=== PATIENT | female | born 1950 | race Caucasian/White ===

== ENCOUNTER → 2016-09-19 | Outpatient (CLI) | payer MEDICARE ==
--- NOTE | 2016-09-19 13:49 | BD ---
EXAMINATION TYPE: MG DEXA axial skeleton. DATE OF EXAM: 09/19/2016 COMPARISON: Previous study dated 07/21/2014. CLINICAL HISTORY: Postmenopausal female Height: 5 FT 1 IN Weight: 180 FRAX RISK QUESTIONS: Alcohol (3 or more units per day): NO Family History (Parent hip fracture): NO Glucocorticoids (More than 3mos): NO (Ex: prednisone, prednisolone, methylprednisolone, dexamethasone, and hydrocortisone). History of Fracture in Adulthood: YES Secondary Osteoporosis: 1. Type 1 Diabetes: NO 2. Hyperthyroidism: NO 3. Menopause before 45: NO 4. Malnutrition: NO 5. Chronic liver disease: NO Rheumatoid Arthritis: NO Current Tobacco Use: NO RISK FACTORS HISTORY OF: Family History of Osteoporosis: NO Active: YES Postmenopausal woman: AGE 48 MEDICATIONS: Prednisone or other steroids: How Long: Thyroid Medications: Which medication: How Long: Osteoporosis Medications: Which medication: How Long: Additional Medications: METROPROLOL, ISOSORB MONO, HYDTLAZINE, LASIX, ALDACTONE, SIMVASTATIN, OMEPRAZ OLE, GLUCOPHAGE, ASPIRIN, NEURONTIN,CALCIUM EXAM MEASUREMENTS: Bone mineral densitometry was performed using the Gaikai System. Bone mineral density as measured about the Lumbar spine is: ----- L1-L4(G/cm2): 1.156 T Score Values are as follows: ----- L2: -0.4 ----- L3: 0.5 ----- L4: -0.7 ----- L1-L4: -0.2 Bone mineral density has: Decreased -0.3% since study of: 2014 Bone mineral density about the R hip (g/cm2): 0.892 Bone mineral density about the L hip (g/cm2): 0.917 T Score values are as follows: -----R Neck: -1.1 -----L Neck: -0.9 -----R Total: 0.1 -----L Total: 0.2 Bone mineral density has: Decreased -0.8% since study of: 2014 IMPRESSION: OSTEOPENIA. NOTE: T-SCORE=SD OF THE YOUNG ADULT MEAN.
--- NOTE | 2016-09-20 14:08 | MM ---
Reason for exam: screening (asymptomatic). Last mammogram was performed 1 year ago. History: Patient is postmenopausal. Physical Findings: A clinical breast exam by your physician is recommended on an annual basis and results should be correlated with mammographic findings. MG 3D Screening Mammo W/Cad Bilateral CC and MLO view(s) were taken. Prior study comparison: September 19, 2015, bilateral MG 3d screening mammo w/cad. August 10, 2014, bilateral MG screening mammo w CAD. The breast tissue is almost entirely fat. There is chronic nodularity in the left breast. No significant changes when compared with prior studies. ASSESSMENT: Benign, BI-RAD 2 RECOMMENDATION: Routine screening mammogram of both breasts in 1 year.
== END | disposition home or self-care (01) ==
LOC: RADMAMWWP 08:51
PROVIDERS: ATTEND Internal Medicine Geriatric Medicine
DX: Z12.31 Encounter for screening mammogram for malignant neoplasm of breast (principal); M85.80 Other specified disorders of bone density and structure, unspecified site
CPT/HCPCS: 77080; 77063; G0202

== ENCOUNTER 2016-10-17 07:20 | Day surgery (SDC) | payer MEDICARE ==
[2016-10-12 10:21] VITALS: BMI 34.0
[~2016-10-17 07:20] MED LIST: LIDOCAINE 1% 20 ML VIAL (10MG/ML) FOR IV START INTRADERMA PRN
[2016-10-17 07:49] VITALS: RESP 18; TEMP 98.1
[2016-10-17] MEDS: LACTATED RINGERS 1,000 ML IV SCH ×2 (07:58→08:03)
[2016-10-17 08:00] LABS: Glucose,Whole Blood 149 mg/dL (75-99)
--- NOTE | 2016-10-17 08:24 | P.PCN ---
Date of Procedure: 10/17/16 Preoperative Diagnosis: Postoperative Diagnosis: Procedure(s) Performed: Brief history: Patient is a pleasant 66-year-old white female, scheduled for an elective upper endoscopy as well as colonoscopy as a part of evaluation of worsening history of gastroesophageal reflux symptoms and prior history of colon polyps. She is presently on omeprazole 20 mg daily and doing well. Procedure performed: Esophagogastroduodenoscopy with biopsy Colonoscopy with snare polypectomy Preoperative diagnosis: GERD History of colon polyps Anesthesia: MAC Procedure: After informed consent was obtained from the patient was brought into the endoscopy unit and IV sedation was administered by anesthesia under continuous monitoring. Initially upper endoscopy was done. The Olympus GF 160 video endoscope was inserted inserted into the mouth and esophagus intubated without any difficulty and was gradually advanced into the stomach and duodenum and carefully examined. The bulb and second part of the duodenum appeared normal. The scope was then withdrawn into the stomach adequately insufflated with air and upon careful examination the antrum and body, cardia and fundus appeared normal. The scope was then withdrawn into the esophagus. The GE junction was located at 40 cm to the incisors. Small hiatal hernia noted. It appeared regular with no erythema erosions or ulcerations. There was a 2 mm island of Campos's appearing mucosa just proximal to the GE junction and this was biopsied. Rest of the esophagus appeared normal. Patient tolerated the procedure well. At this time the patient continued to remain sedation. Initial digital rectal examination was normal. Olympus CF 160 video colonoscope was then inserted into the rectum and gradually advanced to the cecum without any difficulty. Careful examination was performed as the scope was gradually being withdrawn. The prep was excellent. In the base of the cecum there was a 1 m polyp that was removed by snare polypectomy. The cecum, ascending colon, transverse colon , descending colon, sigmoid colon and rectum appeared normal. Retroflexion was performed in the rectum and no lesions were noted. Patient tolerated the procedure well. Impression: 1. Upper endoscopy revealed small hiatal hernia and a short segment Campos's esophagus 2. Colonoscopy revealed 1 cm cecal polyp serous was snare polypectomy. Rest of the colon appeared normal. Recommendations: Findings of this examination were discussed with the patient as well as her family. She was advised to follow with the biopsy results. She will continue with Prilosec 20 mg daily and follow antireflux measures. If the biopsy of the colon polyp shows tubular adenoma, she can have a repeat colonoscopy in 5 years Implants: Indications for Procedure: Operative Findings: Description of Procedure:
[2016-10-17 09:00] VITALS: BP 108/55; PULSE 58
[2016-10-17] MEDS ORDERED: LIDOCAINE 1% INJ 10MG/ML (20 ML MDV) ONE (09:04)
[2016-10-17] MEDS ORDERED: PROPOFOL 10 MG/ML 20 ML VIAL IV ONE (09:04)
== END 2016-10-17 09:03 | disposition home or self-care (01) ==
LOC: ORWHC2ENDO 07:20
PROVIDERS: ATTEND Internal Medicine Gastroenterology
DX: Z12.11 Encounter for screening for malignant neoplasm of colon (principal); D12.0 Benign neoplasm of cecum; K21.0 Gastro-esophageal reflux disease with esophagitis; K22.70 Barrett's esophagus without dysplasia; K44.9 Diaphragmatic hernia without obstruction or gangrene; Z86.010 Personal history of colon polyps; I10 Essential (primary) hypertension; G47.33 Obstructive sleep apnea (adult) (pediatric); E11.9 Type 2 diabetes mellitus without complications; Z79.82 Long term (current) use of aspirin; Z79.84 Long term (current) use of oral hypoglycemic drugs; Z79.899 Other long term (current) drug therapy; Z88.1 Allergy status to other antibiotic agents; Z88.0 Allergy status to penicillin; Z88.2 Allergy status to sulfonamides
CPT/HCPCS: 88305; 45385; 43239; J2001; J2704

== ENCOUNTER → 2016-12-27 | Outpatient (CLI) | payer MEDICARE ==
--- NOTE | 2016-12-31 07:59 | USB ---
Reason for exam: clinical finding. History: Patient is postmenopausal. Indicated problem(s): pain in the left breast. Physical Findings: Nurse Summary: Patient complains of left breast pain x 3 months (nurse irena). US Breast LT Left breast ultrasound includes all four quadrants, the retroareolar region and axilla. Finding demonstrates a 0.2 x 0.2 x 0.2cm cystic lesion at 2 o'clock, stable from 12/18/10. No other solid or cystic lesions. These results were verbally communicated with the patient and result sheet given to the patient on 12/27/16. ASSESSMENT: Benign, BI-RAD 2 RECOMMENDATION: Return to routine screening mammogram schedule for both breasts. Back on schedule for August 2017. Manage on a clinical basis with regard to left breast pain.
== END | disposition home or self-care (01) ==
LOC: RADUSWWP 14:55
PROVIDERS: ATTEND Internal Medicine Geriatric Medicine
DX: N64.4 Mastodynia (principal)

== ENCOUNTER → 2018-01-03 | Outpatient (CLI) | payer MEDICARE ==
--- NOTE | 2018-01-07 09:43 | MM ---
Reason for exam: screening (asymptomatic). Last mammogram was performed 1 year and 3 months ago. History: Patient is postmenopausal. Physical Findings: A clinical breast exam by your physician is recommended on an annual basis and results should be correlated with mammographic findings. MG 3D Screening Mammo W/Cad Bilateral CC and MLO view(s) were taken. Prior study comparison: September 19, 2016, bilateral MG 3d screening mammo w/cad. September 19, 2015, bilateral MG 3d screening mammo w/cad. The breast tissue is almost entirely fat. No significant changes when compared with prior studies. ASSESSMENT: Negative, BI-RAD 1 RECOMMENDATION: Routine screening mammogram of both breasts in 1 year.
== END | disposition home or self-care (01) ==
LOC: RADMAMWWP 09:40
PROVIDERS: ATTEND Internal Medicine Geriatric Medicine
DX: Z12.31 Encounter for screening mammogram for malignant neoplasm of breast (principal)
CPT/HCPCS: 77063; 77067

== ENCOUNTER → 2018-05-27 | Outpatient (CLI) | payer MEDICARE ==
--- NOTE | 2018-05-27 12:09 | CT ---
EXAMINATION TYPE: CT brain wo con DATE OF EXAM: 05/27/2018 HISTORY: Fall in January 2018. Headache since CT DLP: 1125 mGycm. Automated Exposure Control for Dose Reduction was Utilized. TECHNIQUE: CT scan of the head is performed without contrast. COMPARISON: None. FINDINGS: There is no acute intracranial hemorrhage or midline shift identified. There is diffuse v entricular and sulcal prominence consistent with diffuse age-related cerebral atrophy. There is low- attenuation in the periventricular white matter consistent with chronic small vessel ischemic change. The globes are intact and the visualized sinuses are clear. Vascular calcification distal internal carotid arteries bilaterally is incidentally seen. The calvarium is intact. IMPRESSION: No acute intracranial hemorrhage or midline shift. There is mild diffuse age-related ce rebral atrophy and chronic small vessel ischemic change incidentally noted.
== END ==
LOC: RADCTMAIN 11:17
PROVIDERS: ATTEND Internal Medicine Geriatric Medicine
DX: R51 Headache (principal)
CPT/HCPCS: 70450

== ENCOUNTER → 2018-06-24 | Outpatient (CLI) | payer MEDICARE ==
[2018-06-24 16:24] LABS: Albumin 4.3 g/dL (3.80-4.90); Albumin/Globulin Ratio 2.15 (1.60-3.17); Anion Gap 10.7 mmol/L (4.00-12.00); Calcium 9.5 mg/dL (8.7-10.3); Carbon Dioxide 25.3 mmol/L (21.6-31.8); LDL Cholesterol,Calculated 61.6 mg/dL (0.0-131.0); Total Bilirubin 0.7 mg/dL (0.2-1.2); Total Protein 6.3 g/dL (6.2-8.2); VLDL Calculation 26.4 mg/dL (5.00-40.00)
== END | disposition home or self-care (01) ==
LOC: LABWHC1 08:23
PROVIDERS: ATTEND Internal Medicine Interventional Cardiology
DX: E78.2 Mixed hyperlipidemia (principal)
CPT/HCPCS: 36415; 80053; 80061

== ENCOUNTER 2018-07-02 06:10 | Inpatient (IN) | payer MEDICARE ==
[~2018-07-02 06:10] MED LIST changes: +ALPRAZolam 0.25 MG TAB PO PRN; +ALPRAZolam 0.5 MG TAB PO PRN; +ASPIRIN 325 MG TAB PO STA; +ATORVASTATIN 80 MG TAB PO STA; -LIDOCAINE 1% 20 ML VIAL (10MG/ML) FOR IV START INTRADERMA PRN; +NITROGLYCERIN SL TABS 0.4 MG TAB SUBLINGUAL PRN; +SODIUM CHLORIDE 0.9% 1,000 ML in EMPTY BAG 1 BAG IV ONE
[2018-07-02 07:14] LABS: Glucose,Whole Blood 173 mg/dL (75-99)
[2018-07-02] MEDS ORDERED: VERAPAMIL 2.5 MG/ML 2 ML AMP ONE (07:17)
[2018-07-02] MEDS ORDERED: LIDOCAINE 1% INJ 10MG/ML (20 ML MDV) ONE (07:17)
[2018-07-02] MEDS ORDERED: HEPARIN SODIUM 1,000 UN/ML (10ML VL) ONE (07:27)
[2018-07-02] MEDS ORDERED: fentaNYL (PF) 50 MCG/ML 2 ML AMP ONE (07:28)
[2018-07-02 07:29] LABS: Basophils # (A) 0.1 k/uL (0-0.2); Basophils % (A) 1 %; Eosinophils # (A) 0.3 k/uL (0-0.7); Eosinophils % (A) 4 %; HCT 38.7 % (34.0-46.0); HGB 13.6 gm/dL (11.4-16.0); Lymphocytes # (A) 1.3 k/uL (1.0-4.8); Lymphocytes % (A) 18 %; MCH 28.2 pg (25.0-35.0); MCHC 35.1 g/dL (31.0-37.0); MCV 80.3 fL (80.0-100.0); Mean Platelet Volume 7.5; Monocytes # (A) 0.5 k/uL (0-1.0); Monocytes % (A) 6 %; Neutrophils # (A) 4.8 k/uL (1.3-7.7); Neutrophils % (A) 69 %; Platelet Count 175 k/uL (150-450); RBC 4.81 m/uL (3.80-5.40); RDW 14.1 % (11.5-15.5)
[2018-07-02] MEDS ORDERED: fentaNYL (PF) 50 MCG/ML 2 ML AMP IVP ONE ×2 (08:00→19:26)
[2018-07-02] MEDS ORDERED: LIDOCAINE 1% INJ 10MG/ML (20 ML MDV) SQ ONE (08:01)
[2018-07-02] MEDS ORDERED: VERAPAMIL SYRINGE (5 MG/10 ML) INTRAARTER ONE (08:03)
[2018-07-02] MEDS ORDERED: IOPAMIDOL-370 50ML BTL INJ ONE (08:16)
[2018-07-02] MEDS ORDERED: RX INFO: IV CONTRAST WAS GIVEN 1 EACH MISC MISCELLANE PRN (08:34)
[2018-07-02] MEDS ORDERED: HEPARIN SODIUM,PORCINE 5,000 UNIT/ML 1 ML VIAL IV PRN (08:36)
[2018-07-02] MEDS ORDERED: SODIUM CHLORIDE 0.9% 1,000 ML IV SCH (08:45)
[2018-07-02] MEDS ORDERED: MD COMMUNICATION TO PHARMACY 1 EACH MISC PO ONE (09:29)
--- NOTE | 2018-07-02 10:03 | XR ---
EXAMINATION TYPE: XR chest 2V DATE OF EXAM: 07/02/2018 COMPARISON: Chest x-ray April 05, 2010. HISTORY: Pre open cardiac surgery. TECHNIQUE: Frontal and lateral views of the chest are obtained. FINDINGS: Overlying EKG leads are seen on current study. There is no focal air space opacity, pleura l effusion, or pneumothorax seen. The cardiac silhouette size remains upper limits of normal with at herosclerotic change in aortic knob. The osseous structures are intact. Cholecystectomy clips are r edemonstrated. IMPRESSION: No suspicious acute process. No significant change from prior.
--- NOTE | 2018-07-02 10:44 | P.GSCN ---
<Shirley Tracey - Last Filed: 07/02/18 15:54> History of Present Illness Consult date: 07/02/18 Reason for Consult: Coronary artery disease with left main disease, surgical recommendations Requesting physician: Melchor Love History of present illness: This is a 68-year-old female who follows on an outpatient basis with Dr. Baptiste. She has a previous medical history of coronary artery disease with heart catheterization in 2006 and no intervention, hypertension, hyperlipidemia, nwa-gjhzzwj-rjrnqevye diabetes mellitus, obstructive sleep apnea without consistent CPAP use, family history of premature coronary artery disease with father from myocardial infarction at 54 years old, never smoker, obesity, and questionable kidney disease. Apparently she has had progressive fatigue and chest discomfort with shortness of breath with physical activity over the previous 2 months. Her chest discomfort and shortness of breath are relieved with rest. She denies dizziness, orthopnea, paroxysmal nocturnal dyspnea, stroke like symptoms, or sick contacts. She does complain of occasional lower extremity edema as well as heart palpitations. She had a routine stress test scheduled which she gets every [address] Love's office which was completed on June 17 and which demonstrated reversible anterior apical wall defect. In addition she had a transthoracic echocardiogram on June 11 demonstrating normal systolic function with ejection fraction 55%, no regional wall motion abnormalities, moderate mitral valve regurgitation, and mild tricuspid regurgitation. Carotid Dopplers were completed in Dr. Love's office demonstrating bilateral 50-79% internal carotid artery stenosis. She was recommended to undergo heart catheterization which was completed today and which demonstrated 60% left main stenosis, mid LAD stenosis 40-50%, and RCA stenosis 40%. LV gram demonstrated EF 60% and normal wall motion. Due to her left main disease urgent consultation was placed for Dr. Garcia from cardiothoracic surgery. Review of Systems Review of systems was completed and was negative except as noted in the HPI Past Medical History Past Medical History: Coronary Artery Disease (CAD), Chest Pain / Angina, Diabetes Mellitus, GERD/Reflux, Hyperlipidemia, Hypertension, Osteoarthritis (OA), Sleep Apnea/CPAP/BIPAP Additional Past Medical History / Comment(s): heart murmer, palpitations, no cpap used, hiatal hernia, "low kidney function" History of Any Multi-Drug Resistant Organisms: None Reported Past Surgical History: Adenoidectomy, Appendectomy, Cholecystectomy, Heart Catheterization, Hysterectomy, Tonsillectomy Additional Past Surgical History / Comment(s): COLONOSCOPY, heart catheterization in 2006 without intervention Past Anesthesia/Blood Transfusion Reactions: Previous Problems w/ Anesthesia Additional Past Anesthesia/Blood Transfusion Reaction / Comm: SLOW TO WAKE UP Past Psychological History: No Psychological Hx Reported Smoking Status: Never smoker Past Alcohol Use History: None Reported Past Drug Use History: None Reported - Past Family History Sister(s) Family Medical History: Cancer Father Family Medical History: Coronary Artery Disease (CAD) Additional Family Medical History / Comment(s): Father of myocardial infarction at 54 years old Mother Family Medical History: Congestive Heart Failure (CHF) Medications and Allergies Home Medications Medication Instructions Recorded Confirmed Type Aspirin EC [Ecotrin Low Dose] 81 mg PO DAILY 10/12/16 07/02/18 History Furosemide [Lasix] 20 mg PO DAILY 10/12/16 07/02/18 History Gabapentin [Neurontin] 300 mg PO BID 10/12/16 07/02/18 History Isosorbide Mononitrate [Isosorbide 30 mg PO DAILY 10/12/16 07/02/18 History Mononitrate ER] Metoprolol Tartrate [Lopressor] 50 mg PO BID 10/12/16 07/02/18 History Multivitamins, Thera [Multivitamin 1 each PO DAILY 10/12/16 07/02/18 History (formulary)] Omeprazole 20 mg PO BID 10/12/16 07/02/18 History Spironolactone [Aldactone] 25 mg PO DAILY 10/12/16 07/02/18 History hydrALAZINE HCL [Hydralazine HCl] 50 mg PO BID 10/12/16 07/02/18 History metFORMIN HCL [Glucophage] 500 mg PO BID 10/12/16 07/02/18 History Cyanocobalamin [Vitamin B-12] 500 mcg PO DAILY 06/27/18 07/02/18 History Simvastatin [Zocor] 40 mg PO HS 06/27/18 07/02/18 History Allergies Allergy/AdvReac Type Severity Reaction Status Date / Time Penicillins Allergy Anaphylaxis Verified 07/02/18 06:53 sulfamethoxazole Allergy Nausea Verified 07/02/18 06:53 [From Bactrim] trimethoprim [From Bactrim] Allergy Nausea Verified 07/02/18 06:53 Surgical - Exam Vital Signs Temp Pulse Resp BP Pulse Ox 98 F 65 18 128/74 97 07/02/18 07:08 07/02/18 07:08 07/02/18 07:08 07/02/18 07:08 07/02/18 07:08 - General well developed, well nourished, no distress, no pain, obese - Eyes Right eye deviation PERRL - ENT no hearing loss - Neck no masses, no bruits, trachea midline - Respiratory Lungs sounds clear bilaterally. Respirations even, nonlabored. Currently on ro om air with oxygen saturation 94%. No chest wall deformities. - Cardiovascular S1, S2 present. Regular rate and rhythm, sinus rhythm with occasional PVCs on telemetry. Palpable peripheral pulses bilaterally. Bilateral lower extremity 1+ edema present. No calf pain or tenderness noted. No varicosities noted. Right radial heart catheterization site intact with T band in place. - Abdomen No organomegaly Abdomen: soft, non tender, bowel sounds - Genitourinary Deferred - Rectum Deferred - Integumentary no rash, no growths, no abnormal pigmentation - Neurologic normal coordination, normal sensation - Musculoskeletal normal posture - Psychiatric oriented to time, oriented to person, oriented to place, speech is normal, memory intact Results - Labs 07/02/18 07:00 Abnormal Lab Results - Last 24 Hours (Table) 07/02/18 Range/Units 07:05 POC Glucose (mg/dL) 173 H (75-99) mg/dL - Imaging Chest x-ray: report reviewed, image reviewed Additional studies: Heart catheterization films reviewed Assessment and Plan Assessment: 1. Coronary artery disease with left main disease 2. Moderate mitral regurgitation 3. Bilateral internal carotid artery stenosis 50-79% 4. History of CAD, heart catheterization in 2006 without intervention 5. Hypertension, treated 6. Hyperlipidemia, treated 7. Luy-kvnbwpk-yogugpicf diabetes mellitus 8. Obstructive sleep apnea without consistent CPAP use 9. Family history of premature coronary artery disease 10. Never smoker 11. Obesity 12. Questionable kidney disease per patient Plan: The patient was seen and examined in the extended stay unit. Chart/diagnostics were reviewed including heart catheterization films. Reports were obtained from [facility] for patient's transthoracic echocardiogram, stress test, and carotid duplex studies. Patient is in no acute distress, denies any chest pain or discomfort currently. The usual perioperative course was discussed in detail with the patient and her daughter, risks and benefits were discussed, all questions were answered to the best of my ability. Preoperative testing was initiated. We recommend continuing aspirin, statin, beta maria l therapy. We will calculate STS risk score and discuss with the patient. 5 m walk test will be completed. Case discussed with Drs. Garcia and Gregorio. She will be seen by a cardiothoracic surgeon today for further discussion regarding timing of surgery. Continue medical management per Dr. Love and Dr. Baptiste. More recommendations to follow. Thank you Dr. Love for this consult. We look forward to working with you in the care of your patient. Time with Patient: Greater than 30 <Hosea Garcia - Last Filed: 07/02/18 19:38> Surgical - Exam Vital Signs Temp Pulse Resp BP Pulse Ox 98 F 65 18 128/74 97 07/02/18 07:08 07/02/18 07:08 07/02/18 07:08 07/02/18 07:08 07/02/18 07:08 Results - Labs 07/02/18 10:17 07/02/18 10:17 Abnormal Lab Results - Last 24 Hours (Table) 07/02/18 07/02/18 07/02/18 Range/Units 07:05 10:17 10:17 Plt Count 149 L (150-450) k/uL APTT (22.0-30.0) sec Sodium (137-145) mmol/L Glucose (74-99) mg/dL POC Glucose (mg/dL) 173 H (75-99) mg/dL Hemoglobin A1c 6.2 H (4.0-6.0) % Crossmatch 07/02/18 07/02/18 07/02/18 Range/Units 10:17 10:17 10:17 Plt Count (150-450) k/uL APTT 58.6 H (22.0-30.0) sec Sodium 135 L (137-145) mmol/L Glucose 166 H (74-99) mg/dL POC Glucose (mg/dL) (75-99) mg/dL Hemoglobin A1c (4.0-6.0) % Crossmatch See Detail 07/02/18 07/02/18 07/02/18 Range/Units 10:59 18:33 18:51 Plt Count (150-450) k/uL APTT 50.1 H (22.0-30.0) sec Sodium (137-145) mmol/L Glucose (74-99) mg/dL POC Glucose (mg/dL) 172 H 203 H (75-99) mg/dL Hemoglobin A1c (4.0-6.0) % Crossmatch Diabetes panel 07/02/18 07/02/18 Range/Units 10:17 10:17 Sodium 135 L (137-145) mmol/L Potassium 4.0 (3.5-5.1) mmol/L Chloride 99 (98-107) mmol/L Carbon Dioxide 27 (22-30) mmol/L BUN 13 (7-17) mg/dL Creatinine 0.70 (0.52-1.04) mg/dL Glucose 166 H (74-99) mg/dL Hemoglobin A1c 6.2 H (4.0-6.0) % Calcium 9.8 (8.4-10.2) mg/dL AST 25 (14-36) U/L ALT 35 (9-52) U/L Alkaline Phosphatase 67 (38-126) U/L Total Protein 7.3 (6.3-8.2) g/dL Albumin 4.4 (3.5-5.0) g/dL Thyroid panel 07/02/18 Range/Units 10:17 TSH 1.800 (0.465-4.680) mIU/L Calcium panel 07/02/18 Range/Units 10:17 Calcium 9.8 (8.4-10.2) mg/dL Albumin 4.4 (3.5-5.0) g/dL Pituitary panel 07/02/18 Range/Units 10:17 Sodium 135 L (137-145) mmol/L Potassium 4.0 (3.5-5.1) mmol/L Chloride 99 (98-107) mmol/L Carbon Dioxide 27 (22-30) mmol/L BUN 13 (7-17) mg/dL Creatinine 0.70 (0.52-1.04) mg/dL Glucose 166 H (74-99) mg/dL Calcium 9.8 (8.4-10.2) mg/dL TSH 1.800 (0.465-4.680) mIU/L Adrenal panel 07/02/18 Range/Units 10:17 Sodium 135 L (137-145) mmol/L Potassium 4.0 (3.5-5.1) mmol/L Chloride 99 (98-107) mmol/L Carbon Dioxide 27 (22-30) mmol/L BUN 13 (7-17) mg/dL Creatinine 0.70 (0.52-1.04) mg/dL Glucose 166 H (74-99) mg/dL Calcium 9.8 (8.4-10.2) mg/dL Total Bilirubin 1.0 (0.2-1.3) mg/dL AST 25 (14-36) U/L ALT 35 (9-52) U/L Alkaline Phosphatase 67 (38-126) U/L Total Protein 7.3 (6.3-8.2) g/dL Albumin 4.4 (3.5-5.0) g/dL Assessment and Plan Plan: The patient was seen and examined. I agree with the above assessment and plan. The patient is a 68-year-old female with a history of diabetes mellitus, hypertension, and hypercholesterolemia, who reports chest discomfort for the past several months. Stress test was performed and found to be abnormal. Cardiac catheterization did reveal a left main coronary lesion is not amenable to PCI. A coronary artery bypass was recommended. The risks, benefits, and alternatives to this procedure including but not limited to the risk of stroke, myocardial infarction, infection, need for blood transfusion, hemodialysis, and were discussed with the patient and her daughter. All of their questions were answered. The patient's preoperative workup is now complete. She is cu rrently chest pain-free and hemodynamically stable. We will plan on performing her procedure first thing in the morning. I did speak with Dr. Love who is in agreement.
--- NOTE | 2018-07-02 10:48 | CC ---
CARDIAC CATHETERIZATION REPORT Mrs. Ochoa 68-year-old female with known history of hypertension, hyperlipidemia, diabetes mellitus, who presented with symptoms of exertional chest pain and abnormal myocardial perfusion imaging. In view of that, recommendation was made regarding cardiac catheterization. The procedure as well as the risks and complications were discussed with the patient who is in full understanding and agreement. PROCEDURE: Patient was brought to the lab instructor in a fasting semi-sedated state after receiving fentanyl and Benadryl and achieving moderate conscious sedated state. Using Xylocaine anesthesia in the Seldinger technique, a 6-St Lucian sheath was introduced in the right radial artery. Selective right and left coronary angiography was performed using 3.5 bend, 5-St Lucian right and left Tab catheter. Multiple views of the coronary artery including hemiaxial views were obtained. Following that a 5-St Lucian tight pigtail catheter was introduced in the left ventricle and a 30-degree WOMACK view of the left ventricle was obtained. Following that, catheter and sheath were removed. Hemostasis was obtained with deployment of a TR band. There was no immediate complication. Patient was returned to his room in stable condition. Of note, the patient received 4500 units of intravenous heparin as well as intra-arterial verapamil. FLUOROSCOPY: There was calcification involving the left anterior descending artery and the left main as well as the proximal right coronary artery. LEFT MAIN: This is a large-sized vessel bifurcating in left circumflex, left anterior descending artery. Left main coronary artery distally at the bifurcation has a 60% plaque involving the takeoff of the LAD. LEFT ANTERIOR DESCENDING ARTERY: This is a large-sized vessel reaching to the apex with a wraparound apex segment giving rise to a moderately sized diagonal branch. The LAD in the mid segment has a plaque of 40% to 50%. The rest of the vessel has no high- grade stenosis. LEFT CIRCUMFLEX: This is a nondominant large vessel giving rise to 3 obtuse marginal branches. The third one is the largest in caliber. The left circumflex has no evidence of high-grade stenosis. RIGHT CORONARY ARTERY: This is a large dominant vessel bifurcating distally to PDA and posterolateral segment and branches. Right coronary artery in the mid segment has 40% plaque. The rest of the vessel has no high-grade stenosis. LEFT VENTRICULOGRAM: Left ventriculogram is performed in 30-degree WOMACK view and revealed normal left ventricular size and systolic function. Ejection fraction 60%. There was no significant mitral regurgitation. HEMODYNAMICS: There was no gradient across the aortic valve. The left ventricular end- diastolic pressure was 12 to 16 mmHg. CONCLUSION: 1. Significant distal left main disease involving the ostium of the LAD. 2. Moderate disease in the mid LAD and right coronary artery. 3. Calcified coronary arteries. 4. Normal left ventricular size and systolic function. RECOMMENDATION: In view of finding anatomy, I recommend proceeding with evaluation for coronary bypass grafting. The rationale behind the recommendation as well as the findings were discussed with the patient and her family and they are in full understanding and agreement. Duration of procedure is 16 minutes. MMODL / IJN: [id number] /
--- NOTE | 2018-07-02 10:56 | LTR ---
July 02, 2018 Re: Susan Ochoa Dear Dr. Baptiste: I had the opportunity to performed cardiac catheterization on Mrs. Ochoa at [facility] on the 02 of July and a full copy of the procedure note will be forwarded to you. In brief, she was found to have significant distal left main disease involving the ostium of the LAD. In view of that, I have recommended to proceed with evaluation for coronary artery bypass grafting. I will keep you updated on her progress. Thank you again for allowing me the opportunity to participate in her care. Please feel free to call for any questions. Sincerely yours, MD ANITHA AndreaL / ANTONION: [id number] /
[2018-07-02 11:01] LABS: Glucose,Whole Blood 172 mg/dL (75-99)
[2018-07-02 11:34] LABS: Partial Thromboplastin Time 58.6 sec (22.0-30.0); Prothrombin Time 10.5 sec (9.0-12.0)
[2018-07-02 11:36] LABS: Basophils % (A) 0 %; Eosinophils # (A) 0.2 k/uL (0-0.7); Eosinophils % (A) 2 %; HGB 14.1 gm/dL (11.4-16.0); Lymphocytes # (A) 1.4 k/uL (1.0-4.8); Lymphocytes % (A) 19 %; MCH 28.2 pg (25.0-35.0); MCHC 34.5 g/dL (31.0-37.0); MCV 81.8 fL (80.0-100.0); Monocytes # (A) 0.3 k/uL (0-1.0); Monocytes % (A) 4 %; Neutrophils # (A) 5.1 k/uL (1.3-7.7); Neutrophils % (A) 72 %; Platelet Count 149 k/uL (150-450); RBC 5.01 m/uL (3.80-5.40); RDW 14.7 % (11.5-15.5); WBC 7.1 k/uL (3.8-10.6)
[2018-07-02 11:38] LABS: ALT 35 U/L (9-52); AST 25 U/L (14-36); Albumin 4.4 g/dL (3.5-5.0); Alkaline Phosphatase 67 U/L (38-126); Anion Gap 9 mmol/L; Blood Urea Nitrogen 13 mg/dL (7-17); Calcium 9.8 mg/dL (8.4-10.2); Carbon Dioxide 27 mmol/L (22-30); Chloride 99 mmol/L (98-107); Glucose 166 mg/dL (74-99); Magnesium 1.9 mg/dL (1.6-2.3); Sodium 135 mmol/L (137-145); Total Protein 7.3 g/dL (6.3-8.2)
[2018-07-02] MEDS: HEPARIN SOD,PORK IN 0.45% NACL 25,000 UNIT in 0.45% NACL 1 250ML.BAG IV SCH (12:01)
[2018-07-02 15:57] LABS: Appearance,Urine Clear (Clear); Bilirubin,Urine Negative (Negative); Blood,Urine Negative (Negative); Color,Urine Light Yellow; Glucose,Urine (UA) Negative (Negative); Ketones,Urine Negative (Negative); Leukocyte Esterase,Urine Negative (Negative); Nitrite,Urine Negative (Negative); Protein,Urine Negative (Negative); Specific Gravity,Urine 1.018 (1.001-1.035); Urobilinogen,Urine <2.0 mg/dL (<2.0)
[2018-07-02 18:45] LABS: Hemoglobin A1C 6.2 % (4.0-6.0)
[2018-07-02] MEDS: CYANOCOBALAMIN 500 MCG TAB PO SCH (18:49)
[2018-07-02] MEDS: ASPIRIN 81 MG PO SCH (18:49)
[2018-07-02] MEDS: GABAPENTIN 300 MG CAP PO SCH ×2 (18:50→20:34)
[2018-07-02] MEDS: hydrALAZINE HCL 50 MG TAB PO SCH ×2 (18:50→19:31)
[2018-07-02] MEDS: ISOSORBIDE MONONITRATE ER 30 MG TAB.ER.24H PO SCH (18:50)
[2018-07-02] MEDS: METOPROLOL TARTRATE 50 MG TAB PO SCH ×2 (18:50→19:31)
[2018-07-02] MEDS: FUROSEMIDE 20 MG TAB PO SCH (18:50)
[2018-07-02] MEDS: SPIRONOLACTONE 25 MG TAB PO SCH (18:51)
[2018-07-02] MEDS: PANTOPRAZOLE 40 MG TABLET PO SCH (18:51)
[2018-07-02 18:52] LABS: Glucose,Whole Blood 203 mg/dL (75-99)
[2018-07-02 20:12] LABS: Glucose,Whole Blood 188 mg/dL (75-99)
[2018-07-02] MEDS: MUPIROCIN 2% OINT 22 GM TUBE NASAL SCH (20:34)
[2018-07-02 20:55] LABS: Hepatitis A Antibody IgM Non-Reactive (Non-Reactive); Hepatitis B Core IgM Non-Reactive (Non-Reactive)
[2018-07-02] MEDS ORDERED: ATORVASTATIN 20 MG TAB PO SCH (21:00)
[2018-07-02 21:32] LABS: Glucose,Whole Blood 147 mg/dL (75-99)
[2018-07-02] MEDS: INSULIN ASPART (NovoLOG) 100 UNIT/ML VIAL SQ SCH (21:59)
[2018-07-02 22:28] LABS: HCT 39.6 % (34.0-46.0); HGB 12.9 gm/dL (11.4-16.0); MCH 27.6 pg (25.0-35.0); MCHC 32.5 g/dL (31.0-37.0); Mean Platelet Volume 7.5; Platelet Count 168 k/uL (150-450); RBC 4.66 m/uL (3.80-5.40); RDW 14.2 % (11.5-15.5); WBC 7.6 k/uL (3.8-10.6)
[2018-07-03] MEDS ORDERED: PAPAVERINE 360 MG in SODIUM CHLORIDE 0.9% 90 ML IV ONE (05:00)
[2018-07-03] MEDS ORDERED: MAGNESIUM SULFATE SYG 4.06 MEQ/ML SYRINGE IV ONE (05:00)
[2018-07-03] MEDS ORDERED: DEXTROSE 5% IN WATER 1,000 ML with POTASSIUM CHLORIDE 110 MEQ, MAGNESIUM SULFATE 16 MEQ... IV SCH ×5 (05:00)
[2018-07-03] MEDS ORDERED: METOPROLOL TARTRATE 12.5 MG TAB PO ONE (05:00)
[2018-07-03] MEDS ORDERED: PROPOFOL 1,000 MG in EMPTY BAG 1 BAG IV PRN (05:00)
[2018-07-03] MEDS ORDERED: PHENYLEPHRINE 10 MG/ML VIAL IV ONE (05:00)
[2018-07-03] MEDS ORDERED: VANCOMYCIN 1,000 MG in SODIUM CHLORIDE 0.9% IRRIGATIO 1,000 ML IRRIGATION ONE (05:00)
[2018-07-03] MEDS ORDERED: HEPARIN SODIUM,PORCINE 5,000 UNIT in SODIUM CHLORIDE 0.9% 500 ML 500 ML IV ONE (05:00)
[2018-07-03] MEDS ORDERED: VANCOMYCIN 1,250 MG in SODIUM CHLORIDE 0.9% 250 ML IVPB ONE (05:00)
[2018-07-03] MEDS ORDERED: INSULIN REGULAR 100 UNIT in SODIUM CHLORIDE 0.9% 100 ML IV SCH (05:00)
[2018-07-03] MEDS ORDERED: CALCIUM CHLORIDE 100 MG/ML 10 ML SYRINGE IVP ONE (05:00)
[2018-07-03] MEDS ORDERED: NITROGLYCERIN-D5W PMX 25 MG/250 ML BTL IV ONE (05:00)
[2018-07-03] MEDS ORDERED: PHENYLEPHRINE 40 MG in SODIUM CHLORIDE 0.9% 250 ML IV ONE (05:00)
[2018-07-03] MEDS ORDERED: ALBUMIN HUMAN 5% 500 ML in EMPTY BAG 1 BAG IVPB ONE ×6 (05:00)
[2018-07-03] MEDS ORDERED: NITROGLYCERIN-D5W PMX 50 MG in DEXTROSE/WATER 1 250ML.BAG IV SCH ×2 (05:00→15:15)
[2018-07-03] MEDS ORDERED: ALBUMIN HUMAN 25% 50 ML in EMPTY BAG 1 BAG IVPB ONE (05:00)
[2018-07-03] MEDS ORDERED: NOREPINEPHRINE 4 MG in SODIUM CHLORIDE 0.9% 250 ML IV SCH (05:00)
[2018-07-03] MEDS ORDERED: CHLORHEXIDINE GLUCONATE 15 ML CUP MUCOUS MEM ONE (05:00)
[2018-07-03] MEDS ORDERED: DEXTROSE 5% IN WATER 1,000 ML with POTASSIUM CHLORIDE 25 MEQ, SODIUM CHLORIDE 2.5MEQ/ML... IV SCH ×6 (05:00)
[2018-07-03] MEDS ORDERED: TRANEXAMIC ACID 2,000 MG in SODIUM CHLORIDE 0.9% 80 ML IV ONE (05:00)
[2018-07-03] MEDS ORDERED: LACTATED RINGERS 1,000 ML IV SCH ×2 (05:00→13:28)
[2018-07-03] MEDS ORDERED: CLEVIDIPINE BUTYRATE 25 MG in EMPTY BAG 1 BAG IV SCH (05:00)
[2018-07-03] MEDS ORDERED: MANNITOL 25% 12.5 GM/50 ML VIAL IV ONE ×2 (05:00)
[2018-07-03] MEDS ORDERED: PROTAMINE SULFATE 10 MG/ML 25 ML VIAL IV ONE ×2 (05:00→08:00)
[2018-07-03] MEDS ORDERED: HEPARIN SODIUM 1,000 UN/ML (10ML VL) IV ONE (05:00)
[2018-07-03] MEDS ORDERED: ASPIRIN 325 MG TAB PO ONE (05:00)
[2018-07-03] MEDS ORDERED: ATORVASTATIN 10 MG TAB PO ONE (05:00)
[2018-07-03] MEDS ORDERED: SODIUM BICARB 8.4% 50 ML SYR (1 MEQ/ML) IV ONE (05:00)
[2018-07-03] MEDS ORDERED: PROTAMINE SULFATE 250 MG in EMPTY BAG 1 BAG IV ONE (05:00)
[2018-07-03 06:12] LABS: Basophils % (A) 0 %; Eosinophils # (A) 0.3 k/uL (0-0.7); Eosinophils % (A) 4 %; HCT 38.6 % (34.0-46.0); HGB 12.7 gm/dL (11.4-16.0); Lymphocytes # (A) 1.7 k/uL (1.0-4.8); Lymphocytes % (A) 26 %; MCH 28.1 pg (25.0-35.0); MCHC 32.9 g/dL (31.0-37.0); MCV 85.4 fL (80.0-100.0); Mean Platelet Volume 7.1; Monocytes # (A) 0.3 k/uL (0-1.0); Monocytes % (A) 4 %; Neutrophils # (A) 4.1 k/uL (1.3-7.7); Neutrophils % (A) 63 %; Platelet Count 149 k/uL (150-450); RBC 4.53 m/uL (3.80-5.40); RDW 14.2 % (11.5-15.5); WBC 6.5 k/uL (3.8-10.6)
[2018-07-03 06:32] LABS: Anion Gap 9 mmol/L; Blood Urea Nitrogen 12 mg/dL (7-17); Calcium 9.3 mg/dL (8.4-10.2); Carbon Dioxide 24 mmol/L (22-30); Chloride 104 mmol/L (98-107); Glucose 146 mg/dL (74-99); Potassium 4.3 mmol/L (3.5-5.1); Sodium 137 mmol/L (137-145)
[2018-07-03] MEDS ORDERED: MAGNESIUM SULFATE 4 MEQ/ML 10ML VIAL ONE (08:00)
[2018-07-03] MEDS ORDERED: SUCCINYLCHOLINE CHLORIDE 100 MG/5 ML SYR IV ONE (08:00)
[2018-07-03] MEDS ORDERED: HEPARIN SODIUM,PORCINE 10,000 UNIT/ML 1 ML VIAL ONE (08:00)
[2018-07-03] MEDS ORDERED: fentaNYL (PF) 50 MCG/ML 2 ML AMP ONE (08:00)
[2018-07-03] MEDS ORDERED: PROPOFOL 10 MG/ML 20 ML VIAL IV ONE (08:00)
[2018-07-03] MEDS ORDERED: ePHEDrine SULFATE/0.9% NACL/PF 50 MG/5 ML SYRINGE IV ONE (08:00)
[2018-07-03] MEDS ORDERED: MIDAZOLAM 2 MG/2 ML VIAL ONE (08:00)
[2018-07-03] MEDS ORDERED: VECURONIUM 10 MG VIAL IV ONE (08:00)
[2018-07-03] MEDS ORDERED: LIDOCAINE 2% SYG (PF) 100 MG/5 ML ONE (08:00)
[2018-07-03] MEDS ORDERED: SODIUM CHLORIDE 0.9% 250 ML BAG ONE (08:00)
[2018-07-03] MEDS ORDERED: TRANEXAMIC ACID 1,000 MG/10 ML VIAL ONE (08:00)
[2018-07-03] MEDS ORDERED: fentaNYL (PF) 50 MCG/ML 50 ML VIAL ONE (08:00)
[2018-07-03] MEDS ORDERED: PHENYLEPHRINE-0.9% NACL SYG 1 MG/10 ML SYRINGE ONE (08:00)
[2018-07-03 08:44] LABS: ABG Base Excess 0.2 mmol/L; ABG HCO3 24 mmol/L (21-25); ABG Oxygen Saturation 99.9 % (94-97); ABG PCO2 33 mmHg (35-45); ABG PH 7.46 (7.35-7.45); ABG PO2 168 mmHg (83-108); ABG Potassium Whole Blood 4.2 mmol/L (3.4-4.5); ABG Sodium Whole Blood 135 mmol/L (135-146); ABG TCO2 25 mmol/L (19-24)
[2018-07-03 09:57] LABS: ABG Base Excess -1.8 mmol/L; ABG HCO3 24 mmol/L (21-25); ABG Oxygen Saturation 99.6 % (94-97); ABG PCO2 42 mmHg (35-45); ABG PH 7.36 (7.35-7.45); ABG PO2 154 mmHg (83-108); ABG Potassium Whole Blood 4.1 mmol/L (3.4-4.5); ABG Sodium Whole Blood 136 mmol/L (135-146); ABG TCO2 25 mmol/L (19-24)
[2018-07-03 10:42] LABS: ABG Base Excess -1.2 mmol/L; ABG HCO3 23 mmol/L (21-25); ABG PCO2 37 mmHg (35-45); ABG PH 7.41 (7.35-7.45); ABG Potassium Whole Blood 5.5 mmol/L (3.4-4.5); ABG Sodium Whole Blood 129 mmol/L (135-146); ABG TCO2 25 mmol/L (19-24)
[2018-07-03 11:11] LABS: ABG Base Excess -1.4 mmol/L; ABG HCO3 23 mmol/L (21-25); ABG PCO2 36 mmHg (35-45); ABG PH 7.41 (7.35-7.45); ABG PO2 333 mmHg (83-108); ABG Potassium Whole Blood 4.6 mmol/L (3.4-4.5); ABG Sodium Whole Blood 132 mmol/L (135-146); ABG TCO2 24 mmol/L (19-24)
[2018-07-03 12:35] LABS: ABG Base Excess -1.8 mmol/L; ABG HCO3 23 mmol/L (21-25); ABG PCO2 38 mmHg (35-45); ABG PH 7.39 (7.35-7.45); ABG PO2 394 mmHg (83-108); ABG Potassium Whole Blood 4.1 mmol/L (3.4-4.5); ABG Sodium Whole Blood 134 mmol/L (135-146); ABG TCO2 24 mmol/L (19-24)
[2018-07-03 13:10] LABS: ABG PO2 >420 mmHg (83-108)
[2018-07-03] MEDS ORDERED: Phosphorus Replacement Protoco 1 EACH MISC MISCELLANE PRN ×2 (13:28→20:36)
[2018-07-03] MEDS ORDERED: AMIODARONE 360 MG in DEXTROSE 5% IN WATER 200 ML IV PRN ×2 (13:28)
[2018-07-03] MEDS ORDERED: AMIODARONE 300 MG in DEXTROSE 5% IN WATER 250 ML IV PRN ×4 (13:28→20:36)
[2018-07-03] MEDS ORDERED: BENZOCAINE/MENTHOL LOZENG 1 EACH LOZENGE MUCOUS MEM PRN ×2 (13:28→20:36)
[2018-07-03] MEDS ORDERED: PROPOFOL 1,000 MG in EMPTY BAG 1 BAG IV SCH (13:28)
[2018-07-03] MEDS ORDERED: METOCLOPRAMIDE 5 MG/ML 2 ML VIAL IVP PRN ×2 (13:28→20:36)
[2018-07-03] MEDS ORDERED: VANCOMYCIN IV PER PHARMACY 1 EACH MISC MISCELLANE PRN (13:28)
[2018-07-03] MEDS ORDERED: Magnesium Replacement Protocol 1 EACH MISC MISCELLANE PRN ×2 (13:28→20:36)
[2018-07-03] MEDS ORDERED: CALCIUM CHLORIDE 1,000 MG in SODIUM CHLORIDE 0.9% 100 ML IV PRN ×2 (13:28→20:36)
[2018-07-03] MEDS ORDERED: IPRATROPIUM-ALBUTEROL 3 ML NEB INHALATION PRN ×2 (13:28→20:36)
[2018-07-03] MEDS ORDERED: DEXTROSE 5% IN WATER 100 ML with AMIODARONE 150 MG IV PRN (13:28)
[2018-07-03] MEDS ORDERED: ONDANSETRON 4 MG/2 ML VIAL IVP PRN ×2 (13:28→20:36)
[2018-07-03] MEDS ORDERED: Potassium Replacement Protocol 1 EACH MISC MISCELLANE PRN ×2 (13:28→20:36)
[2018-07-03 13:48] LABS: Glucose,Whole Blood 144 mg/dL (75-99)
--- NOTE | 2018-07-03 14:06 | XR ---
EXAMINATION TYPE: XR chest 1V portable DATE OF EXAM: 07/03/2018 COMPARISON: 07/02/2018 INDICATION: post cardiac surgery TECHNIQUE: Single frontal view of the chest is obtained. FINDINGS: The heart size is normal. The pulmonary vasculature is normal. There is streak opacities through the left lung. Left-sided chest tube is present. No pneumothorax is evident Endotracheal tube tip is above the brunilda. Nasogastric tube transverses the thorax with tip in left u pper quadrant of the abdomen. 2 mediastinal tubes are present. Hume-Lorrie catheter is present with the tip in the right main pulmonary artery. IMPRESSION: 1. Left lower lobe streak opacities likely atelectasis. 2. Multiple lines and catheters discussed above.
[2018-07-03 14:10] LABS: Basophils % (A) 0 %; Eosinophils # (A) 0.1 k/uL (0-0.7); Eosinophils % (A) 1 %; HCT 28.5 % (34.0-46.0); HGB 10.2 gm/dL (11.4-16.0); Lymphocytes % (A) 10 %; MCH 29.4 pg (25.0-35.0); MCHC 35.8 g/dL (31.0-37.0); MCV 81.9 fL (80.0-100.0); Mean Platelet Volume 8.5; Monocytes # (A) 0.4 k/uL (0-1.0); Monocytes % (A) 4 %; Neutrophils # (A) 8.1 k/uL (1.3-7.7); Neutrophils % (A) 84 %; Platelet Count 108 k/uL (150-450); RBC 3.48 m/uL (3.80-5.40); RDW 14.7 % (11.5-15.5); WBC 9.7 k/uL (3.8-10.6)
[2018-07-03 14:11] LABS: ABG HCO3 26 mmol/L (21-25); ABG PCO2 45 mmHg (35-45); ABG PH 7.37 (7.35-7.45); ABG PO2 265 mmHg (83-108); ABG TCO2 28 mmol/L (19-24)
[2018-07-03 14:12] LABS: INR 1.1 (<1.2); Partial Thromboplastin Time 28.3 sec (22.0-30.0); Prothrombin Time 11.6 sec (9.0-12.0)
[2018-07-03] MEDS: GABAPENTIN 300 MG CAP PO SCH ×2 (14:51→23:26)
[2018-07-03] MEDS: HEPARIN SOD,PORK IN 0.45% NACL 25,000 UNIT in 0.45% NACL 1 250ML.BAG IV SCH (14:51)
[2018-07-03] MEDS: MULTIVITAMINS, THERA 1 EACH TAB PO SCH (14:52)
--- NOTE | 2018-07-03 14:55 | P.CNPUL ---
History of Present Illness Consult date: 07/03/18 Chief complaint: Postoperative care, post thoracotomy, coronary artery bypass surgery History of present illness: 68-year-old female patient known history of coronary artery disease, hypertension, hyperlipidemia, [id number] diabetes mellitus, obstructive sleep apnea not utilizing any form of CPAP, presented to the hospital because of chest pain and shortness of breath. She underwent cardiac catheterization that showed 60% left main stenosis, 40-50% mid LAD stenosis, 40% RCA stenosis. LV angiogram showed an ejection fraction of 60% with normal wall motion. The patient had a carotid Doppler that showed 50-79% internal carotid artery stenosis. Based on that, the patient was taken to the operating room and the patient underwent four-vessel bypass surgery. I'm seeing her immediately postop. She is doing extremely well. She is still sedated for now and she is on no sedation and Diprivan was discontinued pH is on a mechanical ventilator on assist control mode at the rate of 12 with tidal volume of 400 and FiO2 of 100% and PEEP of 10. Her blood gas showed a pH of 7.37 with a pCO2 of 45 and pO2 of 265. FiO2 was dropped down to 60%. Chest x-ray shows left midlung atelectatic changes. ET tube is in good location. The patient's [place]-Lorrie catheter which is in a good location. The patient has left pleural and mediastinal chest tube. The patient has been weaned down to 60% FiO2. Meanwhile, hemodynamically alton ent is doing well. Cardiac output is at 4.4 with an index of 2.4. Pulmonary to pursue 36/20. She has developed adequate urine output. She is on low-dose atorvastatin drip at 5 g per minute for blood pressure control. Chest tubes are in place. No significant output from the chest tube. No other issues otherwise for now. Review of Systems ROS unobtainable: due to endotracheal tube Past Medical History Past Medical History: Coronary Artery Disease (CAD), Chest Pain / Angina, Diabetes Mellitus, GERD/Reflux, Hyperlipidemia, Hypertension, Osteoarthritis (OA), Sleep Apnea/CPAP/BIPAP Additional Past Medical History / Comment(s): Coronary artery disease, hypertension, hyperlipidemia, diabetes mellitus, obstructive sleep apnea using CPAP therapy, hiatal hernia, History of Any Multi-Drug Resistant Organisms: None Reported Past Surgical History: Adenoidectomy, Appendectomy, Cholecystectomy, Heart Catheterization, Hysterectomy, Tonsillectomy Additional Past Surgical History / Comment(s): COLONOSCOPY, heart cat heterization in 2006 without intervention Past Anesthesia/Blood Transfusion Reactions: Previous Problems w/ Anesthesia Additional Past Anesthesia/Blood Transfusion Reaction / Comment(s): SLOW TO WAKE UP Past Psychological History: No Psychological Hx Reported Smoking Status: Never smoker Past Alcohol Use History: None Reported Past Drug Use History: None Reported - Past Family History Sister(s) Family Medical History: Cancer Father Family Medical History: Coronary Artery Disease (CAD) Additional Family Medical History / Comment(s): Father of myocardial infarction at 54 years old Mother Family Medical History: Congestive Heart Failure (CHF) Medications and Allergies Home Medications Medication Instructions Recorded Confirmed Type Aspirin EC [Ecotrin Low Dose] 81 mg PO DAILY 10/12/16 07/03/18 History Furosemide [Lasix] 20 mg PO DAILY 10/12/16 07/03/18 History Gabapentin [Neurontin] 300 mg PO BID 10/12/16 07/03/18 History Isosorbide Mononitrate [Isosorbide 30 mg PO DAILY 10/12/16 07/03/18 History Mononitrate ER] Metoprolol Tartrate [Lopressor] 50 mg PO BID 10/12/16 07/03/18 History Multivitamins, Thera [Multivitamin 1 tab PO DAILY 10/12/16 07/03/18 History (formulary)] Omeprazole 20 mg PO BID 10/12/16 07/03/18 History Spironolactone [Aldactone] 25 mg PO DAILY 10/12/16 07/03/18 History hydrALAZINE HCL [Hydralazine HCl] 50 mg PO BID 10/12/16 07/03/18 History metFORMIN HCL [Glucophage] 500 mg PO BID 10/12/16 07/03/18 History Cyanocobalamin [Vitamin B-12] 500 mcg PO DAILY 06/27/18 07/03/18 History Simvastatin [Zocor] 40 mg PO HS 06/27/18 07/03/18 History Allergies Allergy/AdvReac Type Severity Reaction Status Date / Time Penicillins Allergy Anaphylaxis Verified 07/03/18 06:48 sulfamethoxazole Allergy Nausea Verified 07/03/18 06:48 [From Bactrim] trimethoprim [From Bactrim] Allergy Nausea Verified 07/03/18 06:48 Physical Exam Vitals: Vital Signs Temp Pulse Pulse Resp BP BP Pulse Ox 07/03/18 14:00 80 10 L 07/03/18 07:00 70 22 07/03/18 06:00 66 16 126/62 07/03/18 04:00 98.3 F 62 16 132/63 97 07/03/18 00:00 98.0 F 67 15 149/74 97 07/02/18 22:00 66 18 149/74 95 07/02/18 21:00 64 18 145/75 95 07/02/18 20:00 71 18 98 07/02/18 19:23 70 12 184/76 97 07/02/18 17:30 71 18 151/68 98 07/02/18 16:30 56 L 18 170/77 98 07/02/18 15:30 56 L 18 142/84 98 Intake and Output 07/02/18 07/03/18 07/03/18 22:59 06:59 14:59 Intake Total 200 400 3 Output Total 1350 Balance 200 400 -1347 Intake: IV 200 400 3 Sodium Chloride 0.9% 1, 200 400 000 ml @ 100 mls/hr IV . Q10H LALA Rx#:[id number] Output: Urine 550 Estimated Blood Loss 800 Other: # Voids 1 2 Weight 85.5 kg ABP, PAP, CO, CI - Last 8 Hours Arterial Blood Pressure 124/59 Pulmonary Artery Pressure 34/22 Cardiac Output 4.2 Cardiac Index 2.4 Appearance she is calm comfortable likely distress intubated on a mechanical ventilator. Head exam was generally normal. There was no scleral icterus or corneal arcus. Mucous membranes were moist. Neck was supple and without jugular venous distension, thyromegaly, or carotid bruits. Carotids were easily palpable bilaterally. There was no adenopathy. The patient is an orogastric and orotracheal tube are both in place and the patient has a right IJ [place]-Lorrie catheter with a Cordis. Lungs sounds are diminished bilaterally and lung bases. No wheezes. Rhonchi. The patient has a thoracotomy scar which is likely an intact. The patient also has chest tubes left pleural and mediastinal. Cardiac exam revealed the PMI to be normally situated and sized. The rhythm was regular and no extrasystoles were noted during several minutes of auscultation. The first and second heart sounds were normal and physiologic splitting of the second heart sound was noted. There were no murmurs, rubs, clicks, or gallops. Abdominal exam revealed normal bowel sounds. The abdomen was soft, non-tender, and without masses, organomegaly, or appreciable enlargement of the abdominal aorta. Examination of the extremities revealed easily palpable radial, femoral and pedal pulses. There was no cyanosis, clubbing or edema. Examination of the skin revealed no evidence of significant rashes, suspicious appearing nevi or other concerning lesions. Neurologic the patient is sedated, no cranial nerve deficits and the pupils are equal and symmetrical light. Results - Laboratory Findings CBC and BMP: 07/03/18 13:47 07/03/18 05:59 ABG ABG pH 7.37 (7.35-7.45) 07/03/18 14:09 ABG pCO2 45 mmHg (35-45) 07/03/18 14:09 ABG pO2 265 mmHg (83-108) H 07/03/18 14:09 ABG O2 Saturation 100.0 % (94-97) H 07/03/18 14:09 PT/INR, D-dimer PT 11.6 sec (9.0-12.0) 07/03/18 13:47 INR 1.1 (<1.2) 07/03/18 13:47 Abnormal lab findings: Abnormal Labs 07/02/18 07/02/18 07/02/18 07:05 10:17 10:17 RBC Hgb Hct Plt Count 149 L Neutrophils # APTT ABG pH ABG pCO2 ABG pO2 ABG HCO3 ABG Total CO2 ABG O2 Saturation ABG Hematocrit ABG Sodium ABG Potassium ABG Ionized Calcium ABG Glucose ABG Lactic Acid Hemoglobin Sodium Glucose POC Glucose (mg/dL) 173 H Hemoglobin A1c 6.2 H Arterial Blood Potassium Arterial Blood Glucose Crossmatch 07/02/18 07/02/18 07/02/18 10:17 10:17 10:17 RBC Hgb Hct Plt Count Neutrophils # APTT 58.6 H ABG pH ABG pCO2 ABG pO2 ABG HCO3 ABG Total CO2 ABG O2 Saturation ABG Hematocrit ABG Sodium ABG Potassium ABG Ionized Calcium ABG Glucose ABG Lactic Acid Hemoglobin Sodium 135 L Glucose 166 H POC Glucose (mg/dL) Hemoglobin A1c Arterial Blood Potassium Arterial Blood Glucose Crossmatch See Detail 07/02/18 07/02/18 07/02/18 10:59 18:33 18:51 RBC Hgb Hct Plt Count Neutrophils # APTT 50.1 H ABG pH ABG pCO2 ABG pO2 ABG HCO3 ABG Total CO2 ABG O2 Saturation ABG Hematocrit ABG Sodium ABG Potassium ABG Ionized Calcium ABG Glucose ABG Lactic Acid Hemoglobin Sodium Glucose POC Glucose (mg/dL) 172 H 203 H Hemoglobin A1c Arterial Blood Potassium Arterial Blood Glucose Crossmatch 07/02/18 07/02/18 07/02/18 20:10 21:30 22:05 RBC Hgb Hct Plt Count Neutrophils # APTT 53.8 H ABG pH ABG pCO2 ABG pO2 ABG HCO3 ABG Total CO2 ABG O2 Saturation ABG Hematocrit ABG Sodium ABG Potassium ABG Ionized Calcium ABG Glucose ABG Lactic Acid Hemoglobin Sodium Glucose POC Glucose (mg/dL) 188 H 147 H Hemoglobin A1c Arterial Blood Potassium Arterial Blood Glucose Crossmatch 07/03/18 07/03/18 07/03/18 05:59 05:59 05:59 RBC Hgb Hct Plt Count 149 L Neutrophils # APTT 47.2 H ABG pH ABG pCO2 ABG pO2 ABG HCO3 ABG Total CO2 ABG O2 Saturation ABG Hematocrit ABG Sodium ABG Potassium ABG Ionized Calcium ABG Glucose ABG Lactic Acid Hemoglobin Sodium Glucose 146 H POC Glucose (mg/dL) Hemoglobin A1c Arterial Blood Potassium Arterial Blood Glucose Crossmatch 07/03/18 07/03/18 07/03/18 08:44 09:57 10:41 RBC Hgb Hct Plt Count Neutrophils # APTT ABG pH 7.46 H ABG pCO2 33 L ABG pO2 168 H 154 H >420 H ABG HCO3 ABG Total CO2 25 H 25 H 25 H ABG O2 Saturation 99.9 H 99.6 H 100.0 H ABG Hematocrit 22 L ABG Sodium 129 L ABG Potassium 5.5 H ABG Ionized Calcium 4.1 L ABG Glucose 171 H 200 H 294 H ABG Lactic Acid Hemoglobin 11.1 L 7.1 L Sodium Glucose POC Glucose (mg/dL) Hemoglobin A1c Arterial Blood Potassium 5.5 H Arterial Blood Glucose 171 H 200 H 294 H Crossmatch 07/03/18 07/03/18 07/03/18 11:10 12:34 13:46 RBC Hgb Hct Plt Count Neutrophils # APTT ABG pH ABG pCO2 ABG pO2 333 H 394 H ABG HCO3 ABG Total CO2 ABG O2 Saturation 100.0 H 100.0 H ABG Hematocrit 23 L 26 L ABG Sodium 132 L 134 L ABG Potassium 4.6 H ABG Ionized Calcium 4.3 L ABG Glucose 260 H 213 H ABG Lactic Acid 2.9 H* Hemoglobin 7.6 L 8.6 L Sodium Glucose POC Glucose (mg/dL) 144 H Hemoglobin A1c Arterial Blood Potassium 4.6 H Arterial Blood Glucose 260 H 213 H Crossmatch 07/03/18 07/03/18 13:47 14:09 RBC 3.48 L Hgb 10.2 L Hct 28.5 L Plt Count 108 L Neutrophils # 8.1 H APTT ABG pH ABG pCO2 ABG pO2 265 H ABG HCO3 26 H ABG Total CO2 28 H ABG O2 Saturation 100.0 H ABG Hematocrit ABG Sodium ABG Potassium ABG Ionized Calcium ABG Glucose ABG Lactic Acid Hemoglobin Sodium Glucose POC Glucose (mg/dL) Hemoglobin A1c Arterial Blood Potassium Arterial Blood Glucose Crossmatch - Diagnostic Findings Chest x-ray: image reviewed Assessment and Plan Plan: 1 multivessel coronary artery disease, post coronary bypass surgery and the patient's postoperative day #0. 2 post thoracotomy, currently intubated on a mechanical ventilator with chest tubes in place. Hemodynamically stable 3 hypertension 4 hyperlipidemia 5 [id number] diabetes mellitus 6 obstructive sleep apnea. 7 obesity 8 preserved LV function based on the preoperative echocardiogram Plan Continue vent support. Drop the FiO2 down to 60% and molded down to maintain a saturation above 90%. Keep tidal volume of 400. Keep respiratory rate of 12. Chest x-ray was reviewed and showed some atelectatic changes and left lung. Monitor hemodynamics. Keep the patient off sedation. Check a set awaiting parameters once the patient is awake and proceed with spontaneous breathing trial. Meanwhile, the patient is hemodynamically stable. Adequate cardiac output and index. Adequate urine output. Monitor the blood work. We'll continue to follow. I would anticipate extubation within next few hours as the patient is doing very well for now.
[2018-07-03] MEDS: ALBUMIN HUMAN 5% 250 ML in EMPTY BAG 1 BAG IVPB PRN ×2 (14:56→15:01)
[2018-07-03 15:06] LABS: Glucose,Whole Blood 115 mg/dL (75-99)
[2018-07-03 15:06] LABS: ALT 29 U/L (9-52); AST 37 U/L (14-36); Albumin 2.3 g/dL (3.5-5.0); Alkaline Phosphatase 35 U/L (38-126); Anion Gap 4 mmol/L; Blood Urea Nitrogen 9 mg/dL (7-17); Calcium 8.7 mg/dL (8.4-10.2); Carbon Dioxide 24 mmol/L (22-30); Chloride 107 mmol/L (98-107); Glucose 135 mg/dL (74-99); Magnesium 2.6 mg/dL (1.6-2.3); Potassium 3.9 mmol/L (3.5-5.1); Sodium 135 mmol/L (137-145); Total Bilirubin 0.7 mg/dL (0.2-1.3); Total Protein 4.4 g/dL (6.3-8.2)
[2018-07-03] MEDS: CLEVIDIPINE BUTYRATE 25 MG in EMPTY BAG 1 BAG IV SCH ×4 (15:53→22:41)
[2018-07-03] MEDS ORDERED: IPRATROPIUM-ALBUTEROL 3 ML NEB INHALATION SCH ×2 (16:00→19:03)
[2018-07-03 16:11] LABS: Glucose,Whole Blood 142 mg/dL (75-99)
[2018-07-03] MEDS: POTASSIUM CHLORIDE 10 MEQ in WATER FOR INJECTION 1 100ML.BAG IVPB SCH ×2 (16:14→17:24)
[2018-07-03 16:20] LABS: Basophils % (A) 0 %; Eosinophils # (A) 0.1 k/uL (0-0.7); Eosinophils % (A) 1 %; HCT 32.5 % (34.0-46.0); HGB 10.8 gm/dL (11.4-16.0); Lymphocytes # (A) 1.4 k/uL (1.0-4.8); Lymphocytes % (A) 9 %; MCH 27.6 pg (25.0-35.0); MCHC 33.2 g/dL (31.0-37.0); MCV 83.2 fL (80.0-100.0); Monocytes # (A) 0.8 k/uL (0-1.0); Monocytes % (A) 5 %; Neutrophils # (A) 13.7 k/uL (1.3-7.7); Neutrophils % (A) 84 %; Platelet Count 156 k/uL (150-450); RBC 3.91 m/uL (3.80-5.40); RDW 14.4 % (11.5-15.5); WBC 16.3 k/uL (3.8-10.6)
[2018-07-03 17:16] LABS: Glucose,Whole Blood 161 mg/dL (75-99)
[2018-07-03] MEDS: INSULIN REGULAR 100 UNIT in SODIUM CHLORIDE 0.9% 100 ML IV SCH (17:17)
[2018-07-03] MEDS ORDERED: ACETAMINOPHEN IV (For NPO) 1,000 MG in EMPTY BAG 1 BAG IVPB SCH (18:00)
[2018-07-03 18:06] LABS: Glucose,Whole Blood 162 mg/dL (75-99)
[2018-07-03 18:25] LABS: ABG Base Excess -1.2 mmol/L; ABG HCO3 24 mmol/L (21-25); ABG Oxygen Saturation 97.1 % (94-97); ABG PCO2 42 mmHg (35-45); ABG PH 7.37 (7.35-7.45); ABG PO2 89 mmHg (83-108); ABG TCO2 25 mmol/L (19-24)
[2018-07-03] MEDS ORDERED: HYDROcodone/APAP 5-325MG 1 EACH TAB PO PRN ×3 (18:30→20:41)
[2018-07-03] MEDS: VANCOMYCIN 1,250 MG in SODIUM CHLORIDE 0.9% 250 ML IVPB SCH (18:40)
[2018-07-03 19:06] LABS: Glucose,Whole Blood 171 mg/dL (75-99)
[2018-07-03] MEDS: KETOROLAC 30 MG/ML 1 ML VIAL IVP SCH ×2 (19:10→23:27)
[2018-07-03 19:57] LABS: Glucose,Whole Blood 170 mg/dL (75-99)
[2018-07-03 21:00] LABS: Glucose,Whole Blood 167 mg/dL (75-99)
[2018-07-03] MEDS ORDERED: MUPIROCIN 2% OINT 22 GM TUBE NASAL SCH (21:00)
[2018-07-03] MEDS ORDERED: HEPARIN SODIUM,PORCINE 5,000 UNIT/ML 1 ML VIAL SQ SCH (21:02)
[2018-07-03 21:04] LABS: Basophils % (A) 0 %; Eosinophils # (A) 0.1 k/uL (0-0.7); Eosinophils % (A) 1 %; HCT 33.2 % (34.0-46.0); HGB 11.1 gm/dL (11.4-16.0); Lymphocytes # (A) 0.5 k/uL (1.0-4.8); Lymphocytes % (A) 4 %; MCH 27.9 pg (25.0-35.0); MCHC 33.4 g/dL (31.0-37.0); MCV 83.7 fL (80.0-100.0); Mean Platelet Volume 8.9; Monocytes # (A) 0.5 k/uL (0-1.0); Monocytes % (A) 4 %; Neutrophils % (A) 91 %; Platelet Count 129 k/uL (150-450); RBC 3.97 m/uL (3.80-5.40); RDW 14.3 % (11.5-15.5); WBC 12.1 k/uL (3.8-10.6)
[2018-07-03 21:07] LABS: Basophils % (A) 0 %; Eosinophils # (A) 0.1 k/uL (0-0.7); Eosinophils % (A) 0 %; HCT 32.2 % (34.0-46.0); HGB 10.8 gm/dL (11.4-16.0); Lymphocytes # (A) 0.5 k/uL (1.0-4.8); Lymphocytes % (A) 4 %; MCH 27.9 pg (25.0-35.0); MCHC 33.5 g/dL (31.0-37.0); MCV 83.1 fL (80.0-100.0); Mean Platelet Volume 9.4; Monocytes # (A) 0.5 k/uL (0-1.0); Monocytes % (A) 4 %; Neutrophils # (A) 10.5 k/uL (1.3-7.7); Neutrophils % (A) 91 %; Platelet Count 111 k/uL (150-450); RBC 3.88 m/uL (3.80-5.40); RDW 14.3 % (11.5-15.5); WBC 11.6 k/uL (3.8-10.6)
[2018-07-03] MEDS: LACTATED RINGERS 1,000 ML IV SCH (21:34)
[2018-07-03] MEDS: MUPIROCIN 2% OINT 22 GM TUBE NASAL SCH (21:35)
[2018-07-03 22:03] LABS: Glucose,Whole Blood 145 mg/dL (75-99)
--- NOTE | 2018-07-03 23:19 | OP ---
OPERATIVE REPORT DATE OF SURGERY: 07/03/2018. PREOPERATIVE DIAGNOSIS: Coronary artery disease. POSTOPERATIVE DIAGNOSIS: Coronary artery disease. PROCEDURE: 1. Coronary artery bypass grafting x2 vessels (left internal mammary artery to left anterior descending artery, saphenous vein graft to obtuse marginal artery). 2. Endoscopic vein harvest right greater saphenous vein. 3. Epiaortic ultrasound. 4. Transesophageal echocardiogram. SURGEON: Hosea Garcia MD. SUPERVISOR CALIBRATION: 1. SARA Acots[place]. 2. Rosendo Matos NP. ANESTHESIA: General. SPECIMEN: None. COMPLICATION: None. INDICATION: The patient is a 68-year-old female with a past medical history significant for diabetes mellitus, hyperlipidemia, hypertension, obstructive sleep apnea, and obesity who presented to her physician with fatigue, shortness of breath, and chest discomfort. A stress test was found to be abnormal. Cardiac catheterization revealed a left main coronary artery lesion. Coronary artery bypass was recommended. The risks, benefits, and alternatives to this procedure were discussed with the patient. All of her questions were answered. Consent was obtained. FINDINGS: The left anterior descending artery was a good conduit with brisk flow. The saphenous vein was a good conduit. The LAD measured 1.5 mm. The obtuse marginal artery measured 1.5 mm. PROCEDURE DETAIL: The patient was taken to the operating room and placed supine on the operating table. After the induction of general anesthesia, she was prepped and draped in the usual sterile fashion. Preoperative transesophageal echocardiogram revealed a preserved left ventricular ejection fraction with mild mitral regurgitation. A median sternotomy was performed. The left internal mammary artery was harvested in the standard fashion taking care to clip all branches. Intravenous heparin was administered. The vessel was transected distally revealing brisk flow. Simultaneously, greater saphenous vein was harvested from the right lower extremity using endoscopic technique. All branches were tied. Both the mammary artery and saphenous vein were good conduits. A pericardial cradle was created. The ascending aorta was palpated. There was no significant calcific plaque noted. Epiaortic ultrasound was then performed on the ascending aorta. Again no calcific plaque or atheromatous disease was identified. An arterial cannula was placed in the distal ascending aorta. A venous cannula was placed through the right atrial appendage and directed into the IVC. Both antegrade and retrograde catheters were placed as well. The patient was then placed on cardiopulmonary bypass with good decompression of the heart. The aortic cross-clamp was applied. Cardioplegia was then delivered in both antegrade and retrograde fashion to achieve arrest of the heart. Of note, cardioplegia was delivered every 15-20 minutes while the patient was under cross-clamp. We began by inspecting the lateral wall. There was a single branch corresponding to the obtuse marginal artery. A small arteriotomy was created. This vessel accepted a 1.5 mm probe. Using saphenous vein in a reverse fashion, an end-to-side anastomosis was created. This was performed using a running 7-0 Prolene suture. The graft was hemostatic and had great flow. Next, attention was turned to the anterior wall. There was a significant amount of fat on the anterior surface of the heart which made identification of the LAD somewhat difficult. Dissection was carried out through the fat until the left anterior descending artery was identified. A small arteriotomy was created. This vessel accepted a 1 mm probe. Using the left internal mammary artery, an end-to-side anastomosis was created. This was performed using a running 8-0 Prolene suture. The graft was hemostatic. The mammary pedicle was then tacked down to the anterior surface of the heart. Attention was then turned to the proximal anastomosis. This was performed in end-to- side fashion using a running 6-0 Prolene suture. One liter of warm blood was delivered in retrograde fashion. Both lidocaine and magnesium were administered as well. The cross- clamp was removed. The vein graft was de-aired in the standard fashion. Distal anastomoses were inspected and appeared to be hemostatic. Temporary atrial and ventricular pacing wires were placed and brought through the skin. The retrograde catheter was removed. The patient was then weaned off coronary bypass. He without difficulty. Followup transesophageal echocardiogram confirmed good left ventricular ejection fraction with unchanged mild mitral regurgitation. Protamine was administered. There were no adverse reactions. The remaining cannulas were then removed. The mediastinum was copiously irrigated with warm saline solution. All surgical sites were inspected and appeared to be hemostatic. Soft tissues were reapproximated over the ascending aorta as well as over the apex of the heart. Straight 32- Romanian chest tubes were placed and directed in both the left pleural space and mediastinum. These were all secured to the skin using sutures. Due to the patient's obesity, I elected to close the sternum using the Florence cable system. The cables were placed in a [id number] fashion. At the completion of the closure, the sternum was well aligned. The wound was then closed in multiple layers. Sterile dressing was applied. The patient appeared to tolerate the procedure well. There were no immediate complications. She returned to the ICU in critical but stable condition. LORI / IVONE: [id number] / MTDD
[2018-07-03 23:23] LABS: Glucose,Whole Blood 133 mg/dL (75-99)
[2018-07-03] MEDS: HEPARIN SODIUM,PORCINE 5,000 UNIT/ML 1 ML VIAL SQ SCH (23:26)
[2018-07-04] MEDS ORDERED: IPRATROPIUM-ALBUTEROL 3 ML NEB INHALATION SCH
[2018-07-04 00:06] LABS: Glucose,Whole Blood 132 mg/dL (75-99)
[2018-07-04] MEDS: INSULIN REGULAR 100 UNIT in SODIUM CHLORIDE 0.9% 100 ML IV SCH (01:03)
[2018-07-04 01:09] LABS: Glucose,Whole Blood 119 mg/dL (75-99)
[2018-07-04 01:55] LABS: Glucose,Whole Blood 117 mg/dL (75-99)
[2018-07-04 03:08] LABS: Glucose,Whole Blood 110 mg/dL (75-99)
[2018-07-04 04:05] LABS: Glucose,Whole Blood 115 mg/dL (75-99)
[2018-07-04 05:08] LABS: Glucose,Whole Blood 121 mg/dL (75-99)
[2018-07-04] MEDS: IPRATROPIUM-ALBUTEROL 3 ML NEB INHALATION SCH ×5 (05:21→20:10)
[2018-07-04] MEDS: KETOROLAC 30 MG/ML 1 ML VIAL IVP SCH ×4 (06:00→23:20)
[2018-07-04 06:02] LABS: Basophils % (A) 0 %; Eosinophils % (A) 1 %; HCT 30.6 % (34.0-46.0); HGB 10.3 gm/dL (11.4-16.0); Lymphocytes # (A) 0.8 k/uL (1.0-4.8); Lymphocytes % (A) 9 %; MCH 27.9 pg (25.0-35.0); MCHC 33.6 g/dL (31.0-37.0); MCV 83.1 fL (80.0-100.0); Monocytes # (A) 0.4 k/uL (0-1.0); Monocytes % (A) 4 %; Neutrophils # (A) 7.4 k/uL (1.3-7.7); Neutrophils % (A) 85 %; Platelet Count 127 k/uL (150-450); RBC 3.68 m/uL (3.80-5.40); RDW 14.3 % (11.5-15.5); WBC 8.7 k/uL (3.8-10.6)
[2018-07-04 06:09] LABS: ALT 33 U/L (9-52); AST 64 U/L (14-36); Alkaline Phosphatase 40 U/L (38-126); Anion Gap 6 mmol/L; Blood Urea Nitrogen 8 mg/dL (7-17); Calcium 8.6 mg/dL (8.4-10.2); Carbon Dioxide 24 mmol/L (22-30); Chloride 103 mmol/L (98-107); Glucose 108 mg/dL (74-99); Magnesium 1.9 mg/dL (1.6-2.3); Potassium 4.1 mmol/L (3.5-5.1); Sodium 133 mmol/L (137-145); Total Bilirubin 0.8 mg/dL (0.2-1.3); Total Protein 4.9 g/dL (6.3-8.2)
[2018-07-04] MEDS: VANCOMYCIN 1,250 MG in SODIUM CHLORIDE 0.9% 250 ML IVPB SCH ×2 (06:40→21:06)
[2018-07-04 06:55] LABS: Glucose,Whole Blood 101 mg/dL (75-99)
[2018-07-04 08:18] LABS: Glucose,Whole Blood 121 mg/dL (75-99)
--- NOTE | 2018-07-04 08:26 | XR ---
EXAMINATION TYPE: XR chest 1V portable DATE OF EXAM: 07/04/2018 COMPARISON: 07/03/2018 HISTORY: Left-sided chest tube placement. Follow-up exam. Status post cardiac surgery. TECHNIQUE: Single frontal view of the chest is obtained. FINDINGS: Right internal jugular approach [place]-Lorrie catheter remains in the pulmonary outflow tract. Mediastinal drains, post CABG changes of the chest, and left-sided thoracostomy tube are unchanged. Epicardial pacing leads are seen. Strand-like multifocal left-sided atelectasis and trace left pleura l effusion are noted. No new pulmonary vascular congestion or pneumothorax. Endotracheal tube and ent eve tube have been removed in the interim. IMPRESSION: Stable lines and tubes other than removal of the endotracheal and enteric tubes. Unchang ed trace left pleural effusion and multifocal left-sided atelectasis.
[2018-07-04] MEDS: CLOPIDOGREL 75 MG TAB PO SCH (08:33)
[2018-07-04] MEDS: ATORVASTATIN 40 MG TAB PO SCH ×3 (08:33→09:17)
[2018-07-04] MEDS: GABAPENTIN 300 MG CAP PO SCH ×2 (08:35→21:08)
[2018-07-04] MEDS: PANTOPRAZOLE 40 MG TABLET PO SCH (08:35)
[2018-07-04] MEDS: ASPIRIN 325 MG TAB PO SCH (08:36)
[2018-07-04] MEDS: HYDROcodone/APAP 5-325MG 1 EACH TAB PO PRN ×3 (08:36→23:19)
[2018-07-04] MEDS: HEPARIN SODIUM,PORCINE 5,000 UNIT/ML 1 ML VIAL SQ SCH ×3 (08:36→23:16)
[2018-07-04] MEDS: MAGNESIUM SULFATE-D5W PMX 1 GM in DEXTROSE/WATER 1 100ML.BAG IVPB SCH ×2 (08:43→10:11)
[2018-07-04] MEDS ORDERED: FUROSEMIDE 10 MG/ML 4 ML VIAL IV STA (08:54)
[2018-07-04] MEDS ORDERED: PANTOPRAZOLE 40 MG/10 ML VIAL IVP SCH ×2 (09:00)
[2018-07-04] MEDS ORDERED: ASPIRIN 325 MG TAB PO SCH (09:00)
[2018-07-04] MEDS ORDERED: CLOPIDOGREL 75 MG TAB PO SCH (09:00)
[2018-07-04] MEDS ORDERED: METOPROLOL TARTRATE 12.5 MG TAB PO SCH ×2 (09:00)
[2018-07-04] MEDS ORDERED: ATORVASTATIN 40 MG TAB PO SCH (09:00)
[2018-07-04] MEDS: MUPIROCIN 2% OINT 22 GM TUBE NASAL SCH ×2 (09:30→21:11)
[2018-07-04 10:02] LABS: Glucose,Whole Blood 181 mg/dL (75-99)
[2018-07-04] MEDS: METOPROLOL TARTRATE 25 MG TAB PO SCH ×2 (11:02→21:08)
[2018-07-04 11:05] LABS: Glucose,Whole Blood 186 mg/dL (75-99)
--- NOTE | 2018-07-04 11:12 | P.PN ---
Subjective Progress Note Date: 07/04/18 Principal diagnosis: Coronary artery disease with left main disease and preserved left ventricular function with an ejection fraction of 55%. History of hypertension, hyperlipidemia, [id number] diabetes mellitus, obstructive sleep apnea without consistent CPAP use, family history of premature coronary artery disease with her father passing away from myocardial infarction at age 54 and obesity. POD #1 coronary artery bypass grafting 2 vessels, left internal mammary artery to left anterior descending coronary artery, a reverse greater saphenous vein graft to the obtuse marginal coronary artery. Endoscopic vein harvest right greater saphenous vein, intraoperative epi-aortic ultrasound and transesophageal Echocardiogram. The patient is sitting up to the bedside chair in the intensive care unit. She is in no acute distress. She is complaining of pain 5 out of 10 on the pain scale to her chest tube insertion sites. Denies any complaints of shortness of breath this time. Oxygen saturations are 96% on 2 L nasal cannula, she is achieving 750 mL on her incentive spirometry. She remains hemodynamically stable and is currently on no inotropic or pressor support. She was successfully extubated at 1850 p.m. last night. She remains with a right IJ Cordis with [place] catheter in place, her current cardiac output is 5.2, cardiac index 2.8, PA pressures 29/6, CVP 3 mmHg. She is tolerating oral intake and denies any complaints of nausea. She remains afebrile. Objective - Vital Signs Vital signs: Vital Signs Temp 98.6 F 07/04/18 08:00 Pulse 87 07/04/18 10:00 Resp 18 07/04/18 10:00 BP 117/54 07/04/18 10:00 Pulse Ox 98 07/04/18 10:00 Intake & Output 07/03/18 07/04/18 07/04/18 18:59 06:59 18:59 Intake Total 949.380 969.371 248 Output Total 2190 1251 300 Balance -1240.620 -281.629 -52 Weight 87.2 kg Intake: IV 41 845.0 148 Lactated Ringers 1,000 ml 600 110 @ 50 mls/hr IV .Q20H [facility] Rx#:[id number] Nitroglycerin-D5w Pmx 50 18.0 mg In Dextrose/Water 1 250ml.bag @ 5 MCG/MIN 1.5 mls/hr IV .Q24H [facility] Rx#: [id number] cardiac output 20 110 20 pressure bag 18 117 18 Intake, IV Titration 908.380 124.371 100 Amount Albumin Human 5% 500 ml 500 In Empty Bag 1 bag @ 250 mls/hr IVPB ONCE ONE Rx#: [id number] Clevidipine Butyrate 25 5.334 4.000 mg In Empty Bag 1 bag @ 1 MG/HR 2 mls/hr IV .Q24H [facility] Rx#:[id number] Clevidipine Butyrate 25 65.534 mg In Empty Bag 1 bag @ 1 MG/HR 2 mls/hr IV .Q24H [facility] Rx#:[id number] Insulin Regular 100 unit 2.02 54.837 0 In Sodium Chloride 0.9% 100 ml @ Per Protocol IV .Q0M [facility] Rx#:[id number] Lactated Ringers 1,000 ml 200 @ 50 mls/hr IV .Q20H [facility] Rx#:[id number] Magnesium Sulfate-D5w Pmx 100 1 gm In Dextrose/Water 1 100ml.bag @ 100 mls/hr IVPB Q1H [facility] Rx#: [id number] Potassium Chloride 10 meq 200 In Water For Injection 1 100ml.bag @ 100 mls/hr IVPB Q1H [facility] Rx#: [id number] Propofol 1,000 mg In 1.026 Empty Bag 1 bag @ Titrate IV .Q0M [facility] Rx#: [id number] Output: Chest Tube Drainage 130 416 20 left pleural 55 209 0 mediastinal chest tube x2 75 207 20 Urine 1260 835 280 Estimated Blood Loss 800 Other: Voiding Method Indwelling Catheter Indwelling Catheter ABP, PAP, CO, CI - Last Documented Arterial Blood Pressure 118/46 Pulmonary Artery Pressure 31/10 Cardiac Output 4.5 Cardiac Index 2.4 - Constitutional General appearance: Present: cooperative, no acute distress, obese - Respiratory Details: Lung sounds are essentially clear to her bilateral upper lobes, diminished bilateral bases. Respirations are symmetrical and nonlabored. Oxygen saturation are 96% on 2 L nasal cannula. She is achieving 750 mL on her incentive spirometry. Left pleural and mediastinal chest tubes in place to low continuous wall suction -20 cm H2O. No air leak is present. Chest tubes are draining thin serosanguineous drainage. Left pleural chest tube drained 160 mL output in the last 8 hours, 260 mL output since surgery. Mediastinal chest tubes drained 150 mL output in the last 8 hours, 280 mL output since surgery. - Cardiovascular Details: Regular rhythm and rate. S1 and S2 present, negative for S3, gallop or murmur. Bedside telemetry showing normal sinus rhythm heart rate 83. Sternum is stable. Right IJ [place]orrie catheter in place and functioning, current cardiac output 5.2, cardiac index 2.8, PA pressures 29/6, CVP 3 mmHg. +1 generalized edema. Atrial and ventricular epicardial pacemaker wires are in place and connected to bedside backup pacemaker generator with a VVI 50. Knee-high KUNAL hose and sequential compression devices in place to her bilateral lower extremities. Heart hugger is in place and she is demonstrating appropriate use. - Gastrointestinal Gastrointestinal Comment(s): Abdomen soft, nontender and nondistended. Hypoactive bowel sounds present in all 4 abdominal quadrants. No guarding or rigidity. No organomegaly. Tolerating oral intake. - Genitourinary Genitourinary Comment(s): Clark catheter for accurate I&O. Draining clear lilliam urine. 550 mL output in the last 8 hours. - Integumentary Integumentary Comment(s): Skin is warm and dry. No clubbing or cyanosis is present. Midline sternal incision is clean, dry and approximated. No drainage or redness is present. Gauze dressing is clean, dry and intact. Right lower extremity EVH site is clean, dry and approximated. No drainage or redness is present. - Neurologic Neurologic: Present: CNII-XII intact - Musculoskeletal Musculoskeletal: Present: gait normal, generalized weakness, strength equal bilaterally - Psychiatric Psychiatric: Present: A&O x's 3, appropriate affect, intact judgment & insight - Allied health notes Allied health notes reviewed: nursing - Labs CBC & Chem 7: 07/04/18 05:00 07/04/18 05:00 Labs: Abnormal Lab Results - Last 24 Hours (Table) 07/02/18 07/03/18 07/03/18 Range/Units 10:17 08:44 09:57 WBC (3.8-10.6) k/uL RBC (3.80-5.40) m/uL Hgb (11.4-16.0) gm/dL Hct (34.0-46.0) % Plt Count (150-450) k/uL Neutrophils # (1.3-7.7) k/uL Lymphocytes # (1.0-4.8) k/uL ABG pH 7.46 H (7.35-7.45) ABG pCO2 33 L (35-45) mmHg ABG pO2 168 H 154 H (83-108) mmHg ABG HCO3 (21-25) mmol/L ABG Total CO2 25 H 25 H (19-24) mmol/L ABG O2 Saturation 99.9 H 99.6 H (94-97) % ABG Hematocrit (34.0-46.0) % ABG Sodium (135-146) mmol/L ABG Potassium (3.4-4.5) mmol/L ABG Ionized Calcium (4.5-5.3) mg/dL ABG Glucose 171 H 200 H (75-99) mg/dL ABG Lactic Acid (0.5-1.6) mmol/L Hemoglobin 11.1 L (11.4-16.0) gm/dL Sodium (137-145) mmol/L Creatinine (0.52-1.04) mg/dL Glucose (74-99) mg/dL POC Glucose (mg/dL) (75-99) mg/dL Magnesium (1.6-2.3) mg/dL AST (14-36) U/L Alkaline Phosphatase (38-126) U/L Total Protein (6.3-8.2) g/dL Albumin (3.5-5.0) g/dL Arterial Blood Potassium (3.4-4.5) mmol/L Arterial Blood Glucose 171 H 200 H (75-99) mg/dL Crossmatch See Detail 07/03/18 07/03/18 07/03/18 Range/Units 10:41 11:10 12:34 WBC (3.8-10.6) k/uL RBC (3.80-5.40) m/uL Hgb (11.4-16.0) gm/dL Hct (34.0-46.0) % Plt Count (150-450) k/uL Neutrophils # (1.3-7.7) k/uL Lymphocytes # (1.0-4.8) k/uL ABG pH (7.35-7.45) ABG pCO2 (35-45) mmHg ABG pO2 >420 H 333 H 394 H (83-108) mmHg ABG HCO3 (21-25) mmol/L ABG Total CO2 25 H (19-24) mmol/L ABG O2 Saturation 100.0 H 100.0 H 100.0 H (94-97) % ABG Hematocrit 22 L 23 L 26 L (34.0-46.0) % ABG Sodium 129 L 132 L 134 L (135-146) mmol/L ABG Potassium 5.5 H 4.6 H (3.4-4.5) mmol/L ABG Ionized Calcium 4.1 L 4.3 L (4.5-5.3) mg/dL ABG Glucose 294 H 260 H 213 H (75-99) mg/dL ABG Lactic Acid 2.9 H* (0.5-1.6) mmol/L Hemoglobin 7.1 L 7.6 L 8.6 L (11.4-16.0) gm/dL Sodium (137-145) mmol/L Creatinine (0.52-1.04) mg/dL Glucose (74-99) mg/dL POC Glucose (mg/dL) (75-99) mg/dL Magnesium (1.6-2.3) mg/dL AST (14-36) U/L Alkaline Phosphatase (38-126) U/L Total Protein (6.3-8.2) g/dL Albumin (3.5-5.0) g/dL Arterial Blood Potassium 5.5 H 4.6 H (3.4-4.5) mmol/L Arterial Blood Glucose 294 H 260 H 213 H (75-99) mg/dL Crossmatch 07/03/18 07/03/18 07/03/18 Range/Units 13:46 13:47 13:47 WBC (3.8-10.6) k/uL RBC 3.48 L (3.80-5.40) m/uL Hgb 10.2 L (11.4-16.0) gm/dL Hct 28.5 L (34.0-46.0) % Plt Count 108 L (150-450) k/uL Neutrophils # 8.1 H (1.3-7.7) k/uL Lymphocytes # (1.0-4.8) k/uL ABG pH (7.35-7.45) ABG pCO2 (35-45) mmHg ABG pO2 (83-108) mmHg ABG HCO3 (21-25) mmol/L ABG Total CO2 (19-24) mmol/L ABG O2 Saturation (94-97) % ABG Hematocrit (34.0-46.0) % ABG Sodium (135-146) mmol/L ABG Potassium (3.4-4.5) mmol/L ABG Ionized Calcium (4.5-5.3) mg/dL ABG Glucose (75-99) mg/dL ABG Lactic Acid (0.5-1.6) mmol/L Hemoglobin (11.4-16.0) gm/dL Sodium 135 L (137-145) mmol/L Creatinine 0.51 L (0.52-1.04) mg/dL Glucose 135 H (74-99) mg/dL POC Glucose (mg/dL) 144 H (75-99) mg/dL Magnesium 2.6 H (1.6-2.3) mg/dL AST 37 H (14-36) U/L Alkaline Phosphatase 35 L (38-126) U/L Total Protein 4.4 L (6.3-8.2) g/dL Albumin 2.3 L (3.5-5.0) g/dL Arterial Blood Potassium (3.4-4.5) mmol/L Arterial Blood Glucose (75-99) mg/dL Crossmatch 07/03/18 07/03/18 07/03/18 Range/Units 14:09 15:04 16:08 WBC (3.8-10.6) k/uL RBC (3.80-5.40) m/uL Hgb (11.4-16.0) gm/dL Hct (34.0-46.0) % Plt Count (150-450) k/uL Neutrophils # (1.3-7.7) k/uL Lymphocytes # (1.0-4.8) k/uL ABG pH (7.35-7.45) ABG pCO2 (35-45) mmHg ABG pO2 265 H (83-108) mmHg ABG HCO3 26 H (21-25) mmol/L ABG Total CO2 28 H (19-24) mmol/L ABG O2 Saturation 100.0 H (94-97) % ABG Hematocrit (34.0-46.0) % ABG Sodium (135-146) mmol/L ABG Potassium (3.4-4.5) mmol/L ABG Ionized Calcium (4.5-5.3) mg/dL ABG Glucose (75-99) mg/dL ABG Lactic Acid (0.5-1.6) mmol/L Hemoglobin (11.4-16.0) gm/dL Sodium (137-145) mmol/L Creatinine (0.52-1.04) mg/dL Glucose (74-99) mg/dL POC Glucose (mg/dL) 115 H 142 H (75-99) mg/dL Magnesium (1.6-2.3) mg/dL AST (14-36) U/L Alkaline Phosphatase (38-126) U/L Total Protein (6.3-8.2) g/dL Albumin (3.5-5.0) g/dL Arterial Blood Potassium (3.4-4.5) mmol/L Arterial Blood Glucose (75-99) mg/dL Crossmatch 07/03/18 07/03/18 07/03/18 Range/Units 16:10 17:15 18:04 WBC 16.3 H (3.8-10.6) k/uL RBC (3.80-5.40) m/uL Hgb 10.8 L (11.4-16.0) gm/dL Hct 32.5 L (34.0-46.0) % Plt Count (150-450) k/uL Neutrophils # 13.7 H (1.3-7.7) k/uL Lymphocytes # (1.0-4.8) k/uL ABG pH (7.35-7.45) ABG pCO2 (35-45) mmHg ABG pO2 (83-108) mmHg ABG HCO3 (21-25) mmol/L ABG Total CO2 (19-24) mmol/L ABG O2 Saturation (94-97) % ABG Hematocrit (34.0-46.0) % ABG Sodium (135-146) mmol/L ABG Potassium (3.4-4.5) mmol/L ABG Ionized Calcium (4.5-5.3) mg/dL ABG Glucose (75-99) mg/dL ABG Lactic Acid (0.5-1.6) mmol/L Hemoglobin (11.4-16.0) gm/dL Sodium (137-145) mmol/L Creatinine (0.52-1.04) mg/dL Glucose (74-99) mg/dL POC Glucose (mg/dL) 161 H 162 H (75-99) mg/dL Magnesium (1.6-2.3) mg/dL AST (14-36) U/L Alkaline Phosphatase (38-126) U/L Total Protein (6.3-8.2) g/dL Albumin (3.5-5.0) g/dL Arterial Blood Potassium (3.4-4.5) mmol/L Arterial Blood Glucose (75-99) mg/dL Crossmatch 07/03/18 07/03/18 07/03/18 Range/Units 18:25 19:00 19:05 WBC 12.1 H (3.8-10.6) k/uL RBC (3.80-5.40) m/uL Hgb 11.1 L (11.4-16.0) gm/dL Hct 33.2 L (34.0-46.0) % Plt Count 129 L (150-450) k/uL Neutrophils # 11.0 H (1.3-7.7) k/uL Lymphocytes # 0.5 L (1.0-4.8) k/uL ABG pH (7.35-7.45) ABG pCO2 (35-45) mmHg ABG pO2 (83-108) mmHg ABG HCO3 (21-25) mmol/L ABG Total CO2 25 H (19-24) mmol/L ABG O2 Saturation 97.1 H (94-97) % ABG Hematocrit (34.0-46.0) % ABG Sodium (135-146) mmol/L ABG Potassium (3.4-4.5) mmol/L ABG Ionized Calcium (4.5-5.3) mg/dL ABG Glucose (75-99) mg/dL ABG Lactic Acid (0.5-1.6) mmol/L Hemoglobin (11.4-16.0) gm/dL Sodium (137-145) mmol/L Creatinine (0.52-1.04) mg/dL Glucose (74-99) mg/dL POC Glucose (mg/dL) 171 H (75-99) mg/dL Magnesium (1.6-2.3) mg/dL AST (14-36) U/L Alkaline Phosphatase (38-126) U/L Total Protein (6.3-8.2) g/dL Albumin (3.5-5.0) g/dL Arterial Blood Potassium (3.4-4.5) mmol/L Arterial Blood Glucose (75-99) mg/dL Crossmatch 07/03/18 07/03/18 07/03/18 Range/Units 19:56 20:50 20:59 WBC 11.6 H (3.8-10.6) k/uL RBC (3.80-5.40) m/uL Hgb 10.8 L (11.4-16.0) gm/dL Hct 32.2 L (34.0-46.0) % Plt Count 111 L (150-450) k/uL Neutrophils # 10.5 H (1.3-7.7) k/uL Lymphocytes # 0.5 L (1.0-4.8) k/uL ABG pH (7.35-7.45) ABG pCO2 (35-45) mmHg ABG pO2 (83-108) mmHg ABG HCO3 (21-25) mmol/L ABG Total CO2 (19-24) mmol/L ABG O2 Saturation (94-97) % ABG Hematocrit (34.0-46.0) % ABG Sodium (135-146) mmol/L ABG Potassium (3.4-4.5) mmol/L ABG Ionized Calcium (4.5-5.3) mg/dL ABG Glucose (75-99) mg/dL ABG Lactic Acid (0.5-1.6) mmol/L Hemoglobin (11.4-16.0) gm/dL Sodium (137-145) mmol/L Creatinine (0.52-1.04) mg/dL Glucose (74-99) mg/dL POC Glucose (mg/dL) 170 H 167 H (75-99) mg/dL Magnesium (1.6-2.3) mg/dL AST (14-36) U/L Alkaline Phosphatase (38-126) U/L Total Protein (6.3-8.2) g/dL Albumin (3.5-5.0) g/dL Arterial Blood Potassium (3.4-4.5) mmol/L Arterial Blood Glucose (75-99) mg/dL Crossmatch 07/03/18 07/03/18 07/04/18 Range/Units 22:01 23:22 00:04 WBC (3.8-10.6) k/uL RBC (3.80-5.40) m/uL Hgb (11.4-16.0) gm/dL Hct (34.0-46.0) % Plt Count (150-450) k/uL Neutrophils # (1.3-7.7) k/uL Lymphocytes # (1.0-4.8) k/uL ABG pH (7.35-7.45) ABG pCO2 (35-45) mmHg ABG pO2 (83-108) mmHg ABG HCO3 (21-25) mmol/L ABG Total CO2 (19-24) mmol/L ABG O2 Saturation (94-97) % ABG Hematocrit (34.0-46.0) % ABG Sodium (135-146) mmol/L ABG Potassium (3.4-4.5) mmol/L ABG Ionized Calcium (4.5-5.3) mg/dL ABG Glucose (75-99) mg/dL ABG Lactic Acid (0.5-1.6) mmol/L Hemoglobin (11.4-16.0) gm/dL Sodium (137-145) mmol/L Creatinine (0.52-1.04) mg/dL Glucose (74-99) mg/dL POC Glucose (mg/dL) 145 H 133 H 132 H (75-99) mg/dL Magnesium (1.6-2.3) mg/dL AST (14-36) U/L Alkaline Phosphatase (38-126) U/L Total Protein (6.3-8.2) g/dL Albumin (3.5-5.0) g/dL Arterial Blood Potassium (3.4-4.5) mmol/L Arterial Blood Glucose (75-99) mg/dL Crossmatch 07/04/18 07/04/18 07/04/18 Range/Units 01:06 01:54 03:07 WBC (3.8-10.6) k/uL RBC (3.80-5.40) m/uL Hgb (11.4-16.0) gm/dL Hct (34.0-46.0) % Plt Count (150-450) k/uL Neutrophils # (1.3-7.7) k/uL Lymphocytes # (1.0-4.8) k/uL ABG pH (7.35-7.45) ABG pCO2 (35-45) mmHg ABG pO2 (83-108) mmHg ABG HCO3 (21-25) mmol/L ABG Total CO2 (19-24) mmol/L ABG O2 Saturation (94-97) % ABG Hematocrit (34.0-46.0) % ABG Sodium (135-146) mmol/L ABG Potassium (3.4-4.5) mmol/L ABG Ionized Calcium (4.5-5.3) mg/dL ABG Glucose (75-99) mg/dL ABG Lactic Acid (0.5-1.6) mmol/L Hemoglobin (11.4-16.0) gm/dL Sodium (137-145) mmol/L Creatinine (0.52-1.04) mg/dL Glucose (74-99) mg/dL POC Glucose (mg/dL) 119 H 117 H 110 H (75-99) mg/dL Magnesium (1.6-2.3) mg/dL AST (14-36) U/L Alkaline Phosphatase (38-126) U/L Total Protein (6.3-8.2) g/dL Albumin (3.5-5.0) g/dL Arterial Blood Potassium (3.4-4.5) mmol/L Arterial Blood Glucose (75-99) mg/dL Crossmatch 07/04/18 07/04/18 07/04/18 Range/Units 04:04 05:00 05:00 WBC (3.8-10.6) k/uL RBC 3.68 L (3.80-5.40) m/uL Hgb 10.3 L (11.4-16.0) gm/dL Hct 30.6 L (34.0-46.0) % Plt Count 127 L (150-450) k/uL Neutrophils # (1.3-7.7) k/uL Lymphocytes # 0.8 L (1.0-4.8) k/uL ABG pH (7.35-7.45) ABG pCO2 (35-45) mmHg ABG pO2 (83-108) mmHg ABG HCO3 (21-25) mmol/L ABG Total CO2 (19-24) mmol/L ABG O2 Saturation (94-97) % ABG Hematocrit (34.0-46.0) % ABG Sodium (135-146) mmol/L ABG Potassium (3.4-4.5) mmol/L ABG Ionized Calcium (4.5-5.3) mg/dL ABG Glucose (75-99) mg/dL ABG Lactic Acid (0.5-1.6) mmol/L Hemoglobin (11.4-16.0) gm/dL Sodium 133 L (137-145) mmol/L Creatinine 0.48 L (0.52-1.04) mg/dL Glucose 108 H (74-99) mg/dL POC Glucose (mg/dL) 115 H (75-99) mg/dL Magnesium (1.6-2.3) mg/dL AST 64 H (14-36) U/L Alkaline Phosphatase (38-126) U/L Total Protein 4.9 L (6.3-8.2) g/dL Albumin 3.0 L (3.5-5.0) g/dL Arterial Blood Potassium (3.4-4.5) mmol/L Arterial Blood Glucose (75-99) mg/dL Crossmatch 07/04/18 07/04/18 07/04/18 Range/Units 05:05 06:54 08:11 WBC (3.8-10.6) k/uL RBC (3.80-5.40) m/uL Hgb (11.4-16.0) gm/dL Hct (34.0-46.0) % Plt Count (150-450) k/uL Neutrophils # (1.3-7.7) k/uL Lymphocytes # (1.0-4.8) k/uL ABG pH (7.35-7.45) ABG pCO2 (35-45) mmHg ABG pO2 (83-108) mmHg ABG HCO3 (21-25) mmol/L ABG Total CO2 (19-24) mmol/L ABG O2 Saturation (94-97) % ABG Hematocrit (34.0-46.0) % ABG Sodium (135-146) mmol/L ABG Potassium (3.4-4.5) mmol/L ABG Ionized Calcium (4.5-5.3) mg/dL ABG Glucose (75-99) mg/dL ABG Lactic Acid (0.5-1.6) mmol/L Hemoglobin (11.4-16.0) gm/dL Sodium (137-145) mmol/L Creatinine (0.52-1.04) mg/dL Glucose (74-99) mg/dL POC Glucose (mg/dL) 121 H 101 H 121 H (75-99) mg/dL Magnesium (1.6-2.3) mg/dL AST (14-36) U/L Alkaline Phosphatase (38-126) U/L Total Protein (6.3-8.2) g/dL Albumin (3.5-5.0) g/dL Arterial Blood Potassium (3.4-4.5) mmol/L Arterial Blood Glucose (75-99) mg/dL Crossmatch 07/04/18 Range/Units 10:00 WBC (3.8-10.6) k/uL RBC (3.80-5.40) m/uL Hgb (11.4-16.0) gm/dL Hct (34.0-46.0) % Plt Count (150-450) k/uL Neutrophils # (1.3-7.7) k/uL Lymphocytes # (1.0-4.8) k/uL ABG pH (7.35-7.45) ABG pCO2 (35-45) mmHg ABG pO2 (83-108) mmHg ABG HCO3 (21-25) mmol/L ABG Total CO2 (19-24) mmol/L ABG O2 Saturation (94-97) % ABG Hematocrit (34.0-46.0) % ABG Sodium (135-146) mmol/L ABG Potassium (3.4-4.5) mmol/L ABG Ionized Calcium (4.5-5.3) mg/dL ABG Glucose (75-99) mg/dL ABG Lactic Acid (0.5-1.6) mmol/L Hemoglobin (11.4-16.0) gm/dL Sodium (137-145) mmol/L Creatinine (0.52-1.04) mg/dL Glucose (74-99) mg/dL POC Glucose (mg/dL) 181 H (75-99) mg/dL Magnesium (1.6-2.3) mg/dL AST (14-36) U/L Alkaline Phosphatase (38-126) U/L Total Protein (6.3-8.2) g/dL Albumin (3.5-5.0) g/dL Arterial Blood Potassium (3.4-4.5) mmol/L Arterial Blood Glucose (75-99) mg/dL Crossmatch Microbiology - Last 24 Hours (Table) 07/02/18 10:10 Nasal Screen MRSA/MSSA - Final Nasal Swab Staphylococcus aureus,Not MRSA 07/02/18 15:40 Urine Culture - Final Urine,Clean Catch - Imaging and Cardiology Chest x-ray: report reviewed, image reviewed Assessment and Plan Assessment: 1. Coronary artery disease with left main disease 2. Moderate mitral vavle regurgitation per preoperative 2-D echocardiogram 3. Bilateral internal carotid artery stenosis 50-79% 4. History of CAD, heart catheterization in 2006 without intervention 5. Hypertension 6. Hyperlipidemia 7. Uvg-ezssnoc-zkucgtlic diabetes mellitus 8. Obstructive sleep apnea without consistent CPAP use 9. Family history of premature coronary artery disease 10. Never smoker 11. Obesity Plan: 1. Continue aspirin, statin, Plavix and beta maria l. We will increase beta maria l as tolerated. 2. Discontinue IV nitroglycerin. 3. Bronchodilators per pulmonology management. 4. Wean oxygen as tolerated. 5. Encourage use of her incentive spirometry 10 times every hour while awake. 6. Increase activity as tolerated. PT/OT/cardiac rehab following. 7. Will monitor daily labs and chest x-rays. Electrolyte replacement per protocol. 8. Pain control with current medication regimen. Toradol has been added. 9. Insulin management per primary care service. 10. GI/DVT prophylaxis with Protonix and heparin, SCDs. 11. Lasix 40 mg IV 1 now. 12. Remove right IJ [place]-Lorrie catheter, keep right IJ Cordis in place to continue CVP monitoring. 13. Discontinue IV Protonix, start Protonix 40 mg by mouth before meals breakfast daily. 14. Home dose of Neurontin 300 mg by mouth twice a day restarted. 15. More recommendations to follow based on patient's clinical course. Time with Patient: Greater than 30
[2018-07-04 11:28] VITALS: BMI 36.3
[2018-07-04 12:39] LABS: Glucose,Whole Blood 146 mg/dL (75-99)
[2018-07-04] MEDS: MULTIVITAMINS, THERA 1 EACH TAB PO SCH (12:43)
[2018-07-04] MEDS ORDERED: BISACODYL 10 MG SUPP RECTAL PRN ×2 (13:02→20:42)
[2018-07-04] MEDS ORDERED: MAGNESIUM HYDROXIDE 2,400 MG/10 ML CUP PO PRN ×2 (13:02→20:42)
[2018-07-04 14:00] LABS: Glucose,Whole Blood 179 mg/dL (75-99)
--- NOTE | 2018-07-04 14:18 | P.PN ---
Subjective Patient was extubated. She is doing well. Alert and oriented minimal chest discomfort no shortness of breath looks very comfortable On examination blood pressure 105/57 mmHg normal respirations pulse rate in the 70s to 80s afebrile Sounds are reduced bilaterally with some crackles at the bases heart sounds are distant no obvious murmurs Abdomen is soft Extremities warm Impression CAD with left main disease Hypertension Diabetes type 2 Observe sleep apnea Status post coronary artery bypass grafting Suggest Continue post CT surgery and ICU care Aspirin 325 mg by mouth daily Atorvastatin 40 mg daily Pavex 75 mg by mouth daily Metoprolol 25 mg twice daily Will continue to follow Objective - Vital Signs Vital signs: Vital Signs Temp 98.3 F 07/04/18 12:00 Pulse 68 07/04/18 13:00 Resp 15 07/04/18 13:00 BP 105/57 07/04/18 13:00 Pulse Ox 99 07/04/18 13:00 Intake & Output 07/03/18 07/04/18 07/04/18 18:59 06:59 18:59 Intake Total 949.380 969.371 368.920 Output Total 2190 1251 935 Balance -1240.620 -281.629 -566.080 Weight 87.2 kg 87.2 kg Intake: IV 41 845.0 256 Lactated Ringers 1,000 ml 600 200 @ 50 mls/hr IV .Q20H [facility] Rx#:[id number] Nitroglycerin-D5w Pmx 50 18.0 mg In Dextrose/Water 1 250ml.bag @ 5 MCG/MIN 1.5 mls/hr IV .Q24H [facility] Rx#: [id number] cardiac output 20 110 20 pressure bag 18 117 36 Intake, IV Titration 908.380 124.371 112.920 Amount Albumin Human 5% 500 ml 500 In Empty Bag 1 bag @ 250 mls/hr IVPB ONCE ONE Rx#: [id number] Clevidipine Butyrate 25 5.334 4.000 mg In Empty Bag 1 bag @ 1 MG/HR 2 mls/hr IV .Q24H [facility] Rx#:[id number] Clevidipine Butyrate 25 65.534 mg In Empty Bag 1 bag @ 1 MG/HR 2 mls/hr IV .Q24H [facility] Rx#:[id number] Insulin Regular 100 unit 2.02 54.837 12.920 In Sodium Chloride 0.9% 100 ml @ Per Protocol IV .Q0M [facility] Rx#:[id number] Lactated Ringers 1,000 ml 200 @ 50 mls/hr IV .Q20H [facility] Rx#:[id number] Magnesium Sulfate-D5w Pmx 100 1 gm In Dextrose/Water 1 100ml.bag @ 100 mls/hr IVPB Q1H [facility] Rx#: [id number] Potassium Chloride 10 meq 200 In Water For Injection 1 100ml.bag @ 100 mls/hr IVPB Q1H [facility] Rx#: [id number] Propofol 1,000 mg In 1.026 Empty Bag 1 bag @ Titrate IV .Q0M [facility] Rx#: [id number] Output: Chest Tube Drainage 130 416 80 left pleural 55 209 10 mediastinal chest tube x2 75 207 70 Urine 1260 835 855 Estimated Blood Loss 800 Other: Voiding Method Indwelling Catheter Indwelling Catheter Indwelling Catheter ABP, PAP, CO, CI - Last Documented Arterial Blood Pressure 115/96 Pulmonary Artery Pressure 31/10 Cardiac Output 4.5 Cardiac Index 2.4 - Labs CBC & Chem 7: 07/04/18 05:00 07/04/18 05:00 Labs: Abnormal Lab Results - Last 24 Hours (Table) 07/02/18 07/03/18 07/03/18 Range/Units 10:17 13:47 15:04 WBC (3.8-10.6) k/uL RBC (3.80-5.40) m/uL Hgb (11.4-16.0) gm/dL Hct (34.0-46.0) % Plt Count (150-450) k/uL Neutrophils # (1.3-7.7) k/uL Lymphocytes # (1.0-4.8) k/uL ABG Total CO2 (19-24) mmol/L ABG O2 Saturation (94-97) % Sodium 135 L (137-145) mmol/L Creatinine 0.51 L (0.52-1.04) mg/dL Glucose 135 H (74-99) mg/dL POC Glucose (mg/dL) 115 H (75-99) mg/dL Magnesium 2.6 H (1.6-2.3) mg/dL AST 37 H (14-36) U/L Alkaline Phosphatase 35 L (38-126) U/L Total Protein 4.4 L (6.3-8.2) g/dL Albumin 2.3 L (3.5-5.0) g/dL Crossmatch See Detail 07/03/18 07/03/18 07/03/18 Range/Units 16:08 16:10 17:15 WBC 16.3 H (3.8-10.6) k/uL RBC (3.80-5.40) m/uL Hgb 10.8 L (11.4-16.0) gm/dL Hct 32.5 L (34.0-46.0) % Plt Count (150-450) k/uL Neutrophils # 13.7 H (1.3-7.7) k/uL Lymphocytes # (1.0-4.8) k/uL ABG Total CO2 (19-24) mmol/L ABG O2 Saturation (94-97) % Sodium (137-145) mmol/L Creatinine (0.52-1.04) mg/dL Glucose (74-99) mg/dL POC Glucose (mg/dL) 142 H 161 H (75-99) mg/dL Magnesium (1.6-2.3) mg/dL AST (14-36) U/L Alkaline Phosphatase (38-126) U/L Total Protein (6.3-8.2) g/dL Albumin (3.5-5.0) g/dL Crossmatch 07/03/18 07/03/18 07/03/18 Range/Units 18:04 18:25 19:00 WBC 12.1 H (3.8-10.6) k/uL RBC (3.80-5.40) m/uL Hgb 11.1 L (11.4-16.0) gm/dL Hct 33.2 L (34.0-46.0) % Plt Count 129 L (150-450) k/uL Neutrophils # 11.0 H (1.3-7.7) k/uL Lymphocytes # 0.5 L (1.0-4.8) k/uL ABG Total CO2 25 H (19-24) mmol/L ABG O2 Saturation 97.1 H (94-97) % Sodium (137-145) mmol/L Creatinine (0.52-1.04) mg/dL Glucose (74-99) mg/dL POC Glucose (mg/dL) 162 H (75-99) mg/dL Magnesium (1.6-2.3) mg/dL AST (14-36) U/L Alkaline Phosphatase (38-126) U/L Total Protein (6.3-8.2) g/dL Albumin (3.5-5.0) g/dL Crossmatch 07/03/18 07/03/18 07/03/18 Range/Units 19:05 19:56 20:50 WBC 11.6 H (3.8-10.6) k/uL RBC (3.80-5.40) m/uL Hgb 10.8 L (11.4-16.0) gm/dL Hct 32.2 L (34.0-46.0) % Plt Count 111 L (150-450) k/uL Neutrophils # 10.5 H (1.3-7.7) k/uL Lymphocytes # 0.5 L (1.0-4.8) k/uL ABG Total CO2 (19-24) mmol/L ABG O2 Saturation (94-97) % Sodium (137-145) mmol/L Creatinine (0.52-1.04) mg/dL Glucose (74-99) mg/dL POC Glucose (mg/dL) 171 H 170 H (75-99) mg/dL Magnesium (1.6-2.3) mg/dL AST (14-36) U/L Alkaline Phosphatase (38-126) U/L Total Protein (6.3-8.2) g/dL Albumin (3.5-5.0) g/dL Crossmatch 07/03/18 07/03/18 07/03/18 Range/Units 20:59 22:01 23:22 WBC (3.8-10.6) k/uL RBC (3.80-5.40) m/uL Hgb (11.4-16.0) gm/dL Hct (34.0-46.0) % Plt Count (150-450) k/uL Neutrophils # (1.3-7.7) k/uL Lymphocytes # (1.0-4.8) k/uL ABG Total CO2 (19-24) mmol/L ABG O2 Saturation (94-97) % Sodium (137-145) mmol/L Creatinine (0.52-1.04) mg/dL Glucose (74-99) mg/dL POC Glucose (mg/dL) 167 H 145 H 133 H (75-99) mg/dL Magnesium (1.6-2.3) mg/dL AST (14-36) U/L Alkaline Phosphatase (38-126) U/L Total Protein (6.3-8.2) g/dL Albumin (3.5-5.0) g/dL Crossmatch 07/04/18 07/04/18 07/04/18 Range/Units 00:04 01:06 01:54 WBC (3.8-10.6) k/uL RBC (3.80-5.40) m/uL Hgb (11.4-16.0) gm/dL Hct (34.0-46.0) % Plt Count (150-450) k/uL Neutrophils # (1.3-7.7) k/uL Lymphocytes # (1.0-4.8) k/uL ABG Total CO2 (19-24) mmol/L ABG O2 Saturation (94-97) % Sodium (137-145) mmol/L Creatinine (0.52-1.04) mg/dL Glucose (74-99) mg/dL POC Glucose (mg/dL) 132 H 119 H 117 H (75-99) mg/dL Magnesium (1.6-2.3) mg/dL AST (14-36) U/L Alkaline Phosphatase (38-126) U/L Total Protein (6.3-8.2) g/dL Albumin (3.5-5.0) g/dL Crossmatch 07/04/18 07/04/18 07/04/18 Range/Units 03:07 04:04 05:00 WBC (3.8-10.6) k/uL RBC 3.68 L (3.80-5.40) m/uL Hgb 10.3 L (11.4-16.0) gm/dL Hct 30.6 L (34.0-46.0) % Plt Count 127 L (150-450) k/uL Neutrophils # (1.3-7.7) k/uL Lymphocytes # 0.8 L (1.0-4.8) k/uL ABG Total CO2 (19-24) mmol/L ABG O2 Saturation (94-97) % Sodium (137-145) mmol/L Creatinine (0.52-1.04) mg/dL Glucose (74-99) mg/dL POC Glucose (mg/dL) 110 H 115 H (75-99) mg/dL Magnesium (1.6-2.3) mg/dL AST (14-36) U/L Alkaline Phosphatase (38-126) U/L Total Protein (6.3-8.2) g/dL Albumin (3.5-5.0) g/dL Crossmatch 07/04/18 07/04/18 07/04/18 Range/Units 05:00 05:05 06:54 WBC (3.8-10.6) k/uL RBC (3.80-5.40) m/uL Hgb (11.4-16.0) gm/dL Hct (34.0-46.0) % Plt Count (150-450) k/uL Neutrophils # (1.3-7.7) k/uL Lymphocytes # (1.0-4.8) k/uL ABG Total CO2 (19-24) mmol/L ABG O2 Saturation (94-97) % Sodium 133 L (137-145) mmol/L Creatinine 0.48 L (0.52-1.04) mg/dL Glucose 108 H (74-99) mg/dL POC Glucose (mg/dL) 121 H 101 H (75-99) mg/dL Magnesium (1.6-2.3) mg/dL AST 64 H (14-36) U/L Alkaline Phosphatase (38-126) U/L Total Protein 4.9 L (6.3-8.2) g/dL Albumin 3.0 L (3.5-5.0) g/dL Crossmatch 07/04/18 07/04/18 07/04/18 Range/Units 08:11 10:00 11:03 WBC (3.8-10.6) k/uL RBC (3.80-5.40) m/uL Hgb (11.4-16.0) gm/dL Hct (34.0-46.0) % Plt Count (150-450) k/uL Neutrophils # (1.3-7.7) k/uL Lymphocytes # (1.0-4.8) k/uL ABG Total CO2 (19-24) mmol/L ABG O2 Saturation (94-97) % Sodium (137-145) mmol/L Creatinine (0.52-1.04) mg/dL Glucose (74-99) mg/dL POC Glucose (mg/dL) 121 H 181 H 186 H (75-99) mg/dL Magnesium (1.6-2.3) mg/dL AST (14-36) U/L Alkaline Phosphatase (38-126) U/L Total Protein (6.3-8.2) g/dL Albumin (3.5-5.0) g/dL Crossmatch 07/04/18 07/04/18 Range/Units 12:38 13:58 WBC (3.8-10.6) k/uL RBC (3.80-5.40) m/uL Hgb (11.4-16.0) gm/dL Hct (34.0-46.0) % Plt Count (150-450) k/uL Neutrophils # (1.3-7.7) k/uL Lymphocytes # (1.0-4.8) k/uL ABG Total CO2 (19-24) mmol/L ABG O2 Saturation (94-97) % Sodium (137-145) mmol/L Creatinine (0.52-1.04) mg/dL Glucose (74-99) mg/dL POC Glucose (mg/dL) 146 H 179 H (75-99) mg/dL Magnesium (1.6-2.3) mg/dL AST (14-36) U/L Alkaline Phosphatase (38-126) U/L Total Protein (6.3-8.2) g/dL Albumin (3.5-5.0) g/dL Crossmatch Microbiology - Last 24 Hours (Table) 07/02/18 10:10 Nasal Screen MRSA/MSSA - Final Nasal Swab Staphylococcus aureus,Not MRSA 07/02/18 15:40 Urine Culture - Final Urine,Clean Catch
--- NOTE | 2018-07-04 14:39 | P.PN ---
Subjective Progress Note Date: 07/04/18 68-year-old female patient known history of coronary artery disease, hypertension, hyperlipidemia, [id number] diabetes mellitus, obstructive sleep apnea not utilizing any form of CPAP, presented to the hospital because of chest pain and shortness of breath. She underwent cardiac catheterization that showed 60% left main stenosis, 40-50% mid LAD stenosis, 40% RCA stenosis. LV angiogram showed an ejection fraction of 60% with normal wall motion. The patient had a carotid Doppler that showed 50-79% internal carotid artery stenosis. Based on that, the patient was taken to the operating room and the patient underwent four-vessel bypass surgery. I'm seeing her immediately postop. She is doing extremely well. She is still sedated for now and she is on no sedation and Diprivan was discontinued pH is on a mechanical ventilator on assist control mode at the rate of 12 with tidal volume of 400 and FiO2 of 100% and PEEP of 10. Her blood gas showed a pH of 7.37 with a pCO2 of 45 and pO2 of 265. FiO2 was dropped down to 60%. Chest x-ray shows left midlung atelectatic changes. ET tube is in good location. The patient's Jackson-Lorrie catheter which is in a good location. The patient has left pleural and mediastinal chest tube. The patient has been weaned down to 60% FiO2. Meanwhile, hemodynamically patient is doing well. Cardiac output is at 4.4 with an index of 2.4. Pulmona ry to pursue 36/20. She has developed adequate urine output. She is on low- dose atorvastatin drip at 5 g per minute for blood pressure control. Chest tubes are in place. No significant output from the chest tube. No other issues otherwise for now. On 07/04/2018 I'm seeing this patient for a follow-up, the patient is being seen for a follow-up. The patient was weaned off the mechanical ventilator and extubated immediately within 6 hours of arriving to the intensive care unit. The patient did extremely well. This morning she is awake and alert and she is sitting up on a chair. No fever. No chills. She has adequate urine output. No nausea. No vomiting. No abdominal pain. Sternum stable clean and intact. Chest tubes are in place. Jackson-Lorrie catheter is in place. Adequate cardiac output and index. Asked x-ray shows no evidence of any pneumothorax. The patient has some increased swelling in the upper and lower extremities and the patient will be given a dose of IV Lasix. The patient is pulling approximately 750 mL on the incentive spirometer. The patient has a cardiac index of 2.9. Pulmonary artery pressures 29/10. CVP is at 3. The patient a day #1. Objective - Vital Signs Vital signs: Vital Signs Temp 98.3 F 07/04/18 12:00 Pulse 72 07/04/18 14:00 Resp 15 07/04/18 14:00 BP 89/54 07/04/18 14:00 Pulse Ox 98 07/04/18 14:00 Intake & Output 07/03/18 07/04/18 07/04/18 18:59 06:59 18:59 Intake Total 949.380 969.371 412.798 Output Total 2190 1251 975 Balance -1240.620 -281.629 -562.202 Weight 87.2 kg 87.2 kg Intake: IV 41 845.0 292 Lactated Ringers 1,000 ml 600 230 @ 50 mls/hr IV .Q20H [facility] Rx#:[id number] Nitroglycerin-D5w Pmx 50 18.0 mg In Dextrose/Water 1 250ml.bag @ 5 MCG/MIN 1.5 mls/hr IV .Q24H [facility] Rx#: [id number] cardiac output 20 110 20 pressure bag 18 117 42 Intake, IV Titration 908.380 124.371 120.798 Amount Albumin Human 5% 500 ml 500 In Empty Bag 1 bag @ 250 mls/hr IVPB ONCE ONE Rx#: [id number] Clevidipine Butyrate 25 5.334 4.000 mg In Empty Bag 1 bag @ 1 MG/HR 2 mls/hr IV .Q24H [facility] Rx#:[id number] Clevidipine Butyrate 25 65.534 mg In Empty Bag 1 bag @ 1 MG/HR 2 mls/hr IV .Q24H [facility] Rx#:[id number] Insulin Regular 100 unit 2.02 54.837 20.798 In Sodium Chloride 0.9% 100 ml @ Per Protocol IV .Q0M [facility] Rx#:[id number] Lactated Ringers 1,000 ml 200 @ 50 mls/hr IV .Q20H [facility] Rx#:[id number] Magnesium Sulfate-D5w Pmx 100 1 gm In Dextrose/Water 1 100ml.bag @ 100 mls/hr IVPB Q1H [facility] Rx#: [id number] Potassium Chloride 10 meq 200 In Water For Injection 1 100ml.bag @ 100 mls/hr IVPB Q1H [facility] Rx#: [id number] Propofol 1,000 mg In 1.026 Empty Bag 1 bag @ Titrate IV .Q0M [facility] Rx#: [id number] Output: Chest Tube Drainage 130 416 80 left pleural 55 209 10 mediastinal chest tube x2 75 207 70 Urine 1260 835 895 Estimated Blood Loss 800 Other: Voiding Method Indwelling Catheter Indwelling Catheter Indwelling Catheter ABP, PAP, CO, CI - Last Documented Arterial Blood Pressure 115/96 Pulmonary Artery Pressure 31/10 Cardiac Output 4.5 Cardiac Index 2.4 - Exam - Constitutional General appearance: Present: cooperative, no acute distress, obese - Respiratory Details: Lung sounds are essentially clear to her bilateral upper lobes, diminished bilateral bases. Respirations are symmetrical and nonlabored. Oxygen saturation are 96% on 2 L nasal cannula. She is achieving 750 mL on her incentive spirometry. Left pleural and mediastinal chest tubes in place to low continuous wall suction -20 cm H2O. No air leak is present. Chest tubes are draining thin serosanguineous drainage. Left pleural chest tube drained 160 mL output in the last 8 hours, 260 mL output since surgery. Mediastinal chest tubes drained 150 mL output in the last 8 hours, 280 mL output since surgery. - Cardiovascular Details: Regular rhythm and rate. S1 and S2 present, negative for S3, gallop or murmur. Bedside telemetry showing normal sinus rhythm heart rate 83. Sternum is stable. Right IJ Jackson-Lorrie catheter in place and functioning, current cardiac output 5.2, cardiac index 2.8, PA pressures 29/6, CVP 3 mmHg. +1 generalized edema. Atrial and ventricular epicardial pacemaker wires are in place and connected to bedside backup pacemaker generator with a VVI 50. Knee-high KUNAL hose and sequen tial compression devices in place to her bilateral lower extremities. Heart hugger is in place and she is demonstrating appropriate use. - Gastrointestinal Gastrointestinal Comment(s): Abdomen soft, nontender and nondistended. Hypoactive bowel sounds present in all 4 abdominal quadrants. No guarding or rigidity. No organomegaly. Tolerating oral intake. - Genitourinary Genitourinary Comment(s): Clark catheter for accurate I&O. Draining clear lilliam urine. 550 mL output in the last 8 hours. - Integumentary Integumentary Comment(s): Skin is warm and dry. No clubbing or cyanosis is present. Midline sternal incision is clean, dry and approximated. No drainage or redness is present. Gauze dressing is clean, dry and intact. Right lower extremity EVH site is clean, dry and approximated. No drainage or redness is present. - Neurologic Neurologic: Present: CNII-XII intact - Musculoskeletal Musculoskeletal: Present: gait normal, generalized weakness, strength equal bilaterally - Psychiatric Psychiatric: Present: A&O x's 3, appropriate affect, intact judgment & insight - Labs CBC & Chem 7: 07/04/18 05:00 07/04/18 05:00 Labs: Abnormal Lab Results - Last 24 Hours (Table) 07/02/18 07/03/18 07/03/18 Range/Units 10:17 13:47 15:04 WBC (3.8-10.6) k/uL RBC (3.80-5.40) m/uL Hgb (11.4-16.0) gm/dL Hct (34.0-46.0) % Plt Count (150-450) k/uL Neutrophils # (1.3-7.7) k/uL Lymphocytes # (1.0-4.8) k/uL ABG Total CO2 (19-24) mmol/L ABG O2 Saturation (94-97) % Sodium 135 L (137-145) mmol/L Creatinine 0.51 L (0.52-1.04) mg/dL Glucose 135 H (74-99) mg/dL POC Glucose (mg/dL) 115 H (75-99) mg/dL Magnesium 2.6 H (1.6-2.3) mg/dL AST 37 H (14-36) U/L Alkaline Phosphatase 35 L (38-126) U/L Total Protein 4.4 L (6.3-8.2) g/dL Albumin 2.3 L (3.5-5.0) g/dL Crossmatch See Detail 07/03/18 07/03/18 07/03/18 Range/Units 16:08 16:10 17:15 WBC 16.3 H (3.8-10.6) k/uL RBC (3.80-5.40) m/uL Hgb 10.8 L (11.4-16.0) gm/dL Hct 32.5 L (34.0-46.0) % Plt Count (150-450) k/uL Neutrophils # 13.7 H (1.3-7.7) k/uL Lymphocytes # (1.0-4.8) k/uL ABG Total CO2 (19-24) mmol/L ABG O2 Saturation (94-97) % Sodium (137-145) mmol/L Creatinine (0.52-1.04) mg/dL Glucose (74-99) mg/dL POC Glucose (mg/dL) 142 H 161 H (75-99) mg/dL Magnesium (1.6-2.3) mg/dL AST (14-36) U/L Alkaline Phosphatase (38-126) U/L Total Protein (6.3-8.2) g/dL Albumin (3.5-5.0) g/dL Crossmatch 07/03/18 07/03/18 07/03/18 Range/Units 18:04 18:25 19:00 WBC 12.1 H (3.8-10.6) k/uL RBC (3.80-5.40) m/uL Hgb 11.1 L (11.4-16.0) gm/dL Hct 33.2 L (34.0-46.0) % Plt Count 129 L (150-450) k/uL Neutrophils # 11.0 H (1.3-7.7) k/uL Lymphocytes # 0.5 L (1.0-4.8) k/uL ABG Total CO2 25 H (19-24) mmol/L ABG O2 Saturation 97.1 H (94-97) % Sodium (137-145) mmol/L Creatinine (0.52-1.04) mg/dL Glucose (74-99) mg/dL POC Glucose (mg/dL) 162 H (75-99) mg/dL Magnesium (1.6-2.3) mg/dL AST (14-36) U/L Alkaline Phosphatase (38-126) U/L Total Protein (6.3-8.2) g/dL Albumin (3.5-5.0) g/dL Crossmatch 07/03/18 07/03/18 07/03/18 Range/Units 19:05 19:56 20:50 WBC 11.6 H (3.8-10.6) k/uL RBC (3.80-5.40) m/uL Hgb 10.8 L (11.4-16.0) gm/dL Hct 32.2 L (34.0-46.0) % Plt Count 111 L (150-450) k/uL Neutrophils # 10.5 H (1.3-7.7) k/uL Lymphocytes # 0.5 L (1.0-4.8) k/uL ABG Total CO2 (19-24) mmol/L ABG O2 Saturation (94-97) % Sodium (137-145) mmol/L Creatinine (0.52-1.04) mg/dL Glucose (74-99) mg/dL POC Glucose (mg/dL) 171 H 170 H (75-99) mg/dL Magnesium (1.6-2.3) mg/dL AST (14-36) U/L Alkaline Phosphatase (38-126) U/L Total Protein (6.3-8.2) g/dL Albumin (3.5-5.0) g/dL Crossmatch 07/03/18 07/03/18 07/03/18 Range/Units 20:59 22:01 23:22 WBC (3.8-10.6) k/uL RBC (3.80-5.40) m/uL Hgb (11.4-16.0) gm/dL Hct (34.0-46.0) % Plt Count (150-450) k/uL Neutrophils # (1.3-7.7) k/uL Lymphocytes # (1.0-4.8) k/uL ABG Total CO2 (19-24) mmol/L ABG O2 Saturation (94-97) % Sodium (137-145) mmol/L Creatinine (0.52-1.04) mg/dL Glucose (74-99) mg/dL POC Glucose (mg/dL) 167 H 145 H 133 H (75-99) mg/dL Magnesium (1.6-2.3) mg/dL AST (14-36) U/L Alkaline Phosphatase (38-126) U/L Total Protein (6.3-8.2) g/dL Albumin (3.5-5.0) g/dL Crossmatch 07/04/18 07/04/18 07/04/18 Range/Units 00:04 01:06 01:54 WBC (3.8-10.6) k/uL RBC (3.80-5.40) m/uL Hgb (11.4-16.0) gm/dL Hct (34.0-46.0) % Plt Count (150-450) k/uL Neutrophils # (1.3-7.7) k/uL Lymphocytes # (1.0-4.8) k/uL ABG Total CO2 (19-24) mmol/L ABG O2 Saturation (94-97) % Sodium (137-145) mmol/L Creatinine (0.52-1.04) mg/dL Glucose (74-99) mg/dL POC Glucose (mg/dL) 132 H 119 H 117 H (75-99) mg/dL Magnesium (1.6-2.3) mg/dL AST (14-36) U/L Alkaline Phosphatase (38-126) U/L Total Protein (6.3-8.2) g/dL Albumin (3.5-5.0) g/dL Crossmatch 07/04/18 07/04/18 07/04/18 Range/Units 03:07 04:04 05:00 WBC (3.8-10.6) k/uL RBC 3.68 L (3.80-5.40) m/uL Hgb 10.3 L (11.4-16.0) gm/dL Hct 30.6 L (34.0-46.0) % Plt Count 127 L (150-450) k/uL Neutrophils # (1.3-7.7) k/uL Lymphocytes # 0.8 L (1.0-4.8) k/uL ABG Total CO2 (19-24) mmol/L ABG O2 Saturation (94-97) % Sodium (137-145) mmol/L Creatinine (0.52-1.04) mg/dL Glucose (74-99) mg/dL POC Glucose (mg/dL) 110 H 115 H (75-99) mg/dL Magnesium (1.6-2.3) mg/dL AST (14-36) U/L Alkaline Phosphatase (38-126) U/L Total Protein (6.3-8.2) g/dL Albumin (3.5-5.0) g/dL Crossmatch 07/04/18 07/04/18 07/04/18 Range/Units 05:00 05:05 06:54 WBC (3.8-10.6) k/uL RBC (3.80-5.40) m/uL Hgb (11.4-16.0) gm/dL Hct (34.0-46.0) % Plt Count (150-450) k/uL Neutrophils # (1.3-7.7) k/uL Lymphocytes # (1.0-4.8) k/uL ABG Total CO2 (19-24) mmol/L ABG O2 Saturation (94-97) % Sodium 133 L (137-145) mmol/L Creatinine 0.48 L (0.52-1.04) mg/dL Glucose 108 H (74-99) mg/dL POC Glucose (mg/dL) 121 H 101 H (75-99) mg/dL Magnesium (1.6-2.3) mg/dL AST 64 H (14-36) U/L Alkaline Phosphatase (38-126) U/L Total Protein 4.9 L (6.3-8.2) g/dL Albumin 3.0 L (3.5-5.0) g/dL Crossmatch 07/04/18 07/04/18 07/04/18 Range/Units 08:11 10:00 11:03 WBC (3.8-10.6) k/uL RBC (3.80-5.40) m/uL Hgb (11.4-16.0) gm/dL Hct (34.0-46.0) % Plt Count (150-450) k/uL Neutrophils # (1.3-7.7) k/uL Lymphocytes # (1.0-4.8) k/uL ABG Total CO2 (19-24) mmol/L ABG O2 Saturation (94-97) % Sodium (137-145) mmol/L Creatinine (0.52-1.04) mg/dL Glucose (74-99) mg/dL POC Glucose (mg/dL) 121 H 181 H 186 H (75-99) mg/dL Magnesium (1.6-2.3) mg/dL AST (14-36) U/L Alkaline Phosphatase (38-126) U/L Total Protein (6.3-8.2) g/dL Albumin (3.5-5.0) g/dL Crossmatch 07/04/18 07/04/18 Range/Units 12:38 13:58 WBC (3.8-10.6) k/uL RBC (3.80-5.40) m/uL Hgb (11.4-16.0) gm/dL Hct (34.0-46.0) % Plt Count (150-450) k/uL Neutrophils # (1.3-7.7) k/uL Lymphocytes # (1.0-4.8) k/uL ABG Total CO2 (19-24) mmol/L ABG O2 Saturation (94-97) % Sodium (137-145) mmol/L Creatinine (0.52-1.04) mg/dL Glucose (74-99) mg/dL POC Glucose (mg/dL) 146 H 179 H (75-99) mg/dL Magnesium (1.6-2.3) mg/dL AST (14-36) U/L Alkaline Phosphatase (38-126) U/L Total Protein (6.3-8.2) g/dL Albumin (3.5-5.0) g/dL Crossmatch Microbiology - Last 24 Hours (Table) 07/02/18 10:10 Nasal Screen MRSA/MSSA - Final Nasal Swab Staphylococcus aureus,Not MRSA 07/02/18 15:40 Urine Culture - Final Urine,Clean Catch Assessment and Plan Plan: 1 multivessel coronary artery disease, post coronary bypass surgery and the patient's postoperative day #1 2 post thoracotomy, patient was extubated without any major difficulties. Chest tubes are in place. Hemodynamically stable. Adequate cardiac index. Jackson-Lorrie catheter will be taken out today. Chest x-ray shows no evidence of any pneumothorax. Output from the chest tube is being monitored very closely. 3 hypertension 4 hyperlipidemia 5 [id number] diabetes mellitus 6 obstructive sleep apnea. 7 obesity 8 preserved LV function based on the preoperative echocardiogram 9 50-80% occlusion and bilateral internal carotid arteries Plan Continue aspirin and beta blockers in the form of metoprolol and Plavix. The patient is also on Lipitor. Discontinue nitroglycerin drip. Wean down the FiO2 as tolerated to maintain a saturation above 90%. Encourage use of incentive spirometer. Remove the Jackson-Lorrie catheter. Give a dose of Lasix 40 mg IV push. Adequate pain control for now. Insulin management per primary care team. We'll continue to follow make further recommendations based on her progress. Chest x-ray was reviewed. Hemodynamic is stable. Adequate recovery post right past surgery.
[2018-07-04 15:24] LABS: Glucose,Whole Blood 193 mg/dL (75-99)
[2018-07-04 16:30] LABS: Glucose,Whole Blood 129 mg/dL (75-99)
--- NOTE | 2018-07-04 16:35 | P.HPIM ---
History of Present Illness H&P Date: 07/04/18 Chief Complaint: Cardiac Bypass surgery This is a 68-year-old female patient of Dr. Baptiste and Dr. Love, known history of diabetes mellitus type 2 on oral agents, hypertension, obstructive sleep apnea who currently has no CPAP device at home secondary to noncompliance,, hyp erlipidemia, CK D stage III, also with bilateral internal carotid artery stenosis 50-79%, admitted to ICU after coronary bypass surgery, workup 06/17/2018 showed reversible anterior apical wall defect, echocardiogram shows EF 55%, no wall motion abnormality at the time, moderate MR, mild TR, there was 66% left main stenosis, mid LAD stenosis 40-50%, and RCA stenosis 40%, Dr. Garcia performed CABG grafting 2 vessels CHIRINOS to the LAD, saphenous vein to the obtuse marginal artery and endoscopic vein harvest right greater saphenous vein on July 03 2018. Consult were made from our service for medical management for which I have attempted to see the patient on July 03 however patient is still in the operating room at that time., also consults were made to Dr. Holm critical care medicine. Patient is seen post op day #1, in the ICU, was extubated successfully overnight, and he is doing well, they have ambulated the patient in the hallway, without any lightheadedness no chest pain. She does have 2 chest tubes,, x-rays shows evidence of pneumothorax, there is extremity swelling in the hands and fingers, as well as the legs, Lasix IV was given 1 dose, patient is performing incentive spirometry around 750 mL, patient is without any chest pain no lightheadedness no dizziness no nausea no vomiting, no melena. Patient has adequate urine output, sternotomy incision is clean and intact Review of Systems Constitutional: Reports as per HPI, Denies anorexia, Denies chills, Denies chronic headaches, Denies chronic pain, Denies daytime sleepiness, Denies fatigue, Denies fever, Denies lethargy, Denies malaise, Denies night sweats, Denies poor appetite, Denies sweats, Denies weakness, Denies weight gain, Denies weight loss Ears, nose, mouth and throat: Reports as per HPI, Denies ant. neck pain, Denies bleeding gums, Denies dental pain, Denies dysphagia, Denies epistaxis, Denies headache, Denies hoarseness, Denies mouth pain, Denies nasal congestion, Denies nasal discharge, Denies neck fullness/pressure, Denies neck lump, Denies nose pain, Denies odynophagia, Denies post-nasal drip, Denies sinus pain, Denies sinu s pressure, Denies swelling in mouth, Denies swelling in throat, Denies sore throat, Denies vertigo, Denies voice changes Cardiovascular: Reports as per HPI, Denies chest pain, Denies claudication, Denies decreased exercise tolerance, Denies dyspnea on exertion, Denies edema, Denies high blood pressure, Denies irregular heart beat, Denies leg edema, Denies lightheadedness, Denies orthopnea, Denies palpitations, Denies paroxysmal nocturnal dyspnea, Denies phlebitis, Denies rapid heart beat, Denies shortness of breath, Denies syncope Respiratory: Reports as per HPI, Denies congestion, Denies cough, Denies cough with sputum, Denies dyspnea, Denies excessive sputum, Denies hemoptysis, Denies home oxygen, Denies pain, Denies pain on inspiration, Denies pleurisy, Denies respiratory infections, Denies sleep apnea, Denies snoring, Denies wheezing Gastrointestinal: Reports as per HPI, Denies abdominal pain, Denies belching, Denies bloating, Denies BRBPR, Denies change in bowel habits, Denies coffee ground emesis, Denies constipation, Denies diarrhea, Denies dyspepsia, Denies early satiety, Denies excessive gas, Denies heartburn, Denies hematemesis, Denies hematochezia, Denies indigestion, Denies jaundice, Denies lactose intolerance, Denies loss of appetite, Denies melena, Denies nausea, Denies vomiting Genitourinary: Reports as per HPI, Denies abnormal vaginal bleeding, Denies decreased libido, Denies difficulty conceiving, Denies difficulty voiding, Denies dysmenorrhea, Denies dyspareunia, Denies dysuria, Denies flank pain, Denies genital sores, Denies hematuria, Denies hot flashes, Denies incomplete emptying, Denies kidney stones, Denies menorrhagia, Denies mixed incontinence, D enies nocturia, Denies pelvic pain, Denies post void dribbling, Denies , Denies prolapse symptoms, Denies stress incontinence, Denies urge incontinence, Denies urgency, Denies urinary frequency, Denies vaginal discharge, Denies vaginal dryness, Denies vaginal itching, Denies vaginal odor Menstruation: Reports as per HPI, Reports postmenopausal, Denies amenorrhea, D enies amenorrhea on BC, Denies currently menstrual, Denies cycle < 21 days, Denies cycle > 35 days, Denies cycle variable, Denies menses 1-7 days, Denies menses 8 or > days, Denies menses variable, Denies period heavy, Denies period light, Denies period normal, Denies period spotting, Denies post hysterectomy, Denies premenarcheal Musculoskeletal: Reports as per HPI, Reports limitation of motion, Denies arm numbness/tingling, Denies atrophy, Denies fractures, Denies frequent falls, Denies gait dysfunction, Denies hot joints, Denies leg numbness/tingling, Denies loss of height, Denies low back pain, Denies morning stiffness, Denies muscle cramps, Denies muscle weakness, Denies myalgias, Denies neck pain, Denies neck stiffness, Denies prior amputations, Denies redness of joints, Denies shooting arm pain, Denies shooting leg pain Integumentary: Reports as per HPI Neurological: Reports as per HPI, Denies aphasia, Denies ataxia, Denies balance difficulties, Denies burning pain, Denies change in mentation, Denies change in smell/taste, Denies change in speech, Denies confusion, Denies convulsions, Denies double vision, Denies gait dysfunction, Denies head injury, Denies headaches, Denies hearing difficulties, Denies lack of coordination, Denies loss of vision, Denies memory loss, Denies migraines, Denies motor disturbance, Denies numbness, Denies paralysis, Denies paresthesias, Denies seizures, Denies sensory deficit, Denies spasticity, Denies syncope, Denies tic, Denies tingling, Denies transient paralysis, Denies tremors, Denies vertigo, Denies weakness, Denies visual changes Psychiatric: Reports as per HPI, Denies anhedonia, Denies anxiety, Denies anxiety attacks, Denies change in appetite, Denies change in libido, Denies change in sleep habits, Denies confusion, Denies depression, Denies difficulty concentrating, Denies disorientation, Denies hallucinations, Denies hope lessness, Denies hypersomnia, Denies insomnia, Denies irritability, Denies memory loss, Denies mood swings, Denies paranoia, Denies sadness/tearfulness, Denies sleep disturbances, Denies suicidal ideation Endocrine: Reports as per HPI, Denies cold intolerance, Denies deepening of the voice, Denies excessive sweating, Denies excessive thirst, Denies fatigue, Denies flushing, Denies heat intolerance, Denies high blood sugars, Denies increase in ring/shoe/hat size, Denies low blood sugars, Denies nocturia, Denies palpitations, Denies polydipsia, Denies polyphagia, Denies polyuria, Denies proptosis, Denies recent glucocorticoid use, Denies thyroid mass, Denies weight change Hematologic/Lymphatic: Reports as per HPI Allergic/Immunologic: Reports as per HPI, Denies allergic rhinitis, Denies anaphylaxis, Denies angioedema, Denies gluten intolerance, Denies persistent infections, Denies seasonal allergies, Denies urticaria, Denies wheezing Past Medical History Past Medical History: Coronary Artery Disease (CAD), Chest Pain / Angina, Diabetes Mellitus, GERD/Reflux, Hyperlipidemia, Hypertension, Osteoarthritis (OA), Sleep Apnea/CPAP/BIPAP Additional Past Medical History / Comment(s): Coronary artery disease, hypertension, hyperlipidemia, diabetes mellitus, obstructive sleep apnea using CPAP therapy, hiatal hernia, History of Any Multi-Drug Resistant Organisms: None Reported Past Surgical History: Adenoidectomy, Appendectomy, Cholecystectomy, Heart Catheterization, Hysterectomy, Tonsillectomy Additional Past Surgical History / Comment(s): COLONOSCOPY, heart catheterizat ion in 2006 without intervention Past Anesthesia/Blood Transfusion Reactions: Previous Problems w/ Anesthesia Additional Past Anesthesia/Blood Transfusion Reaction / Comment(s): SLOW TO WAKE UP Past Psychological History: No Psychological Hx Reported Smoking Status: Never smoker Past Alcohol Use History: None Reported Past Drug Use History: None Reported - Past Family History Sister(s) Family Medical History: Cancer Father Family Medical History: Coronary Artery Disease (CAD) Additional Family Medical History / Comment(s): Father of myocardial infarction at 54 years old Mother Family Medical History: Congestive Heart Failure (CHF) Medications and Allergies Home Medications Medication Instructions Recorded Confirmed Type Aspirin EC [Ecotrin Low Dose] 81 mg PO DAILY 10/12/16 07/03/18 History Furosemide [Lasix] 20 mg PO DAILY 10/12/16 07/03/18 History Gabapentin [Neurontin] 300 mg PO BID 10/12/16 07/03/18 History Isosorbide Mononitrate [Isosorbide 30 mg PO DAILY 10/12/16 07/03/18 History Mononitrate ER] Metoprolol Tartrate [Lopressor] 50 mg PO BID 10/12/16 07/03/18 History Multivitamins, Thera [Multivitamin 1 tab PO DAILY 10/12/16 07/03/18 History (formulary)] Omeprazole 20 mg PO BID 10/12/16 07/03/18 History Spironolactone [Aldactone] 25 mg PO DAILY 10/12/16 07/03/18 History hydrALAZINE HCL [Hydralazine HCl] 50 mg PO BID 10/12/16 07/03/18 History metFORMIN HCL [Glucophage] 500 mg PO BID 10/12/16 07/03/18 History Cyanocobalamin [Vitamin B-12] 500 mcg PO DAILY 06/27/18 07/03/18 History Simvastatin [Zocor] 40 mg PO HS 06/27/18 07/03/18 History Allergies Allergy/AdvReac Type Severity Reaction Status Date / Time Penicillins Allergy Anaphylaxis Verified 07/03/18 06:48 sulfamethoxazole Allergy Nausea Verified 07/03/18 06:48 [From Bactrim] trimethoprim [From Bactrim] Allergy Nausea Verified 07/03/18 06:48 Physical Exam Vitals: Vital Signs Temp Pulse Resp BP Pulse Ox 07/04/18 13:00 68 15 105/57 99 07/04/18 12:00 98.3 F 80 15 118/58 98 07/04/18 11:55 85 07/04/18 11:42 82 07/04/18 11:00 86 20 116/55 98 07/04/18 10:00 87 18 117/54 98 07/04/18 09:00 84 18 99 07/04/18 08:20 85 07/04/18 08:06 84 99 07/04/18 08:00 98.6 F 85 15 100 07/04/18 07:00 80 17 105/54 98 07/04/18 06:00 94 12 123/55 96 07/04/18 05:00 83 14 121/59 100 07/04/18 04:00 88 15 105/46 98 07/04/18 03:18 13 07/04/18 03:00 81 13 105/55 98 07/04/18 02:00 79 13 106/51 96 07/04/18 01:00 81 14 95 07/04/18 00:07 81 13 96 07/04/18 00:00 81 13 96 07/03/18 23:47 11 L 07/03/18 23:00 84 14 97 07/03/18 22:00 83 11 L 97 07/03/18 21:00 86 13 97 07/03/18 20:00 81 13 106/51 98 07/03/18 19:56 86 14 07/03/18 19:00 87 14 100 07/03/18 18:00 82 14 100 07/03/18 17:00 81 16 85/46 100 07/03/18 16:15 90 07/03/18 16:09 93 20 07/03/18 16:00 93 32 H 100 07/03/18 15:00 80 12 98 Intake and Output 07/03/18 07/04/18 07/04/18 22:59 06:59 14:59 Intake Total 1190.555 675.196 368.920 Output Total 1209 827 935 Balance -18.445 -151.804 -566.080 Intake: IV 278.5 604.5 256 Lactated Ringers 1,000 ml 150 450 200 @ 50 mls/hr IV .Q20H [facility] Rx#:[id number] Nitroglycerin-D5w Pmx 50 4.5 13.5 mg In Dextrose/Water 1 250ml.bag @ 5 MCG/MIN 1.5 mls/hr IV .Q24H [facility] Rx#: [id number] cardiac output 70 60 20 pressure bag 54 81 36 Intake, IV Titration 912.055 70.696 112.920 Amount Albumin Human 5% 500 ml 500 In Empty Bag 1 bag @ 250 mls/hr IVPB ONCE ONE Rx#: [id number] Clevidipine Butyrate 25 9.334 mg In Empty Bag 1 bag @ 1 MG/HR 2 mls/hr IV .Q24H [facility] Rx#:[id number] Clevidipine Butyrate 25 28.767 36.767 mg In Empty Bag 1 bag @ 1 MG/HR 2 mls/hr IV .Q24H [facility] Rx#:[id number] Insulin Regular 100 unit 22.928 33.929 12.920 In Sodium Chloride 0.9% 100 ml @ Per Protocol IV .Q0M [facility] Rx#:[id number] Lactated Ringers 1,000 ml 150 @ 50 mls/hr IV .Q20H [facility] Rx#:[id number] Magnesium Sulfate-D5w Pmx 100 1 gm In Dextrose/Water 1 100ml.bag @ 100 mls/hr IVPB Q1H [facility] Rx#: [id number] Potassium Chloride 10 meq 200 In Water For Injection 1 100ml.bag @ 100 mls/hr IVPB Q1H [facility] Rx#: [id number] Propofol 1,000 mg In 1.026 Empty Bag 1 bag @ Titrate IV .Q0M [facility] Rx#: [id number] Output: Chest Tube Drainage 209 312 80 left pleural 87 162 10 mediastinal chest tube x2 122 150 70 Urine 1000 515 855 Other: Voiding Method Indwelling Catheter Indwelling Catheter Indwelling Catheter Weight 87.2 kg 87.2 kg ABP, PAP, CO, CI - Last 8 Hours Arterial Blood Pressure 115/96 Arterial Blood Pressure 118/46 Arterial Blood Pressure 101/40 Arterial Blood Pressure 101/49 Pulmonary Artery Pressure 31/10 Pulmonary Artery Pressure 35/10 Pulmonary Artery Pressure 34/9 Pulmonary Artery Pressure 29/9 Cardiac Output 4.5 Cardiac Output 4.5 Cardiac Output 4.5 Cardiac Output 4.5 Cardiac Index 2.4 - Constitutional General appearance: cooperative, no acute distress - EENT Eyes: anicteric sclerae, EOMI, PERRLA, dentition normal, normal appearance ENT: NA/AT, normal oropharynx - Neck Neck: normal ROM - Respiratory Respiratory: bilateral: CTA, negative: diminished, dullness, prolonged expiration, prolonged inspiration - Cardiovascular Rhythm: regular Heart sounds: normal: S1, S2 Abnormal Heart Sounds: no systolic murmur, no diastolic murmur, no rub, no S3 Gallop, no S4 Gallop, no click, no other - Gastrointestinal General gastrointestinal: normal bowel sounds, soft - Integumentary Integumentary: normal - Neurologic 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 since Neurologic: CNII-XII intact - Musculoskeletal Musculoskeletal: gait normal, strength equal bilaterally - Psychiatric Psychiatric: A&O x's 3, appropriate affect, intact judgment & insight Results CBC & Chem 7: 07/04/18 05:00 07/04/18 05:00 Labs: Abnormal Lab Results - Last 24 Hours (Table) 07/02/18 07/03/18 07/03/18 Range/Units 10:17 13:47 13:47 WBC (3.8-10.6) k/uL RBC 3.48 L (3.80-5.40) m/uL Hgb 10.2 L (11.4-16.0) gm/dL Hct 28.5 L (34.0-46.0) % Plt Count 108 L (150-450) k/uL Neutrophils # 8.1 H (1.3-7.7) k/uL Lymphocytes # (1.0-4.8) k/uL ABG pO2 (83-108) mmHg ABG HCO3 (21-25) mmol/L ABG Total CO2 (19-24) mmol/L ABG O2 Saturation (94-97) % Sodium 135 L (137-145) mmol/L Creatinine 0.51 L (0.52-1.04) mg/dL Glucose 135 H (74-99) mg/dL POC Glucose (mg/dL) (75-99) mg/dL Magnesium 2.6 H (1.6-2.3) mg/dL AST 37 H (14-36) U/L Alkaline Phosphatase 35 L (38-126) U/L Total Protein 4.4 L (6.3-8.2) g/dL Albumin 2.3 L (3.5-5.0) g/dL Crossmatch See Detail 07/03/18 07/03/18 07/03/18 Range/Units 14:09 15:04 16:08 WBC (3.8-10.6) k/uL RBC (3.80-5.40) m/uL Hgb (11.4-16.0) gm/dL Hct (34.0-46.0) % Plt Count (150-450) k/uL Neutrophils # (1.3-7.7) k/uL Lymphocytes # (1.0-4.8) k/uL ABG pO2 265 H (83-108) mmHg ABG HCO3 26 H (21-25) mmol/L ABG Total CO2 28 H (19-24) mmol/L ABG O2 Saturation 100.0 H (94-97) % Sodium (137-145) mmol/L Creatinine (0.52-1.04) mg/dL Glucose (74-99) mg/dL POC Glucose (mg/dL) 115 H 142 H (75-99) mg/dL Magnesium (1.6-2.3) mg/dL AST (14-36) U/L Alkaline Phosphatase (38-126) U/L Total Protein (6.3-8.2) g/dL Albumin (3.5-5.0) g/dL Crossmatch 07/03/18 07/03/18 07/03/18 Range/Units 16:10 17:15 18:04 WBC 16.3 H (3.8-10.6) k/uL RBC (3.80-5.40) m/uL Hgb 10.8 L (11.4-16.0) gm/dL Hct 32.5 L (34.0-46.0) % Plt Count (150-450) k/uL Neutrophils # 13.7 H (1.3-7.7) k/uL Lymphocytes # (1.0-4.8) k/uL ABG pO2 (83-108) mmHg ABG HCO3 (21-25) mmol/L ABG Total CO2 (19-24) mmol/L ABG O2 Saturation (94-97) % Sodium (137-145) mmol/L Creatinine (0.52-1.04) mg/dL Glucose (74-99) mg/dL POC Glucose (mg/dL) 161 H 162 H (75-99) mg/dL Magnesium (1.6-2.3) mg/dL AST (14-36) U/L Alkaline Phosphatase (38-126) U/L Total Protein (6.3-8.2) g/dL Albumin (3.5-5.0) g/dL Crossmatch 07/03/18 07/03/18 07/03/18 Range/Units 18:25 19:00 19:05 WBC 12.1 H (3.8-10.6) k/uL RBC (3.80-5.40) m/uL Hgb 11.1 L (11.4-16.0) gm/dL Hct 33.2 L (34.0-46.0) % Plt Count 129 L (150-450) k/uL Neutrophils # 11.0 H (1.3-7.7) k/uL Lymphocytes # 0.5 L (1.0-4.8) k/uL ABG pO2 (83-108) mmHg ABG HCO3 (21-25) mmol/L ABG Total CO2 25 H (19-24) mmol/L ABG O2 Saturation 97.1 H (94-97) % Sodium (137-145) mmol/L Creatinine (0.52-1.04) mg/dL Glucose (74-99) mg/dL POC Glucose (mg/dL) 171 H (75-99) mg/dL Magnesium (1.6-2.3) mg/dL AST (14-36) U/L Alkaline Phosphatase (38-126) U/L Total Protein (6.3-8.2) g/dL Albumin (3.5-5.0) g/dL Crossmatch 07/03/18 07/03/18 07/03/18 Range/Units 19:56 20:50 20:59 WBC 11.6 H (3.8-10.6) k/uL RBC (3.80-5.40) m/uL Hgb 10.8 L (11.4-16.0) gm/dL Hct 32.2 L (34.0-46.0) % Plt Count 111 L (150-450) k/uL Neutrophils # 10.5 H (1.3-7.7) k/uL Lymphocytes # 0.5 L (1.0-4.8) k/uL ABG pO2 (83-108) mmHg ABG HCO3 (21-25) mmol/L ABG Total CO2 (19-24) mmol/L ABG O2 Saturation (94-97) % Sodium (137-145) mmol/L Creatinine (0.52-1.04) mg/dL Glucose (74-99) mg/dL POC Glucose (mg/dL) 170 H 167 H (75-99) mg/dL Magnesium (1.6-2.3) mg/dL AST (14-36) U/L Alkaline Phosphatase (38-126) U/L Total Protein (6.3-8.2) g/dL Albumin (3.5-5.0) g/dL Crossmatch 07/03/18 07/03/18 07/04/18 Range/Units 22:01 23:22 00:04 WBC (3.8-10.6) k/uL RBC (3.80-5.40) m/uL Hgb (11.4-16.0) gm/dL Hct (34.0-46.0) % Plt Count (150-450) k/uL Neutrophils # (1.3-7.7) k/uL Lymphocytes # (1.0-4.8) k/uL ABG pO2 (83-108) mmHg ABG HCO3 (21-25) mmol/L ABG Total CO2 (19-24) mmol/L ABG O2 Saturation (94-97) % Sodium (137-145) mmol/L Creatinine (0.52-1.04) mg/dL Glucose (74-99) mg/dL POC Glucose (mg/dL) 145 H 133 H 132 H (75-99) mg/dL Magnesium (1.6-2.3) mg/dL AST (14-36) U/L Alkaline Phosphatase (38-126) U/L Total Protein (6.3-8.2) g/dL Albumin (3.5-5.0) g/dL Crossmatch 07/04/18 07/04/18 07/04/18 Range/Units 01:06 01:54 03:07 WBC (3.8-10.6) k/uL RBC (3.80-5.40) m/uL Hgb (11.4-16.0) gm/dL Hct (34.0-46.0) % Plt Count (150-450) k/uL Neutrophils # (1.3-7.7) k/uL Lymphocytes # (1.0-4.8) k/uL ABG pO2 (83-108) mmHg ABG HCO3 (21-25) mmol/L ABG Total CO2 (19-24) mmol/L ABG O2 Saturation (94-97) % Sodium (137-145) mmol/L Creatinine (0.52-1.04) mg/dL Glucose (74-99) mg/dL POC Glucose (mg/dL) 119 H 117 H 110 H (75-99) mg/dL Magnesium (1.6-2.3) mg/dL AST (14-36) U/L Alkaline Phosphatase (38-126) U/L Total Protein (6.3-8.2) g/dL Albumin (3.5-5.0) g/dL Crossmatch 07/04/18 07/04/18 07/04/18 Range/Units 04:04 05:00 05:00 WBC (3.8-10.6) k/uL RBC 3.68 L (3.80-5.40) m/uL Hgb 10.3 L (11.4-16.0) gm/dL Hct 30.6 L (34.0-46.0) % Plt Count 127 L (150-450) k/uL Neutrophils # (1.3-7.7) k/uL Lymphocytes # 0.8 L (1.0-4.8) k/uL ABG pO2 (83-108) mmHg ABG HCO3 (21-25) mmol/L ABG Total CO2 (19-24) mmol/L ABG O2 Saturation (94-97) % Sodium 133 L (137-145) mmol/L Creatinine 0.48 L (0.52-1.04) mg/dL Glucose 108 H (74-99) mg/dL POC Glucose (mg/dL) 115 H (75-99) mg/dL Magnesium (1.6-2.3) mg/dL AST 64 H (14-36) U/L Alkaline Phosphatase (38-126) U/L Total Protein 4.9 L (6.3-8.2) g/dL Albumin 3.0 L (3.5-5.0) g/dL Crossmatch 07/04/18 07/04/18 07/04/18 Range/Units 05:05 06:54 08:11 WBC (3.8-10.6) k/uL RBC (3.80-5.40) m/uL Hgb (11.4-16.0) gm/dL Hct (34.0-46.0) % Plt Count (150-450) k/uL Neutrophils # (1.3-7.7) k/uL Lymphocytes # (1.0-4.8) k/uL ABG pO2 (83-108) mmHg ABG HCO3 (21-25) mmol/L ABG Total CO2 (19-24) mmol/L ABG O2 Saturation (94-97) % Sodium (137-145) mmol/L Creatinine (0.52-1.04) mg/dL Glucose (74-99) mg/dL POC Glucose (mg/dL) 121 H 101 H 121 H (75-99) mg/dL Magnesium (1.6-2.3) mg/dL AST (14-36) U/L Alkaline Phosphatase (38-126) U/L Total Protein (6.3-8.2) g/dL Albumin (3.5-5.0) g/dL Crossmatch 07/04/18 07/04/18 07/04/18 Range/Units 10:00 11:03 12:38 WBC (3.8-10.6) k/uL RBC (3.80-5.40) m/uL Hgb (11.4-16.0) gm/dL Hct (34.0-46.0) % Plt Count (150-450) k/uL Neutrophils # (1.3-7.7) k/uL Lymphocytes # (1.0-4.8) k/uL ABG pO2 (83-108) mmHg ABG HCO3 (21-25) mmol/L ABG Total CO2 (19-24) mmol/L ABG O2 Saturation (94-97) % Sodium (137-145) mmol/L Creatinine (0.52-1.04) mg/dL Glucose (74-99) mg/dL POC Glucose (mg/dL) 181 H 186 H 146 H (75-99) mg/dL Magnesium (1.6-2.3) mg/dL AST (14-36) U/L Alkaline Phosphatase (38-126) U/L Total Protein (6.3-8.2) g/dL Albumin (3.5-5.0) g/dL Crossmatch 07/04/18 Range/Units 13:58 WBC (3.8-10.6) k/uL RBC (3.80-5.40) m/uL Hgb (11.4-16.0) gm/dL Hct (34.0-46.0) % Plt Count (150-450) k/uL Neutrophils # (1.3-7.7) k/uL Lymphocytes # (1.0-4.8) k/uL ABG pO2 (83-108) mmHg ABG HCO3 (21-25) mmol/L ABG Total CO2 (19-24) mmol/L ABG O2 Saturation (94-97) % Sodium (137-145) mmol/L Creatinine (0.52-1.04) mg/dL Glucose (74-99) mg/dL POC Glucose (mg/dL) 179 H (75-99) mg/dL Magnesium (1.6-2.3) mg/dL AST (14-36) U/L Alkaline Phosphatase (38-126) U/L Total Protein (6.3-8.2) g/dL Albumin (3.5-5.0) g/dL Crossmatch Microbiology - Last 24 Hours (Table) 07/02/18 10:10 Nasal Screen MRSA/MSSA - Final Nasal Swab Staphylococcus aureus,Not MRSA 07/02/18 15:40 Urine Culture - Final Urine,Clean Catch Laboratory Results WBC 8.7 k/uL (3.8-10.6) 07/04/18 05:00 RBC 3.68 m/uL (3.80-5.40) L 07/04/18 05:00 Hgb 10.3 gm/dL (11.4-16.0) L 07/04/18 05:00 Hct 30.6 % (34.0-46.0) L 07/04/18 05:00 MCV 83.1 fL (80.0-100.0) 07/04/18 05:00 MCH 27.9 pg (25.0-35.0) 07/04/18 05:00 MCHC 33.6 g/dL (31.0-37.0) 07/04/18 05:00 RDW 14.3 % (11.5-15.5) 07/04/18 05:00 Plt Count 127 k/uL (150-450) L 07/04/18 05:00 Neutrophils % 85 % 07/04/18 05:00 Lymphocytes % 9 % 07/04/18 05:00 Monocytes % 4 % 07/04/18 05:00 Eosinophils % 1 % 07/04/18 05:00 Basophils % 0 % 07/04/18 05:00 Neutrophils # 7.4 k/uL (1.3-7.7) 07/04/18 05:00 Lymphocytes # 0.8 k/uL (1.0-4.8) L 07/04/18 05:00 Monocytes # 0.4 k/uL (0-1.0) 07/04/18 05:00 Eosinophils # 0.0 k/uL (0-0.7) 07/04/18 05:00 Basophils # 0.0 k/uL (0-0.2) 07/04/18 05:00 PT 11.6 sec (9.0-12.0) 07/03/18 13:47 INR 1.1 (<1.2) 07/03/18 13:47 APTT 28.3 sec (22.0-30.0) 07/03/18 13:47 Sample Site a line 07/03/18 18:25 ABG pH 7.37 (7.35-7.45) 07/03/18 18:25 ABG pCO2 42 mmHg (35-45) 07/03/18 18:25 ABG pO2 89 mmHg (83-108) 07/03/18 18:25 ABG HCO3 24 mmol/L (21-25) 07/03/18 18:25 ABG Total CO2 25 mmol/L (19-24) H 07/03/18 18:25 ABG O2 Saturation 97.1 % (94-97) H 07/03/18 18:25 ABG Base Excess -1.2 mmol/L 07/03/18 18:25 ABG Hematocrit 26 % (34.0-46.0) L 07/03/18 12:34 [place] Test Yes 07/03/18 18:25 ABG Sodium 134 mmol/L (135-146) L 07/03/18 12:34 ABG Potassium 4.1 mmol/L (3.4-4.5) 07/03/18 12:34 ABG Ionized Calcium 4.6 mg/dL (4.5-5.3) 07/03/18 12:34 ABG Glucose 213 mg/dL (75-99) H 07/03/18 12:34 ABG Lactic Acid 2.9 mmol/L (0.5-1.6) H* 07/03/18 12:34 Hemoglobin 8.6 gm/dL (11.4-16.0) L 07/03/18 12:34 FiO2 40 % 07/03/18 18:25 Sodium 133 mmol/L (137-145) L 07/04/18 05:00 Potassium 4.1 mmol/L (3.5-5.1) 07/04/18 05:00 Chloride 103 mmol/L (98-107) 07/04/18 05:00 Carbon Dioxide 24 mmol/L (22-30) 07/04/18 05:00 Anion Gap 6 mmol/L 07/04/18 05:00 BUN 8 mg/dL (7-17) 07/04/18 05:00 Creatinine 0.48 mg/dL (0.52-1.04) L 07/04/18 05:00 Est GFR (CKD-EPI)AfAm >90 (>60 ml/min/1.73 sqM) 07/04/18 05:00 Est GFR (CKD-EPI)NonAf >90 (>60 ml/min/1.73 sqM) 07/04/18 05:00 Glucose 108 mg/dL (74-99) H 07/04/18 05:00 POC Glucose (mg/dL) 193 mg/dL (75-99) H 07/04/18 15:22 POC Glu Project Mgr ID Natalia Johnson 07/04/18 15:[address] Glu mg/dL 131 07/02/18 10:17 Hemoglobin A1c 6.2 % (4.0-6.0) H 07/02/18 10:17 Calcium 8.6 mg/dL (8.4-10.2) 07/04/18 05:00 Ionized Calcium [place] 5.0 mg/dL (4.5-5.3) 07/04/18 05:00 Magnesium 1.9 mg/dL (1.6-2.3) 07/04/18 05:00 Total Bilirubin 0.8 mg/dL (0.2-1.3) 07/04/18 05:00 AST 64 U/L (14-36) H 07/04/18 05:00 ALT 33 U/L (9-52) 07/04/18 05:00 Alkaline Phosphatase 40 U/L (38-126) 07/04/18 05:00 Total Protein 4.9 g/dL (6.3-8.2) L 07/04/18 05:00 Albumin 3.0 g/dL (3.5-5.0) L 07/04/18 05:00 TSH 1.800 mIU/L (0.465-4.680) 07/02/18 10:17 Arterial Blood Potassium 4.1 mmol/L (3.4-4.5) 07/03/18 12:34 Arterial Blood Glucose 213 mg/dL (75-99) H 07/03/18 12:34 Urine Color Light Yellow 07/02/18 15:40 Urine Appearance Clear (Clear) 07/02/18 15:40 Urine pH 7.0 (5.0-8.0) 07/02/18 15:40 Ur Specific [place] 1.018 (1.001-1.035) 07/02/18 15:40 Urine Protein Negative (Negative) 07/02/18 15:40 Urine Glucose (UA) Negative (Negative) 07/02/18 15:40 Urine Ketones Negative (Negative) 07/02/18 15:40 Urine Blood Negative (Negative) 07/02/18 15:40 Urine Nitrite Negative (Negative) 07/02/18 15:40 Urine Bilirubin Negative (Negative) 07/02/18 15:40 Urine Urobilinogen <2.0 mg/dL (<2.0) 07/02/18 15:40 Ur Leukocyte Esterase Negative (Negative) 07/02/18 15:40 Hepatitis A IgM Ab Non-Reactive (Non-Reactive) 07/02/18 10:17 Hep Bs Antigen Non-Reactive (Non-Reactive) 07/02/18 10:17 Hep B Core IgM Ab Non-Reactive (Non-Reactive) 07/02/18 10:17 Hep C IgG Ab Non-Reactive (Non-Reactive) 07/02/18 10:17 Blood Type A Negative 07/02/18 10:17 Blood Type Confirm A Negative 07/02/18 07:00 Blood Type Recheck CABO Indicated 07/02/18 10:17 Antibody Screen NEGATIVE 07/02/18 10:17 Crossmatch See Detail 07/02/18 10:17 Transfuse Platelets 07/03/18 07/02/18 10:45 Spec Expiration Date 07/05/2018 - 231607/02/18 10:17 Thrombosis Risk Factor Assmnt - Choose All That Apply Any of the Below Risk Factors Present?: Yes Each Factor Represents 1 point: Obesity (BMI >25) Other Risk Factors: Yes Each Risk Factor Represents 2 Points: Age 61-74 years, Central venous access, Major surgery Other congenital or acquired thrombophilia - If yes, enter type in comment: Yes Each Risk Factor Represents 5 Points: Major surgery lasting over 3 hours Thrombosis Risk Factor Assessment Total Risk Factor Score: 12 Thrombosis Risk Factor Assessment Level: High Risk Assessment and Plan Plan: 1. CAD, 2 vessel disease involving left main requiring CABG, CHIRINOS to the anterior LAD, saphenous graft to obtuse marginal artery performed 07/03/2018, patient is in ICU, without any pressor support, with successful extubation 07/03/2018, has generalized edema, IV Lasix to be given, along with when necess raffy dosing, incentive spirometry, patient currently is on Lipitor 40 mg daily, clevidipine , Plavix, aspirin, Lopressor, patient is not yet on YOSHI inhibitor this during this visit., Incentive spirometry, O2 supplementation, chest tube management with a postop protocol 2. Diabetes mellitus type 2, A1c 6.2, metformin will be restarted at 500 mg twice a day, along with NovoLog scale 3. GERD on maintenance omeprazole at home 4. Hyperlipidemia on Lipitor 40 mg daily 5. Mild intermittent asthma without any maintenance medication, has when necessary albuterol along with scheduled 4 times a day 6. CK D stage I, current creatinine of 0.48, patient has been followed with microalbuminuria evaluation the office. 7. Obstructive sleep apnea, patient is not on any CPAP device from home 8. Blood loss anemia, current hemoglobin of 10, oral supplementation can be started in the morning if hemoglobin is under 10, transfuse for hemoglobin under 8 8. GI prophylaxis maintenance omeprazole 9. DVT prophylaxis
[2018-07-04 17:14] LABS: Glucose,Whole Blood 128 mg/dL (75-99)
[2018-07-04 18:11] LABS: Glucose,Whole Blood 97 mg/dL (75-99)
[2018-07-04] MEDS: LACTATED RINGERS 1,000 ML IV SCH ×2 (18:29→21:09)
[2018-07-04 19:23] LABS: Glucose,Whole Blood 280 mg/dL (75-99)
[2018-07-04 19:24] LABS: Glucose,Whole Blood 183 mg/dL (75-99)
[2018-07-04] MEDS ORDERED: ALBUMIN HUMAN 5% 250 ML in EMPTY BAG 1 BAG IVPB ONE (19:27)
[2018-07-04 19:52] LABS: Glucose,Whole Blood 184 mg/dL (75-99)
[2018-07-04] MEDS ORDERED: FUROSEMIDE 10 MG/ML 4 ML VIAL IV ONE (20:30)
[2018-07-04] MEDS ORDERED: SENNOSIDES-DOCUSATE SODIUM 1 EACH TAB PO SCH (21:00)
[2018-07-04] MEDS: SENNOSIDES-DOCUSATE SODIUM 1 EACH TAB PO SCH (21:09)
[2018-07-04 21:46] LABS: Glucose,Whole Blood 135 mg/dL (75-99)
[2018-07-04 22:27] LABS: Glucose,Whole Blood 120 mg/dL (75-99)
[2018-07-04 23:27] LABS: Glucose,Whole Blood 97 mg/dL (75-99)
[2018-07-05 00:20] LABS: Glucose,Whole Blood 111 mg/dL (75-99)
[2018-07-05] MEDS: ALBUMIN HUMAN 5% 250 ML in EMPTY BAG 1 BAG IVPB PRN ×2 (00:39→04:28)
[2018-07-05 01:33] LABS: Glucose,Whole Blood 120 mg/dL (75-99)
[2018-07-05 02:14] LABS: Glucose,Whole Blood 122 mg/dL (75-99)
[2018-07-05 03:44] LABS: Glucose,Whole Blood 108 mg/dL (75-99)
[2018-07-05 04:23] LABS: Glucose,Whole Blood 103 mg/dL (75-99)
[2018-07-05 04:35] LABS: Basophils % (A) 0 %; Eosinophils # (A) 0.2 k/uL (0-0.7); Eosinophils % (A) 3 %; HCT 25.2 % (34.0-46.0); Lymphocytes # (A) 1.1 k/uL (1.0-4.8); Lymphocytes % (A) 17 %; MCH 27.8 pg (25.0-35.0); MCHC 32.8 g/dL (31.0-37.0); MCV 84.8 fL (80.0-100.0); Mean Platelet Volume 9.4; Monocytes # (A) 0.3 k/uL (0-1.0); Monocytes % (A) 5 %; Neutrophils # (A) 4.9 k/uL (1.3-7.7); Neutrophils % (A) 74 %; Platelet Count 88 k/uL (150-450); RBC 2.97 m/uL (3.80-5.40); RDW 14.6 % (11.5-15.5); WBC 6.7 k/uL (3.8-10.6)
[2018-07-05 04:45] LABS: Ionized Calcium 4.9 mg/dL (4.5-5.3)
[2018-07-05 04:51] LABS: HGB 8.3 gm/dL (11.4-16.0)
[2018-07-05 04:55] LABS: ALT 28 U/L (9-52); AST 33 U/L (14-36); Albumin 3.1 g/dL (3.5-5.0); Alkaline Phosphatase 38 U/L (38-126); Anion Gap 6 mmol/L; Blood Urea Nitrogen 10 mg/dL (7-17); Calcium 8.6 mg/dL (8.4-10.2); Carbon Dioxide 27 mmol/L (22-30); Chloride 101 mmol/L (98-107); Glucose 94 mg/dL (74-99); Magnesium 2.1 mg/dL (1.6-2.3); Potassium 4.1 mmol/L (3.5-5.1); Sodium 134 mmol/L (137-145)
[2018-07-05 05:37] LABS: Glucose,Whole Blood 126 mg/dL (75-99)
[2018-07-05] MEDS: INSULIN REGULAR 100 UNIT in SODIUM CHLORIDE 0.9% 100 ML IV SCH (05:39)
[2018-07-05] MEDS: KETOROLAC 30 MG/ML 1 ML VIAL IVP SCH ×5 (05:40→23:13)
[2018-07-05] MEDS: VANCOMYCIN 1,250 MG in SODIUM CHLORIDE 0.9% 250 ML IVPB SCH (06:26)
[2018-07-05 06:37] LABS: Glucose,Whole Blood 134 mg/dL (75-99)
--- NOTE | 2018-07-05 06:42 | XR ---
EXAMINATION TYPE: XR chest 1V portable DATE OF EXAM: 07/05/2018 HISTORY: Post Operative Cardiac Surgery. REFERENCE: Previous study dated 07/04/2018. FINDINGS: There has been a midline sternotomy. A left pleural drain remains in place. The patient's r ight internal jugular catheter is been removed. No definite pneumothorax is seen. The heart is enlarg ed. There is some left basilar atelectasis. I suspect a small left effusion. IMPRESSION: CONTINUING POSTOPERATIVE CHANGE.
[2018-07-05] MEDS: PANTOPRAZOLE 40 MG TABLET PO SCH (07:11)
[2018-07-05] MEDS: HYDROcodone/APAP 5-325MG 1 EACH TAB PO PRN (07:11)
[2018-07-05] MEDS: metFORMIN 500 MG TAB PO SCH ×2 (07:12→18:09)
[2018-07-05] MEDS: IPRATROPIUM-ALBUTEROL 3 ML NEB INHALATION SCH ×4 (07:16→19:33)
[2018-07-05 07:35] LABS: Glucose,Whole Blood 137 mg/dL (75-99)
[2018-07-05] MEDS: ASPIRIN 325 MG TAB PO SCH (08:20)
[2018-07-05] MEDS: HEPARIN SODIUM,PORCINE 5,000 UNIT/ML 1 ML VIAL SQ SCH (08:20)
[2018-07-05] MEDS: CLOPIDOGREL 75 MG TAB PO SCH (08:20)
[2018-07-05] MEDS: GABAPENTIN 300 MG CAP PO SCH ×2 (08:21→20:33)
[2018-07-05] MEDS ORDERED: METOPROLOL TARTRATE 12.5 MG TAB PO SCH (09:00)
[2018-07-05 09:06] LABS: Glucose,Whole Blood 175 mg/dL (75-99)
[2018-07-05] MEDS: MUPIROCIN 2% OINT 22 GM TUBE NASAL SCH ×2 (09:06→20:33)
--- NOTE | 2018-07-05 09:51 | PN ---
PROGRESS NOTE FOLLOW-UP NOTE: This is a 68-year-old lady with coronary artery disease, status post CABG, postoperative day number 3. This morning patient is doing well. Chest tubes have been removed. Patient is on aspirin, Lipitor, Plavix and Lopressor. On exam, comfortable at rest. Vital signs are stable. Chest exam reveals diminished air entry at the bases. Heart exam reveals first and second heart sounds. No gallop. No murmur. No rub. Abdomen is soft. Examination of extremities did not reveal any edema. Peripheral pulses are felt. Labs show a hemoglobin of 8.3. Platelet count is 88. Potassium is 0.7. I do not have any EKGs from the last day or two. ASSESSMENT: Coronary artery disease, status post coronary artery bypass grafting. PLAN: Patient is doing well. She will continue with her current medications as blood pressure tolerates. We will introduce an YOSHI inhibitor. MMODL / IJN: [id number] /
[2018-07-05 10:11] LABS: Glucose,Whole Blood 172 mg/dL (75-99)
[2018-07-05 11:02] LABS: Glucose,Whole Blood 153 mg/dL (75-99)
[2018-07-05] MEDS ORDERED: DEXTROSE/WATER 1 250ML.BAG with DOPamine DRIP 800 MG IV SCH (11:30)
[2018-07-05] MEDS: MULTIVITAMINS, THERA 1 EACH TAB PO SCH (11:54)
[2018-07-05 12:10] LABS: Glucose,Whole Blood 117 mg/dL (75-99)
[2018-07-05 13:04] LABS: Glucose,Whole Blood 137 mg/dL (75-99)
--- NOTE | 2018-07-05 13:07 | P.PN ---
Subjective Progress Note Date: 07/05/18 This is a 68-year-old female patient of Dr. Baptiste and Dr. Love, known history of diabetes mellitus type 2 on oral agents, hypertension, obstructive sleep apnea who currently has no CPAP device at home secondary to noncompliance,, hyperlipidemia, CK D stage III, also with bilateral internal carotid artery stenosis 50-79%, admitted to ICU after coronary bypass surgery, workup 06/17/2018 showed reversible anterior apical wall defect, echocardiogram shows EF 55%, no wall motion abnormality at the time, moderate MR, mild TR, there was 66% left main stenosis, mid LAD stenosis 40-50%, and RCA stenosis 40%, Dr. Garcia performed CABG grafting 2 vessels CHIRINOS to the LAD, saphenous vein to the obtuse marginal artery and endoscopic vein harvest right greater saphenous vein on July 03 2018. Consult were made from our service for medical management for which I have attempted to see the patient on July 03 however patient is still in the operating room at that time., also consults were made to Dr. Holm critical care medicine. Patient is seen post op day #1, in the ICU, was extubated successfully overnight, and he is doing well, they have ambulated the patient in the hallway, without any lightheadedness no chest pain. She does have 2 chest tubes,, x-rays shows evidence of pneumothorax, there is extremity swelling in the hands and fingers, as well as the legs, Lasix IV was given 1 dose, patient is performing incentive spirometry around 750 mL, patient is without any chest pain no lightheadedness no dizziness no nausea no vomiting, no melena. Patient has adequate urine output, sternotomy incision is clean and intact 07/05: Patient remains in intensive care unit. She has been progressing well with plans removed chest tubes and probably transfer out of intensive care unit later today. Urine output has been marginal and dopamine started. Creatinine is 0.77. Blood sugars been running between 117 and 175. Patient was started back on metformin this morning. Review Of Systems: Constitutional: No fever, no chills, no night sweats. No weight change. No weakness, fatigue or lethargy. No daytime sleepiness. EENT: No headache. No blurred vision or double vision, no loss of vision. No loss of Hearing, no ringing in the ears, no dizziness. No nasal drainage or congestion. No epistaxis. No sore throat. Lungs: No shortness of breath, cough, no sputum production. No wheezing. Cardiovascular: Reports chest wall discomfort, no lower extremity edema. No palpitations. No paroxysmal nocturnal dyspnea. No orthopnea. No lightheadedness or dizziness. No syncopal episodes. Abdominal: No abdominal pain. No nausea, vomiting. No diarrhea. No constipation. No bloody or tarry stools. Genitourinary: No dysuria, increased frequency, urgency. No urinary retention. Musculoskeletal: No myalgias. No muscle weakness, no gait dysfunction, no frequent falls. No back pain. No neck pain. Integumentary: No wounds, no lesions. No rash or pruritus. No unusual bruising. No change in hair or nails. Neurologic: No aphasia. No facial droop. No change in mentation. No head injury. No headache. No paralysis. No paresthesia. Psychiatric: No depression. No anxiety. No mood swings. Endocrine: No abnormal blood sugars. No weight change. No excessive sweating or thirst. No cold intolerance. Objective - Vital Signs Vital signs: Vital Signs Temp 98.6 F 07/05/18 12:00 Pulse 71 07/05/18 12:00 Resp 17 07/05/18 12:00 BP 118/61 07/05/18 12:00 Pulse Ox 93 L 07/05/18 12:00 Intake & Output 07/04/18 07/05/18 07/05/18 18:59 06:59 18:59 Intake Total 177.184 4628.240 336.086 Output Total 1150 971 223 Balance -577.319 317.240 113.086 Weight 87.2 kg 94.3 kg Intake: IV 430 1253 188 Albumin Human 5% 250 ml 1000 In Empty Bag 1 bag @ 250 mls/hr IVPB ONCE ONE Rx#: [id number] Lactated Ringers 1,000 ml 220 170 @ 20 mls/hr IV .Q24H [facility] Rx#:[id number] Lactated Ringers 1,000 ml 350 @ 50 mls/hr IV .Q20H [facility] Rx#:[id number] cardiac output 20 pressure bag 60 33 18 Intake, IV Titration 142.681 35.240 28.086 Amount Insulin Regular 100 unit 42.681 35.240 28.086 In Sodium Chloride 0.9% 100 ml @ Per Protocol IV .Q0M [facility] Rx#:[id number] Magnesium Sulfate-D5w Pmx 100 1 gm In Dextrose/Water 1 100ml.bag @ 100 mls/hr IVPB Q1H [facility] Rx#: [id number] Oral 120 Output: Chest Tube Drainage 150 160 120 left pleural 30 90 80 mediastinal chest tube x2 120 70 40 Urine 1000 811 103 Other: Voiding Method Indwelling Catheter Indwelling Catheter Indwelling Catheter ABP, PAP, CO, CI - Last Documented Arterial Blood Pressure 115/96 Pulmonary Artery Pressure 31/10 Cardiac Output 4.5 Cardiac Index 2.4 - Exam General appearance: cooperative, no acute distress, appears comfortable - EENT Eyes: anicteric sclerae, EOMI, PERRLA, dentition normal, normal appearance ENT: NA/AT, normal oropharynx - Neck Neck: normal ROM - Respiratory Respiratory: bilateral: CTA, negative: diminished, dullness, prolonged expiration, prolonged inspiration - Cardiovascular Rhythm: regular Heart sounds: normal: S1, S2 Abnormal Heart Sounds: no systolic murmur, no diastolic murmur, no rub, no S3 Gallop, no S4 Gallop, no click, no other - Gastrointestinal General gastrointestinal: normal bowel sounds, soft - Integumentary Integumentary: normal - Neurologic 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 since Neurologic: CNII-XII intact - Musculoskeletal Musculoskeletal: gait normal, strength equal bilaterally - Psychiatric Psychiatric: A&O x's 3, appropriate affect, intact judgment & insight - Labs CBC & Chem 7: 07/05/18 04:22 07/05/18 04:22 Labs: Abnormal Lab Results - Last 24 Hours (Table) 07/04/18 07/04/18 07/04/18 Range/Units 13:58 15:22 16:28 RBC (3.80-5.40) m/uL Hgb (11.4-16.0) gm/dL Hct (34.0-46.0) % Plt Count (150-450) k/uL Sodium (137-145) mmol/L POC Glucose (mg/dL) 179 H 193 H 129 H (75-99) mg/dL Total Protein (6.3-8.2) g/dL Albumin (3.5-5.0) g/dL 07/04/18 07/04/18 07/04/18 Range/Units 17:13 19:21 19:23 RBC (3.80-5.40) m/uL Hgb (11.4-16.0) gm/dL Hct (34.0-46.0) % Plt Count (150-450) k/uL Sodium (137-145) mmol/L POC Glucose (mg/dL) 128 H 280 H 183 H (75-99) mg/dL Total Protein (6.3-8.2) g/dL Albumin (3.5-5.0) g/dL 07/04/18 07/04/18 07/04/18 Range/Units 19:51 21:44 22:26 RBC (3.80-5.40) m/uL Hgb (11.4-16.0) gm/dL Hct (34.0-46.0) % Plt Count (150-450) k/uL Sodium (137-145) mmol/L POC Glucose (mg/dL) 184 H 135 H 120 H (75-99) mg/dL Total Protein (6.3-8.2) g/dL Albumin (3.5-5.0) g/dL 07/05/18 07/05/18 07/05/18 Range/Units 00:17 01:32 02:12 RBC (3.80-5.40) m/uL Hgb (11.4-16.0) gm/dL Hct (34.0-46.0) % Plt Count (150-450) k/uL Sodium (137-145) mmol/L POC Glucose (mg/dL) 111 H 120 H 122 H (75-99) mg/dL Total Protein (6.3-8.2) g/dL Albumin (3.5-5.0) g/dL 07/05/18 07/05/18 07/05/18 Range/Units 03:43 04:22 04:22 RBC 2.97 L (3.80-5.40) m/uL Hgb 8.3 L D (11.4-16.0) gm/dL Hct 25.2 L (34.0-46.0) % Plt Count 88 L (150-450) k/uL Sodium 134 L (137-145) mmol/L POC Glucose (mg/dL) 108 H (75-99) mg/dL Total Protein 5.0 L (6.3-8.2) g/dL Albumin 3.1 L (3.5-5.0) g/dL 07/05/18 07/05/18 07/05/18 Range/Units 04:22 05:36 06:35 RBC (3.80-5.40) m/uL Hgb (11.4-16.0) gm/dL Hct (34.0-46.0) % Plt Count (150-450) k/uL Sodium (137-145) mmol/L POC Glucose (mg/dL) 103 H 126 H 134 H (75-99) mg/dL Total Protein (6.3-8.2) g/dL Albumin (3.5-5.0) g/dL 07/05/18 07/05/18 07/05/18 Range/Units 07:33 09:04 10:11 RBC (3.80-5.40) m/uL Hgb (11.4-16.0) gm/dL Hct (34.0-46.0) % Plt Count (150-450) k/uL Sodium (137-145) mmol/L POC Glucose (mg/dL) 137 H 175 H 172 H (75-99) mg/dL Total Protein (6.3-8.2) g/dL Albumin (3.5-5.0) g/dL 07/05/18 07/05/18 Range/Units 11:00 12:08 RBC (3.80-5.40) m/uL Hgb (11.4-16.0) gm/dL Hct (34.0-46.0) % Plt Count (150-450) k/uL Sodium (137-145) mmol/L POC Glucose (mg/dL) 153 H 117 H (75-99) mg/dL Total Protein (6.3-8.2) g/dL Albumin (3.5-5.0) g/dL Assessment and Plan Plan: 1. CAD, 2 vessel disease involving left main requiring CABG, CHIRINOS to the anterior LAD, saphenous graft to obtuse marginal artery performed 07/03/2018, patient is in ICU and progressing well. Chest tube to be out today. Patient was likely will be transferred out of the intensive care unit today. Continue Lipitor 40 mg daily, Plavix, aspirin, Lopressor. Continue Incentive spirometry, O2 supplementation patient on dopamine for urine output. 2. Diabetes mellitus type 2, A1c 6.2, currently on insulin drip, metformin 500 mg twice daily 3. GERD on maintenance omeprazole at home 4. Hyperlipidemia on Lipitor 40 mg daily 5. Mild intermittent asthma without any maintenance medication, has when necessary albuterol along with scheduled 4 times a day 6. CK D stage I, current creatinine of 0.48, patient has been followed with microalbuminuria evaluation the office. 7. Obstructive sleep apnea, patient is not on any CPAP device from home 8. Blood loss anemia, current hemoglobin of 10, oral supplementation can be started in the morning if hemoglobin is under 10, transfuse for hemoglobin under 8 8. GI prophylaxis maintenance omeprazole 9. DVT prophylaxis Discharge plan: To be determined Impression and plan of care have been directed as dictated by the signing physician. Soco Maciel nurse practitioner acting as scribe for signing physician.
--- NOTE | 2018-07-05 14:34 | P.PN ---
Subjective Progress Note Date: 07/05/18 Principal diagnosis: Coronary artery disease with left main disease and preserved left ventricular function with an ejection fraction of 55%. History of hypertension, hyperlipidemia, lrx-gyawiui-hbnpauzyh diabetes mellitus, obstructive sleep apnea without consistent CPAP use, family history of premature coronary artery disease with her father passing away from myocardial infarction at age 54 and obesity. POD #2 coronary artery bypass grafting 2 vessels, left internal mammary artery to left anterior descending coronary artery, a reverse greater saphenous vein graft to the obtuse marginal coronary artery. Endoscopic vein harvest right greater saphenous vein, intraoperative epi-aortic ultrasound and transesophageal Echocardiogram. Postoperative acute blood loss anemia, an expected outcome of surgery given cardiopulmonary bypass and hemodilution. The patient is sitting up to the bedside chair in the intensive care unit. She is in no acute distress. She denies any complaints of pain or shortness of breath this time. Oxygen saturations are 94% on room air. She is achieving 500 mL on her incentive spirometry with much encouragement. She remains hemodynamically stable and is on no inotropic or pressure support. The night nurse and reports that the patient did have some episodes of low urine output which was treated with albumin 5% IV piggyback. She is tolerating oral intake, and is complaining of a sore throat. Objective - Vital Signs Vital signs: Vital Signs Temp 98.6 F 07/05/18 12:00 Pulse 74 07/05/18 13:00 Resp 16 07/05/18 13:00 BP 113/49 07/05/18 13:00 Pulse Ox 94 L 07/05/18 13:00 Intake & Output 07/04/18 07/05/18 07/05/18 18:59 06:59 18:59 Intake Total 731.870 9274.240 375.373 Output Total 1150 971 253 Balance -577.319 317.240 122.373 Weight 87.2 kg 94.3 kg Intake: IV 430 1253 221 Albumin Human 5% 250 ml 1000 In Empty Bag 1 bag @ 250 mls/hr IVPB ONCE ONE Rx#: [id number] Lactated Ringers 1,000 ml 220 200 @ 20 mls/hr IV .Q24H [facility] Rx#:[id number] Lactated Ringers 1,000 ml 350 @ 50 mls/hr IV .Q20H [facility] Rx#:[id number] cardiac output 20 pressure bag 60 33 21 Intake, IV Titration 142.681 35.240 34.373 Amount Insulin Regular 100 unit 42.681 35.240 34.373 In Sodium Chloride 0.9% 100 ml @ Per Protocol IV .Q0M [facility] Rx#:[id number] Magnesium Sulfate-D5w Pmx 100 1 gm In Dextrose/Water 1 100ml.bag @ 100 mls/hr IVPB Q1H [facility] Rx#: [id number] Oral 120 Output: Chest Tube Drainage 150 160 120 left pleural 30 90 80 mediastinal chest tube x2 120 70 40 Urine 1000 811 133 Other: Voiding Method Indwelling Catheter Indwelling Catheter Indwelling Catheter ABP, PAP, CO, CI - Last Documented Arterial Blood Pressure 115/96 Pulmonary Artery Pressure 31/10 Cardiac Output 4.5 Cardiac Index 2.4 - Constitutional General appearance: Present: cooperative, no acute distress, obese - Respiratory Details: Lungs sounds are essentially clear throughout, front desk attendant bilateral bases. Respirations are symmetrical and nonlabored. Oxygen saturation are 94% on room air. She is achieving 500 mL on her incentive spirometry. Mediastinal and left pleural chest tube to remain in place to low continuous wall suction -20 cm H2O. No air leak is present. Draining thin serosanguineous drainage. Mediastinal chest tubes drained 70 mL output in the last 8 hours, 170 mL output in the last 24 hours. Left pleural chest tube drain 90 mL output in the last 8 hours, 120 mL output in the last 24 hours. - Cardiovascular Details: Regular rhythm and rate. S1 and S2 present, negative for S3, gallop or murmur. Sternum is stable. Bedside telemetry showing normal sinus rhythm heart rate 67. Atrial and ventricular epicardial pacemaker wires in place and grounded. Heart hugger is in place and she is demonstrating appropriate use. Knee-high KUNAL hose and sequential compression devices in place to her bilateral lower extremities. Right IJ Cordis in place connected to continuous CVP monitoring. Current CVP pressure 9 mmHg. - Gastrointestinal Gastrointestinal Comment(s): Abdomen is soft, nontender and nondistended. Active bowel sounds all 4 abdomi nal quadrants. No guarding or rigidity. No organomegaly. Tolerating oral intake. Passing flatus. - Genitourinary Genitourinary Comment(s): Clark catheter for accurate I&O. 730 mL output in the last 8 hours. - Integumentary Integumentary Comment(s): Skin is warm and dry. No clubbing or cyanosis is present. Midline sternal incision is clean, dry and approximated. No drainage or redness is present. Gauze dressing is clean, dry and intact. Right lower extremity EVH site is clean, dry and approximated. No drainage or redness present. - Neurologic Neurologic: Present: CNII-XII intact - Musculoskeletal Musculoskeletal: Present: gait normal, generalized weakness, strength equal bilaterally - Psychiatric Psychiatric: Present: A&O x's 3, appropriate affect, intact judgment & insight - Allied health notes Allied health notes reviewed: nursing - Labs CBC & Chem 7: 07/05/18 04:22 07/05/18 04:22 Labs: Abnormal Lab Results - Last 24 Hours (Table) 07/04/18 07/04/18 07/04/18 Range/Units 15:22 16:28 17:13 RBC (3.80-5.40) m/uL Hgb (11.4-16.0) gm/dL Hct (34.0-46.0) % Plt Count (150-450) k/uL Sodium (137-145) mmol/L POC Glucose (mg/dL) 193 H 129 H 128 H (75-99) mg/dL Total Protein (6.3-8.2) g/dL Albumin (3.5-5.0) g/dL 07/04/18 07/04/18 07/04/18 Range/Units 19:21 19:23 19:51 RBC (3.80-5.40) m/uL Hgb (11.4-16.0) gm/dL Hct (34.0-46.0) % Plt Count (150-450) k/uL Sodium (137-145) mmol/L POC Glucose (mg/dL) 280 H 183 H 184 H (75-99) mg/dL Total Protein (6.3-8.2) g/dL Albumin (3.5-5.0) g/dL 07/04/18 07/04/18 07/05/18 Range/Units 21:44 22:26 00:17 RBC (3.80-5.40) m/uL Hgb (11.4-16.0) gm/dL Hct (34.0-46.0) % Plt Count (150-450) k/uL Sodium (137-145) mmol/L POC Glucose (mg/dL) 135 H 120 H 111 H (75-99) mg/dL Total Protein (6.3-8.2) g/dL Albumin (3.5-5.0) g/dL 07/05/18 07/05/18 07/05/18 Range/Units 01:32 02:12 03:43 RBC (3.80-5.40) m/uL Hgb (11.4-16.0) gm/dL Hct (34.0-46.0) % Plt Count (150-450) k/uL Sodium (137-145) mmol/L POC Glucose (mg/dL) 120 H 122 H 108 H (75-99) mg/dL Total Protein (6.3-8.2) g/dL Albumin (3.5-5.0) g/dL 07/05/18 07/05/18 07/05/18 Range/Units 04:22 04:22 04:22 RBC 2.97 L (3.80-5.40) m/uL Hgb 8.3 L D (11.4-16.0) gm/dL Hct 25.2 L (34.0-46.0) % Plt Count 88 L (150-450) k/uL Sodium 134 L (137-145) mmol/L POC Glucose (mg/dL) 103 H (75-99) mg/dL Total Protein 5.0 L (6.3-8.2) g/dL Albumin 3.1 L (3.5-5.0) g/dL 07/05/18 07/05/18 07/05/18 Range/Units 05:36 06:35 07:33 RBC (3.80-5.40) m/uL Hgb (11.4-16.0) gm/dL Hct (34.0-46.0) % Plt Count (150-450) k/uL Sodium (137-145) mmol/L POC Glucose (mg/dL) 126 H 134 H 137 H (75-99) mg/dL Total Protein (6.3-8.2) g/dL Albumin (3.5-5.0) g/dL 07/05/18 07/05/18 07/05/18 Range/Units 09:04 10:11 11:00 RBC (3.80-5.40) m/uL Hgb (11.4-16.0) gm/dL Hct (34.0-46.0) % Plt Count (150-450) k/uL Sodium (137-145) mmol/L POC Glucose (mg/dL) 175 H 172 H 153 H (75-99) mg/dL Total Protein (6.3-8.2) g/dL Albumin (3.5-5.0) g/dL 07/05/18 07/05/18 Range/Units 12:08 13:02 RBC (3.80-5.40) m/uL Hgb (11.4-16.0) gm/dL Hct (34.0-46.0) % Plt Count (150-450) k/uL Sodium (137-145) mmol/L POC Glucose (mg/dL) 117 H 137 H (75-99) mg/dL Total Protein (6.3-8.2) g/dL Albumin (3.5-5.0) g/dL - Imaging and Cardiology Chest x-ray: report reviewed, image reviewed Assessment and Plan Assessment: 1. Status post coronary artery bypass grafting surgery 2 vessels. 2. Coronary artery disease with left main disease 3. Moderate mitral vavle regurgitation per preoperative 2-D echocardiogram 4. Bilateral internal carotid artery stenosis 50-79% 5. History of CAD, heart catheterization in 2006 without intervention 6. Hypertension 7. Hyperlipidemia 8. Cdd-suoyxna-kmzjqxpbz diabetes mellitus 9. Obstructive sleep apnea without consistent CPAP use 10. Family history of premature coronary artery disease 11. Never smoker 12. Obesity 13. Postoperative acute blood loss anemia, an expected outcome of surgery due to cardiopulmonary bypass and hemodilution. Plan: 1. Continue aspirin, statin, Plavix and beta maria l. We will increase beta maria l as tolerated. 2. Discontinue mediastinal and left pleural chest tubes. Discontinue right IJ cordis once midline catheter has been placed.. 3. Bronchodilators per pulmonology management. 4. Wean oxygen as tolerated. 5. Encourage use of her incentive spirometry 10 times every hour while awake. 6. Increase activity as tolerated. PT/OT/cardiac rehab following. 7. Will monitor daily labs and chest x-rays. Electrolyte replacement per protocol. 8. Pain control with current medication regimen. 9. Insulin management per primary care service. 10. GI/DVT prophylaxis with Protonix and heparin, SCDs. 11. Lasix 40 mg IV 1 today at 1600 p.m. 12. Start dopamine drip at 2 mcg/kg/m for renal perfusion. 13. Transfer to 3 S. cardiac stepdown unit when bed available. Discharge planning in place. 14. Placed midline catheter. 15. More recommendations to follow based on patient's clinical course. Time with Patient: Greater than 30
[2018-07-05] MEDS ORDERED: METOPROLOL TARTRATE 12.5 MG TAB PO STA (15:07)
--- NOTE | 2018-07-05 15:10 | P.PN ---
Subjective Progress Note Date: 07/05/18 68-year-old female patient known history of coronary artery disease, hypertension, hyperlipidemia, box-jdyofbd-[id number] diabetes mellitus, obstructive sleep apnea not utilizing any form of CPAP, presented to the hospital because of chest pain and shortness of breath. She underwent cardiac catheterization that showed 60% left main stenosis, 40-50% mid LAD stenosis, 40% RCA stenosis. LV angiogram showed an ejection fraction of 60% with normal wall motion. The patient had a carotid Doppler that showed 50-79% internal carotid artery stenosis. Based on that, the patient was taken to the operating room and the patient underwent four-vessel bypass surgery. I'm seeing her immediately postop. She is doing extremely well. She is still sedated for now and she is on no sedation and Diprivan was discontinued pH is on a mechanical ventilator on assist control mode at the rate of 12 with tidal volume of 400 and FiO2 of 100% and PEEP of 10. Her blood gas showed a pH of 7.37 with a pCO2 of 45 and pO2 of 265. FiO2 was dropped down to 60%. Chest x-ray shows left midlung atelectatic changes. ET tube is in good location. The patient's [place] catheter which is in a good location. The patient has left pleural and mediastinal chest tube. The patient has been weaned down to 60% FiO2. Meanwhile, hemodynamically patient is doing well. Cardiac output is at 4.4 with an index of 2.4. Pulmona ry to pursue 36/20. She has developed adequate urine output. She is on low- dose atorvastatin drip at 5 g per minute for blood pressure control. Chest tubes are in place. No significant output from the chest tube. No other issues otherwise for now. On 07/04/2018 I'm seeing this patient for a follow-up, the patient is being seen for a follow-up. The patient was weaned off the mechanical ventilator and extubated immediately within 6 hours of arriving to the intensive care unit. The patient did extremely well. This morning she is awake and alert and she is sitting up on a chair. No fever. No chills. She has adequate urine output. No nausea. No vomiting. No abdominal pain. Sternum stable clean and intact. Chest tubes are in place. [place] catheter is in place. Adequate cardiac output and index. Asked x-ray shows no evidence of any pneumothorax. The patient has some increased swelling in the upper and lower extremities and the patient will be given a dose of IV Lasix. The patient is pulling approximately 750 mL on the incentive spirometer. The patient has a cardiac index of 2.9. Pulmonary artery pressures 29/10. CVP is at 3. The patient a day #1. On 07/05/2018 I'm seeing this patient for a follow-up. The patient is awake and alert. The chest tubes will be removed today. The patient's chest x-ray shows limited atelectatic changes in lung bases more so on the left. The [place] catheter to be removed. The patient received a total of 2 doses of Lasix yesterday with excellent urine output. Subsequently she became briefly hypotensive and she picked up. Currently her urine output is on the patient will be started on dopamine for renal perfusion per cardiothoracic surgery's recommendation. Patient's hemoglobin has dropped down to 8.3. No signs of any external bleeding. No cardiac arrhythmias. No other electrodes abnormalities. Renal function stable with a creatinine of 0.7. Patient is postop day #2 post coronary artery bypass surgery. Objective - Vital Signs Vital signs: Vital Signs Temp 98.6 F 07/05/18 12:00 Pulse 76 07/05/18 14:00 Resp 20 07/05/18 14:00 BP 123/51 07/05/18 14:00 Pulse Ox 93 L 07/05/18 14:00 Intake & Output 07/04/18 07/05/18 07/05/18 18:59 06:59 18:59 Intake Total 005.012 1288.240 408.373 Output Total 1150 971 353 Balance -577.319 317.240 55.373 Weight 87.2 kg 94.3 kg Intake: IV 430 1253 254 Albumin Human 5% 250 ml 1000 In Empty Bag 1 bag @ 250 mls/hr IVPB ONCE ONE Rx#: [id number] Lactated Ringers 1,000 ml 220 230 @ 20 mls/hr IV .Q24H [facility] Rx#:[id number] Lactated Ringers 1,000 ml 350 @ 50 mls/hr IV .Q20H [facility] Rx#:[id number] cardiac output 20 pressure bag 60 33 24 Intake, IV Titration 142.681 35.240 34.373 Amount Insulin Regular 100 unit 42.681 35.240 34.373 In Sodium Chloride 0.9% 100 ml @ Per Protocol IV .Q0M [facility] Rx#:[id number] Magnesium Sulfate-D5w Pmx 100 1 gm In Dextrose/Water 1 100ml.bag @ 100 mls/hr IVPB Q1H [facility] Rx#: [id number] Oral 120 Output: Chest Tube Drainage 150 160 120 left pleural 30 90 80 mediastinal chest tube x2 120 70 40 Urine 1000 811 233 Other: Voiding Method Indwelling Catheter Indwelling Catheter Indwelling Catheter ABP, PAP, CO, CI - Last Documented Arterial Blood Pressure 115/96 Pulmonary Artery Pressure 31/10 Cardiac Output 4.5 Cardiac Index 2.4 - Exam - Constitutional General appearance: Present: cooperative, no acute distress, obese - Respiratory Details: Lungs sounds are essentially clear throughout, 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 Respirations are symmetrical and nonlabored. Oxygen saturation are 94% on room air. She is achieving 500 mL on her incentive spirometry. Mediastinal and left pleural chest tube to remain in place to low continuous wall suction -20 cm H2O. No air leak is present. Draining thin serosanguineous drainage. Mediastinal chest tubes drained 70 mL output in the last 8 hours, 170 mL output in the last 24 hours. Left pleural chest tube drain 90 mL output in the last 8 hours, 120 mL output in the last 24 hours. - Cardiovascular Details: Regular rhythm and rate. S1 and S2 present, negative for S3, gallop or murmur. Sternum is stable. Bedside telemetry showing normal sinus rhythm heart rate 67. Atrial and ventricular epicardial pacemaker wires in place and grounded. Heart hugger is in place and she is demonstrating appropriate use. Knee-high KUNAL hose and sequential compression devices in place to her bilateral lower extremities. Right IJ Cordis in place connected to continuous CVP monitoring. Current CVP pressure 9 mmHg. - Gastrointestinal Gastrointestinal Comment(s): Abdomen is soft, nontender and nondistended. Active bowel sounds all 4 abdominal quadrants. No guarding or rigidity. No organomegaly. Tolerating oral intake. Passing flatus. - Genitourinary Genitourinary Comment(s): [place] catheter for accurate I&O. 730 mL output in the last 8 hours. - Integumentary Integumentary Comment(s): Skin is warm and dry. No clubbing or cyanosis is present. Midline sternal incision is clean, dry and approximated. No drainage or redness is present. Gauze dressing is clean, dry and intact. Right lower extremity EVH site is clean, dry and approximated. No drainage or redness present. - Neurologic Neurologic: Present: CNII-XII intact - Musculoskeletal Musculoskeletal: Present: gait normal, generalized weakness, strength equal bilaterally - Psychiatric Psychiatric: Present: A&O x's 3, appropriate affect, intact judgment & insight - Labs CBC & Chem 7: 07/05/18 04:22 07/05/18 04:22 Labs: Abnormal Lab Results - Last 24 Hours (Table) 07/04/18 07/04/18 07/04/18 Range/Units 15:22 16:28 17:13 RBC (3.80-5.40) m/uL Hgb (11.4-16.0) gm/dL Hct (34.0-46.0) % Plt Count (150-450) k/uL Sodium (137-145) mmol/L POC Glucose (mg/dL) 193 H 129 H 128 H (75-99) mg/dL Total Protein (6.3-8.2) g/dL Albumin (3.5-5.0) g/dL 07/04/18 07/04/18 07/04/18 Range/Units 19:21 19:23 19:51 RBC (3.80-5.40) m/uL Hgb (11.4-16.0) gm/dL Hct (34.0-46.0) % Plt Count (150-450) k/uL Sodium (137-145) mmol/L POC Glucose (mg/dL) 280 H 183 H 184 H (75-99) mg/dL Total Protein (6.3-8.2) g/dL Albumin (3.5-5.0) g/dL 07/04/18 07/04/18 07/05/18 Range/Units 21:44 22:26 00:17 RBC (3.80-5.40) m/uL Hgb (11.4-16.0) gm/dL Hct (34.0-46.0) % Plt Count (150-450) k/uL Sodium (137-145) mmol/L POC Glucose (mg/dL) 135 H 120 H 111 H (75-99) mg/dL Total Protein (6.3-8.2) g/dL Albumin (3.5-5.0) g/dL 07/05/18 07/05/18 07/05/18 Range/Units 01:32 02:12 03:43 RBC (3.80-5.40) m/uL Hgb (11.4-16.0) gm/dL Hct (34.0-46.0) % Plt Count (150-450) k/uL Sodium (137-145) mmol/L POC Glucose (mg/dL) 120 H 122 H 108 H (75-99) mg/dL Total Protein (6.3-8.2) g/dL Albumin (3.5-5.0) g/dL 07/05/18 07/05/18 07/05/18 Range/Units 04:22 04:22 04:22 RBC 2.97 L (3.80-5.40) m/uL Hgb 8.3 L D (11.4-16.0) gm/dL Hct 25.2 L (34.0-46.0) % Plt Count 88 L (150-450) k/uL Sodium 134 L (137-145) mmol/L POC Glucose (mg/dL) 103 H (75-99) mg/dL Total Protein 5.0 L (6.3-8.2) g/dL Albumin 3.1 L (3.5-5.0) g/dL 07/05/18 07/05/18 07/05/18 Range/Units 05:36 06:35 07:33 RBC (3.80-5.40) m/uL Hgb (11.4-16.0) gm/dL Hct (34.0-46.0) % Plt Count (150-450) k/uL Sodium (137-145) mmol/L POC Glucose (mg/dL) 126 H 134 H 137 H (75-99) mg/dL Total Protein (6.3-8.2) g/dL Albumin (3.5-5.0) g/dL 07/05/18 07/05/18 07/05/18 Range/Units 09:04 10:11 11:00 RBC (3.80-5.40) m/uL Hgb (11.4-16.0) gm/dL Hct (34.0-46.0) % Plt Count (150-450) k/uL Sodium (137-145) mmol/L POC Glucose (mg/dL) 175 H 172 H 153 H (75-99) mg/dL Total Protein (6.3-8.2) g/dL Albumin (3.5-5.0) g/dL 07/05/18 07/05/18 Range/Units 12:08 13:02 RBC (3.80-5.40) m/uL Hgb (11.4-16.0) gm/dL Hct (34.0-46.0) % Plt Count (150-450) k/uL Sodium (137-145) mmol/L POC Glucose (mg/dL) 117 H 137 H (75-99) mg/dL Total Protein (6.3-8.2) g/dL Albumin (3.5-5.0) g/dL Assessment and Plan Plan: 1 multivessel coronary artery disease, post coronary bypass surgery and the patient's postoperative day #2 2 post thoracotomy, patient was extubated without any major difficulties. Chest tubes are in place. Hemodynamically stable. Adequate cardiac index. [place] catheter will be taken out today. Chest x-ray shows no evidence of any pneumothorax. Output from the chest tube is being monitored very closely. Troponins were minimally the chest tubes have been removed earlier this morning. 3 hypertension 4 hyperlipidemia 5 sbw-egrndan-[id number] diabetes mellitus 6 obstructive sleep apnea. 7 obesity 8 preserved LV function based on the preoperative echocardiogram 9 50-80% occlusion and bilateral internal carotid arteries Plan The patient is on a combination of aspirin, metoprolol, Plavix and statin. We'll keep the Cordis in place and the patient wasn't able to get a peripheral IV line. Chest is an removed. Continue using incentive spirometer. We'll continue to follow.
[2018-07-05 15:34] LABS: Glucose,Whole Blood 103 mg/dL (75-99)
[2018-07-05] MEDS ORDERED: FUROSEMIDE 10 MG/ML 4 ML VIAL IV ONE (16:00)
[2018-07-05 16:23] LABS: Glucose,Whole Blood 125 mg/dL (75-99)
[2018-07-05 18:01] LABS: Glucose,Whole Blood 148 mg/dL (75-99)
[2018-07-05 19:22] LABS: Glucose,Whole Blood 178 mg/dL (75-99)
[2018-07-05] MEDS: SENNOSIDES-DOCUSATE SODIUM 1 EACH TAB PO SCH (20:32)
[2018-07-05] MEDS: METOPROLOL TARTRATE 25 MG TAB PO SCH (20:32)
[2018-07-05 20:37] LABS: Glucose,Whole Blood 161 mg/dL (75-99)
[2018-07-05 22:08] LABS: Glucose,Whole Blood 115 mg/dL (75-99)
[2018-07-05 23:02] LABS: Glucose,Whole Blood 113 mg/dL (75-99)
[2018-07-05 23:56] LABS: Glucose,Whole Blood 131 mg/dL (75-99)
[2018-07-06] MEDS: INSULIN REGULAR 100 UNIT in SODIUM CHLORIDE 0.9% 100 ML IV SCH (00:11)
[2018-07-06 02:11] LABS: Glucose,Whole Blood 135 mg/dL (75-99)
[2018-07-06 04:10] LABS: Glucose,Whole Blood 134 mg/dL (75-99)
[2018-07-06 06:20] LABS: Glucose,Whole Blood 150 mg/dL (75-99)
[2018-07-06] MEDS: DEXTROSE 5% IN WATER 100 ML with AMIODARONE 150 MG IV PRN ×2 (06:54→08:27)
[2018-07-06] MEDS: AMIODARONE 360 MG in DEXTROSE 5% IN WATER 200 ML IV PRN ×2 (07:00)
--- NOTE | 2018-07-06 07:31 | XR ---
EXAMINATION TYPE: XR chest 1V DATE OF EXAM: 07/06/2018 HISTORY: Postoperative CABG.. REFERENCE: Previous study dated 07/05/2018. FINDINGS: There has been a midline sternotomy. The patient's left pleural drain has been removed. There is worsening bibasilar airspace disease. There are small, bilateral effusions. The heart is mil dly enlarged. IMPRESSION: WORSENING BIBASILAR AIRSPACE DISEASE.
[2018-07-06] MEDS: KETOROLAC 30 MG/ML 1 ML VIAL IVP SCH ×4 (07:32→23:35)
[2018-07-06] MEDS: METOPROLOL TARTRATE 25 MG TAB PO SCH ×2 (07:38→22:11)
[2018-07-06] MEDS: GABAPENTIN 300 MG CAP PO SCH ×2 (07:39→22:10)
[2018-07-06] MEDS: metFORMIN 500 MG TAB PO SCH ×2 (07:39→22:11)
[2018-07-06] MEDS: ASPIRIN 325 MG TAB PO SCH (07:39)
[2018-07-06] MEDS: PANTOPRAZOLE 40 MG TABLET PO SCH (07:39)
[2018-07-06] MEDS: CLOPIDOGREL 75 MG TAB PO SCH (07:39)
[2018-07-06] MEDS: ATORVASTATIN 40 MG TAB PO SCH (07:39)
[2018-07-06] MEDS: MULTIVITAMINS, THERA 1 EACH TAB PO SCH (07:39)
[2018-07-06] MEDS: IPRATROPIUM-ALBUTEROL 3 ML NEB INHALATION SCH ×4 (07:53→19:06)
[2018-07-06 07:59] LABS: HCT 27.3 % (34.0-46.0); HGB 9.2 gm/dL (11.4-16.0); MCH 28.7 pg (25.0-35.0); MCHC 33.9 g/dL (31.0-37.0); MCV 84.8 fL (80.0-100.0); Mean Platelet Volume 7.5; Platelet Count 128 k/uL (150-450); RBC 3.22 m/uL (3.80-5.40); RDW 14.7 % (11.5-15.5); WBC 7.4 k/uL (3.8-10.6)
[2018-07-06 08:11] LABS: Anion Gap 8 mmol/L; Blood Urea Nitrogen 13 mg/dL (7-17); Calcium 8.9 mg/dL (8.4-10.2); Carbon Dioxide 23 mmol/L (22-30); Chloride 103 mmol/L (98-107); Glucose 158 mg/dL (74-99); Potassium 4.3 mmol/L (3.5-5.1); Sodium 134 mmol/L (137-145)
[2018-07-06] MEDS ORDERED: DEXTROSE 5% IN WATER 100 ML with AMIODARONE 150 MG IV ONE ×2 (08:25→11:00)
[2018-07-06 08:31] LABS: Glucose,Whole Blood 194 mg/dL (75-99)
[2018-07-06] MEDS: MUPIROCIN 2% OINT 22 GM TUBE NASAL SCH ×2 (09:41→22:12)
[2018-07-06] MEDS ORDERED: FUROSEMIDE 10 MG/ML 4 ML VIAL IV STA (09:42)
--- NOTE | 2018-07-06 10:19 | P.PN ---
Subjective This is a pleasant 68-year-old female we are following s/p bypass grafting. She has seen and examined sitting up in bed. She is complaining of palpitations and mild shortness of breath associated with it. She was found to be in atrial fibrillation and has been started on an amiodarone infusion per CT surgery. Blood pressure 105/59 heart rate in the 160's. Laboratory data reviewed, WBC 7.4, hemoglobin 9.2, platelets 128, sodium 134, potassium 4.3, creatinine 0.66. Currently maintained on aspirin 325 mg daily, atorvastatin 40 mg daily, Plavix 75 mg daily and metoprolol 25 mg twice a day. GENERAL: Well-appearing, well-nourished and in no acute distress. NECK: Supple without JVD or thyromegaly. LUNGS: Breath sounds clear to auscultation bilaterally. Respiration equal and unlabored. No wheezes, rales or rhonchi. HEART: Irregular and rapid rate and rhythm without murmurs, rubs or gallops. S1 and S2 heard. Heart hugger in place EXTREMITIES: Normal range of motion, no edema. No clubbing or cyanosis. Peripheral pulses intact. ASSESSMENT Coronary artery disease status post bypass grafting Paroxysmal atrial fibrillation with rapid ventricular response Hypertension Dyslipidemia Diabetes mellitus PLAN Continue with amiodarone infusion. I discussed with Rosendo Matos, CT surgery and PE, regarding initiation of anticoagulation. At this time she still has pacemaker wires in place and they recommended holding off on anticoagulation at this time. We will continue to follow and make recommendations accordingly. Nurse Practitioner note has been reviewed, I agree with a documented findings and plan of care. Patient was seen and examined. Objective - Vital Signs Vital signs: Vital Signs Temp 98.8 F 07/06/18 07:43 Pulse 80 07/06/18 08:07 Resp 18 07/06/18 08:00 BP 105/59 07/06/18 07:43 Pulse Ox 97 07/06/18 07:43 Intake & Output 07/05/18 07/06/18 07/06/18 18:59 06:59 18:59 Intake Total 558.410 352.452 Output Total 1143 625 Balance -584.590 -272.548 Weight 88 kg Intake: IV 386 102 Lactated Ringers 1,000 ml 350 90 @ 20 mls/hr IV .Q24H [facility] Rx#:[id number] pressure bag 36 12 Intake, IV Titration 52.410 30.452 Amount Insulin Regular 100 unit 52.410 30.452 In Sodium Chloride 0.9% 100 ml @ Per Protocol IV .Q0M [facility] Rx#:[id number] Oral 120 Lipid 220 Lactated Ringers 1,000 ml 220 @ 20 mls/hr IV .Q24H [facility] Rx#:[id number] Output: Chest Tube Drainage 120 left pleural 80 mediastinal chest tube x2 40 Urine 1023 625 Other: Voiding Method Indwelling Catheter Indwelling Catheter Indwelling Catheter # Voids 3 ABP, PAP, CO, CI - Last Documented Arterial Blood Pressure 115/96 Pulmonary Artery Pressure 31/10 Cardiac Output 4.5 Cardiac Index 2.4 - Labs CBC & Chem 7: 07/06/18 07:39 07/06/18 07:39 Labs: Abnormal Lab Results - Last 24 Hours (Table) 07/05/18 07/05/18 07/05/18 Range/Units 11:00 12:08 13:02 RBC (3.80-5.40) m/uL Hgb (11.4-16.0) gm/dL Hct (34.0-46.0) % Plt Count (150-450) k/uL Sodium (137-145) mmol/L Glucose (74-99) mg/dL POC Glucose (mg/dL) 153 H 117 H 137 H (75-99) mg/dL 07/05/18 07/05/18 07/05/18 Range/Units 15:33 16:21 18:00 RBC (3.80-5.40) m/uL Hgb (11.4-16.0) gm/dL Hct (34.0-46.0) % Plt Count (150-450) k/uL Sodium (137-145) mmol/L Glucose (74-99) mg/dL POC Glucose (mg/dL) 103 H 125 H 148 H (75-99) mg/dL 07/05/18 07/05/18 07/05/18 Range/Units 19:11 20:36 22:05 RBC (3.80-5.40) m/uL Hgb (11.4-16.0) gm/dL Hct (34.0-46.0) % Plt Count (150-450) k/uL Sodium (137-145) mmol/L Glucose (74-99) mg/dL POC Glucose (mg/dL) 178 H 161 H 115 H (75-99) mg/dL 07/05/18 07/05/18 07/06/18 Range/Units 22:59 23:55 02:10 RBC (3.80-5.40) m/uL Hgb (11.4-16.0) gm/dL Hct (34.0-46.0) % Plt Count (150-450) k/uL Sodium (137-145) mmol/L Glucose (74-99) mg/dL POC Glucose (mg/dL) 113 H 131 H 135 H (75-99) mg/dL 07/06/18 07/06/18 07/06/18 Range/Units 04:08 06:16 07:39 RBC 3.22 L (3.80-5.40) m/uL Hgb 9.2 L (11.4-16.0) gm/dL Hct 27.3 L (34.0-46.0) % Plt Count 128 L (150-450) k/uL Sodium (137-145) mmol/L Glucose (74-99) mg/dL POC Glucose (mg/dL) 134 H 150 H (75-99) mg/dL 07/06/18 07/06/18 Range/Units 07:39 08:29 RBC (3.80-5.40) m/uL Hgb (11.4-16.0) gm/dL Hct (34.0-46.0) % Plt Count (150-450) k/uL Sodium 134 L (137-145) mmol/L Glucose 158 H (74-99) mg/dL POC Glucose (mg/dL) 194 H (75-99) mg/dL
[2018-07-06] MEDS: MAGNESIUM SULFATE-D5W PMX 1 GM in DEXTROSE/WATER 1 100ML.BAG IVPB SCH ×2 (10:40→12:34)
--- NOTE | 2018-07-06 10:55 | P.PN ---
Subjective Progress Note Date: 07/06/18 This is a 68-year-old female patient of Dr. Baptiste and Dr. Love, known history of diabetes mellitus type 2 on oral agents, hypertension, obstructive sleep apnea who currently has no CPAP device at home secondary to noncompliance,, hyperlipidemia, CK D stage III, also with bilateral internal carotid artery stenosis 50-79%, admitted to ICU after coronary bypass surgery, workup 06/17/2018 showed reversible anterior apical wall defect, echocardiogram shows EF 55%, no wall motion abnormality at the time, moderate MR, mild TR, there was 66% left main stenosis, mid LAD stenosis 40-50%, and RCA stenosis 40%, Dr. Garcia performed CABG grafting 2 vessels CHIRINOS to the LAD, saphenous vein to the obtuse marginal artery and endoscopic vein harvest right greater saphenous vein on July 03 2018. Consult were made from our service for medical management for which I have attempted to see the patient on July 03 however patient is still in the operating room at that time., also consults were made to Dr. Holm critical care medicine. Patient is seen post op day #1, in the ICU, was extubated successfully overnight, and he is doing well, they have ambulated the patient in the hallway, without any lightheadedness no chest pain. She does have 2 chest tubes,, x-rays shows evidence of pneumothorax, there is extremity swelling in the hands and fingers, as well as the legs, Lasix IV was given 1 dose, patient is performing incentive spirometry around 750 mL, patient is without any chest pain no lightheadedness no dizziness no nausea no vomiting, no melena. Patient has adequate urine output, sternotomy incision is clean and intact 07/05: Patient remains in intensive care unit. She has been progressing well with plans removed chest tubes and probably transfer out of intensive care unit later today. Urine output has been marginal and dopamine started. Creatinine is 0.77. Blood sugars been running between 117 and 175. Patient was started back on metformin this morning. She has been afebrile, heart rate in the 70s and 80s, blood pressure 105/59, pulse ox 97% on 2 L nasal cannula. Repeat lab work reveals white count 7.4, hemoglobin 9.2, platelet count 128. Sodium is 134, potassium 4.3, creatinine 0.66. Blood sugars are running between 1:30 06/23/199307/06: Patient is seen today on the selective care unit. Repeat chest x-ray showing worsening bibasilar airspace disease. Repeat lab work shows a white count of 7.4, hemoglobin 9.2, platelet count 128. Sodium 134, creatinine 0.66. Blood sugars are running between 134 and 194. She has been evaluated by physical therapy with recommendations for home with homecare or subacute rehab. Patient asking about inpatient rehab and we will add in a consult with Dr. Ziegler. Patient went into A. fib with RVR during the night up to 190s currently running in the low 100s. She is on amiodarone drip. Lasix 40 mg IV this morning and magnesium replacement. Patient states she is passing gas and she is getting up to the bathroom and urinating without difficulty. Regarding blood sugars, patient will be transitioned over to a NovoLog scale, insulin drip discontinued, continue oral metformin. Review Of Systems: Constitutional: No fever, no chills, no night sweats. No weight change. No weakness, fatigue or lethargy. No daytime sleepiness. EENT: No headache. No blurred vision or double vision, no loss of vision. No loss of Hearing, no ringing in the ears, no dizziness. No nasal drainage or congestion. No epistaxis. No sore throat. Lungs: No shortness of breath, cough, no sputum production. No wheezing. Cardiovascular: Reports chest wall discomfort, no lower extremity edema. No palpitations. No paroxysmal nocturnal dyspnea. No orthopnea. No lightheadedness or dizziness. No syncopal episodes. Abdominal: No abdominal pain. No nausea, vomiting. No diarrhea. No constipation. No bloody or tarry stools. Genitourinary: No dysuria, increased frequency, urgency. No urinary retention. Musculoskeletal: No myalgias. No muscle weakness, no gait dysfunction, no frequent falls. No back pain. No neck pain. Integumentary: No wounds, no lesions. No rash or pruritus. No unusual bruising. No change in hair or nails. Neurologic: No aphasia. No facial droop. No change in mentation. No head injury. No headache. No paralysis. No paresthesia. Psychiatric: No depression. No anxiety. No mood swings. Endocrine: Reports abnormal blood sugars. Objective - Vital Signs Vital signs: Vital Signs Temp 98.8 F 07/06/18 07:43 Pulse 80 07/06/18 08:07 Resp 18 07/06/18 07:43 BP 105/59 07/06/18 07:43 Pulse Ox 97 07/06/18 07:43 Intake & Output 07/05/18 07/06/18 07/06/18 18:59 06:59 18:59 Intake Total 558.410 352.452 Output Total 1143 625 Balance -584.590 -272.548 Weight 88 kg Intake: IV 386 102 Lactated Ringers 1,000 ml 350 90 @ 20 mls/hr IV .Q24H [facility] Rx#:[id number] pressure bag 36 12 Intake, IV Titration 52.410 30.452 Amount Insulin Regular 100 unit 52.410 30.452 In Sodium Chloride 0.9% 100 ml @ Per Protocol IV .Q0M [facility] Rx#:[id number] Oral 120 Lipid 220 Lactated Ringers 1,000 ml 220 @ 20 mls/hr IV .Q24H [facility] Rx#:[id number] Output: Chest Tube Drainage 120 left pleural 80 mediastinal chest tube x2 40 Urine 1023 625 Other: Voiding Method Indwelling Catheter Indwelling Catheter # Voids 3 ABP, PAP, CO, CI - Last Documented Arterial Blood Pressure 115/96 Pulmonary Artery Pressure 31/10 Cardiac Output 4.5 Cardiac Index 2.4 - Exam General appearance: cooperative, no acute distress, appears comfortable while resting in recliner - EENT Eyes: anicteric sclerae, EOMI, PERRLA, dentition normal, normal appearance ENT: NA/AT, normal oropharynx - Neck Neck: normal ROM - Respiratory Respiratory: bilateral: CTA, negative: diminished, dullness, prolonged expiration, prolonged inspiration - Cardiovascular Rhythm: regular Heart sounds: normal: S1, S2 Abnormal Heart Sounds: no systolic murmur, no diastolic murmur, no rub, no S3 Gallop, no S4 Gallop, no click, no other - Gastrointestinal General gastrointestinal: normal bowel sounds, soft - Integumentary Integumentary: normal - Neurologic 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 since Neurologic: CNII-XII intact - Musculoskeletal Musculoskeletal: gait normal, strength equal bilaterally - Psychiatric Psychiatric: A&O x's 3, appropriate affect, intact judgment & insight - Labs CBC & Chem 7: 07/06/18 07:39 07/06/18 07:39 Labs: Abnormal Lab Results - Last 24 Hours (Table) 07/05/18 07/05/18 07/05/18 Range/Units 10:11 11:00 12:08 RBC (3.80-5.40) m/uL Hgb (11.4-16.0) gm/dL Hct (34.0-46.0) % Plt Count (150-450) k/uL Sodium (137-145) mmol/L Glucose (74-99) mg/dL POC Glucose (mg/dL) 172 H 153 H 117 H (75-99) mg/dL 07/05/18 07/05/18 07/05/18 Range/Units 13:02 15:33 16:21 RBC (3.80-5.40) m/uL Hgb (11.4-16.0) gm/dL Hct (34.0-46.0) % Plt Count (150-450) k/uL Sodium (137-145) mmol/L Glucose (74-99) mg/dL POC Glucose (mg/dL) 137 H 103 H 125 H (75-99) mg/dL 07/05/18 07/05/18 07/05/18 Range/Units 18:00 19:11 20:36 RBC (3.80-5.40) m/uL Hgb (11.4-16.0) gm/dL Hct (34.0-46.0) % Plt Count (150-450) k/uL Sodium (137-145) mmol/L Glucose (74-99) mg/dL POC Glucose (mg/dL) 148 H 178 H 161 H (75-99) mg/dL 07/05/18 07/05/18 07/05/18 Range/Units 22:05 22:59 23:55 RBC (3.80-5.40) m/uL Hgb (11.4-16.0) gm/dL Hct (34.0-46.0) % Plt Count (150-450) k/uL Sodium (137-145) mmol/L Glucose (74-99) mg/dL POC Glucose (mg/dL) 115 H 113 H 131 H (75-99) mg/dL 07/06/18 07/06/18 07/06/18 Range/Units 02:10 04:08 06:16 RBC (3.80-5.40) m/uL Hgb (11.4-16.0) gm/dL Hct (34.0-46.0) % Plt Count (150-450) k/uL Sodium (137-145) mmol/L Glucose (74-99) mg/dL POC Glucose (mg/dL) 135 H 134 H 150 H (75-99) mg/dL 07/06/18 07/06/18 07/06/18 Range/Units 07:39 07:39 08:29 RBC 3.22 L (3.80-5.40) m/uL Hgb 9.2 L (11.4-16.0) gm/dL Hct 27.3 L (34.0-46.0) % Plt Count 128 L (150-450) k/uL Sodium 134 L (137-145) mmol/L Glucose 158 H (74-99) mg/dL POC Glucose (mg/dL) 194 H (75-99) mg/dL Assessment and Plan Plan: 1. CAD, 2 vessel disease involving left main requiring CABG, CHIRINOS to the ant erior LAD, saphenous graft to obtuse marginal artery performed 07/03/2018, patient is in ICU and progressing well. Chest tube to be out today. Patient was likely will be transferred out of the intensive care unit today. Continue Lipitor 40 mg daily, Plavix, aspirin, Lopressor. Continue Incentive spirometry, O2 supplementation, Lasix, magnesium replacement 2. Diabetes mellitus type 2, A1c 6.2, currently on insulin drip, metformin 500 mg twice daily 3. GERD on maintenance omeprazole at home 4. Hyperlipidemia on Lipitor 40 mg daily 5. Mild intermittent asthma without any maintenance medication, has when necessary albuterol along with scheduled 4 times a day 6. CKD stage I, current creatinine of 0.48, patient has been followed with microalbuminuria evaluation the office. 7. Obstructive sleep apnea, patient is not on any CPAP device from home 8. Blood loss anemia, expected with surgery 8. A. fib with RVR, paroxysmal atrial fibrillation. Patient is on amiodarone drip. Patient may require anticoagulation. 9. GI prophylaxis maintenance omeprazole 10. DVT prophylaxis Discharge plan: To be determined. Consult with Dr. Ziegler added. Impression and plan of care have been directed as dictated by the signing physician. Soco Maciel nurse practitioner acting as scribe for signing physician.
[2018-07-06 11:34] LABS: Glucose,Whole Blood 227 mg/dL (75-99)
--- NOTE | 2018-07-06 12:08 | P.PN ---
Subjective Progress Note Date: 07/06/18 Principal diagnosis: Coronary artery disease with left main disease and preserved left ventricular function with an ejection fraction of 55%. History of hypertension, hyperlipidemia, biq-ihqlatr-[id number] diabetes mellitus, obstructive sleep apnea without consistent CPAP use, family history of premature coronary artery disease with her father passing away from myocardial infarction at age 54 and obesity. POD #3 coronary artery bypass grafting 2 vessels, left internal mammary artery to left anterior descending coronary artery, a reverse greater saphenous vein graft to the obtuse marginal coronary artery. Endoscopic vein harvest right greater saphenous vein, intraoperative epi-aortic ultrasound and transesophageal Echocardiogram. Preoperative nasal screening positive for Staphylococcus aureus, not MRSA. Postoperative acute blood loss anemia, an expected outcome of surgery given cardiopulmonary bypass and hemodilution. Postoperative paroxysmal atrial fibrillation, an unexpected the potential outcome of surgery. The patient is sitting up to the bedside chair on the 3 S. cardiac stepdown unit. She is in no acute distress. She denies any complaints of pain or shortness of breath this time. The patient went into atrial fibrillation with RVR this morning with her remote telemetry currently showing atrial fibrillation with a heart rate in the 120s. Amiodarone drip per protocol was initiated and currently is infusing at 1 mg/m. She remains hemodynamically stable and is currently on no inotropic or pressor support. Her dopamine drip for renal perfusion has been discontinued due to the atrial fibrillation. She reports she ambulated in the intensive care unit already 3 with minimal assistance chest today. Her oxygen saturations are 94% on 2 L nasal cannula. She is achieving 500 mL on her incentive spirometry currently. Objective - Vital Signs Vital signs: Vital Signs Temp 98.5 F 07/06/18 10:55 Pulse 120 H 07/06/18 10:55 Resp 18 07/06/18 10:55 BP 106/70 07/06/18 10:55 Pulse Ox 100 07/06/18 10:55 Intake & Output 07/05/18 07/06/18 07/06/18 18:59 06:59 18:59 Intake Total 558.410 352.452 Output Total 1143 625 Balance -584.590 -272.548 Weight 88 kg Intake: IV 386 102 Lactated Ringers 1,000 ml 350 90 @ 20 mls/hr IV .Q24H [facility] Rx#:[id number] pressure bag 36 12 Intake, IV Titration 52.410 30.452 Amount Insulin Regular 100 unit 52.410 30.452 In Sodium Chloride 0.9% 100 ml @ Per Protocol IV .Q0M [facility] Rx#:[id number] Oral 120 Lipid 220 Lactated Ringers 1,000 ml 220 @ 20 mls/hr IV .Q24H [facility] Rx#:[id number] Output: Chest Tube Drainage 120 left pleural 80 mediastinal chest tube x2 40 Urine 1023 625 Other: Voiding Method Indwelling Catheter Indwelling Catheter Indwelling Catheter # Voids 3 ABP, PAP, CO, CI - Last Documented Arterial Blood Pressure 115/96 Pulmonary Artery Pressure 31/10 Cardiac Output 4.5 Cardiac Index 2.4 - Constitutional General appearance: Present: cooperative, no acute distress, obese - Respiratory Details: Lung sounds are essentially clear throughout, diminished bilateral bases. Respirations are symmetrical and nonlabored. Oxygen saturation are 94% on 2 L nasal cannula. She is achieving 500 mL on her incentive spirometry. - Cardiovascular Details: Irregular rhythm consistent with atrial fibrillation. S1 and S2 present, negative for S3, gallop or murmur. Sternum is stable. Remote telemetry showing atrial fibrillation with RVR heart rate 123. +1 and generalized edema. Heart hugger is in place and she is demonstrating appropriate use. Surgical support bra in place. Knee-high KUNAL hose and sequential compression devices in place to bilateral lower extremities. Atrial and ventricular epicardial pacemaker wires are intact and grounded. - Gastrointestinal Gastrointestinal Comment(s): Abdomen is soft, nontender and nondistended. Active bowel sounds all 4 abdominal quadrants. Passing flatus. Tolerating oral intake. No guarding or rigidity. - Genitourinary Genitourinary Comment(s): Voiding clear yellow urine. Her Clark catheter has been discontinued. - Integumentary Integumentary Comment(s): Skin is warm and dry. No clubbing or cyanosis is present. Midline sternal incision is clean, dry and approximated. Gauze dressing is clean, dry and intact. Right lower extremity EVH site is clean, dry and approximated. No drainage or redness is present. - Neurologic Neurologic: Present: CNII-XII intact - Musculoskeletal Musculoskeletal: Present: gait normal, generalized weakness, strength equal bilaterally - Psychiatric Psychiatric: Present: A&O x's 3, appropriate affect, intact judgment & insight - Allied health notes Allied health notes reviewed: nursing - Labs CBC & Chem 7: 07/06/18 07:39 07/06/18 07:39 Labs: Abnormal Lab Results - Last 24 Hours (Table) 07/05/18 07/05/18 07/05/18 Range/Units 12:08 13:02 15:33 RBC (3.80-5.40) m/uL Hgb (11.4-16.0) gm/dL Hct (34.0-46.0) % Plt Count (150-450) k/uL Sodium (137-145) mmol/L Glucose (74-99) mg/dL POC Glucose (mg/dL) 117 H 137 H 103 H (75-99) mg/dL 07/05/18 07/05/18 07/05/18 Range/Units 16:21 18:00 19:11 RBC (3.80-5.40) m/uL Hgb (11.4-16.0) gm/dL Hct (34.0-46.0) % Plt Count (150-450) k/uL Sodium (137-145) mmol/L Glucose (74-99) mg/dL POC Glucose (mg/dL) 125 H 148 H 178 H (75-99) mg/dL 07/05/18 07/05/18 07/05/18 Range/Units 20:36 22:05 22:59 RBC (3.80-5.40) m/uL Hgb (11.4-16.0) gm/dL Hct (34.0-46.0) % Plt Count (150-450) k/uL Sodium (137-145) mmol/L Glucose (74-99) mg/dL POC Glucose (mg/dL) 161 H 115 H 113 H (75-99) mg/dL 07/05/18 07/06/18 07/06/18 Range/Units 23:55 02:10 04:08 RBC (3.80-5.40) m/uL Hgb (11.4-16.0) gm/dL Hct (34.0-46.0) % Plt Count (150-450) k/uL Sodium (137-145) mmol/L Glucose (74-99) mg/dL POC Glucose (mg/dL) 131 H 135 H 134 H (75-99) mg/dL 07/06/18 07/06/1819 Range/Units 06:16 07:39 07:39 RBC 3.22 L (3.80-5.40) m/uL Hgb 9.2 L (11.4-16.0) gm/dL Hct 27.3 L (34.0-46.0) % Plt Count 128 L (150-450) k/uL Sodium 134 L (137-145) mmol/L Glucose 158 H (74-99) mg/dL POC Glucose (mg/dL) 150 H (75-99) mg/dL 07/06/18 07/06/18 Range/Units 08:29 11:31 RBC (3.80-5.40) m/uL Hgb (11.4-16.0) gm/dL Hct (34.0-46.0) % Plt Count (150-450) k/uL Sodium (137-145) mmol/L Glucose (74-99) mg/dL POC Glucose (mg/dL) 194 H 227 H (75-99) mg/dL - Imaging and Cardiology Chest x-ray: report reviewed, image reviewed Assessment and Plan Assessment: 1. Status post coronary artery bypass grafting surgery 2 vessels. 2. Coronary artery disease with left main disease 3. Moderate mitral vavle regurgitation per preoperative 2-D echocardiogram 4. Bilateral internal carotid artery stenosis 50-79% 5. History of CAD, heart catheterization in 2006 without intervention 6. Hypertension 7. Hyperlipidemia 8. Ddd-kajvuya-kitqmtqng diabetes mellitus 9. Obstructive sleep apnea without consistent CPAP use 10. Family history of premature coronary artery disease 11. Never smoker 12. Obesity 13. Postoperative acute blood loss anemia, an expected outcome of surgery due to cardiopulmonary bypass and hemodilution. 14. Preoperative nasal swab positive for Staphylococcus aureus, not MRSA. 15. Postoperative paroxysmal atrial fibrillation, an unexpected but potential outcome of surgery. Plan: 1. Continue aspirin, statin, Plavix and beta maria l. We will increase beta maria l as tolerated. 2. Continue amiodarone drip per protocol for atrial fibrillation prophylaxis. 3. Bronchodilators per pulmonology management. 4. Wean oxygen as tolerated. 5. Encourage use of her incentive spirometry 10 times every hour while awake. 6. Increase activity as tolerated. PT/OT/cardiac rehab following. 7. Will monitor daily labs and chest x-rays. Electrolyte replacement per protocol. 8. Pain control with current medication regimen. 9. Insulin management per primary care service. 10. GI/DVT prophylaxis with Protonix and SCDs. 11. Lasix 40 mg IV 1 now. 12. Discontinue dopamine drip due to the atrial fibrillation. 13. No anticoagulation at this time as the patient still has her epicardial pacemaker wires in place. 14. Discharge planning is in place. 15. More recommendations to follow based on patient's clinical course. Time with Patient: Greater than 30
[2018-07-06] MEDS: INSULIN ASPART (NovoLOG) 100 UNIT/ML VIAL SQ SCH ×3 (12:36→22:10)
--- NOTE | 2018-07-06 13:33 | P.PN ---
Subjective Progress Note Date: 07/06/18 68-year-old female patient known history of coronary artery disease, hypertension, hyperlipidemia, [id number] diabetes mellitus, obstructive sleep apnea not utilizing any form of CPAP, presented to the hospital because of chest pain and shortness of breath. She underwent cardiac catheterization that showed 60% left main stenosis, 40-50% mid LAD stenosis, 40% RCA stenosis. LV angiogram showed an ejection fraction of 60% with normal wall motion. The patient had a carotid Doppler that showed 50-79% internal carotid artery stenosis. Based on that, the patient was taken to the operating room and the patient underwent four-vessel bypass surgery. I'm seeing her immediately postop. She is doing extremely well. She is still sedated for now and she is on no sedation and Diprivan was discontinued pH is on a mechanical ventilator on assist control mode at the rate of 12 with tidal volume of 400 and FiO2 of 100% and PEEP of 10. Her blood gas showed a pH of 7.37 with a pCO2 of 45 and pO2 of 265. FiO2 was dropped down to 60%. Chest x-ray shows left midlung atelectatic changes. ET tube is in good location. The patient's [place] catheter which is in a good location. The patient has left pleural and mediastinal chest tube. The patient has been weaned down to 60% FiO2. Meanwhile, hemodynamically patient is doing well. Cardiac output is at 4.4 with an index of 2.4. Pulmona ry to pursue 36/20. She has developed adequate urine output. She is on low- dose atorvastatin drip at 5 g per minute for blood pressure control. Chest tubes are in place. No significant output from the chest tube. No other issues otherwise for now. On 07/04/2018 I'm seeing this patient for a follow-up, the patient is being seen for a follow-up. The patient was weaned off the mechanical ventilator and extubated immediately within 6 hours of arriving to the intensive care unit. The patient did extremely well. This morning she is awake and alert and she is sitting up on a chair. No fever. No chills. She has adequate urine output. No nausea. No vomiting. No abdominal pain. Sternum stable clean and intact. Chest tubes are in place. [place] catheter is in place. Adequate cardiac output and index. Asked x-ray shows no evidence of any pneumothorax. The patient has some increased swelling in the upper and lower extremities and the patient will be given a dose of IV Lasix. The patient is pulling approximately 750 mL on the incentive spirometer. The patient has a cardiac index of 2.9. Pulmonary artery pressures 29/10. CVP is at 3. The patient a day #1. On 07/05/2018 I'm seeing this patient for a follow-up. The patient is awake and alert. The chest tubes will be removed today. The patient's chest x-ray shows limited atelectatic changes in lung bases more so on the left. The [place] catheter to be removed. The patient received a total of 2 doses of Lasix yesterday with excellent urine output. Subsequently she became briefly hypotensive and she picked up. Currently her urine output is on the patient will be started on dopamine for renal perfusion per cardiothoracic surgery's recommendation. Patient's hemoglobin has dropped down to 8.3. No signs of any external bleeding. No cardiac arrhythmias. No other electrodes abnormalities. Renal function stable with a creatinine of 0.7. Patient is postop day #2 post coronary artery bypass surgery. On 07/06/2018 the patient is being seen in follow-up on medical surgical floor. She is doing well. All of the chest is a been removed. She did go into atrial fibrillation. Her rate is controlled for now. Her renal function is normal and her rest of the blood work and electrodes are all within normal limits. The magnesium level is at 1.8 with a potassium level of 4.3. Patient was started on amiodarone which is currently running at 0.5 mg per minute. There is essentially for rate control and her rate is under better control for now. She is using incentive spirometer and she is pulling approximately 750 on the diuretics. Her surgical wound is dry clean and intact. She is on 2 L of oxygen nasal cannula and his saturations are 94%. She is producing adequate amount of urine output. No signs of any respiratory distress. No altered mentation. No other complaints otherwise for now. She is postop day #3. Objective - Vital Signs Vital signs: Vital Signs Temp 98.5 F 07/06/18 10:55 Pulse 76 07/06/18 13:08 Resp 18 07/06/18 12:00 BP 106/70 07/06/18 10:55 Pulse Ox 100 07/06/18 10:55 Intake & Output 07/05/18 07/06/18 07/06/18 18:59 06:59 18:59 Intake Total 558.410 352.452 Output Total 1143 625 200 Balance -584.590 -272.548 -200 Weight 88 kg Intake: IV 386 102 Lactated Ringers 1,000 ml 350 90 @ 20 mls/hr IV .Q24H [facility] Rx#:[id number] pressure bag 36 12 Intake, IV Titration 52.410 30.452 Amount Insulin Regular 100 unit 52.410 30.452 In Sodium Chloride 0.9% 100 ml @ Per Protocol IV .Q0M [facility] Rx#:[id number] Oral 120 Lipid 220 Lactated Ringers 1,000 ml 220 @ 20 mls/hr IV .Q24H [facility] Rx#:[id number] Output: Chest Tube Drainage 120 left pleural 80 mediastinal chest tube x2 40 Urine 1023 625 200 Other: Voiding Method Indwelling Catheter Indwelling Catheter Indwelling Catheter # Voids 3 1 ABP, PAP, CO, CI - Last Documented Arterial Blood Pressure 115/96 Pulmonary Artery Pressure 31/10 Cardiac Output 4.5 Cardiac Index 2.4 - Exam - Constitutional General appearance: Present: cooperative, no acute distress, obese - Respiratory Details: Lung sounds are essentially clear throughout, diminished bilateral bases. Respirations are symmetrical and nonlabored. Oxygen saturation are 94% on 2 L nasal cannula. She is achieving 500 mL on her incentive spirometry. - Cardiovascular Details: Irregular rhythm consistent with atrial fibrillation. Irregular S1 and S2 present, negative for S3, gallop or murmur. Sternum is stable. Remote telemetry showing atrial fibrillation with RVR heart rate 123. +1 and generalized edema. Heart hugger is in place and she is demonstrating appropriate use. Surgical support bra in place. Knee-high KUNAL hose and sequential compression devices in place to bilateral lower extremities. Atrial and ventricular epicardial pacemaker wires are intact and grounded. - Gastrointestinal Gastrointestinal Comment(s): Abdomen is soft, nontender and nondistended. Active bowel sounds all 4 abdominal quadrants. Passing flatus. Tolerating oral intake. No guarding or rigidity. - Genitourinary Genitourinary Comment(s): Voiding clear yellow urine. Her Clark catheter has been discontinued. - Integumentary Integumentary Comment(s): Skin is warm and dry. No clubbing or cyanosis is present. Midline sternal incision is clean, dry and approximated. Gauze dressing is clean, dry and intact. Right lower extremity EVH site is clean, dry and approximated. No drainage or redness is present. - Neurologic Neurologic: Present: CNII-XII intact - Musculoskeletal Musculoskeletal: Present: gait normal, generalized weakness, strength equal bilaterally - Psychiatric Psychiatric: Present: A&O x's 3, appropriate affect, intact judgment & insight - Labs CBC & Chem 7: 07/06/18 07:39 07/06/18 07:39 Labs: Abnormal Lab Results - Last 24 Hours (Table) 07/05/18 07/05/18 07/05/18 Range/Units 15:33 16:21 18:00 RBC (3.80-5.40) m/uL Hgb (11.4-16.0) gm/dL Hct (34.0-46.0) % Plt Count (150-450) k/uL Sodium (137-145) mmol/L Glucose (74-99) mg/dL POC Glucose (mg/dL) 103 H 125 H 148 H (75-99) mg/dL 07/05/18 07/05/18 07/05/18 Range/Units 19:11 20:36 22:05 RBC (3.80-5.40) m/uL Hgb (11.4-16.0) gm/dL Hct (34.0-46.0) % Plt Count (150-450) k/uL Sodium (137-145) mmol/L Glucose (74-99) mg/dL POC Glucose (mg/dL) 178 H 161 H 115 H (75-99) mg/dL 07/05/18 07/05/18 07/06/18 Range/Units 22:59 23:55 02:10 RBC (3.80-5.40) m/uL Hgb (11.4-16.0) gm/dL Hct (34.0-46.0) % Plt Count (150-450) k/uL Sodium (137-145) mmol/L Glucose (74-99) mg/dL POC Glucose (mg/dL) 113 H 131 H 135 H (75-99) mg/dL 07/06/18 07/06/18 07/06/18 Range/Units 04:08 06:16 07:39 RBC 3.22 L (3.80-5.40) m/uL Hgb 9.2 L (11.4-16.0) gm/dL Hct 27.3 L (34.0-46.0) % Plt Count 128 L (150-450) k/uL Sodium (137-145) mmol/L Glucose (74-99) mg/dL POC Glucose (mg/dL) 134 H 150 H (75-99) mg/dL 07/06/18 07/06/18 07/06/18 Range/Units 07:39 08:29 11:31 RBC (3.80-5.40) m/uL Hgb (11.4-16.0) gm/dL Hct (34.0-46.0) % Plt Count (150-450) k/uL Sodium 134 L (137-145) mmol/L Glucose 158 H (74-99) mg/dL POC Glucose (mg/dL) 194 H 227 H (75-99) mg/dL Assessment and Plan Plan: 1 multivessel coronary artery disease, post coronary bypass surgery and the patient's postoperative day #3 2 post thoracotomy, patient was extubated without any major difficulties. Chest tubes removed 3 new onset atrial fibrillation with rapid but scattered response currently on amiodarone maintenance at 0.5 mg per minute. 4 hyperlipidemia 5 [id number] diabetes mellitus 6 obstructive sleep apnea. 7 obesity 8 preserved LV function based on the preoperative echocardiogram 9 50-80% occlusion and bilateral internal carotid arteries 10 hypertension Plan The patient is on a combination of aspirin, metoprolol, Plavix and statin. Continue amiodarone loading and subsequently maintenance. Consider anticoagulation. Continue using incentive spirometer. She is on 2 L of oxygen nasal cannula. Rest of the cardiac medications are all appropriate. We'll continue to follow.
[2018-07-06] MEDS: LISINOPRIL 2.5 MG TAB PO SCH (14:10)
[2018-07-06 16:40] LABS: Glucose,Whole Blood 150 mg/dL (75-99)
[2018-07-06 21:02] LABS: Glucose,Whole Blood 189 mg/dL (75-99)
[2018-07-06] MEDS: HEPARIN SODIUM,PORCINE 5,000 UNIT/ML 1 ML VIAL SQ SCH ×2 (21:57→23:35)
[2018-07-06] MEDS: SENNOSIDES-DOCUSATE SODIUM 1 EACH TAB PO SCH (22:10)
[2018-07-07] MEDS: AMIODARONE 360 MG in DEXTROSE 5% IN WATER 200 ML IV PRN ×2 (04:33)
[2018-07-07 05:51] LABS: Glucose,Whole Blood 149 mg/dL (75-99)
--- NOTE | 2018-07-07 06:07 | P.CONS ---
History of Present Illness - Chief Complaint Cardiac debility - History of Present Illness I had the opportunity to see patient for inpatient rehab consultation with regard to cardiac debility. She was admitted to [facility] July 03 with known cardiac disease and underwent CABG, Dr. Garcia. Seen in consultation by Drs. Belle and Mihai. Chest x-rays followed for bibasilar airspace disease. PT reports moderate assistance for bed mobility and sitting. Supervision for gait 15 feet, hand-held. OT prescribed. Previous functional history as elicited from patient: 68-year-old right-handed white female who is lives in one floor home alone. Retired. Describes independent with own cooking, laundry, driving, standing shower and gait without device. Denies tobacco or alcohol. Dr. Baptiste is regular doctor. Family history of VT in father and mother with cardiac disease. Review of Systems Review of systems: ENT: Denies sneezes or discharge. Eyes: Denies discharge or photophobia. Cardiac: Sternal discomfort. Pulmonary: Mild shortness of breath. Breast: Denies discharge or lumps. Gastrointestinal: Denies nausea, emesis, constipation, diarrhea. Genitourinary: Denies discharge or frequency. Musculoskeletal: Denies muscle or bone aches. Neurologic: Mild generalized weakness. Endocrine: Denies shakes or sweats. Oncology: Denies cancers. Dermatologic: Denies rash, itching, pruritus. ALLERGY/immunology: Denies sneezes, rashes. Past Medical History Past Medical History: Coronary Artery Disease (CAD), Chest Pain / Angina, Diabetes Mellitus, GERD/Reflux, Hyperlipidemia, Hypertension, Osteoarthritis (OA), Sleep Apnea/CPAP/BIPAP Additional Past Medical History / Comment(s): Coronary artery disease, hypertension, hyperlipidemia, diabetes mellitus, obstructive sleep apnea using CPAP therapy, hiatal hernia, History of Any Multi-Drug Resistant Organisms: None Reported Past Surgical History: Adenoidectomy, Appendectomy, Cholecystectomy, Heart Catheterization, Hysterectomy, Tonsillectomy Additional Past Surgical History / Comment(s): COLONOSCOPY, heart catheterization in 2006 without intervention Past Anesthesia/Blood Transfusion Reactions: Previous Problems w/ Anesthesia Additional Past Anesthesia/Blood Transfusion Reaction / Comm: SLOW TO WAKE UP Past Psychological History: No Psychological Hx Reported Smoking Status: Never smoker Past Alcohol Use History: None Reported Past Drug Use History: None Reported - Past Family History Sister(s) Family Medical History: Cancer Father Family Medical History: Coronary Artery Disease (CAD) Additional Family Medical History / Comment(s): Father of myocardial infarction at 54 years old Mother Family Medical History: Congestive Heart Failure (CHF) Medications and Allergies Home Medications Medication Instructions Recorded Confirmed Type Aspirin EC [Ecotrin Low Dose] 81 mg PO DAILY 10/12/16 07/03/18 History Furosemide [Lasix] 20 mg PO DAILY 10/12/16 07/03/18 History Gabapentin [Neurontin] 300 mg PO BID 10/12/16 07/03/18 History Isosorbide Mononitrate [Isosorbide 30 mg PO DAILY 10/12/16 07/03/18 History Mononitrate ER] Metoprolol Tartrate [Lopressor] 50 mg PO BID 10/12/16 07/03/18 History Multivitamins, Thera [Multivitamin 1 tab PO DAILY 10/12/16 07/03/18 History (formulary)] Omeprazole 20 mg PO BID 10/12/16 07/03/18 History Spironolactone [Aldactone] 25 mg PO DAILY 10/12/16 07/03/18 History hydrALAZINE HCL [Hydralazine HCl] 50 mg PO BID 10/12/16 07/03/18 History metFORMIN HCL [Glucophage] 500 mg PO BID 10/12/16 07/03/18 History Cyanocobalamin [Vitamin B-12] 500 mcg PO DAILY 06/27/18 07/03/18 History Simvastatin [Zocor] 40 mg PO HS 06/27/18 07/03/18 History Allergies Allergy/AdvReac Type Severity Reaction Status Date / Time Penicillins Allergy Anaphylaxis Verified 07/03/18 06:48 sulfamethoxazole Allergy Nausea Verified 07/03/18 06:48 [From Bactrim] trimethoprim [From Bactrim] Allergy Nausea Verified 07/03/18 06:48 Physical Exam Vitals: Vital Signs Temp Pulse Pulse Pulse Pulse Resp BP 07/07/18 04:00 97.8 F 64 16 118/58 07/06/18 23:30 98.1 F 68 20 115/56 07/06/18 20:00 98.3 F 72 18 134/63 07/06/18 19:17 76 16 07/06/18 19:07 76 16 07/06/18 16:00 120 H 87 161 H 16 07/06/18 15:35 76 16 07/06/18 15:23 76 16 07/06/18 13:08 76 07/06/18 12:57 76 07/06/18 12:00 120 H 87 161 H 18 07/06/18 10:55 98.5 F 120 H 18 106/70 07/06/18 08:07 80 07/06/18 08:00 87 161 H 18 07/06/18 07:53 76 07/06/18 07:43 98.8 F 161 H 18 105/59 Pulse Ox 07/07/18 04:00 97 07/06/18 23:30 96 07/06/18 20:00 97 07/06/18 19:17 07/06/18 19:07 07/06/18 16:00 07/06/18 15:35 07/06/18 15:23 93 L 07/06/18 13:08 07/06/18 12:57 07/06/18 12:00 07/06/18 10:55 100 07/06/18 08:07 07/06/18 08:00 07/06/18 07:53 07/06/18 07:43 97 Intake and Output 07/06/18 07/06/18 07/07/18 14:59 22:59 06:59 Intake Total 200 Output Total 200 Balance 0 Intake: Intake, IV Titration 200 Amount Amiodarone 360 mg In 200 Dextrose 5% in Water 200 ml @ 1 MG/MIN 33.333 mls/ hr IV .Q6H PRN Rx#: [id number] Oral 0 Output: Urine 200 Other: Voiding Method Indwelling Catheter Indwelling Catheter # Voids 1 1 # Bowel Movements 1 Skin: Good color, texture, turgor. General: Overweight and comfortable appearance. Head: Normocephalic, atraumatic. Eyes: Symmetric. Pupils equal round. Ears: Symmetric. Hearing within normal limits. Mouth: Clear. Neck: Supple. Carotid without bruit. Cardiac: Regular rate and rhythm. Lungs: Clear anteriorly and posteriorly. Abdomen: Soft active nontender. Extremities: Normal tone. overweight. Neurological: Mental status: Alert, cooperative, pleasant. Cranial nerves: Symmetric facial tone and trapezius. Motor: Normal strength and isolation all 4 limbs. Sensation: Intact throughout. DTRs: Symmetric and equal throughout. Mobility: Sits and stands without assistance or verbal cueing or loss of balance. Results CBC & Chem 7: 07/06/18 07:39 07/06/18 07:39 Labs: Abnormal Lab Results - Last 24 Hours (Table) 07/06/18 07/06/18 07/06/18 Range/Units 06:16 07:39 07:39 RBC 3.22 L (3.80-5.40) m/uL Hgb 9.2 L (11.4-16.0) gm/dL Hct 27.3 L (34.0-46.0) % Plt Count 128 L (150-450) k/uL Sodium 134 L (137-145) mmol/L Glucose 158 H (74-99) mg/dL POC Glucose (mg/dL) 150 H (75-99) mg/dL 07/06/18 07/06/18 07/06/18 Range/Units 08:29 11:31 16:38 RBC (3.80-5.40) m/uL Hgb (11.4-16.0) gm/dL Hct (34.0-46.0) % Plt Count (150-450) k/uL Sodium (137-145) mmol/L Glucose (74-99) mg/dL POC Glucose (mg/dL) 194 H 227 H 150 H (75-99) mg/dL 07/06/18 07/07/18 Range/Units 20:59 05:50 RBC (3.80-5.40) m/uL Hgb (11.4-16.0) gm/dL Hct (34.0-46.0) % Plt Count (150-450) k/uL Sodium (137-145) mmol/L Glucose (74-99) mg/dL POC Glucose (mg/dL) 189 H 149 H (75-99) mg/dL Assessment and Plan (1) CAD (coronary artery disease) Current Visit: Yes Status: Acute Code(s): I25.10 - ATHSCL HEART DISEASE OF [place] CORONARY ARTERY W/O ANG PCTRS SNOMED Code(s): 73145747 Plan: Impression: 1. Cardiac debility. 2. Cardiac disease with history of angina recent CABG. 3. Obese. 4. Obstructive sleep apnea with CPAP and BiPAP. 5. hypertension. 6. Dyslipidemia. 7. Osteoarthritis. 8. GERD. 9. Diabetes. Comments and plan: At this time PT ongoing and OT prescribed. Follow therapies with yourself. I discussed possible inpatient rehab with patient. Note unit full today but discharge is planned throughout week.
[2018-07-07 06:49] LABS: HCT 27.8 % (34.0-46.0); HGB 9.1 gm/dL (11.4-16.0); MCH 27.7 pg (25.0-35.0); MCHC 32.7 g/dL (31.0-37.0); MCV 84.6 fL (80.0-100.0); Mean Platelet Volume 7.5; Platelet Count 173 k/uL (150-450); RBC 3.29 m/uL (3.80-5.40); RDW 14.7 % (11.5-15.5); WBC 7.5 k/uL (3.8-10.6)
[2018-07-07] MEDS: KETOROLAC 30 MG/ML 1 ML VIAL IVP SCH ×4 (07:00→23:34)
[2018-07-07] MEDS: metFORMIN 500 MG TAB PO SCH ×2 (07:01→18:32)
[2018-07-07] MEDS: INSULIN ASPART (NovoLOG) 100 UNIT/ML VIAL SQ SCH ×5 (07:02→21:21)
[2018-07-07] MEDS: PANTOPRAZOLE 40 MG TABLET PO SCH ×2 (07:02→21:09)
[2018-07-07 07:03] LABS: Anion Gap 7 mmol/L; Blood Urea Nitrogen 18 mg/dL (7-17); Calcium 8.7 mg/dL (8.4-10.2); Carbon Dioxide 25 mmol/L (22-30); Chloride 100 mmol/L (98-107); Glucose 133 mg/dL (74-99); Magnesium 2.1 mg/dL (1.6-2.3); Sodium 132 mmol/L (137-145)
[2018-07-07] MEDS: IPRATROPIUM-ALBUTEROL 3 ML NEB INHALATION SCH ×4 (07:41→19:32)
--- NOTE | 2018-07-07 08:12 | XR ---
EXAMINATION TYPE: XR chest 1V portable DATE OF EXAM: 07/07/2018 CLINICAL HISTORY: Difficulty breathing progress study. TECHNIQUE: Single AP portable upright view of the chest is obtained. COMPARISON: Chest x-ray from one day earlier and older studies. FINDINGS: Post CABG changes with mediastinal clips and sternal wires is redemonstrated. There is per sistent mild cardiomegaly with mild to moderate central vascular congestion and small left greater th an right pleural effusions with associated left basilar atelectasis and/or infiltrate. Overlying EKG leads are redemonstrated. Surgical clips epigastric region are again seen. Osseous structures are int act. IMPRESSION: Overall stable findings, mild cardiomegaly with mild to moderate central vascular conge stion and small left greater than right pleural effusions with associated left basilar atelectasis an d/or infiltrate all redemonstrated.
[2018-07-07] MEDS ORDERED: FUROSEMIDE 10 MG/ML 4 ML VIAL IV STA (08:43)
[2018-07-07] MEDS ORDERED: ACETAMINOPHEN TAB 500 MG TAB PO PRN ×2 (09:22)
--- NOTE | 2018-07-07 09:35 | P.PN ---
Subjective Progress Note Date: 07/07/18 Principal diagnosis: Coronary artery disease with left main disease and preserved left ventricular function with an ejection fraction of 55%. History of hypertension, hyperlipidemia, cxj-haixwwd-aiwqouyad diabetes mellitus, obstructive sleep apnea without consistent CPAP use, family history of premature coronary artery disease with her father passing away from myocardial infarction at age 54 and obesity. POD #4 coronary artery bypass grafting 2 vessels, left internal mammary artery to left anterior descending coronary artery, a reverse greater saphenous vein graft to the obtuse marginal coronary artery. Endoscopic vein harvest right greater saphenous vein, intraoperative epi-aortic ultrasound and transesophageal Echocardiogram. Preoperative nasal screening positive for Staphylococcus aureus, not MRSA. Postoperative acute blood loss anemia, an expected outcome of surgery given cardiopulmonary bypass and hemodilution. Postoperative paroxysmal atrial fibrillation, an unexpected the potential outcome of surgery. The patient is sitting up to the bedside chair on the 3 S. cardiac stepdown unit. She is in no acute distress. She denies any complaints of pain or shortness of breath this time. The patient had some paroxysmal atrial fibrillation yesterday and is currently in normal sinus rhythm per her remote telemetry with a heart rate 64 BPM. She remained hemodynamically stable, amiodarone drip has been discontinued and she has been started on amiodarone 400 mg by mouth twice a day. Oxygen saturations are 97% on room air. She is achieving 500 mL on her incentive spirometry. She reports that she has been ambulating in the 3 S. cardiac stepdown unit hallway with minimal assistance. Objective - Vital Signs Vital signs: Vital Signs Temp 97.8 F 07/07/18 04:00 Pulse 72 07/07/18 07:52 Resp 16 07/07/18 04:00 BP 118/58 07/07/18 04:00 Pulse Ox 99 07/07/18 07:41 Intake & Output 07/06/18 07/07/18 07/07/18 18:59 06:59 18:59 Intake Total 200 120 Output Total 200 Balance 0 120 Weight 87.9 kg Intake: Intake, IV Titration 200 Amount Amiodarone 360 mg In 200 Dextrose 5% in Water 200 ml @ 1 MG/MIN 33.333 mls/ hr IV .Q6H PRN Rx#: [id number] Oral 0 120 Output: Urine 200 Other: Voiding Method Indwelling Catheter # Voids 1 1 # Bowel Movements 1 ABP, PAP, CO, CI - Last Documented Arterial Blood Pressure 115/96 Pulmonary Artery Pressure 31/10 Cardiac Output 4.5 Cardiac Index 2.4 - Constitutional General appearance: Present: cooperative, no acute distress, obese - Respiratory Details: Lungs sounds essentially clear to her bilateral upper lobes, diminished bilateral bases. Respirations are symmetrical and nonlabored. Oxygen satura tion are 97% on room air. She is achieving 500 mL on her incentive spirometry. - Cardiovascular Details: Regular rhythm and rate. S1 and S2 present, negative for S3, gallop or murmur. Sternum is stable. Remote telemetry showing normal sinus rhythm heart rate 64. Atrial and ventricular epicardial pacemaker wires in place and connected to bedside pacemaker generator with a VVI backup of 50. Heart hugger is in place and she is demonstrating appropriate use, surgical support bra in place. Knee- high KUNAL hose and sequential compression devices in place to her bilateral lower extremities. +1 generalized edema. - Gastrointestinal Gastrointestinal Comment(s): Abdomen is soft, nontender and nondistended. Active bowel sounds all 4 abdominal quadrants. No guarding or rigidity. Tolerating oral intake. Bowel movement this morning 07/07/2018. - Genitourinary Genitourinary Comment(s): Voiding clear yellow urine. - Integumentary Integumentary Comment(s): Skin is warm and dry. No clubbing or cyanosis is present. Midline sternal incision is clean, dry and approximated. No redness or drainage is present. Exofin dressing is clean, dry and intact. Right lower extremity EVH site is clean, dry and approximated. No drainage or redness is present. - Neurologic Neurologic: Present: CNII-XII intact - Musculoskeletal Musculoskeletal: Present: gait normal, generalized weakness, strength equal bilaterally - Psychiatric Psychiatric: Present: A&O x's 3, appropriate affect, intact judgment & insight - Allied health notes Allied health notes reviewed: nursing - Labs CBC & Chem 7: 07/07/18 05:44 07/07/18 05:44 Labs: Abnormal Lab Results - Last 24 Hours (Table) 07/06/18 07/06/18 07/06/18 Range/Units 11:31 16:38 20:59 RBC (3.80-5.40) m/uL Hgb (11.4-16.0) gm/dL Hct (34.0-46.0) % Sodium (137-145) mmol/L BUN (7-17) mg/dL Glucose (74-99) mg/dL POC Glucose (mg/dL) 227 H 150 H 189 H (75-99) mg/dL 07/07/18 07/07/18 07/07/18 Range/Units 05:44 05:44 05:50 RBC 3.29 L (3.80-5.40) m/uL Hgb 9.1 L (11.4-16.0) gm/dL Hct 27.8 L (34.0-46.0) % Sodium 132 L (137-145) mmol/L BUN 18 H (7-17) mg/dL Glucose 133 H (74-99) mg/dL POC Glucose (mg/dL) 149 H (75-99) mg/dL - Imaging and Cardiology Chest x-ray: report reviewed, image reviewed Assessment and Plan Assessment: 1. Status post coronary artery bypass grafting surgery 2 vessels. 2. Coronary artery disease with left main disease 3. Moderate mitral vavle regurgitation per preoperative 2-D echocardiogram 4. Bilateral internal carotid artery stenosis 50-79% 5. History of CAD, heart catheterization in 2006 without intervention 6. Hypertension 7. Hyperlipidemia 8. Whm-nhzezsd-qpmajauty diabetes mellitus 9. Obstructive sleep apnea without consistent CPAP use 10. Family history of premature coronary artery disease 11. Never smoker 12. Obesity 13. Postoperative acute blood loss anemia, an expected outcome of surgery due to cardiopulmonary bypass and hemodilution. 14. Preoperative nasal swab positive for Staphylococcus aureus, not MRSA. 15. Postoperative paroxysmal atrial fibrillation, an unexpected but potential outcome of surgery. Plan: 1. Continue aspirin, statin, Plavix and beta maria l. We will decrease her Toprol tartrate 12.5 mg by mouth twice a day 2. Discontinue amiodarone drip per, we will start the patient on amiodarone 400 mg by mouth twice a day for atrial fibrillation prophylaxis. 3. Bronchodilators per pulmonology management. 4. Lasix 40 mg IV 1 now. 5. Encourage use of her incentive spirometry 10 times every hour while awake. 6. Increase activity as tolerated. PT/OT/cardiac rehab following. 7. Will monitor daily labs and chest x-rays. Electrolyte replacement per protocol. 8. Pain control with current medication regimen. Discontinue Perry. 9. Insulin management per primary care service. 10. GI/DVT prophylaxis with Protonix and SCDs. 11. Dr. Harvey's consult noted and appreciated. 12. Discharge planning is in place. Anticipate discharge home within the next 24 hours. 13. More recommendations to follow based on patient's clinical course. Time with Patient: Greater than 30
[2018-07-07] MEDS: METOPROLOL TARTRATE 12.5 MG TAB PO SCH ×2 (09:51→21:21)
[2018-07-07] MEDS: GABAPENTIN 300 MG CAP PO SCH ×2 (09:51→21:21)
[2018-07-07] MEDS: CLOPIDOGREL 75 MG TAB PO SCH (09:51)
[2018-07-07] MEDS: ATORVASTATIN 40 MG TAB PO SCH (09:51)
[2018-07-07] MEDS: AMIODARONE 200 MG TAB PO SCH ×2 (09:51→21:20)
[2018-07-07] MEDS: ASPIRIN 325 MG TAB PO SCH (09:51)
[2018-07-07] MEDS: HEPARIN SODIUM,PORCINE 5,000 UNIT/ML 1 ML VIAL SQ SCH ×3 (09:52→23:34)
--- NOTE | 2018-07-07 10:19 | P.PN ---
Subjective Progress Note Date: 07/07/18 This is a pleasant 68-year-old female we are following s/p bypass grafting. Patient is sitting up in her chair at the time of my examination this morning, she had a shower this morning and ambulated in the hallway without any difficulty. Overall her breathing is stable. This morning she is in a normal sinus rhythm, currently on oral amiodarone. No anticoagulation as per cardiothoracic surgery. Blood pressure 118/50 with a heart rate in the 60s, temperature 97.8. 97% on room air. Objective - Vital Signs Vital signs: Vital Signs Temp 97.8 F 07/07/18 04:00 Pulse 72 07/07/18 07:52 Resp 16 07/07/18 04:00 BP 118/58 07/07/18 04:00 Pulse Ox 99 07/07/18 07:41 Intake & Output 07/06/18 07/07/18 07/07/18 18:59 06:59 18:59 Intake Total 200 120 Output Total 200 Balance 0 120 Weight 87.9 kg Intake: Intake, IV Titration 200 Amount Amiodarone 360 mg In 200 Dextrose 5% in Water 200 ml @ 1 MG/MIN 33.333 mls/ hr IV .Q6H PRN Rx#: [id number] Oral 0 120 Output: Urine 200 Other: Voiding Method Indwelling Catheter # Voids 1 1 # Bowel Movements 1 ABP, PAP, CO, CI - Last Documented Arterial Blood Pressure 115/96 Pulmonary Artery Pressure 31/10 Cardiac Output 4.5 Cardiac Index 2.4 - Exam PHYSICAL EXAMINATION: GENERAL: 68-year-old female in no acute distress at the time of my examination HEENT: Head is atraumatic, normocephalic. Pupils equal, round. Sclera anicteric. Conjunctiva are clear. Mucous membranes of the mouth are moist. Neck is supple. There is no elevated jugular venous pressure. No carotid bruit is heard. HEART EXAMINATION: Heart S1, S2 normal. No murmur or gallop heard. Atrial and ventricular epicardial pacemaker wires are intact and grounded CHEST EXAMINATION: Lungs reveal diminished air entry to bilateral bases. Heart hugger is in place. Patient reaching approximately 500 on her incentive spirometer. ABDOMEN: Soft, nontender. Bowel sounds are heard. No organomegaly noted. EXTREMITIES: 2+ peripheral pulses with 1+ evidence of peripheral edema and no calf tenderness noted. Knee high KUNAL hose and sequential compression device in place to bilateral lower extremities. NEUROLOGIC patient is awake, alert and oriented 3 . . - Labs CBC & Chem 7: 07/07/18 05:44 07/07/18 05:44 Labs: Abnormal Lab Results - Last 24 Hours (Table) 07/06/18 07/06/18 07/06/18 Range/Units 11:31 16:38 20:59 RBC (3.80-5.40) m/uL Hgb (11.4-16.0) gm/dL Hct (34.0-46.0) % Sodium (137-145) mmol/L BUN (7-17) mg/dL Glucose (74-99) mg/dL POC Glucose (mg/dL) 227 H 150 H 189 H (75-99) mg/dL 07/07/18 07/07/18 07/07/18 Range/Units 05:44 05:44 05:50 RBC 3.29 L (3.80-5.40) m/uL Hgb 9.1 L (11.4-16.0) gm/dL Hct 27.8 L (34.0-46.0) % Sodium 132 L (137-145) mmol/L BUN 18 H (7-17) mg/dL Glucose 133 H (74-99) mg/dL POC Glucose (mg/dL) 149 H (75-99) mg/dL Assessment and Plan Plan: Assessment and plan #1 multivessel coronary artery disease, post coronary bypass surgery and the patient's postoperative day #4 #2 post thoracotomy, patient was extubated without any major difficulties. Chest tubes removed #3 episode of atrial fibrillation, patient remains in a normal sinus rhythm this morning, on oral amiodarone #4 hyperlipidemia #5 [id number]-isxypfgzx diabetes mellitus #6 obstructive sleep apnea. #7 obesity #8 preserved LV function based on the preoperative echocardiogram #9 50-80% occlusion and bilateral internal carotid arteries #10 hypertension Plan From cardiology's perspective, we'll recommend to continue the patient on her current medications including the oral amiodarone which we will taper down ultimately. No anticoagulation at this time per cardiothoracic surgery, patient continues to have epicardial pacemaker wires in place. DNP note has been reviewed, I agree with a documented findings and plan of care. Patient was seen and examined.
--- NOTE | 2018-07-07 11:32 | CDI ---
Documentation Clarification Form Date: 07/07/2018 11:07:10 AM From: Beth Calderon RN, CCDS Admit Date: 07/03/2018 1:03:00 AM Patient Name: Susan Ochoa Visit Number: [id number] Discharge Date: ATTENTION: The Clinical Documentation Specialists (CDI) and [facility] Coding Staff appreciate your assistance in clarifying documentation. Please respond to the clarification below the line at the bottom and electronically sign. The CDI & [facility] Coding staff will review the response and follow-up if needed. Please note: Queries are made part of the Legal Health Record. If you have any questions, please contact the author of this message via ITS. Dr. Leelee Belle Pneumothorax is documented in the H/P and ongoing progress notes starting on 07/04/18 and further clarification is needed. History/risk factors: Coronary Artery Disease, CKD III, hypertension, Diabetes Mellitus, Clinical Indicators: 68-year-old female admitted to ICU after CABG x2 vessels, workup on showed reversible anterior apical wall defect, echogardiogram shows EF 55 %. CXR: 07/03/18 there is streak opacities through the left lung. Left-side chest tube is present. No pneumothorax is evident. CXR 07/04/18 No new pulmonary vascular congestion or pneumothorax. Endotracheal tube and enteric tubes have been removed in the interim. CXR 07/07/18 Overall stable findings, mild cardiomegaly with mild to moderate central vascular congestion and small left greater than right pleural effusions with associated left basilar atelectasis and/or infiltrate all remonstrated. Vital Signs: 138/71 66 14 95 % Room Air Other Clinical Indicators: 07/05/18 CVT (Rosendo Matos NP) progress notes: Mediastinal and left pleural chest tube to remain in place to low continuous was suction. No air leak present. Treatment: DC left pleural chest tubes. Bronchodilators per pulmonology, Wean O2 as tolerated Encourage use of incentive spirometry Monitor daily labs and chest x-rays. In your professional opinion, can the type of pneumothorax be further specified as one of the following? Acute pneumothorax ruled in Acute pneumothorax ruled out Other, please specify Unable to determine (Last Revision: December 2016) Yoshi should have documented no pneumothorax and H&P MTDD
[2018-07-07 11:34] LABS: Glucose,Whole Blood 152 mg/dL (75-99)
--- NOTE | 2018-07-07 11:59 | P.PN ---
Subjective Progress Note Date: 07/07/18 This is a 68-year-old female patient of Dr. Baptiste and Dr. Love, known history of diabetes mellitus type 2 on oral agents, hypertension, obstructive sleep apnea who currently has no CPAP device at home secondary to noncompliance,, hyperlipidemia, CK D stage III, also with bilateral internal carotid artery stenosis 50-79%, admitted to ICU after coronary bypass surgery, workup 06/17/2018 showed reversible anterior apical wall defect, echocardiogram shows EF 55%, no wall motion abnormality at the time, moderate MR, mild TR, there was 66% left main stenosis, mid LAD stenosis 40-50%, and RCA stenosis 40%, Dr. Garcia performed CABG grafting 2 vessels CHIRINOS to the LAD, saphenous vein to the obtuse marginal artery and endoscopic vein harvest right greater saphenous vein on July 03 2018. Consult were made from our service for medical management for which I have attempted to see the patient on July 03 however patient is still in the operating room at that time., also consults were made to Dr. Holm critical care medicine. Patient is seen post op day #1, in the ICU, was extubated successfully overnight, and he is doing well, they have ambulated the patient in the hallway, without any lightheadedness no chest pain. She does have 2 chest tubes,, x-rays shows evidence of pneumothorax, there is extremity swelling in the hands and fingers, as well as the legs, Lasix IV was given 1 dose, patient is performing incentive spirometry around 750 mL, patient is without any chest pain no lightheadedness no dizziness no nausea no vomiting, no melena. Patient has adequate urine output, sternotomy incision is clean and intact 07/05: Patient remains in intensive care unit. She has been progressing well with plans removed chest tubes and probably transfer out of intensive care unit later today. Urine output has been marginal and dopamine started. Creatinine is 0.77. Blood sugars been running between 117 and 175. Patient was started back on metformin this morning. She has been afebrile, heart rate in the 70s and 80s, blood pressure 105/59, pulse ox 97% on 2 L nasal cannula. Repeat lab work reveals white count 7.4, hemoglobin 9.2, platelet count 128. Sodium is 134, potassium 4.3, creatinine 0.66. Blood sugars are running between 1:30 06/23/199307/06: Patient is seen today on the selective care unit. Repeat chest x-ray showing worsening bibasilar airspace disease. Repeat lab work shows a white count of 7.4, hemoglobin 9.2, platelet count 128. Sodium 134, creatinine 0.66. Blood sugars are running between 134 and 194. She has been evaluated by physical therapy with recommendations for home with homecare or subacute rehab. Patient asking about inpatient rehab and we will add in a consult with Dr. Ziegler. Patient went into A. fib with RVR during the night up to 190s currently running in the low 100s. She is on amiodarone drip. Lasix 40 mg IV this morning and magnesium replacement. Patient states she is passing gas and she is getting up to the bathroom and urinating without difficulty. Regarding blood sugars, patient will be transitioned over to a NovoLog scale, insulin drip discontinued, continue oral metformin. 07/07: Patient is seen again on the selective care unit. Patient states she walked in the hallway and is feeling tired now and is a little bit of chest pain at the surgical site. Patient converted into a sinus rhythm last evening and is off amiodarone drip. She states she is only eating 50% or less of her food. Patient is encouraged to increase her fluid intake and also increase incentive spirometry use. She has been seen by Dr. Ziegler and he may be able to take her to inpatient rehab by tomorrow. Blood sugars are stable with one reading at 189. Patient will continue on metformin and NovoLog scale. Review Of Systems: Constitutional: No fever, no chills, no night sweats. No weight change. No weakness, reports fatigue. No daytime sleepiness. EENT: No headache. No blurred vision or double vision, no loss of vision. No loss of Hearing, no ringing in the ears, no dizziness. No nasal drainage or congestion. No epistaxis. No sore throat. Lungs: No shortness of breath, cough, no sputum production. No wheezing. Cardiovascular: Reports chest wall discomfort, no lower extremity edema. No palpitations. No paroxysmal nocturnal dyspnea. No orthopnea. No lightheadedness or dizziness. No syncopal episodes. Abdominal: No abdominal pain. No nausea, vomiting. No diarrhea. No constipation. No bloody or tarry stools. Genitourinary: No dysuria, increased frequency, urgency. No urinary retention. Musculoskeletal: No myalgias. No muscle weakness, no gait dysfunction, no frequent falls. No back pain. No neck pain. Integumentary: No wounds, no lesions. No rash or pruritus. No unusual bruising. No change in hair or nails. Neurologic: No aphasia. No facial droop. No change in mentation. No head injury. No headache. No paralysis. No paresthesia. Psychiatric: No depression. No anxiety. No mood swings. Endocrine: Reports abnormal blood sugars. Objective - Vital Signs Vital signs: Vital Signs Temp 97.8 F 07/07/18 04:00 Pulse 72 07/07/18 07:52 Resp 16 07/07/18 04:00 BP 118/58 07/07/18 04:00 Pulse Ox 99 07/07/18 07:41 Intake & Output 07/06/18 07/07/18 07/07/18 18:59 06:59 18:59 Intake Total 200 120 Output Total 200 Balance 0 120 Weight 87.9 kg Intake: Intake, IV Titration 200 Amount Amiodarone 360 mg In 200 Dextrose 5% in Water 200 ml @ 1 MG/MIN 33.333 mls/ hr IV .Q6H PRN Rx#: [id number] Oral 0 120 Output: Urine 200 Other: Voiding Method Indwelling Catheter # Voids 1 1 # Bowel Movements 1 ABP, PAP, CO, CI - Last Documented Arterial Blood Pressure 115/96 Pulmonary Artery Pressure 31/10 Cardiac Output 4.5 Cardiac Index 2.4 - Exam General appearance: cooperative, no acute distress noted, appears comfortable while resting in recliner - EENT Eyes: anicteric sclerae, EOMI, PERRLA, dentition normal, normal appearance ENT: NA/AT, normal oropharynx - Neck Neck: normal ROM - Respiratory Respiratory: bilateral: CTA, negative: diminished, dullness, prolonged expiration, prolonged inspiration - Cardiovascular Rhythm: regular Heart sounds: normal: S1, S2 Abnormal Heart Sounds: no systolic murmur, no diastolic murmur, no rub, no S3 Gallop, no S4 Gallop, no click, no other - Gastrointestinal General gastrointestinal: normal bowel sounds, soft - Integumentary Integumentary: normal - Neurologic 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80-5.40) m/uL Hgb 9.1 L (11.4-16.0) gm/dL Hct 27.8 L (34.0-46.0) % Sodium 132 L (137-145) mmol/L BUN 18 H (7-17) mg/dL Glucose 133 H (74-99) mg/dL POC Glucose (mg/dL) 149 H (75-99) mg/dL Assessment and Plan Plan: 1. CAD, 2 vessel disease involving left main requiring CABG, CHIRINOS to the anterior LAD, saphenous graft to obtuse marginal artery performed 07/03/2018, patient is in ICU and progressing well. Chest tube to be out today. Patient was likely will be transferred out of the intensive care unit today. Continue Lipitor 40 mg daily, Plavix, aspirin, Lopressor. Continue Incentive spirometry, O2 supplementation, Lasix, magnesium replacement 2. Diabetes mellitus type 2, A1c 6.2, currently on metformin 500 mg twice daily and NovoLog scale 3. GERD on maintenance omeprazole at home 4. Hyperlipidemia on Lipitor 40 mg daily 5. Mild intermittent asthma without any maintenance medication, has when necessary albuterol along with scheduled 4 times a day 6. CKD stage I, current creatinine of 0.48, patient has been followed with microalbuminuria evaluation the office. 7. Obstructive sleep apnea, patient is not on any CPAP device from home 8. Blood loss anemia, expected with surgery 8. A. fib with RVR, paroxysmal atrial fibrillation, currently in sinus rhythm. Patient transitioned to oral amiodarone and metoprolol decreased to 12.5 mg twice daily. 9. GI prophylaxis maintenance omeprazole 10. DVT prophylaxis Discharge plan: Consult with Dr. Harvey added. Possible discharge to [facility] tomorrow Impression and plan of care have been directed as dictated by the signing physician. Soco Maciel nurse practitioner acting as scribe for signing physician.
[2018-07-07] MEDS: LISINOPRIL 2.5 MG TAB PO SCH (12:33)
[2018-07-07] MEDS: MULTIVITAMINS, THERA 1 EACH TAB PO SCH (12:34)
--- NOTE | 2018-07-07 15:26 | P.PN ---
Subjective Progress Note Date: 07/07/18 Principal diagnosis: Multivessel coronary artery disease status post coronary artery bypass grafting 68-year-old female patient known history of coronary artery disease, hypertensi on, hyperlipidemia, hkv-cvybgyh-lgjhelmmo diabetes mellitus, obstructive sleep apnea not utilizing any form of CPAP, presented to the hospital because of chest pain and shortness of breath. She underwent cardiac catheterization that showed 60% left main stenosis, 40-50% mid LAD stenosis, 40% RCA stenosis. LV angiogram showed an ejection fraction of 60% with normal wall motion. The patient had a carotid Doppler that showed 50-79% internal carotid artery stenosis. Based on that, the patient was taken to the operating room and the patient underwent four-vessel bypass surgery. I'm seeing her immediately postop. She is doing extremely well. She is still sedated for now and she is on no sedation and Diprivan was discontinued pH is on a mechanical ventilator on assist control mode at the rate of 12 with tidal volume of 400 and FiO2 of 100% and PEEP of 10. Her blood gas showed a pH of 7.37 with a pCO2 of 45 and pO2 of 265. FiO2 was dropped down to 60%. Chest x-ray shows left midlung atelectatic changes. ET tube is in good location. The patient's [place]-Lorrie catheter which is in a good location. The patient has left pleural and mediastinal chest tube. The patient has been weaned down to 60% FiO2. Meanwhile, hemodynamically patient is doing well. Cardiac output is at 4.4 with an index of 2.4. Pulmonary to pursue 36/20. She has developed adequate urine output. She is on low-dose atorvastatin drip at 5 g per minute for blood pressure control. Chest tubes are in place. No significant output from the chest tube. No other issues otherwise for now. On 07/04/2018 I'm seeing this patient for a follow-up, the patient is being seen for a follow-up. The patient was weaned off the mechanical ventilator and extubated immediately within 6 hours of arriving to the intensive care unit. The patient did extremely well. This morning she is awake and alert and she is sitting up on a chair. No fever. No chills. She has adequate urine output. No nausea. No vomiting. No abdominal pain. Sternum stable clean and intact. Chest tubes are in place. Ad[place]-Lorrie catheter is in place. Adequate cardiac output and index. Asked x-ray shows no evidence of any pneumothorax. The patient has some increased swelling in the upper and lower extremities and the patient will be given a dose of IV Lasix. The patient is pulling approximately 750 mL on the incentive spirometer. The patient has a cardiac index of 2.9. Pulmonary artery pressures 29/10. CVP is at 3. The patient a day #1. On 07/05/2018 I'm seeing this patient for a follow-up. The patient is awake and alert. The chest tubes will be removed today. The patient's chest x-ray shows limited atelectatic changes in lung bases more so on the left. The Adak-Lorrie catheter to be removed. The patient received a total of 2 doses of Lasix yesterday with excellent urine output. Subsequently she became briefly hypotensive and she picked up. Currently her urine output is on the patient will be started on dopamine for renal perfusion per cardiothoracic surgery's recommendation. Patient's hemoglobin has dropped down to 8.3. No signs of any external bleeding. No cardiac arrhythmias. No other electrodes abnormalities. Renal function stable with a creatinine of 0.7. Patient is postop day #2 post coronary artery bypass surgery. On 07/06/2018 the patient is being seen in follow-up on medical surgical floor. She is doing well. All of the chest is a been removed. She did go into atrial fibrillation. Her rate is controlled for now. Her renal function is normal and her rest of the blood work and electrodes are all within normal limits. The magnesium level is at 1.8 with a potassium level of 4.3. Patient was started on amiodarone which is currently running at 0.5 mg per minute. There is ess entially for rate control and her rate is under better control for now. She is using incentive spirometer and she is pulling approximately 750 on the diuretics. Her surgical wound is dry clean and intact. She is on 2 L of oxygen nasal cannula and his saturations are 94%. She is producing adequate amount of urine output. No signs of any respiratory distress. No altered mentation. No other complaints otherwise for now. She is postop day #3. On 07/07/2018 patient seen in follow-up selective care unit, she is awake and alert, she is back in sinus rhythm today, he was loaded with IV amiodarone, she had switched to oral amiodarone today. Pulmonary perspective patient remains stable, and she denies any dyspnea, denies any chest pain. Her IS effort still remains poor, is only 500-750. Room air pulse ox is 94%. She has been up ambulating, tolerating activity well. Today's labs have been reviewed, white blood cell count is 7.5, hemoglobin is 9.1, sodium is 132, the rest of the elec trolytes and renal profile were unremarkable. chest x-ray showed a stable findings, mild cardiomegaly, mild to moderate central vascular congestion and small left greater than right pleural effusions. Patient did receive 40 mg of IV Lasix per CT surgery today. Objective - Vital Signs Vital signs: Vital Signs Temp 96.8 F L 07/07/18 12:00 Pulse 69 07/07/18 13:20 Resp 16 07/07/18 12:00 BP 126/76 07/07/18 12:00 Pulse Ox 94 L 07/07/18 12:00 Intake & Output 07/06/18 07/07/18 07/07/18 18:59 06:59 18:59 Intake Total 200 360 Output Total 200 Balance 0 360 Weight 87.9 kg Intake: Intake, IV Titration 200 Amount Amiodarone 360 mg In 200 Dextrose 5% in Water 200 ml @ 1 MG/MIN 33.333 mls/ hr IV .Q6H PRN Rx#: [id number] Oral 0 360 Output: Urine 200 Other: Voiding Method Indwelling Catheter # Voids 1 1 # Bowel Movements 1 ABP, PAP, CO, CI - Last Documented Arterial Blood Pressure 115/96 Pulmonary Artery Pressure 31/10 Cardiac Output 4.5 Cardiac Index 2.4 - Exam GENERAL EXAM: Alert, pleasant, 68-year-old white female comfortable in no apparent distress. HEAD: Normocephalic/atraumatic. EYES: Normal reaction of pupils, equal size. Conjunctiva pink, sclera white. NOSE: Clear with pink turbinates. THROAT: No erythema or exudates. NECK: No masses, no JVD, no thyroid enlargement, no adenopathy. CHEST: No chest wall deformity. Symmetrical expansion. Still incisions clean dry and intact, well approximated, sternum is stable covered with a surgical dressing LUNGS: Equal air entry with a few bibasilar crackles, diminished breath sounds at the bases CVS: Regular rate and rhythm, normal S1 and S2, no gallops, no murmurs, no rubs ABDOMEN: Soft, nontender. No hepatosplenomegaly, normal bowel sounds, no guarding or rigidity. EXTREMITIES: No clubbing, no edema, no cyanosis, 2+ pulses and upper and lower extremities. MUSCULOSKELETAL: Muscle strength and tone normal. SPINE: No scoliosis or deformity SKIN: No rashes CENTRAL NERVOUS SYSTEM: Alert and oriented -3. No focal deficits, tone is normal in all 4 extremities. PSYCHIATRIC: Alert and oriented -3. Appropriate affect. Intact judgment and insight. - Labs CBC & Chem 7: 07/07/18 05:44 07/07/18 05:44 Labs: Abnormal Lab Results - Last 24 Hours (Table) 07/06/18 07/06/18 07/07/18 Range/Units 16:38 20:59 05:44 RBC 3.29 L (3.80-5.40) m/uL Hgb 9.1 L (11.4-16.0) gm/dL Hct 27.8 L (34.0-46.0) % Sodium (137-145) mmol/L BUN (7-17) mg/dL Glucose (74-99) mg/dL POC Glucose (mg/dL) 150 H 189 H (75-99) mg/dL 07/07/18 07/07/18 07/07/18 Range/Units 05:44 05:50 11:31 RBC (3.80-5.40) m/uL Hgb (11.4-16.0) gm/dL Hct (34.0-46.0) % Sodium 132 L (137-145) mmol/L BUN 18 H (7-17) mg/dL Glucose 133 H (74-99) mg/dL POC Glucose (mg/dL) 149 H 152 H (75-99) mg/dL Assessment and Plan Plan: Assessment: 1 multivessel coronary artery disease, post coronary bypass surgery and the patient's postoperative day #4 2 post thoracotomy, patient was extubated without any major difficulties. Chest tubes removed 3 new onset atrial fibrillation with rapid but scattered response currently on amiodarone maintenance at 0.5 mg per minute. 4 hyperlipidemia 5 iba-tjotbcc-qmwrridwy diabetes mellitus 6 obstructive sleep apnea. 7 obesity 8 preserved LV function based on the preoperative echocardiogram 9 50-80% occlusion and bilateral internal carotid arteries 10 hypertension Plan: Continue encouraging deep breathing and coughing, it is chest x-ray has been reviewed, and is consistent with fluid overload, congestive heart failure changes, patient received a dose of IV Lasix per CT surgery, GERD ambulation, she is back in sinus rhythm. No acute events overnight, possible discharged to rehab in the next 24 hours. I performed a history & physical examination of the patient and discussed their management with my nurse practitioner, Melania Stinson. I reviewed the nurse practitioner's note and agree with the documented findings and plan of care. Emerita ng sounds are bibasilar crackles. The findings and the impression was discussed with the patient. I attest to the documentation by the nurse practitioner. Time with Patient: Less than 30
[2018-07-07 16:36] LABS: Glucose,Whole Blood 133 mg/dL (75-99)
[2018-07-07 20:56] LABS: Glucose,Whole Blood 166 mg/dL (75-99)
[2018-07-07] MEDS: CYANOCOBALAMIN 500 MCG TAB PO SCH (21:10)
[2018-07-07] MEDS: METOPROLOL TARTRATE 50 MG TAB PO SCH (21:10)
[2018-07-07] MEDS: hydrALAZINE HCL 50 MG TAB PO SCH (21:10)
[2018-07-07] MEDS: FUROSEMIDE 20 MG TAB PO SCH (21:10)
[2018-07-07] MEDS: ASPIRIN 81 MG PO SCH (21:10)
[2018-07-07] MEDS: ISOSORBIDE MONONITRATE ER 30 MG TAB.ER.24H PO SCH (21:10)
[2018-07-07] MEDS: SPIRONOLACTONE 25 MG TAB PO SCH (21:10)
[2018-07-07] MEDS: MUPIROCIN 2% OINT 22 GM TUBE NASAL SCH (21:10)
[2018-07-07] MEDS: SENNOSIDES-DOCUSATE SODIUM 1 EACH TAB PO SCH (21:21)
[2018-07-08 05:15] LABS: Glucose,Whole Blood 133 mg/dL (75-99)
[2018-07-08] MEDS: PANTOPRAZOLE 40 MG TABLET PO SCH (06:47)
[2018-07-08] MEDS: KETOROLAC 30 MG/ML 1 ML VIAL IVP SCH (06:47)
[2018-07-08] MEDS: INSULIN ASPART (NovoLOG) 100 UNIT/ML VIAL SQ SCH ×4 (06:47→21:05)
[2018-07-08] MEDS: metFORMIN 500 MG TAB PO SCH ×2 (06:47→17:46)
[2018-07-08 07:14] LABS: HCT 27.6 % (34.0-46.0); HGB 9.9 gm/dL (11.4-16.0); MCH 29.9 pg (25.0-35.0); MCHC 35.7 g/dL (31.0-37.0); MCV 83.7 fL (80.0-100.0); Mean Platelet Volume 8.4; Platelet Count 205 k/uL (150-450); RDW 14.6 % (11.5-15.5); WBC 7.6 k/uL (3.8-10.6)
[2018-07-08 07:35] LABS: Calcium 8.8 mg/dL (8.4-10.2)
[2018-07-08] MEDS: HEPARIN SODIUM,PORCINE 5,000 UNIT/ML 1 ML VIAL SQ SCH ×3 (07:58→23:37)
[2018-07-08] MEDS: ASPIRIN 325 MG TAB PO SCH (07:59)
[2018-07-08] MEDS: ATORVASTATIN 40 MG TAB PO SCH (07:59)
[2018-07-08] MEDS: GABAPENTIN 300 MG CAP PO SCH ×2 (07:59→21:04)
[2018-07-08] MEDS: METOPROLOL TARTRATE 25 MG TAB PO SCH ×2 (07:59→21:05)
[2018-07-08] MEDS: CLOPIDOGREL 75 MG TAB PO SCH (07:59)
[2018-07-08] MEDS: AMIODARONE 200 MG TAB PO SCH ×2 (07:59→21:04)
--- NOTE | 2018-07-08 08:39 | XR ---
EXAMINATION TYPE: XR chest 2V DATE OF EXAM: 07/08/2018 COMPARISON: 07/07/2018 HISTORY: Status post cardiac surgery TECHNIQUE: Frontal and lateral views of the chest are obtained. FINDINGS: Post CABG changes are seen of the chest. Multifocal linear probable atelectasis radiates f rom the bilateral cezar. Cardiomediastinal silhouette is mildly enlarged. Osseous structures are gross ly unremarkable. Trace left pleural effusion remains. IMPRESSION: Trace left pleural effusion and bilateral probable subsegmental atelectasis. Overall sta ble exam.
[2018-07-08] MEDS ORDERED: FUROSEMIDE 10 MG/ML 4 ML VIAL IV STA (08:46)
[2018-07-08] MEDS: IPRATROPIUM-ALBUTEROL 3 ML NEB INHALATION SCH ×4 (08:49→19:43)
--- NOTE | 2018-07-08 09:01 | P.PN ---
Subjective Progress Note Date: 07/08/18 Principal diagnosis: Coronary artery disease with left main disease and preserved left ventricular function with an ejection fraction of 55%. History of hypertension, hyperlipidemia, ran-rbunkxy-mfrkvjajt diabetes mellitus, obstructive sleep apnea without consistent CPAP use, family history of premature coronary artery disease with her father passing away from myocardial infarction at age 54 and obesity. POD #5 coronary artery bypass grafting 2 vessels, left internal mammary artery to left anterior descending coronary artery, a reverse greater saphenous vein graft to the obtuse marginal coronary artery. Endoscopic vein harvest right greater saphenous vein, intraoperative epi-aortic ultrasound and transesophageal Echocardiogram. Preoperative nasal screening positive for Staphylococcus aureus, not MRSA. Postoperative acute blood loss anemia, an expected outcome of surgery given cardiopulmonary bypass and hemodilution. Postoperative paroxysmal atrial fibrillation, an unexpected the potential outcome of surgery. The patient is sitting up to the bedside chair on the 3 S. cardiac stepdown unit. She is in no acute distress. She denies any complaints of pain or shortness of breath this time. She remains afebrile and hemodynamically stable. She reports she ambulated in the 3 S. cardiac stepdown unit 1 yesterday. Oxygen saturation are 95% on room air and she continues to have a poor effort on her incentive spirometry only achieving 500 mL. Continues on oral amiodarone 400 mg by mouth twice a day for atrial fibrillation prophylaxis. Objective - Vital Signs Vital signs: Vital Signs Temp 98.1 F 07/07/18 20:00 Pulse 67 07/08/18 04:00 Resp 16 07/08/18 04:00 BP 132/63 07/08/18 04:00 Pulse Ox 95 07/08/18 04:00 Intake & Output 07/07/18 07/08/18 07/08/18 18:59 06:59 18:59 Intake Total 600 Balance 600 Weight 87.7 kg Intake: Oral 600 Other: Voiding Method Toilet # Voids 2 # Bowel Movements 1 ABP, PAP, CO, CI - Last Documented Arterial Blood Pressure 115/96 Pulmonary Artery Pressure 31/10 Cardiac Output 4.5 Cardiac Index 2.4 - Constitutional General appearance: Present: cooperative, no acute distress, obese - Respiratory Details: Lung sounds essentially clear throughout, diminished bilateral bases. Respirations are symmetrical and nonlabored. Oxygen saturation are 95% on room air. Achieving 500 mL on her incentive spirometry. - Cardiovascular Details: Regular rhythm and rate. S1 and S2 present, negative for S3, gallop or murmur. Sternum is stable. Remote telemetry showing normal sinus rhythm heart rate 76 with occasional PACs. Heart hugger is in place and she is demonstrating appropriate use. Surgical support bra in place. Knee-high KUNAL hose and sequential compression devices in place to her bilateral lower extremities. +1 generalized edema. - Gastrointestinal Gastrointestinal Comment(s): Abdomen is soft, nontender and nondistended. Active bowel sounds all 4 abdominal quadrants. No guarding or rigidity. No organomegaly. Tolerating oral intake. Bowel movement this morning 07/08/2018. - Genitourinary Genitourinary Comment(s): Voiding clear yellow urine. - Integumentary Integumentary Comment(s): Skin is warm and dry. No clubbing or cyanosis is present. Midline sternal incision is clean, dry and approximated. No redness or drainage is present. Exofin dressing is clean, dry and intact. Right lower extremity EVH site is clean, dry and approximated. No drainage or redness is present. - Neurologic Neurologic: Present: CNII-XII intact - Musculoskeletal Musculoskeletal: Present: gait normal, generalized weakness, strength equal bilaterally - Psychiatric Psychiatric: Present: A&O x's 3, appropriate affect, intact judgment & insight - Allied health notes Allied health notes reviewed: nursing - Labs CBC & Chem 7: 07/08/18 06:10 07/08/18 06:10 Labs: Abnormal Lab Results - Last 24 Hours (Table) 07/07/18 07/07/18 07/07/18 Range/Units 11:31 16:28 20:55 RBC (3.80-5.40) m/uL Hgb (11.4-16.0) gm/dL Hct (34.0-46.0) % Sodium (137-145) mmol/L BUN (7-17) mg/dL Glucose (74-99) mg/dL POC Glucose (mg/dL) 152 H 133 H 166 H (75-99) mg/dL 07/08/18 07/08/18 07/08/18 Range/Units 05:13 06:10 06:10 RBC 3.30 L (3.80-5.40) m/uL Hgb 9.9 L (11.4-16.0) gm/dL Hct 27.6 L (34.0-46.0) % Sodium 133 L (137-145) mmol/L BUN 22 H (7-17) mg/dL Glucose 124 H (74-99) mg/dL POC Glucose (mg/dL) 133 H (75-99) mg/dL - Imaging and Cardiology Chest x-ray: report reviewed, image reviewed Assessment and Plan Assessment: 1. Status post coronary artery bypass grafting surgery 2 vessels. 2. Coronary artery disease with left main disease 3. Moderate mitral vavle regurgitation per preoperative 2-D echocardiogram 4. Bilateral internal carotid artery stenosis 50-79% 5. History of CAD, heart catheterization in 2006 without intervention 6. Hypertension 7. Hyperlipidemia 8. Trm-nttblgl-oiukrnaqy diabetes mellitus 9. Obstructive sleep apnea without consistent CPAP use 10. Family history of premature coronary artery disease 11. Never smoker 12. Obesity 13. Postoperative acute blood loss anemia, an expected outcome of surgery due to cardiopulmonary bypass and hemodilution. 14. Preoperative nasal swab positive for Staphylococcus aureus, not MRSA. 15. Postoperative paroxysmal atrial fibrillation, an unexpected but potential outcome of surgery. Plan: 1. Continue aspirin, statin, Plavix and beta maria l. We will increase her metoprolol tartrate 25 mg by mouth twice a day. 2. Continue amiodarone 400 mg by mouth twice a day for atrial fibrillation prophylaxis. 3. Bronchodilators per pulmonology management. 4. Lasix 40 mg IV 1 now. Start Lasix 20 mg by mouth daily 1 week starting tomorrow 07/09/2018. 5. Encourage use of her incentive spirometry 10 times every hour while awake. 6. Increase activity as tolerated. PT/OT/cardiac rehab following. 7. Will monitor daily labs and chest x-rays. Electrolyte replacement per protocol. 8. Pain control with current medication regimen. Discontinue Toradol. 9. Insulin management per primary care service. 10. GI/DVT prophylaxis with Protonix and SCDs. 11. Discharge planning is in place. Anticipate discharge to inpatient rehab today. 12. More recommendations to follow based on patient's clinical course. Time with Patient: Greater than 30
--- NOTE | 2018-07-08 11:12 | P.DS ---
Providers Date of admission: 07/03/18 01:03 Expected date of discharge: 07/10/18 Attending physician: Hosea Garcia Consults: 07/02/18 08:35 Consult Physician Routine Consulting Provider: Hosea Garcia Consult Reason/Comments: cabg Do you want consulting provider notified?: Already Contacted 07/02/18 09:30 Consult Physician Routine Consulting Provider: Annabelle Holm Consult Reason/Comments: preop cabg Do you want consulting provider notified?: Yes Consult to Anesthesia Routine Consulting Provider: Anesthesia,Services Consult Reason/Comments: Cardiac Surgery Pre-Op 07/02/18 19:44 Consult Physician Routine Consulting Provider: Arcadio Baptiste Consult Reason/Comments: medical management Do you want consulting provider notified?: Yes, Notify in am 07/06/18 10:43 Consult Physician Routine Consulting Provider: Tam Harvey Consult Reason/Comments: IP rehab eval Do you want consulting provider notified?: Yes Primary care physician: Arcadio Baptiste [facility] Course: FINAL DIAGNOSIS: 1. Coronary artery disease with left main disease 2. Preserved left ventricular function with EF 55% 3. Bilateral internal carotid artery stenosis 50-79% 4. History of coronary artery disease, history of heart catheterization in 2006 without intervention 5. Hypertension 6. Hyperlipidemia 7. Jgx-jevidxj-kgnuwzylg diabetes mellitus 8. Obstructive sleep apnea without consistent CPAP use 9. Mild COPD with preoperative FEV1 71% of predicted 10. Family history of premature coronary artery disease 11. Never smoker 12. Obesity 13. Preoperative nasal swab positive for Staphylococcus aureus, not MRSA. 14. Postoperative acute blood loss anemia, an expected outcome of surgery due to cardiopulmonary bypass and hemodilution. 15. Postoperative paroxysmal atrial fibrillation, an unexpected but potential outcome of surgery. PRINCIPAL PROCEDURE: 1. Selective right and left coronary angiographic performed by Dr. Love. 2. Coronary artery bypass grafting 2 vessels, left internal mammary artery to left anterior setting coronary artery, reverse greater saphenous vein graft to the obtuse marginal coronary artery. 3. Endoscopic vein harvest right greater saphenous vein. 4. Intraoperative epi-aortic ultrasound and transesophageal echocardiogram. HISTORY OF PRESENT ILLNESS: This is a 68-year-old female patient who follows with Dr. Arcadio Baptiste on an outpatient basis. She has a past medical history significant for coronary artery disease with history of heart catheterization in 2006 and no intervention at that time, history of hypertension, hyperlipidemia, idy-pmedowd-kbryfjrsw diabetes mellitus, obstructive sleep apnea without consistent CPAP use, family history of premature coronary artery disease with her father passing away at age 54 from a myocardial infarction, obesity, bilateral internal carotid artery stenosis 50-79% and questionable kidney disease. Recently, the patient has had complaints of progressive generalized weakness, fatigue, chest pain and shortness of breath with physical activity. These symptoms have been progressing over a two-month period. Subsequently she was evaluated by Dr. Love from [facility] and a routine stress test was completed which demonstrated a reversible anterior apical wall defect. A 2- D echocardiogram was also completed which demonstrated a normal left ventricular systolic function with an ejection fraction of 55%, no regional wall motion abnormalities, moderate mitral valve regurgitation and mild tricuspid valve regurgitation. Carotid Doppler studies were also completed demonstrating bilateral internal carotid artery stenosis of 50-79%. Due to her symptoms, stress test and 2-D echocardiogram results an elective cardiac catheterization was recommended. A cardiac catheterization was completed and demonstrated a 60% stenosis to her left main coronary artery, a 40-50% stenosis to her mid left anterior descending coronary artery and a 40% stenosis to her right coronary. Also during heart catheterization a left ventriculogram was completed which demonstrated an ejection fraction of 60% with normal wall motion. Subsequently, due to the patient's symptoms and cardiac catheterization results a consult was placed to Dr. Hosea Garcia from cardiothoracic surgery for further evaluation and recommendations on myocardial revascularization. The heart catheterization results were reviewed with the patient and her family members present at her bedside, risks and benefits along with the STS risk score were discussed with the patient regarding myocardial revascularization surgery and the patient requested to proceed with an urgent myocardial revascularization surgery. HOSPITAL COURSE:The patient was admitted to the hospital and after obtaining consent was taken to the operating room where Dr. Hosea Garcia performed an urgent coronary artery bypass grafting surgery 2 vessels, left internal mammary artery to left anterior descending coronary artery, a reverse greater saphenous vein graft to the obtuse marginal coronary artery, endoscopic vein harvesting right greater saphenous vein, intraoperative transesophageal cardiogram and epi-aortic ultrasound. Upon completion of the surgery the patient was transferred to the cardiovascular intensive care unit where she was recovered, monitored hemodynamically and where she progressed to cardiac rehabilitation phase 1. She was extubated within 6 hours after surgery, all lines, tubes and supportive drips were discontinued when appropriate and she was transferred to [facility] stepdown unit for further monitoring and rehabilitation. Her oxygen was titrated down, she continued to work with physical, occupational therapy and cardiac rehab, she was tolerating an oral diet, her pain was well controlled and she was ready to be discharged to [facility] for subacute rehab on postop day #7. She has received written and verbal instructions regarding her medications, activity restrictions, signs and symptoms requiring physician notification and her follow-up appointments. COMPLICATIONS: Postoperative recovery was complicated by some paroxysmal atrial fibrillation which was treated accordingly. Medications: Please take medications as prescribed. Amiodarone 400 mg by mouth twice a day 1 week, then decrease to amiodarone 200 mg by mouth twice a day 1 week, then decrease to amiodarone 200 mg by mouth daily 1 week then discontinue. Plan - Discharge Summary Discharge Rx Participant: Yes New Discharge Prescriptions: New Acetaminophen Tab [Tylenol] 500 mg PO Q6HR PRN tab PRN Reason: Pain Scale 1 To 5 Acetaminophen Tab [Tylenol] 1,000 mg PO Q6HR PRN tab PRN Reason: Pain Scale 6 To 10 Aspirin 81 mg PO DAILY chew Ipratropium-Albuterol Nebulize [Duoneb 0.5 mg-3 mg/3 ml Soln] 3 ml INHALATION RT-QID ampul.neb Ipratropium-Albuterol Nebulize [Duoneb 0.5 mg-3 mg/3 ml Soln] 3 ml INHALATION RT-Q2H PRN ampul.neb PRN Reason: Shortness Of Breath Or Wheezing Apixaban [Eliquis] 5 mg PO BID tab Potassium Chloride ER [K-Dur 20] 20 meq PO DAILY 7 Days tab.er.prt Furosemide [Lasix] 40 mg PO DAILY 7 Days tab Lisinopril [Zestril] 5 mg PO DAILY tab Amiodarone [Cordarone] 400 mg PO BID 30 Days tab traZODone HCL [Desyrel] 50 mg PO HS PRN tab PRN Reason: Insomnia metFORMIN HCL [Glucophage] 500 mg PO Q12H tab Metoprolol Tartrate [Lopressor] 25 mg PO BID tab Multivitamins, Thera [Multivitamin (formulary)] 1 each PO DAILY@1200 tab Gabapentin [Neurontin] 300 mg PO BID cap INSULIN ASPART (NovoLOG) [NovoLOG (formulary)] 0 unit SQ ACHS vial Sennosides-Docusate Sodium [Senokot-S] 2 each PO HS PRN tab PRN Reason: Constipation Atorvastatin [Lipitor] 40 mg PO DAILY #30 tablet Continue Omeprazole 20 mg PO BID Cyanocobalamin [Vitamin B-12] 500 mcg PO DAILY Discontinued Aspirin EC [Ecotrin Low Dose] 81 mg PO DAILY Isosorbide Mononitrate [Isosorbide Mononitrate ER] 30 mg PO DAILY Furosemide [Lasix] 20 mg PO DAILY metFORMIN HCL [Glucophage] 500 mg PO BID hydrALAZINE HCL [Hydralazine HCl] 50 mg PO BID Spironolactone [Aldactone] 25 mg PO DAILY Multivitamins, Thera [Multivitamin (formulary)] 1 tab PO DAILY Metoprolol Tartrate [Lopressor] 50 mg PO BID Gabapentin [Neurontin] 300 mg PO BID Simvastatin [Zocor] 40 mg PO HS Discharge Medication List Omeprazole 20 mg PO BID 10/12/16 [History] Cyanocobalamin [Vitamin B-12] 500 mcg PO DAILY 06/27/18 [History] Acetaminophen Tab [Tylenol] 1,000 mg PO Q6HR PRN tab 07/08/18 [Rx] Acetaminophen Tab [Tylenol] 500 mg PO Q6HR PRN tab 07/08/18 [Rx] Amiodarone [Cordarone] 400 mg PO BID 30 Days tab 07/10/18 [Rx] Apixaban [Eliquis] 5 mg PO BID tab 07/10/18 [Rx] Aspirin 81 mg PO DAILY chew 07/10/18 [Rx] Atorvastatin [Lipitor] 40 mg PO DAILY #30 tablet 07/10/18 [Rx] Furosemide [Lasix] 40 mg PO DAILY 7 Days tab 07/10/18 [Rx] Gabapentin [Neurontin] 300 mg PO BID cap 07/10/18 [Rx] INSULIN ASPART (NovoLOG) [NovoLOG (formulary)] 0 unit SQ ACHS vial 07/10/18 [Rx] Ipratropium-Albuterol Nebulize [Duoneb 0.5 mg-3 mg/3 ml Soln] 3 ml INHALATION RT-Q2H PRN ampul.neb 07/10/18 [Rx] Ipratropium-Albuterol Nebulize [Duoneb 0.5 mg-3 mg/3 ml Soln] 3 ml INHALATION RT-QID ampul.neb 07/10/18 [Rx] Lisinopril [Zestril] 5 mg PO DAILY tab 07/10/18 [Rx] Metoprolol Tartrate [Lopressor] 25 mg PO BID tab 07/10/18 [Rx] Multivitamins, Thera [Multivitamin (formulary)] 1 each PO DAILY@1200 tab 07/10/18 [Rx] Potassium Chloride ER [K-Dur 20] 20 meq PO DAILY 7 Days tab.er.prt 07/10/18 [Rx] Sennosides-Docusate Sodium [Senokot-S] 2 each PO HS PRN tab 07/10/18 [Rx] metFORMIN HCL [Glucophage] 500 mg PO Q12H tab 07/10/18 [Rx] traZODone HCL [Desyrel] 50 mg PO HS PRN tab 07/10/18 [Rx] Follow up Appointment(s)/Referral(s): Hosea Garcia MD [STAFF PHYSICIAN] - 08/08/18 10:30 am Melchor Love MD [STAFF PHYSICIAN] - 2 Weeks (Please call and make an appointment with Dr. Love after discharge from subacute rehab.) Arcadio Baptiste MD [Primary Care Provider] - 2 Weeks (Dr. Baptiste to follow patient over at subacute rehab.) Annabelle Holm MD [STAFF PHYSICIAN] - 2 Weeks (Please call and make an appointment with Dr. Holm after discharge from subacute rehab) Ambulatory/Diagnostic Orders: Complete Blood Count w/diff [LAB.AMB] Time Frame: 07/11/18, Facility: [facility], Location: [facility] Comprehensive Metabolic Panel [LAB.AMB] Time Frame: 07/11/18, Facility: [facility], Location: [facility] Patient Instructions/Handouts: A-fib (Atrial Fibrillation) (DC), Sternal Precautions (GEN), Coronary Artery Bypass Graft (DC) Activity/Diet/Wound Care/Special Instructions: DISCHARGE INSTRUCTIONS: 1. No driving for 4 weeks, or until physician gives their ok. 2. The patient should sleep in their own bed, no medical bed needed. 3. Stairs are not an issue. If the bedroom is upstairs, it is advised that the patient go up at night and down in the morning for the first week. Go slowly, using handrail and take 1 step at a time. 4. KUNAL hose are to be worn for 30 days or until physician discontinues. 5. Heart hugger is to be worn 100% of the time until physician discontinues.(except when showering) 6. No lifting, pushing, or pulling more than 10 pounds for 12 weeks. The physician will advise of any restriction changes. 7. The patient is expected to continue the prescribed walking program. 8. Continue pain control per as needed orders. 9. Continue with incentive spirometry and splinting/heart hugger until otherwise directed by the physician. 10. Must shower daily using liquid antibacterial soap and a separate white washcloth for each individual incision. 11. Routine sternal incision care, no ointments, lotions or powders on the incisions. 12. Please notify surgeon/nurse practitioner for temperature greater than 101F or purulent drainage from incisions 13. Prescriptions for first 30 days given per cardiac surgery service. After 30 days, all prescription refills obtained through cardiology/primary care physician. REHAB/ NURSING SERVICES TO PROVIDE: RN SKILLED HOME CARE SERVICES FOR POST-OP SURGICAL PATIENTS WITH THE FOLLOWING: Coronary Artery Bypass Surgery (CABG), Mitral Valve Replacement/Repair ( MVR), Aortic Valve Replacement/Repair (AVR) RN TO CONTINUE EDUCATION FROM ``ROAD TO A HEALTH HEART PATIENT EDUCATION MANUAL" (GIVEN TO PATIENT IN THE HOSPITAL) MEDICATION RECONCILIATION WITH EDUCATION NEEDED ON FIRST HOME VISIT EMPHASIZE IMPORTANCE OF WEARING BREAST SUPPORT/HEART HUGGER ENCOURAGE USE OF INCENTIVE SPIROMETER 10 X EVERY HOUR WHILE AWAKE ENCOURAGE UTILIZATION OF LOWER EXTREMITY COMPRESSION STOCKINGS/KUNAL HOSE and ELEVATE LEGS ABOVE LEVEL OF HEART WHILE AT REST. ENCOURAGE AMBULATION 3-5x/day INCREASING TOLERATES, WHILE AVOID EXTREMES IN TEMPERATURE FREQUENCY: RN TO OPEN THE PATIENT WITHIN 24 HOURS OF DISCHARGE FROM REHAB WITH TELEHEALTH INSTALLED AT [facility] [place], RN TO VISIT 2-3 X A WEEK FOR 4 WEEKS ESTABLISHED BY PATIENT NEEDS. REMOVAL OF SUTURES: NURSING SERVICES TO REMOVE SUTURES TWO WEEKS POST SURGICAL DATE 07/17/2018 . If any questions regarding suture removal please call the office at [phone]. LABORATORY: CBC, CMP TO BE DRAWN ON THE THIRD DAY POST DISCHARGE, 07/14/2018 (RAN STAT) FAX RESULTS TO [phone]. Once discharged home care to provide TELEHEALTH PARAMETERS: WEIGHT: NOTIFY MD OF WEIGHT GAIN OF 2 LBS IN 24 HOURS OR 5 LBS IN ONE WEEK HR: NOTIFY MD OF HR <55 BPM OR HR>100 BPM BP: NOTIFY MD IF BP <90/55 OR BP>140/100 O2 SAT: NOTIFY MD IF PO2<93% ON ROOM AIR SEND TELEHEALTH REPORT TO PAINTER ORDNANCE AND CARDIOVASCULAR SURGEON THE FIRST WEEK OF CARE AND THEN BI-WEEKLY. PLEASE ADDITIONALLY COMMUNICATE ANY ABNORMALS AND NEW FINDINGS TO THE SURGEONS OFFICE. Discharge Disposition: TRANSFER TO SNF/ECF
[2018-07-08] MEDS: MULTIVITAMINS, THERA 1 EACH TAB PO SCH (11:45)
[2018-07-08] MEDS: LISINOPRIL 2.5 MG TAB PO SCH (11:45)
[2018-07-08 11:49] LABS: Glucose,Whole Blood 145 mg/dL (75-99)
--- NOTE | 2018-07-08 13:03 | P.PN ---
Subjective Progress Note Date: 07/08/18 This is a 68-year-old female patient of Dr. Baptiste and Dr. Love, known history of diabetes mellitus type 2 on oral agents, hypertension, obstructive sleep apnea who currently has no CPAP device at home secondary to noncompliance,, hyperlipidemia, CK D stage III, also with bilateral internal carotid artery stenosis 50-79%, admitted to ICU after coronary bypass surgery, workup 06/17/2018 showed reversible anterior apical wall defect, echocardiogram shows EF 55%, no wall motion abnormality at the time, moderate MR, mild TR, there was 66% left main stenosis, mid LAD stenosis 40-50%, and RCA stenosis 40%, Dr. Garcia performed CABG grafting 2 vessels CHIRINOS to the LAD, saphenous vein to the obtuse marginal artery and endoscopic vein harvest right greater saphenous vein on July 03 2018. Consult were made from our service for medical management for which I have attempted to see the patient on July 03 however patient is still in the operating room at that time., also consults were made to Dr. Holm critical care medicine. Patient is seen post op day #1, in the ICU, was extubated successfully overnight, and he is doing well, they have ambulated the patient in the hallway, without any lightheadedness no chest pain. She does have 2 chest tubes,, x-rays shows evidence of pneumothorax, there is extremity swelling in the hands and fingers, as well as the legs, Lasix IV was given 1 dose, patient is performing incentive spirometry around 750 mL, patient is without any chest pain no lightheadedness no dizziness no nausea no vomiting, no melena. Patient has adequate urine output, sternotomy incision is clean and intact 07/05: Patient remains in intensive care unit. She has been progressing well with plans removed chest tubes and probably transfer out of intensive care unit later today. Urine output has been marginal and dopamine started. Creatinine is 0.77. Blood sugars been running between 117 and 175. Patient was started back on metformin this morning. She has been afebrile, heart rate in the 70s and 80s, blood pressure 105/59, pulse ox 97% on 2 L nasal cannula. Repeat lab work reveals white count 7.4, hemoglobin 9.2, platelet count 128. Sodium is 134, potassium 4.3, creatinine 0.66. Blood sugars are running between 1:30 06/23/199307/06: Patient is seen today on the selective care unit. Repeat chest x-ray showing worsening bibasilar airspace disease. Repeat lab work shows a white count of 7.4, hemoglobin 9.2, platelet count 128. Sodium 134, creatinine 0.66. Blood sugars are running between 134 and 194. She has been evaluated by physical therapy with recommendations for home with homecare or subacute rehab. Patient asking about inpatient rehab and we will add in a consult with Dr. Ziegler. Patient went into A. fib with RVR during the night up to 190s currently running in the low 100s. She is on amiodarone drip. Lasix 40 mg IV this morning and magnesium replacement. Patient states she is passing gas and she is getting up to the bathroom and urinating without difficulty. Regarding blood sugars, patient will be transitioned over to a NovoLog scale, insulin drip discontinued, continue oral metformin. 07/07: Patient is seen again on the selective care unit. Patient states she walked in the hallway and is feeling tired now and is a little bit of chest pain at the surgical site. Patient converted into a sinus rhythm last evening and is off amiodarone drip. She states she is only eating 50% or less of her food. Patient is encouraged to increase her fluid intake and also increase incentive spirometry use. She has been seen by Dr. Ziegler and he may be able to take her to inpatient rehab by tomorrow. Blood sugars are stable with one reading at 189. Patient will continue on metformin and NovoLog scale. 07/08: Patient is complaining of significant difficulty with sleeping. We will add in trazodone 50 mg at bedtime if needed. Patient is anticipating discharge to inpatient rehab today but authorization is pending. She has been afebrile, heart rate 68, blood pressure 132/63, pulse ox 95% on room air. The VDC 7.6, hemoglobin 9.9, platelet count 205. Electrolytes stable, creatinine 0.84. Blood sugars are running between 124 and 166. Patient will be continued on the same diabetic medications at leak urine. Patient has been encouraged to increase her food intake and also increased activity. She states she did walk down in the [place] with physical therapy and sat on the bench and then return to her room. Review Of Systems: Constitutional: No fever, no chills, no night sweats. No weight change. No weakness, reports fatigue. Reports daytime sleepiness. EENT: No headache. No blurred vision or double vision, no loss of vision. No loss of Hearing, no ringing in the ears, no dizziness. No nasal drainage or congestion. No epistaxis. No sore throat. Lungs: No shortness of breath, cough, no sputum production. No wheezing. Cardiovascular: Reports chest wall discomfort, no lower extremity edema. No palpitations. No paroxysmal nocturnal dyspnea. No orthopnea. No lightheadedness or dizziness. No syncopal episodes. Abdominal: No abdominal pain. No nausea, vomiting. No diarrhea. No constipation. No bloody or tarry stools. Genitourinary: No dysuria, increased frequency, urgency. No urinary retention. Musculoskeletal: No myalgias. No muscle weakness, no gait dysfunction, no frequent falls. No back pain. No neck pain. Integumentary: No wounds, no lesions. No rash or pruritus. No unusual brui sing. No change in hair or nails. Neurologic: No aphasia. No facial droop. No change in mentation. No head injury. No headache. No paralysis. No paresthesia. Psychiatric: No depression. No anxiety. No mood swings. Reports sleep deprivation. Endocrine: Reports abnormal blood sugars. Objective - Vital Signs Vital signs: Vital Signs Temp 98.1 F 07/07/18 20:00 Pulse 68 07/08/18 09:00 Resp 16 07/08/18 04:00 BP 132/63 07/08/18 04:00 Pulse Ox 95 07/08/18 04:00 Intake & Output 07/07/18 07/08/18 07/08/18 18:59 06:59 18:59 Intake Total 600 240 Balance 600 240 Weight 87.7 kg Intake: Oral 600 240 Other: Voiding Method Toilet # Voids 2 1 # Bowel Movements 1 1 ABP, PAP, CO, CI - Last Documented Arterial Blood Pressure 115/96 Pulmonary Artery Pressure 31/10 Cardiac Output 4.5 Cardiac Index 2.4 - Exam General appearance: cooperative, no acute distress noted, appears comfortable while resting in recliner, daughter at bedside - EENT Eyes: anicteric sclerae, EOMI, PERRLA, dentition normal, normal appearance ENT: NA/AT, normal oropharynx - Neck Neck: normal ROM - Respiratory Respiratory: bilateral: CTA, negative: diminished, dullness, prolonged expiration, prolonged inspiration - Cardiovascular Rhythm: regular Heart sounds: normal: S1, S2 Abnormal Heart Sounds: no systolic murmur, no diastolic murmur, no rub, no S3 Gallop, no S4 Gallop, no click, no other - Gastrointestinal General gastrointestinal: normal bowel sounds, soft - Integumentary Integumentary: normal - Neurologic 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80-5.40) m/uL Hgb 9.9 L (11.4-16.0) gm/dL Hct 27.6 L (34.0-46.0) % Sodium 133 L (137-145) mmol/L BUN 22 H (7-17) mg/dL Glucose 124 H (74-99) mg/dL POC Glucose (mg/dL) 133 H (75-99) mg/dL Assessment and Plan Plan: 1. CAD, 2 vessel disease involving left main requiring CABG, CHIRINOS to the anterior LAD, saphenous graft to obtuse marginal artery performed 07/03/2018, patient is in ICU and progressing well. Continue Lipitor 40 mg daily, Plavix, aspirin, Lopressor. Continue Incentive spirometry, O2 supplementation, Lasix. 2. Diabetes mellitus type 2, A1c 6.2, currently on metformin 500 mg twice daily and NovoLog scale 3. GERD on maintenance omeprazole at home 4. Hyperlipidemia on Lipitor 40 mg daily 5. Mild intermittent asthma without any maintenance medication, has when necessary albuterol along with scheduled 4 times a day 6. CKD stage I, current creatinine of 0.48, patient has been followed with microalbuminuria evaluation the office. 7. Obstructive sleep apnea, patient is not on any CPAP device from home 8. Blood loss anemia, expected with surgery 8. A. fib with RVR, paroxysmal atrial fibrillation, currently in sinus rhythm. Patient transitioned to oral amiodarone and metoprolol decreased to 12.5 mg twice daily. 9. GI prophylaxis maintenance omeprazole 10. DVT prophylaxis Discharge plan: Consult with Dr. Harvey added. Possible discharge to [facility] today or tomorrow pending authorization Impression and plan of care have been directed as dictated by the signing mason raphael. Soco Maciel nurse practitioner acting as scribe for signing physician.
--- NOTE | 2018-07-08 13:09 | P.PN ---
Subjective Progress Note Date: 07/08/18 This is a pleasant 68-year-old female we are following s/p bypass grafting. Patient is sitting up in her chair at the time of my examination this morning, she had a shower this morning and ambulated in the hallway without any difficulty. Overall her breathing is stable. This morning she is in a normal sinus rhythm, currently on oral amiodarone. No anticoagulation as per cardiothoracic surgery. Blood pressure 118/50 with a heart rate in the 60s, temperature 97.8. 97% on room air. 07/08/2018 Patient was seen and examined this morning, didn't sleep too well last night and overall feels a little more tired today. Hemodynamically she is stable. Blood pressure 132/60. No further episodes of atrial fibrillation. Anticipating transferred to rehab today. Objective - Vital Signs Vital signs: Vital Signs Temp 98.1 F 07/07/18 20:00 Pulse 66 07/08/18 12:59 Resp 16 07/08/18 04:00 BP 132/63 07/08/18 04:00 Pulse Ox 95 07/08/18 04:00 Intake & Output 07/07/18 07/08/18 07/08/18 18:59 06:59 18:59 Intake Total 600 240 Output Total 100 Balance 600 140 Weight 87.7 kg Intake: Oral 600 240 Output: Urine 100 Other: Voiding Method Toilet # Voids 2 2 # Bowel Movements 1 1 ABP, PAP, CO, CI - Last Documented Arterial Blood Pressure 115/96 Pulmonary Artery Pressure 31/10 Cardiac Output 4.5 Cardiac Index 2.4 - Exam PHYSICAL EXAMINATION: GENERAL: 68-year-old female in no acute distress at the time of my examination HEENT: Head is atraumatic, normocephalic. Pupils equal, round. Sclera anicteric. Conjunctiva are clear. Mucous membranes of the mouth are moist. N farideh is supple. There is no elevated jugular venous pressure. No carotid bruit is heard. HEART EXAMINATION: Heart S1, S2 normal. No murmur or gallop heard. Atrial and ventricular epicardial pacemaker wires are intact and grounded CHEST EXAMINATION: Lungs reveal diminished air entry to bilateral bases. Heart hugger is in place. Patient reaching approximately 500 on her incentive spirometer. ABDOMEN: Soft, nontender. Bowel sounds are heard. No organomegaly noted. EXTREMITIES: 2+ peripheral pulses with 1+ evidence of peripheral edema and no calf tenderness noted. Knee high KUNAL hose and sequential compression device in place to bilateral lower extremities. NEUROLOGIC patient is awake, alert and oriented 3 . . - Labs CBC & Chem 7: 07/08/18 06:10 07/08/18 06:10 Labs: Abnormal Lab Results - Last 24 Hours (Table) 07/07/18 07/07/18 07/08/18 Range/Units 16:28 20:55 05:13 RBC (3.80-5.40) m/uL Hgb (11.4-16.0) gm/dL Hct (34.0-46.0) % Sodium (137-145) mmol/L BUN (7-17) mg/dL Glucose (74-99) mg/dL POC Glucose (mg/dL) 133 H 166 H 133 H (75-99) mg/dL 07/08/18 07/08/18 07/08/18 Range/Units 06:10 06:10 11:47 RBC 3.30 L (3.80-5.40) m/uL Hgb 9.9 L (11.4-16.0) gm/dL Hct 27.6 L (34.0-46.0) % Sodium 133 L (137-145) mmol/L BUN 22 H (7-17) mg/dL Glucose 124 H (74-99) mg/dL POC Glucose (mg/dL) 145 H (75-99) mg/dL Assessment and Plan Plan: Assessment and plan #1 multivessel coronary artery disease, post coronary bypass surgery and the patient's postoperative day #5 #2 post thoracotomy, patient was extubated without any major difficulties. Chest tubes removed #3 episode of atrial fibrillation, patient remains in a normal sinus rhythm this morning, on oral amiodarone #4 hyperlipidemia #5 [id number]-tsafoziap diabetes mellitus #6 obstructive sleep apnea. #7 obesity #8 preserved LV function based on the preoperative echocardiogram #9 50-80% occlusion and bilateral internal carotid arteries #10 hypertension Plan From cardiology's perspective, we'll recommend to continue the patient on her current medications including the oral amiodarone which will be tapered. As the patient only had 1 episode of brief atrial fibrillation, no anticoagulation is recommended at this time. Transfer to rehab. DNP note has been reviewed, I agree with a documented findings and plan of care. Patient was seen and examined.
[2018-07-08 16:34] LABS: Glucose,Whole Blood 136 mg/dL (75-99)
[2018-07-08 20:47] LABS: Glucose,Whole Blood 150 mg/dL (75-99)
[2018-07-08] MEDS: traZODone HCL 50 MG TAB PO PRN (21:05)
[2018-07-08] MEDS: SENNOSIDES-DOCUSATE SODIUM 1 EACH TAB PO SCH (21:05)
[2018-07-09 06:08] LABS: Glucose,Whole Blood 135 mg/dL (75-99)
[2018-07-09] MEDS: PANTOPRAZOLE 40 MG TABLET PO SCH (07:03)
[2018-07-09] MEDS: INSULIN ASPART (NovoLOG) 100 UNIT/ML VIAL SQ SCH ×4 (07:03→21:31)
[2018-07-09] MEDS: metFORMIN 500 MG TAB PO SCH ×2 (07:03→17:11)
[2018-07-09 07:11] LABS: HGB 9.6 gm/dL (11.4-16.0); MCH 28.1 pg (25.0-35.0); MCHC 33.2 g/dL (31.0-37.0); MCV 84.7 fL (80.0-100.0); Platelet Count 254 k/uL (150-450); RBC 3.42 m/uL (3.80-5.40); RDW 14.5 % (11.5-15.5); WBC 7.2 k/uL (3.8-10.6)
[2018-07-09 07:24] LABS: Anion Gap 7 mmol/L; Blood Urea Nitrogen 22 mg/dL (7-17); Calcium 8.8 mg/dL (8.4-10.2); Carbon Dioxide 26 mmol/L (22-30); Chloride 101 mmol/L (98-107); Glucose 125 mg/dL (74-99); Potassium 3.9 mmol/L (3.5-5.1); Sodium 134 mmol/L (137-145)
--- NOTE | 2018-07-09 07:49 | XR ---
EXAMINATION TYPE: XR chest 1V portable DATE OF EXAM: 07/09/2018 CLINICAL HISTORY: Difficulty breathing progress study. TECHNIQUE: Single AP portable upright view of the chest is obtained. COMPARISON: Chest x-ray from one day earlier and older studies. FINDINGS: Post CABG changes with mediastinal clips and sternal wires is redemonstrated. There is per sistent cardiomegaly with atherosclerotic thoracic aorta. There is persistent small bilateral pleural effusions and central vascular congestion with patchy left basilar atelectasis and/or infiltrate. Up per lungs remain clear without pneumothorax. Osseous structures are intact. IMPRESSION: Overall stable findings, suspect CHF exacerbation as there is cardiomegaly with central vascular congestion and small bilateral pleural effusions remaining present. There is also slightly more prominent focal left basilar atelectasis and/or infiltrate again seen.
--- NOTE | 2018-07-09 07:59 | P.PN ---
Subjective Progress Note Date: 07/09/18 Principal diagnosis: Coronary artery disease with left main disease and preserved left ventricular function with an ejection fraction of 55%. History of hypertension, hyperlipidemia, qir-cbuznjc-uckbwczwt diabetes mellitus, obstructive sleep apnea without consistent CPAP use, family history of premature coronary artery disease with her father passing away from myocardial infarction at age 54 and obesity. POD #6 coronary artery bypass grafting 2 vessels, left internal mammary artery to left anterior descending coronary artery, a reverse greater saphenous vein graft to the obtuse marginal coronary artery. Endoscopic vein harvest right greater saphenous vein, intraoperative epi-aortic ultrasound and transesophageal Echocardiogram. Preoperative nasal screening positive for Staphylococcus aureus, not MRSA. Postoperative acute blood loss anemia, an expected outcome of surgery given cardiopulmonary bypass and hemodilution. Postoperative paroxysmal atrial fibrillation, an unexpected the potential outcome of surgery. The patient is sitting up to the bedside chair on the 3 S. cardiac stepdown unit. She is in no acute distress. She denies any complaints of pain or shortness of breath this time. The patient states she feels much better today and walking in the 3 S. cardiac stepdown unit hallway 3 with minimal assistance yesterday. Remote telemetry continues to show normal sinus rhythm heart rate 72 and no further episodes of atrial fibrillation have been reported. She remained hemodynamically stable and afebrile. Oxygen saturations are 94% on room air and she is achieving 500 mL on her incentive spirometry. She is anxious to be discharged to inpatient rehab. Objective - Vital Signs Vital signs: Vital Signs Temp 97.8 F 07/08/18 20:00 Pulse 70 07/09/18 04:00 Resp 16 07/09/18 04:00 BP 125/58 07/09/18 04:00 Pulse Ox 94 L 07/09/18 04:00 Intake & Output 07/08/18 07/09/18 07/09/18 18:59 06:59 18:59 Intake Total 720 Output Total 400 400 Balance 320 -400 Weight 87.3 kg Intake: Oral 720 Output: Urine 400 400 Other: Voiding Method Toilet # Voids 2 1 # Bowel Movements 1 ABP, PAP, CO, CI - Last Documented Arterial Blood Pressure 115/96 Pulmonary Artery Pressure 31/10 Cardiac Output 4.5 Cardiac Index 2.4 - Constitutional General appearance: Present: cooperative, no acute distress, obese - Respiratory Details: Lung sounds essentially clear to her bilateral upper lobes, diminished to her bilateral bases. Respirations are symmetrical and nonlabored. Oxygen saturation are 94% on room air. Achieving 500 mL on her incentive spirometry. - Cardiovascular Details: Regular rhythm and rate. S1 and S2 present, negative for S3, gallop or murmur. Sternum is stable. Remote telemetry showing normal sinus rhythm heart rate 72. Heart hugger is in place and she is demonstrating appropriate use. Surgical support bra in place. Knee-high KUNAL hose and sequential compression devices to her bilateral lower extremities. - Gastrointestinal Gastrointestinal Comment(s): Abdomen is soft, nontender and nondistended. Active bowel sounds all 4 abdominal quadrants. No guarding or rigidity. No organomegaly. Tolerating oral intake. - Genitourinary Genitourinary Comment(s): Voiding clear yellow urine. - Integumentary Integumentary Comment(s): Skin is warm and dry. No clubbing or cyanosis is present. Midline sternal in cision is clean, dry and approximated. No drainage or redness is present. Right lower extremity EVH site clean, dry and approximated. No drainage or redness present. - Neurologic Neurologic: Present: CNII-XII intact - Musculoskeletal Musculoskeletal: Present: gait normal, generalized weakness, strength equal bilaterally - Psychiatric Psychiatric: Present: A&O x's 3, appropriate affect, intact judgment & insight - Allied health notes Allied health notes reviewed: nursing - Labs CBC & Chem 7: 07/09/18 06:48 07/09/18 06:48 Labs: Abnormal Lab Results - Last 24 Hours (Table) 07/08/18 07/08/18 07/08/18 Range/Units 11:47 16:33 20:43 RBC (3.80-5.40) m/uL Hgb (11.4-16.0) gm/dL Hct (34.0-46.0) % Sodium (137-145) mmol/L BUN (7-17) mg/dL Glucose (74-99) mg/dL POC Glucose (mg/dL) 145 H 136 H 150 H (75-99) mg/dL 07/09/18 07/09/18 07/09/18 Range/Units 06:06 06:48 06:48 RBC 3.42 L (3.80-5.40) m/uL Hgb 9.6 L (11.4-16.0) gm/dL Hct 29.0 L (34.0-46.0) % Sodium 134 L (137-145) mmol/L BUN 22 H (7-17) mg/dL Glucose 125 H (74-99) mg/dL POC Glucose (mg/dL) 135 H (75-99) mg/dL - Imaging and Cardiology Chest x-ray: report reviewed, image reviewed Assessment and Plan Assessment: 1. Status post coronary artery bypass grafting surgery 2 vessels. 2. Coronary artery disease with left main disease 3. Moderate mitral vavle regurgitation per preoperative 2-D echocardiogram 4. Bilateral internal carotid artery stenosis 50-79% 5. History of CAD, heart catheterization in 2006 without intervention 6. Hypertension 7. Hyperlipidemia 8. Wwo-vfspyyn-enwfzsnax diabetes mellitus 9. Obstructive sleep apnea without consistent CPAP use 10. Family history of premature coronary artery disease 11. Never smoker 12. Obesity 13. Postoperative acute blood loss anemia, an expected outcome of surgery due to cardiopulmonary bypass and hemodilution. 14. Preoperative nasal swab positive for Staphylococcus aureus, not MRSA. 15. Postoperative paroxysmal atrial fibrillation, an unexpected but potential outcome of surgery. Plan: 1. Continue aspirin, statin, Plavix and beta maria l. We will increase her metoprolol tartrate as tolerated. 2. Continue amiodarone 400 mg by mouth twice a day for atrial fibrillation prophylaxis. 3. Bronchodilators per pulmonology management. 4. Lasix 20 mg by mouth daily initiated today. 5. Encourage use of her incentive spirometry 10 times every hour while awake. 6. Increase activity as tolerated. PT/OT/cardiac rehab following. 7. Will monitor daily labs and chest x-rays. Electrolyte replacement per protocol. 8. Pain control with current medication regimen. 9. Insulin management per primary care service. 10. GI/DVT prophylaxis with Protonix and SCDs. 11. Increase lisinopril to 5 mg by mouth daily at noon. 12. Discharge planning is in place. Anticipate discharge to inpatient rehab today or subacute rehab as insurance authorization is pending. 13. More recommendations to follow based on patient's clinical course. Time with Patient: Greater than 30
[2018-07-09] MEDS: AMIODARONE 200 MG TAB PO SCH ×2 (08:00→21:30)
[2018-07-09] MEDS: METOPROLOL TARTRATE 25 MG TAB PO SCH ×2 (08:00→21:31)
[2018-07-09] MEDS: FUROSEMIDE 20 MG TAB PO SCH (08:02)
[2018-07-09] MEDS: GABAPENTIN 300 MG CAP PO SCH ×2 (08:03→21:31)
[2018-07-09] MEDS: CLOPIDOGREL 75 MG TAB PO SCH (08:03)
[2018-07-09] MEDS: ASPIRIN 325 MG TAB PO SCH (08:03)
[2018-07-09] MEDS: ATORVASTATIN 40 MG TAB PO SCH (08:03)
[2018-07-09] MEDS: HEPARIN SODIUM,PORCINE 5,000 UNIT/ML 1 ML VIAL SQ SCH (08:07)
[2018-07-09] MEDS ORDERED: DEXTROSE 5% IN WATER 100 ML with AMIODARONE 150 MG IV ONE (08:15)
[2018-07-09] MEDS: IPRATROPIUM-ALBUTEROL 3 ML NEB INHALATION SCH ×4 (08:18→20:10)
[2018-07-09] MEDS ORDERED: METOPROLOL TARTRATE 25 MG TAB PO STA (09:16)
[2018-07-09] MEDS: APIXABAN 5 MG TAB PO SCH ×2 (10:20→21:31)
[2018-07-09 11:05] LABS: Glucose,Whole Blood 187 mg/dL (75-99)
--- NOTE | 2018-07-09 11:53 | P.PN ---
Subjective Progress Note Date: 07/09/18 This is a pleasant 68-year-old female we are following s/p bypass grafting. Patient is sitting up in her chair at the time of my examination this morning, she had a shower this morning and ambulated in the hallway without any difficulty. Overall her breathing is stable. This morning she is in a normal sinus rhythm, currently on oral amiodarone. No anticoagulation as per cardiothoracic surgery. Blood pressure 118/50 with a heart rate in the 60s, temperature 97.8. 97% on room air. 07/08/2018 Patient was seen and examined this morning, didn't sleep too well last night and overall feels a little more tired today. Hemodynamically she is stable. Blood pressure 132/60. No further episodes of atrial fibrillation. Anticipating transferred to rehab today. 07/09/2018 Patient was seen and examined this morning, overall feeling much better today, she did go into atrial fibrillation with rapid ventricular response this morning, was given an IV amiodarone bolus and an extra dose of beta maria l. She has just converted back to normal sinus rhythm. Patient is currently on Eliquis 5 mg one tablet by mouth twice a day as per cardiothoracic surgery. Blood pressure 118/70. White blood cell count 7.2, hemoglobin 9.6, platelet count 254. Sodium 134, potassium 3.9, BUN 22 and creatinine 0.7. Objective - Vital Signs Vital signs: Vital Signs Temp 97.2 F L 07/09/18 07:55 Pulse 124 H 07/09/18 07:55 Resp 18 07/09/18 07:55 BP 118/73 07/09/18 07:55 Pulse Ox 95 07/09/18 07:55 Intake & Output 07/08/18 07/09/18 07/09/18 18:59 06:59 18:59 Intake Total 720 220 Output Total 400 400 Balance 320 -400 220 Weight 87.3 kg Intake: Oral 720 220 Output: Urine 400 400 Other: Voiding Method Toilet # Voids 2 1 # Bowel Movements 1 ABP, PAP, CO, CI - Last Documented Arterial Blood Pressure 115/96 Pulmonary Artery Pressure 31/10 Cardiac Output 4.5 Cardiac Index 2.4 - Exam PHYSICAL EXAMINATION: GENERAL: 68-year-old female in no acute distress at the time of my examination HEENT: Head is atraumatic, normocephalic. Pupils equal, round. Sclera anicteric. Conjunctiva are clear. Mucous membranes of the mouth are moist. Neck is supple. There is no elevated jugular venous pressure. No carotid bruit is heard. HEART EXAMINATION: Heart S1, S2 normal. No murmur or gallop heard. Atrial and ventricular epicardial pacemaker wires are intact and grounded CHEST EXAMINATION: Lungs reveal diminished air entry to bilateral bases. Heart hugger is in place. Patient reaching approximately 500 on her incentive spirometer. ABDOMEN: Soft, nontender. Bowel sounds are heard. No organomegaly noted. EXTREMITIES: 2+ peripheral pulses with 1+ evidence of peripheral edema and no calf tenderness noted. Knee high KUNAL hose and sequential compression device in place to bilateral lower extremities. NEUROLOGIC patient is awake, alert and oriented 3 . . - Labs CBC & Chem 7: 07/09/18 06:48 07/09/18 06:48 Labs: Abnormal Lab Results - Last 24 Hours (Table) 07/08/18 07/08/18 07/08/18 Range/Units 11:47 16:33 20:43 RBC (3.80-5.40) m/uL Hgb (11.4-16.0) gm/dL Hct (34.0-46.0) % Sodium (137-145) mmol/L BUN (7-17) mg/dL Glucose (74-99) mg/dL POC Glucose (mg/dL) 145 H 136 H 150 H (75-99) mg/dL 07/09/18 07/09/18 07/09/18 Range/Units 06:06 06:48 06:48 RBC 3.42 L (3.80-5.40) m/uL Hgb 9.6 L (11.4-16.0) gm/dL Hct 29.0 L (34.0-46.0) % Sodium 134 L (137-145) mmol/L BUN 22 H (7-17) mg/dL Glucose 125 H (74-99) mg/dL POC Glucose (mg/dL) 135 H (75-99) mg/dL 07/09/18 Range/Units 11:03 RBC (3.80-5.40) m/uL Hgb (11.4-16.0) gm/dL Hct (34.0-46.0) % Sodium (137-145) mmol/L BUN (7-17) mg/dL Glucose (74-99) mg/dL POC Glucose (mg/dL) 187 H (75-99) mg/dL Assessment and Plan Plan: Assessment and plan #1 multivessel coronary artery disease, post coronary bypass surgery and the patient's postoperative day #5 #2 post thoracotomy, patient was extubated without any major difficulties. Chest tubes removed #3 paroxysmal atrial fibrillation, patient in a normal sinus rhythm now, on Eliquis 5 mg by mouth twice a day for anticoagulation. #4 hyperlipidemia #5 fub-eyndzyi-wsynwsxes diabetes mellitus #6 obstructive sleep apnea. #7 obesity #8 preserved LV function based on the preoperative echocardiogram #9 50-80% occlusion and bilateral internal carotid arteries #10 hypertension Plan From cardiology's perspective, we'll recommend to continue current medications including the anticoagulation. Patient may be transferred to rehab today. DNP note has been reviewed, I agree with a documented findings and plan of care. Patient was seen and examined.
--- NOTE | 2018-07-09 11:53 | P.ARTDOP ---
Arterial Doppler LOWER EXTREMITY ARTERIAL DOPPLER: DATE OF SERVICE: 07/02/2018 Reason for study: Preop CABG. Doppler waveforms: Multiphasic bilaterally throughout. Pulse volume recording: []. Pressure gradients: None. Ankle-brachial indices: Greater than 1. Toe pressures: [] on the right, [] on the left Impression: Normal study.
--- NOTE | 2018-07-09 11:58 | P.VSCSTY ---
Greater Saphenous Vein Mapping This is bilateral lower extremity greater saphenous vein mapping. Date of service 07/02/2018 Vein quality and ultrasound appearance no intraluminal thrombus or wall changes are seen. Veins below the knee are probably too small to utilize. Vein size groin right 4.9 x 5 groin left 3.7 x 3.7 High thigh right 2.8 x 3.0 high thigh left 3.0 x 2.3 Mid thigh right to 2.8 x 2.8 mid thigh left 2.4 x 2.1 Above-knee right 2.9 x 2.9 above- knee left 2.3 x 2.5 Below knee right 2.0 x 1.7 below-knee left 1.5 x 1.2 Mid calf right 1.4 x 1.4 mid calf left small Ankle right small ankle left small Impression some usable vein both eyes. Both below-knee veins probably too small to utilize for conduit..
[2018-07-09] MEDS: MULTIVITAMINS, THERA 1 EACH TAB PO SCH (12:37)
[2018-07-09] MEDS: LISINOPRIL 5 MG TAB PO SCH (12:37)
--- NOTE | 2018-07-09 13:54 | P.PN ---
Subjective Progress Note Date: 07/09/18 This is a 68-year-old female patient of Dr. Baptiste and Dr. Love, known history of diabetes mellitus type 2 on oral agents, hypertension, obstructive sleep apnea who currently has no CPAP device at home secondary to noncompliance,, hyperlipidemia, CK D stage III, also with bilateral internal carotid artery stenosis 50-79%, admitted to ICU after coronary bypass surgery, workup 06/17/2018 showed reversible anterior apical wall defect, echocardiogram shows EF 55%, no wall motion abnormality at the time, moderate MR, mild TR, there was 66% left main stenosis, mid LAD stenosis 40-50%, and RCA stenosis 40%, Dr. Garcia performed CABG grafting 2 vessels CHIRINOS to the LAD, saphenous vein to the obtuse marginal artery and endoscopic vein harvest right greater saphenous vein on July 03 2018. Consult were made from our service for medical management for which I have attempted to see the patient on July 03 however patient is still in the operating room at that time., also consults were made to Dr. Holm critical care medicine. Patient is seen post op day #1, in the ICU, was extubated successfully overnight, and he is doing well, they have ambulated the patient in the hallway, without any lightheadedness no chest pain. She does have 2 chest tubes,, x-rays shows evidence of pneumothorax, there is extremity swelling in the hands and fingers, as well as the legs, Lasix IV was given 1 dose, patient is performing incentive spirometry around 750 mL, patient is without any chest pain no lightheadedness no dizziness no nausea no vomiting, no melena. Patient has adequate urine output, sternotomy incision is clean and intact 07/05: Patient remains in intensive care unit. She has been progressing well with plans removed chest tubes and probably transfer out of intensive care unit later today. Urine output has been marginal and dopamine started. Creatinine is 0.77. Blood sugars been running between 117 and 175. Patient was started back on metformin this morning. She has been afebrile, heart rate in the 70s and 80s, blood pressure 105/59, pulse ox 97% on 2 L nasal cannula. Repeat lab work reveals white count 7.4, hemoglobin 9.2, platelet count 128. Sodium is 134, potassium 4.3, creatinine 0.66. Blood sugars are running between 1:30 06/23/199307/06: Patient is seen today on the selective care unit. Repeat chest x-ray showing worsening bibasilar airspace disease. Repeat lab work shows a white count of 7.4, hemoglobin 9.2, platelet count 128. Sodium 134, creatinine 0.66. Blood sugars are running between 134 and 194. She has been evaluated by physical therapy with recommendations for home with homecare or subacute rehab. Patient asking about inpatient rehab and we will add in a consult with Dr. Ziegler. Patient went into A. fib with RVR during the night up to 190s currently running in the low 100s. She is on amiodarone drip. Lasix 40 mg IV this morning and magnesium replacement. Patient states she is passing gas and she is getting up to the bathroom and urinating without difficulty. Regarding blood sugars, patient will be transitioned over to a NovoLog scale, insulin drip discontinued, continue oral metformin. 07/07: Patient is seen again on the selective care unit. Patient states she walked in the hallway and is feeling tired now and is a little bit of chest pain at the surgical site. Patient converted into a sinus rhythm last evening and is off amiodarone drip. She states she is only eating 50% or less of her food. Patient is encouraged to increase her fluid intake and also increase incentive spirometry use. She has been seen by Dr. Ziegler and he may be able to take her to inpatient rehab by tomorrow. Blood sugars are stable with one reading at 189. Patient will continue on metformin and NovoLog scale. 07/08: Patient is complaining of significant difficulty with sleeping. We will add in trazodone 50 mg at bedtime if needed. Patient is anticipating discharge to inpatient rehab today but authorization is pending. She has been afebrile, heart rate 68, blood pressure 132/63, pulse ox 95% on room air. The VDC 7.6, hemoglobin 9.9, platelet count 205. Electrolytes stable, creatinine 0.84. Blood sugars are running between 124 and 166. Patient will be continued on the same diabetic medications at leak urine. Patient has been encouraged to increase her food intake and also increased activity. She states she did walk down in the [place] with physical therapy and sat on the bench and then return to her room. 07/09: Blood sugars are running between 125 and 150. She continues to states she does not have much appetite. Patient has been in sinus rhythm through the night but appears to be in atrial fibrillation with RVR at the time of evaluation. The patient has been started on eliquis. Patient still anticipating discharge to [facility]. Awaiting approval. Patient will be maintained on same medications for diabetes. Review Of Systems: Constitutional: No fever, no chills, no night sweats. No weight change. No weakness, reports fatigue. Reports daytime sleepiness. Reports anorexia. EENT: No headache. No blurred vision or double vision, no loss of vision. No loss of Hearing, no ringing in the ears, no dizziness. No nasal drainage or congestion. No epistaxis. No sore throat. Lungs: No shortness of breath, cough, no sputum production. No wheezing. Cardiovascular: Reports chest wall discomfort, no lower extremity edema. No palpitations. No paroxysmal nocturnal dyspnea. No orthopnea. No lightheadedness or dizziness. No syncopal episodes. Abdominal: No abdominal pain. No nausea, vomiting. No diarrhea. No constipation. No bloody or tarry stools. Genitourinary: No dysuria, increased frequency, urgency. No urinary retention. Musculoskeletal: No myalgias. No muscle weakness, no gait dysfunction, no frequent falls. No back pain. No neck pain. Integumentary: No wounds, no lesions. No rash or pruritus. No unusual bruising. No change in hair or nails. Neurologic: No aphasia. No facial droop. No change in mentation. No head injury. No headache. No paralysis. No paresthesia. Psychiatric: No depression. No anxiety. No mood swings. Reports sleep deprivation. Endocrine: Reports normal blood sugars. Objective - Vital Signs Vital signs: Vital Signs Temp 97.2 F L 07/09/18 07:55 Pulse 124 H 07/09/18 07:55 Resp 18 07/09/18 07:55 BP 118/73 07/09/18 07:55 Pulse Ox 95 07/09/18 07:55 Intake & Output 07/08/18 07/09/18 07/09/18 18:59 06:59 18:59 Intake Total 720 220 Output Total 400 400 Balance 320 -400 220 Weight 87.3 kg Intake: Oral 720 220 Output: Urine 400 400 Other: Voiding Method Toilet # Voids 2 1 # Bowel Movements 1 ABP, PAP, CO, CI - Last Documented Arterial Blood Pressure 115/96 Pulmonary Artery Pressure 31/10 Cardiac Output 4.5 Cardiac Index 2.4 - Exam General appearance: cooperative, no acute distress noted, appears comfortable while resting in recliner, family members at bedside - EENT Eyes: anicteric sclerae, EOMI, PERRLA, dentition normal, normal appearance ENT: NA/AT, normal oropharynx - Neck Neck: normal ROM - Respiratory Respiratory: bilateral: CTA, negative: diminished, dullness, prolonged expiration, prolonged inspiration - Cardiovascular Rhythm: regular Heart sounds: normal: S1, S2 Abnormal Heart Sounds: no systolic murmur, no diastolic murmur, no rub, no S3 Gallop, no S4 Gallop, no click, no other - Gastrointestinal General gastrointestinal: normal bowel sounds, soft - Integumentary Integumentary: normal - Neurologic 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80-5.40) m/uL Hgb 9.6 L (11.4-16.0) gm/dL Hct 29.0 L (34.0-46.0) % Sodium 134 L (137-145) mmol/L BUN 22 H (7-17) mg/dL Glucose 125 H (74-99) mg/dL POC Glucose (mg/dL) 135 H (75-99) mg/dL Assessment and Plan Plan: 1. CAD, 2 vessel disease involving left main requiring CABG, CHIRINOS to the anterior LAD, saphenous graft to obtuse marginal artery performed 07/03/2018, patient is in ICU and progressing well. Continue Lipitor 40 mg daily, Plavix, aspirin, Lopressor. Continue Incentive spirometry, O2 supplementation, Lasix. 2. Diabetes mellitus type 2, A1c 6.2, currently on metformin 500 mg twice daily and NovoLog scale 3. GERD on maintenance omeprazole at home 4. Hyperlipidemia on Lipitor 40 mg daily 5. Mild intermittent asthma without any maintenance medication, has when necessary albuterol along with scheduled 4 times a day 6. CKD stage I, current creatinine of 0.48, patient has been followed with microalbuminuria evaluation the office. 7. Obstructive sleep apnea, patient is not on any CPAP device from home 8. Blood loss anemia, expected with surgery 8. A. fib with RVR, paroxysmal atrial fibrillation. Continue oral amiodarone and metoprolol decreased to 25 mg twice daily. Patient has been started on eliquis 5 mg twice daily 9. GI prophylaxis maintenance omeprazole 10. DVT prophylaxis Discharge plan: Consult with Dr. Harvey. Possible discharge to [facility] today or tomorrow pending authorization Impression and plan of care have been directed as dictated by the signing physician. Soco Maciel nurse practitioner acting as scribe for signing physician.
[2018-07-09 16:08] LABS: Glucose,Whole Blood 130 mg/dL (75-99)
[2018-07-09 21:02] LABS: Glucose,Whole Blood 148 mg/dL (75-99)
[2018-07-09] MEDS: SENNOSIDES-DOCUSATE SODIUM 1 EACH TAB PO SCH (21:31)
[2018-07-09] MEDS: traZODone HCL 50 MG TAB PO PRN (21:33)
[2018-07-10 05:06] VITALS: TEMP 98
[2018-07-10 06:17] LABS: Glucose,Whole Blood 148 mg/dL (75-99)
[2018-07-10] MEDS: INSULIN ASPART (NovoLOG) 100 UNIT/ML VIAL SQ SCH ×2 (06:34→12:45)
[2018-07-10] MEDS: PANTOPRAZOLE 40 MG TABLET PO SCH (06:34)
[2018-07-10] MEDS: metFORMIN 500 MG TAB PO SCH (06:34)
[2018-07-10 07:38] LABS: HCT 29.8 % (34.0-46.0); HGB 9.7 gm/dL (11.4-16.0); MCH 27.4 pg (25.0-35.0); MCHC 32.7 g/dL (31.0-37.0); MCV 83.8 fL (80.0-100.0); Mean Platelet Volume 7.4; Platelet Count 291 k/uL (150-450); Poikilocytosis Slight; RBC 3.55 m/uL (3.80-5.40); RDW 14.6 % (11.5-15.5); WBC 8.7 k/uL (3.8-10.6)
--- NOTE | 2018-07-10 07:56 | XR ---
EXAMINATION TYPE: XR chest 2V DATE OF EXAM: 07/10/2018 COMPARISON: NONE HISTORY: Shortness of breath TECHNIQUE: Frontal and lateral views of the chest are obtained. FINDINGS: Scattered senescent parenchymal changes noted. Hyperinflation compatible with COPD. Patchy density left lower lobe as well as disc atelectasis right perihilar region appears slightly im proved. Continued follow-up is advised. Heart size is stable. Mediastinal structures are stable and grossly unremarkable. No evidence for hilar prominence. Degenerative changes dorsal spine. IMPRESSION: 1. Patchy density left lower lobe as well as disc atelectasis right perihilar region appears slightly improved. Continued follow-up is advised.
[2018-07-10 08:03] LABS: Anion Gap 8 mmol/L; Blood Urea Nitrogen 17 mg/dL (7-17); Calcium 8.9 mg/dL (8.4-10.2); Carbon Dioxide 27 mmol/L (22-30); Chloride 100 mmol/L (98-107); Glucose 132 mg/dL (74-99); Magnesium 1.7 mg/dL (1.6-2.3); Potassium 4.2 mmol/L (3.5-5.1); Sodium 135 mmol/L (137-145)
[2018-07-10] MEDS: IPRATROPIUM-ALBUTEROL 3 ML NEB INHALATION SCH ×3 (08:11→15:46)
[2018-07-10] MEDS: GABAPENTIN 300 MG CAP PO SCH (08:13)
[2018-07-10] MEDS: AMIODARONE 200 MG TAB PO SCH (08:13)
[2018-07-10] MEDS: APIXABAN 5 MG TAB PO SCH (08:13)
[2018-07-10] MEDS: ATORVASTATIN 40 MG TAB PO SCH (08:13)
[2018-07-10] MEDS: FUROSEMIDE 20 MG TAB PO SCH (08:13)
[2018-07-10] MEDS: METOPROLOL TARTRATE 25 MG TAB PO SCH (08:14)
[2018-07-10] MEDS: LISINOPRIL 5 MG TAB PO SCH (08:14)
[2018-07-10] MEDS ORDERED: POTASSIUM CHLORIDE ER 20 MEQ TAB.ER PO SCH (09:00)
[2018-07-10] MEDS ORDERED: FUROSEMIDE 40 MG TAB PO SCH (09:00)
[2018-07-10] MEDS ORDERED: ASPIRIN 81 MG PO SCH (09:00)
--- NOTE | 2018-07-10 10:46 | P.PN ---
Subjective Progress Note Date: 07/10/18 Principal diagnosis: Coronary artery disease with left main disease, preserved left ventricular function with EF 55%. Bilateral internal carotid artery stenosis 50-79%. Previous medical history of coronary artery disease with heart catheterization in 2006 without intervention, hypertension, hyperlipidemia, [id number] diabetes mellitus with preoperative hemoglobin A1c 6.2%, obstructive sleep apnea without consistent CPAP use, mild COPD with preoperative FEV1 71% of predicted, family history of premature coronary artery disease, and obesity. Preoperative nasal screen positive for MSSA. POD #7 coronary artery bypass grafting 2 vessels, left internal mammary artery to the left anterior descending artery, reverse saphenous vein graft to the obtuse marginal artery, endoscopic vein harvest of the right greater saphenous vein, epi-aortic ultrasound, intraoperative transesophageal echocardiogram. Postoperative acute blood loss anemia, expected outcome given cardiopulmonary bypass pump and hemodilution. Postoperative paroxysmal atrial fibrillation, unexpected the potential, of surgery. The patient is currently sitting up in a recliner in no acute distress. Denies pain, shortness of breath. Had an episode yesterday morning of rapid atrial fibrillation which was treated with 1 IV bolus of amiodarone and additional dose of Lopressor with conversion back to normal sinus rhythm. Patient was started on anticoagulation. She has had no more episodes of atrial fibrillation, remains in normal sinus rhythm, remains hemodynamically stable. She is a bit nervous to be discharged from the hospital to rehab, but no other complaints at this time. Objective - Vital Signs Vital signs: Vital Signs Temp 98 F 07/10/18 04:00 Pulse 56 L 07/10/18 08:12 Resp 14 07/10/18 04:00 BP 104/65 07/10/18 04:00 Pulse Ox 95 07/10/18 04:00 Intake & Output 07/09/18 07/10/18 07/10/18 18:59 06:59 18:59 Intake Total 664 Balance 664 Weight 87.2 kg Intake: Oral 664 Other: Voiding Method Toilet # Voids 1 ABP, PAP, CO, CI - Last Documented Arterial Blood Pressure 115/96 Pulmonary Artery Pressure 31/10 Cardiac Output 4.5 Cardiac Index 2.4 - Constitutional General appearance: Present: cooperative, no acute distress, obese - Respiratory Details: Lungs sounds diminished bilaterally. Respirations even, nonlabored. Currently on room air with oxygen saturation 95%. Only able to achieve 500 mL on her incentive spirometry. Strong cough. - Cardiovascular Details: S1, S2 present. Regular rate and rhythm, sinus rhythm on telemetry. Sternum stable. Palpable peripheral pulses bilaterally. Trace bilateral lower extremity edema present. Heart hugger in place with patient demonstrating appropriate use. Antiembolism stockings, SCDs present. - Gastrointestinal Gastrointestinal Comment(s): Abdomen soft, nontender, nondistended. Active bowel sounds present 4 quadrants. Tolerating diet. Positive bowel movement yesterday. - Genitourinary Genitourinary Comment(s): Continues to void clear, yellow urine. - Integumentary Integumentary Comment(s): Skin is warm and dry with evidence of good perfusion. Anterior chest incision well approximated with Dermabond dressing in place. Right lower extremity EVH site well approximated. - Neurologic Neurologic: Present: CNII-XII intact - Musculoskeletal Musculoskeletal: Present: gait normal, strength equal bilaterally - Psychiatric Psychiatric: Present: A&O x's 3, appropriate affect, intact judgment & insight - Allied health notes Allied health notes reviewed: nursing - Labs CBC & Chem 7: 07/10/18 07:01 07/10/18 07:01 Labs: Abnormal Lab Results - Last 24 Hours (Table) 07/09/18 07/09/18 07/09/18 Range/Units 11:03 16:07 21:00 RBC (3.80-5.40) m/uL Hgb (11.4-16.0) gm/dL Hct (34.0-46.0) % Sodium (137-145) mmol/L Glucose (74-99) mg/dL POC Glucose (mg/dL) 187 H 130 H 148 H (75-99) mg/dL 07/10/18 07/10/18 07/10/18 Range/Units 06:15 07:01 07:01 RBC 3.55 L (3.80-5.40) m/uL Hgb 9.7 L (11.4-16.0) gm/dL Hct 29.8 L (34.0-46.0) % Sodium 135 L (137-145) mmol/L Glucose 132 H (74-99) mg/dL POC Glucose (mg/dL) 148 H (75-99) mg/dL - Imaging and Cardiology Chest x-ray: report reviewed, image reviewed Assessment and Plan Assessment: 1. Coronary artery disease with left main disease, status post coronary artery bypass graft surgery 2. Preserved left ventricular function with EF 55% 3. Bilateral internal carotid artery stenosis 50-79% 4. History of CAD, heart catheterization in 2006 without intervention 5. Hypertension, treated 6. Hyperlipidemia, treated 7. Mvv-ipovlfo-ugxzwxwva diabetes mellitus with preoperative hemoglobin A1c 6.2% 8. Obstructive sleep apnea without consistent CPAP use 9. Mild COPD with preoperative FEV1 71% of predicted 10. Family history of premature coronary artery disease 11. Obesity 12. Preoperative nasal screen positive for MSSA 13. Postoperative acute blood loss anemia, expected 14. Postoperative paroxysmal atrial fibrillation, unexpected Plan: 1. Continue low-dose aspirin, statin, lisinopril, beta maria l therapy. Con tinue oral Lasix. 2. Continue amiodarone for A. fib prophylaxis. Continue Eliquis for anticoagulation. 3. Encourage incentive spirometry is 10 times every hour while awake. 4. Bronchodilators per pulmonology. 5. Increase activity, ambulate in the hallway. PT/OT/cardiac rehab following. 6. Will monitor daily labs and x-rays. Electrolyte replacement per protocol. K, mag replaced today. 7. Pain control current medication regimen. 8. Insulin management per primary care service. 9. GI/DVT prophylaxis. 10. May be discharged to rehab once insurance authorization is obtained. Insurance denied inpatient rehab, waiting for authorization for subacute rehab. 11. More recommendations to follow. Time with Patient: Greater than 30
--- NOTE | 2018-07-10 11:52 | P.PN ---
Subjective Progress Note Date: 07/10/18 This is a pleasant 68-year-old female we are following s/p bypass grafting. Patient is sitting up in her chair at the time of my examination this morning, she had a shower this morning and ambulated in the hallway without any difficulty. Overall her breathing is stable. This morning she is in a normal sinus rhythm, currently on oral amiodarone. No anticoagulation as per cardiothoracic surgery. Blood pressure 118/50 with a heart rate in the 60s, temperature 97.8. 97% on room air. 07/08/2018 Patient was seen and examined this morning, didn't sleep too well last night and overall feels a little more tired today. Hemodynamically she is stable. Blood pressure 132/60. No further episodes of atrial fibrillation. Anticipating transferred to rehab today. 07/09/2018 Patient was seen and examined this morning, overall feeling much better today, she did go into atrial fibrillation with rapid ventricular response this morning, was given an IV amiodarone bolus and an extra dose of beta maria l. She has just converted back to normal sinus rhythm. Patient is currently on Eliquis 5 mg one tablet by mouth twice a day as per cardiothoracic surgery. Blood pressure 118/70. White blood cell count 7.2, hemoglobin 9.6, platelet count 254. Sodium 134, potassium 3.9, BUN 22 and creatinine 0.7. 07/10/2017 Patient seen and examined this morning, doing well overall. Blood pressure 126/70, heart rate in the 60 range, 95% on room air. White blood cell count 8.7, hemoglobin 9.7, platelet count 291. Sodium 135, potassium 4.2, BUN 17 and creatinine 0.7, magnesium 1.7. Objective - Vital Signs Vital signs: Vital Signs Temp 98 F 07/10/18 04:00 Pulse 72 07/10/18 11:26 Resp 14 07/10/18 04:00 BP 104/65 07/10/18 04:00 Pulse Ox 95 07/10/18 04:00 Intake & Output 07/09/18 07/10/18 07/10/18 18:59 06:59 18:59 Intake Total 664 118 Balance 664 118 Weight 87.2 kg Intake: Oral 664 118 Other: Voiding Method Toilet # Voids 1 ABP, PAP, CO, CI - Last Documented Arterial Blood Pressure 115/96 Pulmonary Artery Pressure 31/10 Cardiac Output 4.5 Cardiac Index 2.4 - Exam PHYSICAL EXAMINATION: GENERAL: 68-year-old female in no acute distress at the time of my examination HEENT: Head is atraumatic, normocephalic. Pupils equal, round. Sclera anicteric. Conjunctiva are clear. Mucous membranes of the mouth are moist. Neck is supple. There is no elevated jugular venous pressure. No carotid bruit is heard. HEART EXAMINATION: Heart S1, S2 normal. No murmur or gallop heard. Atrial and ventricular epicardial pacemaker wires are intact and grounded CHEST EXAMINATION: Lungs reveal diminished air entry to bilateral bases. Heart hugger is in place. Patient reaching approximately 500 on her incentive spirometer. ABDOMEN: Soft, nontender. Bowel sounds are heard. No organomegaly noted. EXTREMITIES: 2+ peripheral pulses with 1+ evidence of peripheral edema and no calf tenderness noted. Knee high KUNAL hose and sequential compression device in place to bilateral lower extremities. NEUROLOGIC patient is awake, alert and oriented 3 . . - Labs CBC & Chem 7: 07/10/18 07:01 07/10/18 07:01 Labs: Abnormal Lab Results - Last 24 Hours (Table) 07/09/18 07/09/18 07/10/18 Range/Units 16:07 21:00 06:15 RBC (3.80-5.40) m/uL Hgb (11.4-16.0) gm/dL Hct (34.0-46.0) % Sodium (137-145) mmol/L Glucose (74-99) mg/dL POC Glucose (mg/dL) 130 H 148 H 148 H (75-99) mg/dL 07/10/18 07/10/18 Range/Units 07:01 07:01 RBC 3.55 L (3.80-5.40) m/uL Hgb 9.7 L (11.4-16.0) gm/dL Hct 29.8 L (34.0-46.0) % Sodium 135 L (137-145) mmol/L Glucose 132 H (74-99) mg/dL POC Glucose (mg/dL) (75-99) mg/dL Assessment and Plan Plan: Assessment and plan #1 multivessel coronary artery disease, post coronary bypass surgery and the patient's postoperative day #5 #2 post thoracotomy, patient was extubated without any major difficulties. Chest tubes removed #3 paroxysmal atrial fibrillation, patient in a normal sinus rhythm now, on Eliquis 5 mg by mouth twice a day for anticoagulation. #4 hyperlipidemia #5 fjn-[id number] diabetes mellitus #6 obstructive sleep apnea. #7 obesity #8 preserved LV function based on the preoperative echocardiogram #9 50-80% occlusion and bilateral internal carotid arteries #10 hypertension Plan From cardiology's perspective, we'll recommend to continue current medications including the anticoagulation. Patient may be transferred to rehab today. DNP note has been reviewed, I agree with a documented findings and plan of care. Patient was seen and examined.
[2018-07-10 11:53] VITALS: RESP 16
[2018-07-10 11:53] LABS: Glucose,Whole Blood 134 mg/dL (75-99)
[2018-07-10 12:04] VITALS: BP 113/67
[2018-07-10] MEDS: MULTIVITAMINS, THERA 1 EACH TAB PO SCH (12:45)
[2018-07-10] MEDS: MAGNESIUM SULFATE-D5W PMX 1 GM in DEXTROSE/WATER 1 100ML.BAG IVPB SCH ×2 (12:46→14:42)
--- NOTE | 2018-07-10 14:06 | P.PN ---
Subjective Progress Note Date: 07/10/18 This is a 68-year-old female patient of Dr. Baptiste and Dr. Love, known history of diabetes mellitus type 2 on oral agents, hypertension, obstructive sleep apnea who currently has no CPAP device at home secondary to noncompliance,, hyperlipidemia, CK D stage III, also with bilateral internal carotid artery stenosis 50-79%, admitted to ICU after coronary bypass surgery, workup 06/17/2018 showed reversible anterior apical wall defect, echocardiogram shows EF 55%, no wall motion abnormality at the time, moderate MR, mild TR, there was 66% left main stenosis, mid LAD stenosis 40-50%, and RCA stenosis 40%, Dr. Garcia performed CABG grafting 2 vessels CHIRINOS to the LAD, saphenous vein to the obtuse marginal artery and endoscopic vein harvest right greater saphenous vein on July 03 2018. Consult were made from our service for medical management for which I have attempted to see the patient on July 03 however patient is still in the operating room at that time., also consults were made to Dr. Holm critical care medicine. Patient is seen post op day #1, in the ICU, was extubated successfully overnight, and he is doing well, they have ambulated the patient in the hallway, without any lightheadedness no chest pain. She does have 2 chest tubes,, x-rays shows evidence of pneumothorax, there is extremity swelling in the hands and fingers, as well as the legs, Lasix IV was given 1 dose, patient is performing incentive spirometry around 750 mL, patient is without any chest pain no lightheadedness no dizziness no nausea no vomiting, no melena. Patient has adequate urine output, sternotomy incision is clean and intact 07/05: Patient remains in intensive care unit. She has been progressing well with plans removed chest tubes and probably transfer out of intensive care unit later today. Urine output has been marginal and dopamine started. Creatinine is 0.77. Blood sugars been running between 117 and 175. Patient was started back on metformin this morning. She has been afebrile, heart rate in the 70s and 80s, blood pressure 105/59, pulse ox 97% on 2 L nasal cannula. Repeat lab work reveals white count 7.4, hemoglobin 9.2, platelet count 128. Sodium is 134, potassium 4.3, creatinine 0.66. Blood sugars are running between 1:30 06/23/199307/06: Patient is seen today on the selective care unit. Repeat chest x-ray showing worsening bibasilar airspace disease. Repeat lab work shows a white count of 7.4, hemoglobin 9.2, platelet count 128. Sodium 134, creatinine 0.66. Blood sugars are running between 134 and 194. She has been evaluated by physical therapy with recommendations for home with homecare or subacute rehab. Patient asking about inpatient rehab and we will add in a consult with Dr. Ziegler. Patient went into A. fib with RVR during the night up to 190s currently running in the low 100s. She is on amiodarone drip. Lasix 40 mg IV this morning and magnesium replacement. Patient states she is passing gas and she is getting up to the bathroom and urinating without difficulty. Regarding blood sugars, patient will be transitioned over to a NovoLog scale, insulin drip discontinued, continue oral metformin. 07/07: Patient is seen again on the selective care unit. Patient states she walked in the hallway and is feeling tired now and is a little bit of chest pain at the surgical site. Patient converted into a sinus rhythm last evening and is off amiodarone drip. She states she is only eating 50% or less of her food. Patient is encouraged to increase her fluid intake and also increase incentive spirometry use. She has been seen by Dr. Ziegler and he may be able to take her to inpatient rehab by tomorrow. Blood sugars are stable with one reading at 189. Patient will continue on metformin and NovoLog scale. 07/08: Patient is complaining of significant difficulty with sleeping. We will add in trazodone 50 mg at bedtime if needed. Patient is anticipating discharge to inpatient rehab today but authorization is pending. She has been afebrile, heart rate 68, blood pressure 132/63, pulse ox 95% on room air. The VDC 7.6, hemoglobin 9.9, platelet count 205. Electrolytes stable, creatinine 0.84. Blood sugars are running between 124 and 166. Patient will be continued on the same diabetic medications at leak urine. Patient has been encouraged to increase her food intake and also increased activity. She states she did walk down in the [place] with physical therapy and sat on the bench and then return to her room. 07/09: Blood sugars are running between 125 and 150. She continues to states she does not have much appetite. Patient has been in sinus rhythm through the night but appears to be in atrial fibrillation with RVR at the time of evaluation. The patient has been started on eliquis. Patient still anticipating discharge to [facility]. Awaiting approval. Patient will be maintained on same medications for diabetes. 07/10: Patient is denying any complaints. She denies any chest pain or palpitations. She is currently in sinus rhythm. She is not eating very much and states she does not have appetite. She is still waiting for authorization for transfer to [facility]. Patient has been cleared medically for discharge. Blood sugars are running between 132 and 148. Review Of Systems: Constitutional: No fever, no chills, no night sweats. No weight change. No weakness, reports fatigue. Reports daytime sleepiness. Reports anorexia. EENT: No headache. No blurred vision or double vision, no loss of vision. No loss of Hearing, no ringing in the ears, no dizziness. No nasal drainage or congestion. No epistaxis. No sore throat. Lungs: No shortness of breath, cough, no sputum production. No wheezing. Cardiovascular: Reports chest wall discomfort, no lower extremity edema. No palpitations. No paroxysmal nocturnal dyspnea. No orthopnea. No lightheadedness or dizziness. No syncopal episodes. Abdominal: No abdominal pain. No nausea, vomiting. No diarrhea. No constipation. No bloody or tarry stools. Genitourinary: No dysuria, increased frequency, urgency. No urinary retention. Musculoskeletal: No myalgias. No muscle weakness, no gait dysfunction, no fr equent falls. No back pain. No neck pain. Integumentary: No wounds, no lesions. No rash or pruritus. No unusual bruising. No change in hair or nails. Neurologic: No aphasia. No facial droop. No change in mentation. No head injury. No headache. No paralysis. No paresthesia. Psychiatric: No depression. No anxiety. No mood swings. Reports sleep deprivation. Objective - Vital Signs Vital signs: Vital Signs Temp 98 F 07/10/18 04:00 Pulse 56 L 07/10/18 08:12 Resp 14 07/10/18 04:00 BP 104/65 07/10/18 04:00 Pulse Ox 95 07/10/18 04:00 Intake & Output 07/09/18 07/10/18 07/10/18 18:59 06:59 18:59 Intake Total 664 Balance 664 Weight 87.2 kg Intake: Oral 664 Other: Voiding Method Toilet # Voids 1 ABP, PAP, CO, CI - Last Documented Arterial Blood Pressure 115/96 Pulmonary Artery Pressure 31/10 Cardiac Output 4.5 Cardiac Index 2.4 - Exam General appearance: cooperative, no acute distress noted, appears comfortable while resting in recliner - EENT Eyes: anicteric sclerae, EOMI, PERRLA, dentition normal, normal appearance ENT: NA/AT, normal oropharynx - Neck Neck: normal ROM - Respiratory Respiratory: bilateral: CTA, negative: diminished, dullness, prolonged expiration, prolonged inspiration - Cardiovascular Rhythm: regular Heart sounds: normal: S1, S2 Abnormal Heart Sounds: no systolic murmur, no diastolic murmur, no rub, no S3 Gallop, no S4 Gallop, no click, no other - Gastrointestinal General gastrointestinal: normal bowel sounds, soft - Integumentary Integumentary: normal - Neurologic 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 since Neurologic: CNII-XII intact - Musculoskeletal Musculoskeletal: gait normal, strength equal bilaterally - Psychiatric Psychiatric: A&O x's 3, appropriate affect, intact judgment & insight - Labs CBC & Chem 7: 07/10/18 07:01 07/10/18 07:01 Labs: Abnormal Lab Results - Last 24 Hours (Table) 07/09/18 07/09/18 07/09/18 Range/Units 11:03 16:07 21:00 RBC (3.80-5.40) m/uL Hgb (11.4-16.0) gm/dL Hct (34.0-46.0) % Sodium (137-145) mmol/L Glucose (74-99) mg/dL POC Glucose (mg/dL) 187 H 130 H 148 H (75-99) mg/dL 07/10/18 07/10/18 07/10/18 Range/Units 06:15 07:01 07:01 RBC 3.55 L (3.80-5.40) m/uL Hgb 9.7 L (11.4-16.0) gm/dL Hct 29.8 L (34.0-46.0) % Sodium 135 L (137-145) mmol/L Glucose 132 H (74-99) mg/dL POC Glucose (mg/dL) 148 H (75-99) mg/dL Assessment and Plan Plan: 1. CAD, 2 vessel disease involving left main requiring CABG, CHIRINOS to the anterior LAD, saphenous graft to obtuse marginal artery performed 07/03/2018, mason conrad is in ICU and progressing well. Continue Lipitor 40 mg daily, Plavix, aspirin, Lopressor. Continue Incentive spirometry, O2 supplementation, Lasix. 2. Diabetes mellitus type 2, A1c 6.2, currently on metformin 500 mg twice daily and NovoLog scale 3. GERD on maintenance omeprazole at home 4. Hyperlipidemia on Lipitor 40 mg daily 5. Mild intermittent asthma without any maintenance medication, has when necessary albuterol along with scheduled 4 times a day 6. CKD stage I, current creatinine of 0.48, patient has been followed with microalbuminuria evaluation the office. 7. Obstructive sleep apnea, patient is not on any CPAP device from home 8. Blood loss anemia, expected with surgery 8. A. fib with RVR, paroxysmal atrial fibrillation. Continue oral amiodarone and metoprolol decreased to 25 mg twice daily. Patient has been started on eliquis 5 mg twice daily 9. GI prophylaxis maintenance omeprazole 10. DVT prophylaxis Discharge plan: Consult with Dr. Harvey. Possible discharge to [facility] pending authorization Impression and plan of care have been directed as dictated by the signing physician. Soco Maciel nurse practitioner acting as scribe for signing physician.
[2018-07-10 15:49] VITALS: PULSE 68
[2018-07-10 17:03] LABS: Glucose,Whole Blood 133 mg/dL (75-99)
[2018-07-10] MEDS ORDERED: MAGNESIUM OXIDE 400 MG TAB PO SCH (21:00)
== END 2018-07-10 17:48 | DRG 234 ==
LOC: CATHCVL 06:10 → 3SCARD 16:52 → 2SICU 17:02 → CATHCVL 07-03 01:21 → 3SCARD 07-05 22:39
PROVIDERS: ADMIT Internal Medicine Interventional Cardiology; ATTEND Surgery
PROC: 4A023N7 Measurement of Cardiac Sampling and Pressure, Left Heart, Percutaneous Approach (ICD-10-PCS; 2018-07-02)
PROC: B2111ZZ Fluoroscopy of Multiple Coronary Arteries using Low Osmolar Contrast (ICD-10-PCS; 2018-07-02)
PROC: B44HZZZ Ultrasonography of Bilateral Lower Extremity Arteries (ICD-10-PCS; 2018-07-02)
PROC: 021009W Bypass Coronary Artery, One Artery from Aorta with Autologous Venous Tissue, Open Approach (ICD-10-PCS; 2018-07-03)
PROC: 06BP4ZZ Excision of Right Saphenous Vein, Percutaneous Endoscopic Approach (ICD-10-PCS; 2018-07-03)
PROC: 5A1221Z Performance of Cardiac Output, Continuous (ICD-10-PCS; 2018-07-03)
PROC: B246ZZ4 Ultrasonography of Right and Left Heart, Transesophageal (ICD-10-PCS; 2018-07-03)
PROC: 5A1223Z Performance of Cardiac Pacing, Continuous (ICD-10-PCS; 2018-07-03)
PROC: 02100Z9 Bypass Coronary Artery, One Artery from Left Internal Mammary, Open Approach (ICD-10-PCS; principal; 2018-07-03 07:30)
DX: I25.10 Atherosclerotic heart disease of native coronary artery without angina pectoris (principal); D62 Acute posthemorrhagic anemia; I97.190 Other postprocedural cardiac functional disturbances following cardiac surgery; E11.22 Type 2 diabetes mellitus with diabetic chronic kidney disease; I08.1 Rheumatic disorders of both mitral and tricuspid valves; I65.23 Occlusion and stenosis of bilateral carotid arteries; J44.9 Chronic obstructive pulmonary disease, unspecified; I12.9 Hypertensive chronic kidney disease with stage 1 through stage 4 chronic kidney disease, or unspecified chronic kidney disease; N18.1 Chronic kidney disease, stage 1; D50.0 Iron deficiency anemia secondary to blood loss (chronic); E66.9 Obesity, unspecified; E78.5 Hyperlipidemia, unspecified; J45.20 Mild intermittent asthma, uncomplicated; E78.00 Pure hypercholesterolemia, unspecified; G47.33 Obstructive sleep apnea (adult) (pediatric); K44.9 Diaphragmatic hernia without obstruction or gangrene; K21.9 Gastro-esophageal reflux disease without esophagitis; M19.90 Unspecified osteoarthritis, unspecified site; H53.001 Unspecified amblyopia, right eye; Z68.36 Body mass index [BMI] 36.0-36.9, adult; Z79.82 Long term (current) use of aspirin; Z79.84 Long term (current) use of oral hypoglycemic drugs; Z79.899 Other long term (current) drug therapy; Z91.19 Patient's noncompliance with other medical treatment and regimen; Z90.49 Acquired absence of other specified parts of digestive tract; Z88.0 Allergy status to penicillin; Z88.2 Allergy status to sulfonamides; Z90.710 Acquired absence of both cervix and uterus; Z82.49 Family history of ischemic heart disease and other diseases of the circulatory system; Z71.3 Dietary counseling and surveillance; I48.0 Paroxysmal atrial fibrillation; Y83.2 Surgical operation with anastomosis, bypass or graft as the cause of abnormal reaction of the patient, or of later complication, without mention of misadventure at the time of the procedure; Y92.230 Patient room in hospital as the place of occurrence of the external cause
CPT/HCPCS: 71045; 71046; 80048; 80053; 80074; 81003; 82330; 82805; 83036; 83735; 84443; 85025; 85027; 85520; 85610; 85730; 86850; 86891; 86900; 86901; 86920; 87070; 87086; 93458; 93922; 93970; 94002; 94150; 94640; 94760

== ENCOUNTER → 2018-09-11 | Outpatient (CLI) | payer MEDICARE ==
[2018-09-11 16:06] LABS: African American GFR (CKD) 87.2 (60.0-200.0); Albumin 4.2 g/dL (3.80-4.90); Albumin/Globulin Ratio 2.21 (1.60-3.17); Anion Gap 10.3 mmol/L (4.00-12.00); Calcium 9.7 mg/dL (8.7-10.3); Carbon Dioxide 26.7 mmol/L (21.6-31.8); Globulin 1.9 g/dL (1.6-3.3); LDL Cholesterol,Calculated 63.2 mg/dL (0.0-131.0); Potassium 4.3 mmol/L (3.5-5.5); Total Bilirubin 0.5 mg/dL (0.2-1.2); Total Protein 6.1 g/dL (6.2-8.2); VLDL Calculation 26.8 mg/dL (5.00-40.00)
== END | disposition home or self-care (01) ==
LOC: LABWHC1 08:39
PROVIDERS: ATTEND Internal Medicine Interventional Cardiology
DX: E78.2 Mixed hyperlipidemia (principal)
CPT/HCPCS: 36415; 80053; 80061

== ENCOUNTER → 2019-02-18 | Outpatient (CLI) | payer MEDICARE ==
--- NOTE | 2019-02-20 11:41 | MM ---
Reason for exam: screening (asymptomatic). Last mammogram was performed 1 year and 1 month ago. History: Patient is postmenopausal. Physical Findings: A clinical breast exam by your physician is recommended on an annual basis and results should be correlated with mammographic findings. MG Screening Mammo w CAD Bilateral CC and MLO view(s) were taken. XCCL view(s) were taken of the left breast. Prior study comparison: January 03, 2018, bilateral MG 3d screening mammo w/cad. September 19, 2016, bilateral MG 3d screening mammo w/cad. The breast tissue is almost entirely fat. There is no discrete abnormality. No significant changes when compared with prior studies. ASSESSMENT: Negative, BI-RAD 1 RECOMMENDATION: Routine screening mammogram of both breasts in 1 year.
== END | disposition home or self-care (01) ==
LOC: RADMAMWWP 14:43
PROVIDERS: ATTEND Internal Medicine Geriatric Medicine
DX: Z12.31 Encounter for screening mammogram for malignant neoplasm of breast (principal)
CPT/HCPCS: 77067

== ENCOUNTER → 2019-04-22 | Outpatient (CLI) | payer MEDICARE ==
[2019-04-22 10:27] LABS: Basophils # (A) 0.1 k/uL (0-0.2); Basophils % (A) 1 %; Eosinophils # (A) 0.4 k/uL (0-0.7); Eosinophils % (A) 5 %; HCT 41.5 % (34.0-46.0); HGB 13.6 gm/dL (11.4-16.0); Lymphocytes # (A) 1.4 k/uL (1.0-4.8); Lymphocytes % (A) 18 %; MCH 27.6 pg (25.0-35.0); MCHC 32.7 g/dL (31.0-37.0); MCV 84.4 fL (80.0-100.0); Mean Platelet Volume 8.1; Monocytes # (A) 0.4 k/uL (0-1.0); Monocytes % (A) 4 %; Neutrophils # (A) 5.6 k/uL (1.3-7.7); Neutrophils % (A) 71 %; Platelet Count 213 k/uL (150-450); RBC 4.92 m/uL (3.80-5.40); RDW 13.5 % (11.5-15.5); WBC 7.9 k/uL (3.8-10.6)
[2019-04-22 21:59] LABS: Hemoglobin A1C 6.6 % (4.0-6.0)
[2019-04-23 03:10] LABS: African American GFR (CKD) 87.2 (60.0-200.0); Albumin 4.5 g/dL (3.80-4.90); Albumin/Globulin Ratio 2.65 (1.60-3.17); Anion Gap 14.8 mmol/L (4.00-12.00); BUN/Creat Ratio 11.25 Ratio (12.00-20.00); Calcium 9.8 mg/dL (8.7-10.3); Carbon Dioxide 22.2 mmol/L (21.6-31.8); Chol/HDL Ratio 3.42; Globulin 1.7 g/dL (1.6-3.3); Non-African American GFR(CKD) 75.2 (60.0-200.0); Potassium 4.6 mmol/L (3.5-5.5); Total Bilirubin 0.8 mg/dL (0.2-1.2); Total Protein 6.2 g/dL (6.2-8.2)
== END ==
LOC: LABWHC1 09:38
PROVIDERS: ATTEND Nurse Practitioner Adult Health
DX: I25.709 Atherosclerosis of coronary artery bypass graft(s), unspecified, with unspecified angina pectoris (principal); E11.65 Type 2 diabetes mellitus with hyperglycemia; E78.2 Mixed hyperlipidemia
CPT/HCPCS: 36415; 80053; 80061; 82550; 83036; 84443; 85025

== ENCOUNTER → 2019-08-18 | Outpatient (CLI) | payer MEDICARE ==
[2019-08-18 15:24] LABS: African American GFR (CKD) 86.6 (60.0-200.0); Albumin 4.4 g/dL (3.80-4.90); Albumin/Globulin Ratio 2.1 (1.60-3.17); Anion Gap 10.9 mmol/L (4.00-12.00); BUN/Creat Ratio 13.75 Ratio (12.00-20.00); Calcium 9.6 mg/dL (8.7-10.3); Carbon Dioxide 25.1 mmol/L (21.6-31.8); Chol/HDL Ratio 3.49; Globulin 2.1 g/dL (1.6-3.3); LDL Cholesterol,Calculated 63.8 mg/dL (0.0-131.0); Non-African American GFR(CKD) 74.7 (60.0-200.0); Potassium 4.3 mmol/L (3.5-5.5); Total Bilirubin 0.7 mg/dL (0.2-1.2); Total Protein 6.5 g/dL (6.2-8.2); VLDL Calculation 33.2 mg/dL (5.00-40.00)
== END | disposition home or self-care (01) ==
LOC: LABWHC1 09:11
PROVIDERS: ATTEND Internal Medicine Interventional Cardiology
DX: E78.2 Mixed hyperlipidemia (principal)
CPT/HCPCS: 36415; 80053; 80061

== ENCOUNTER → 2020-05-11 | Outpatient (CLI) | payer MEDICARE ==
--- NOTE | 2020-05-12 12:11 | MM ---
Reason for exam: screening (asymptomatic). Last mammogram was performed 1 year and 3 months ago. History: Patient is postmenopausal. Physical Findings: A clinical breast exam by your physician is recommended on an annual basis and results should be correlated with mammographic findings. MG 3D Screening Mammo W/Cad Bilateral CC and MLO view(s) were taken. Prior study comparison: February 18, 2019, bilateral MG screening mammo w CAD. January 03, 2018, bilateral MG 3d screening mammo w/cad. There are scattered fibroglandular densities. Stable benign calcifications. There is no discrete abnormality. No significant changes when compared with prior studies. ASSESSMENT: Benign, BI-RAD 2 RECOMMENDATION: Routine screening mammogram of both breasts in 1 year.
== END | disposition home or self-care (01) ==
LOC: RADMAMWWP 09:06
PROVIDERS: ATTEND Internal Medicine Geriatric Medicine
DX: Z12.31 Encounter for screening mammogram for malignant neoplasm of breast (principal)
CPT/HCPCS: 77063; 77067

== ENCOUNTER → 2021-02-04 | Outpatient (CLI) | payer MEDICARE ==
[2021-02-04 16:32] LABS: Basophils # (A) 0.08 X 10*3/uL (0.00-0.10); Basophils % (A) 0.9 %; Eosinophils # (A) 0.49 X 10*3/uL (0.04-0.35); Eosinophils % (A) 5.4 %; HCT 40.9 % (37.2-46.3); HGB 13.6 g/dL (12.0-15.0); Lymphocytes # (A) 1.43 X 10*3/uL (0.90-5.00); Lymphocytes % (A) 15.8 %; MCH 27.6 pg (27.0-32.0); MCHC 33.3 g/dL (32.0-37.0); Mean Platelet Volume 10.9 fL (9.5-12.2); Monocytes # (A) 0.43 X 10*3/uL (0.20-1.00); Monocytes % (A) 4.7 %; Neutrophils # (A) 6.61 X 10*3/uL (1.80-7.70); Platelet Count 236 X 10*3/uL (140-440); RBC 4.93 X 10*6/uL (4.10-5.20); RDW 13.1 % (11.5-14.5); WBC 9.06 X 10*3/uL (4.50-10.00)
[2021-02-04 18:28] LABS: ALT 21 U/L (8-44); AST 25 U/L (13-35); African American GFR (CKD) 92.5 (60.0-200.0); Albumin 4.3 g/dL (3.8-4.9); Albumin/Globulin Ratio 1.92 (1.60-3.17); Alkaline Phosphatase 87 U/L (41-126); BUN/Creat Ratio 13.41 Ratio (12.00-20.00); Blood Urea Nitrogen 10.1 mg/dL (9.0-27.0); Calcium 9.9 mg/dL (8.7-10.3); Carbon Dioxide 21.9 mmol/L (21.6-31.8); Chloride 96 mmol/L (96-109); Globulin 2.2 g/dL (1.6-3.3); Glucose 150 mg/dL (70-110); Non-African American GFR(CKD) 79.8 (60.0-200.0); Potassium 4.4 mmol/L (3.5-5.5); Sodium 131 mmol/L (135-145); Total Protein 6.5 g/dL (6.2-8.2)
[2021-02-04 18:29] LABS: Chol/HDL Ratio 3.19 Ratio; LDL Cholesterol,Calculated 59.1 mg/dL (0.0-131.0)
== END | disposition home or self-care (01) ==
LOC: LABWHC1 08:59
PROVIDERS: ATTEND Nurse Practitioner Adult Health
DX: I10 Essential (primary) hypertension (principal); E78.2 Mixed hyperlipidemia
CPT/HCPCS: 36415; 80053; 80061; 83036; 84443; 85025

== ENCOUNTER → 2021-03-03 | Outpatient (CLI) | payer MEDICARE ==
[2021-03-03 15:53] LABS: African American GFR (CKD) 85.7 (60.0-200.0); Anion Gap 12.7 mmol/L (10.00-18.00); BUN/Creat Ratio 14.96 Ratio (12.00-20.00); Calcium 9.8 mg/dL (8.7-10.3); Carbon Dioxide 22.2 mmol/L (20.0-27.5); Potassium 5.1 mmol/L (3.5-5.5)
== END | disposition home or self-care (01) ==
LOC: LABWHC1 10:07
PROVIDERS: ATTEND Nurse Practitioner Adult Health
DX: E87.1 Hypo-osmolality and hyponatremia (principal)
CPT/HCPCS: 36415; 80048

== ENCOUNTER → 2021-09-18 | Outpatient (CLI) | payer MEDICARE ==
[2021-09-18 13:43] LABS: Basophils # (A) 0.06 X 10*3/uL (0.00-0.10); Basophils % (A) 0.8 %; Eosinophils # (A) 0.48 X 10*3/uL (0.04-0.35); Eosinophils % (A) 6.6 %; HCT 40.7 % (37.2-46.3); Immature Grans, Automated 0.3 %; Lymphocytes # (A) 1.65 X 10*3/uL (0.90-5.00); Lymphocytes % (A) 22.5 %; MCH 27.1 pg (27.0-32.0); MCHC 31.9 g/dL (32.0-37.0); MCV 84.8 fL (80.0-97.0); Mean Platelet Volume 11.2 fL (9.5-12.2); Monocytes # (A) 0.37 X 10*3/uL (0.20-1.00); Monocytes % (A) 5.1 %; NRBC Per 100 WBC 0 /100 WBCS (0.0-0.0); Neutrophils # (A) 4.74 X 10*3/uL (1.80-7.70); Neutrophils % (A) 64.7 %; Platelet Count 223 X 10*3/uL (140-440); RDW 13.1 % (11.5-14.5); WBC 7.32 X 10*3/uL (4.50-10.00)
[2021-09-18 14:01] LABS: ALT 16 U/L (8-44); AST 23 U/L (13-35); African American GFR (CKD) 90.3 (60.0-200.0); Albumin 4.2 g/dL (3.8-4.9); Albumin/Globulin Ratio 1.81 (1.60-3.17); Alkaline Phosphatase 76 U/L (41-126); BUN/Creat Ratio 10.64 Ratio (12.00-20.00); Blood Urea Nitrogen 8.1 mg/dL (9.0-27.0); Calcium 9.5 mg/dL (8.7-10.3); Carbon Dioxide 23.5 mmol/L (20.0-27.5); Chloride 98 mmol/L (96-109); Globulin 2.3 g/dL (1.6-3.3); Glucose 140 mg/dL (70-110); LDL Cholesterol,Calculated 74.8 mg/dL (0.0-131.0); Non-African American GFR(CKD) 77.9 (60.0-200.0); Potassium 4.5 mmol/L (3.5-5.5); Sodium 134 mmol/L (135-145); Total Protein 6.6 g/dL (6.2-8.2)
[2021-09-18 18:54] LABS: Microalbumin Creatinine Ratio <30 mg/g Creat (0-30); Urine Creatinine 97.7 mg/dL (28.0-217.0)
== END | disposition home or self-care (01) ==
LOC: LABWHC1 07:42
PROVIDERS: ATTEND Internal Medicine Interventional Cardiology
DX: E78.2 Mixed hyperlipidemia (principal); N18.9 Chronic kidney disease, unspecified; I25.709 Atherosclerosis of coronary artery bypass graft(s), unspecified, with unspecified angina pectoris; E11.65 Type 2 diabetes mellitus with hyperglycemia
CPT/HCPCS: 36415; 80053; 80061; 82043; 82570; 83036; 84443; 85025

== ENCOUNTER → 2022-06-25 | Outpatient (CLI) | payer MEDICARE ==
[2022-06-25 16:27] LABS: Basophils # (A) 0.07 X 10*3/uL (0.00-0.10); Basophils % (A) 0.8 %; Eosinophils # (A) 0.64 X 10*3/uL (0.04-0.35); Eosinophils % (A) 7.3 %; HCT 41.8 % (37.2-46.3); HGB 14.4 g/dL (12.0-15.0); Immature Grans, Automated 0.2 %; Lymphocytes # (A) 1.62 X 10*3/uL (0.90-5.00); Lymphocytes % (A) 18.6 %; MCH 28.9 pg (27.0-32.0); MCHC 34.4 g/dL (32.0-37.0); MCV 83.8 fL (80.0-97.0); Mean Platelet Volume 11.5 fL (9.5-12.2); Monocytes # (A) 0.38 X 10*3/uL (0.20-1.00); Monocytes % (A) 4.4 %; NRBC Per 100 WBC 0 /100 WBCS (0.0-0.0); Neutrophils # (A) 5.99 X 10*3/uL (1.80-7.70); Neutrophils % (A) 68.7 %; Platelet Count 176 X 10*3/uL (140-440); RBC 4.99 X 10*6/uL (4.10-5.20); RBC Morphology NORMAL; RDW 13.1 % (11.5-14.5); WBC 8.72 X 10*3/uL (4.50-10.00)
[2022-06-25 16:30] LABS: ALT 18 U/L (8-44); AST 22 U/L (13-35); Albumin 4.4 g/dL (3.8-4.9); Albumin/Globulin Ratio 1.93 (1.60-3.17); Alkaline Phosphatase 86 U/L (41-126); BUN/Creat Ratio 13.02 Ratio (12.00-20.00); Blood Urea Nitrogen 10.6 mg/dL (9.0-27.0); Calcium 9.6 mg/dL (8.7-10.3); Carbon Dioxide 21.4 mmol/L (20.0-27.5); Chloride 98 mmol/L (96-109); Chol/HDL Ratio 2.83 Ratio; Creatine Kinase 37 U/L (26-186); Globulin 2.3 g/dL (1.6-3.3); Glucose 152 mg/dL (70-110); LDL Cholesterol,Calculated 63.3 mg/dL (0.0-131.0); Non-African American GFR(CKD) 71.6 (60.0-200.0); Potassium 4.4 mmol/L (3.5-5.5); Sodium 135 mmol/L (135-145); Total Protein 6.7 g/dL (6.2-8.2)
[2022-06-25 19:33] LABS: Urine Creatinine 11.6 mg/dL (28.0-217.0)
--- NOTE | 2022-06-26 08:27 | MM ---
Reason for Exam: Screening (asymptomatic). Last screening mammogram was performed 12 month(s) ago. Patient History: Menarche at age 9. First Full-Term at age 24. Left ovary removed at age 53. Right ovary removed at age 53. Hysterectomy at age 53. Postmenopausal. Risk Values: Jovita 5 year model risk: 2.2%. NCI Lifetime model risk: 5.3%. Prior Study Comparison: 02/18/2019 Bilateral Screening Mammogram, [facility]. 05/11/2020 Bilateral Screening Mammogram, [facility]. 06/23/2021 Bilateral Screening Mammogram, [facility]. Tissue Density: The breast tissue is heterogeneously dense. This may lower the sensitivity of mammography. Findings: Analyzed By CAD. There is no suspicious group of microcalcifications or new suspicious mass in either breast. Overall Assessment: Benign, BI-RAD 2 Management: Screening Mammogram of both breasts in 1 year. A clinical breast exam by your physician is recommended on an annual basis and results should be correlated with mammographic findings. Electronically signed and approved by: Mingo Allen M.D. Radiologis
== END | disposition home or self-care (01) ==
LOC: RADMAMWWP 07:42
PROVIDERS: ATTEND Internal Medicine Geriatric Medicine
DX: Z12.31 Encounter for screening mammogram for malignant neoplasm of breast (principal); I25.119 Atherosclerotic heart disease of native coronary artery with unspecified angina pectoris; I10 Essential (primary) hypertension; E78.2 Mixed hyperlipidemia; E11.65 Type 2 diabetes mellitus with hyperglycemia; Z78.0 Asymptomatic menopausal state
CPT/HCPCS: 77063; 77067; 80053; 80061; 82043; 82550; 82570; 83036; 84443; 85025

== ENCOUNTER → 2023-02-11 | Outpatient (CLI) | payer MEDICARE ==
[2023-02-11 16:07] LABS: ALT 14 U/L (8-44); AST 21 U/L (13-35); Albumin 4.2 g/dL (3.8-4.9); Alkaline Phosphatase 83 U/L (41-126); BUN/Creat Ratio 9.88 Ratio (12.00-20.00); Blood Urea Nitrogen 7.9 mg/dL (9.0-27.0); Calcium 9.9 mg/dL (8.7-10.3); Carbon Dioxide 23.7 mmol/L (21.6-31.8); Chloride 99 mmol/L (96-109); Chol/HDL Ratio 2.87 Ratio; Creatine Kinase 33 U/L (26-186); Globulin 2.1 g/dL (1.6-3.3); Glucose 125 mg/dL (70-110); Potassium 4.5 mmol/L (3.5-5.5); Sodium 135 mmol/L (135-145); Total Bilirubin 0.5 mg/dL (0.3-1.2); Total Protein 6.3 g/dL (6.2-8.2); Uric Acid 3.4 mg/dL (2.9-7.7)
== END | disposition home or self-care (01) ==
LOC: LABWHC1 08:11
PROVIDERS: ATTEND Internal Medicine Interventional Cardiology
DX: I12.9 Hypertensive chronic kidney disease with stage 1 through stage 4 chronic kidney disease, or unspecified chronic kidney disease (principal); E11.22 Type 2 diabetes mellitus with diabetic chronic kidney disease; E11.65 Type 2 diabetes mellitus with hyperglycemia; N18.9 Chronic kidney disease, unspecified; I25.119 Atherosclerotic heart disease of native coronary artery with unspecified angina pectoris; E78.2 Mixed hyperlipidemia
CPT/HCPCS: 36415; 80053; 80061; 82550; 83036; 84443; 84550

== ENCOUNTER 2023-03-01 07:36 | Day surgery (SDC) | payer MEDICARE ==
[~2023-03-01 07:36] MED LIST changes: +ASPIRIN 325 MG TAB PO ONE; -ASPIRIN 325 MG TAB PO STA; -ATORVASTATIN 80 MG TAB PO STA; -SODIUM CHLORIDE 0.9% 1,000 ML in EMPTY BAG 1 BAG IV ONE; +SODIUM CHLORIDE 0.9% 1,000 ML in EMPTY BAG 1 BAG IV SCH
[2023-03-01] MEDS ORDERED: ASPIRIN 81 MG ONE (07:47)
[2023-03-01] MEDS ORDERED: SODIUM CHLORIDE 0.9% 1,000 ML IV ONE (07:48)
[2023-03-01 08:07] LABS: Glucose,Whole Blood 132 mg/dL (70-110)
[2023-03-01 08:31] VITALS: RESP 16; TEMP 97.6
[2023-03-01 08:36] LABS: Basophils # (A) 0.1 k/uL (0-0.2); Basophils % (A) 1 %; Eosinophils # (A) 0.4 k/uL (0-0.7); Eosinophils % (A) 5 %; HCT 42.3 % (34.0-46.0); HGB 14.2 gm/dL (11.4-16.0); Lymphocytes # (A) 1.2 k/uL (1.0-4.8); Lymphocytes % (A) 15 %; MCHC 33.5 g/dL (31.0-37.0); MCV 86.5 fL (80.0-100.0); Mean Platelet Volume 8.8; Monocytes # (A) 0.4 k/uL (0-1.0); Monocytes % (A) 5 %; Neutrophils % (A) 74 %; Platelet Count 178 k/uL (150-450); RBC 4.88 m/uL (3.80-5.40); RDW 13.4 % (11.5-15.5); WBC 8.1 k/uL (3.8-10.6)
[2023-03-01] MEDS ORDERED: HEPARIN SODIUM 1,000 UN/ML (10ML VL) ONE (09:16)
[2023-03-01] MEDS ORDERED: VERAPAMIL 2.5 MG/ML 2 ML AMP ONE (09:16)
[2023-03-01] MEDS ORDERED: fentaNYL (PF) 50 MCG/ML 2 ML AMP ONE (09:17)
[2023-03-01] MEDS ORDERED: fentaNYL (PF) 50 MCG/ML 2 ML AMP IVP ONE (09:53)
[2023-03-01] MEDS ORDERED: LIDOCAINE 1% INJ 10MG/ML (30 ML VIAL-PF) SQ ONE (09:55)
[2023-03-01] MEDS ORDERED: VERAPAMIL SYRINGE (5 MG/10 ML) INTRAARTER ONE (09:58)
[2023-03-01] MEDS ORDERED: MIDAZOLAM 2 MG/2 ML VIAL IVP ONE (10:00)
[2023-03-01] MEDS ORDERED: HEPARIN SODIUM 1,000 UN/ML (10ML VL) IVP ONE (10:02)
[2023-03-01] MEDS ORDERED: IOPAMIDOL-370 100ML BTL INJ ONE (10:16)
[2023-03-01] MEDS ORDERED: RX INFO: IV CONTRAST WAS GIVEN 1 EACH MISC MISCELLANE PRN (10:26)
[2023-03-01] MEDS ORDERED: SODIUM CHLORIDE 0.9% 1,000 ML IV SCH (10:30)
--- NOTE | 2023-03-01 10:33 | P.CARDCATH ---
Date of Procedure: 03/01/23 Description of Procedure: Cardiac Catheterization: The patient is a 72-year-old female with a known history of CAD status post CABG who had a recent moderately size reversible defect on her MPI. Recommendations were made regarding cardiac catheterization, the risks and the complications were discussed with the patient who is in full understanding and agreement. Procedure Description: Patient was brought to cath laboratory technician in fasting semi-sedated state after receiving Fentanyl and Benadryl achieiving moderate conscious sedated state. Using Xylocaine Anesthesia and modified Seldinger technique, a 6-Kazakh sheath was introduced in the left radial artery . Subsequently, selective coronary angiography was performed using a 5-Kazakh 3.5 bend Tab catheter. Multiple views of the coronary artery including hemiaxial views were obtained. The right Tab was used to cannulate the SVG to the OM, and MARISELA catheter was used to cannulate the CHIRINOS. Images of the graft were obtained. The left Tab catheter was used to cross the aortic valve and LVEDP was calculated. Following that, catheter and sheath were removed. Hemostasis was obtained with deployment of vascular band . There was no immediate complication. Patient was returned to room in stable condition. Of note, the patient received a total of 4000 units of intravenous heparin as well as intra-arterial verapamil. Findings: Left main: This is a short sized vessel, bifurcating into LAD and left circumflex, main has 99% stenosis LAD: Of this vessel is totally occluded in mid segment after the takeoff of the first septal public health educator. The ostium of the LAD has a 90% stenosis Left circumflex: This is a nondominant vessel giving rise to 3 obtuse marginal branch. There is competitive flow in the distal vessel from the graft. RCA: This is a large dominant vessel, bifurcating into PDA and PLV. The mid RCA has 20-30% plaque with no high-grade stenosis SVG to the OM: The proximal and distal anastomotic sites are patent and there is retrograde flow into the proximal OM CHIRINOS to the LAD: The distal anastomotic site is patent the flow into the LAD is brisk there is retrograde flow into the diagonal branch Left Ventriculogram: Not performed Hemodynamics: There was no gradient across the aortic valve, LVEDP was 3-5 mmHg Conclusion: 1. Severe left main disease and LAD disease in the ostium 2. Mild disease in the RCA 3. Patent CHIRINOS to the LAD 4. Patent SVG to the OM Recommendations: We'll continue present therapy and depending on her progress further recommendations will be made. The findings and the recommendations were discussed with the patient and the family and they were in full understanding and agreement. Duration of sedation is 20 minutes.
[2023-03-01 15:03] VITALS: BP 145/67; PULSE 62
[2023-03-01] MEDS ORDERED: METOPROLOL TARTRATE 25 MG TAB PO SCH (21:00)
[2023-03-01] MEDS ORDERED: ASPIRIN 81 MG PO SCH (21:00)
[2023-03-01] MEDS ORDERED: ATORVASTATIN 40 MG TAB PO SCH (21:00)
[2023-03-02] MEDS ORDERED: LOSARTAN 50 MG TAB PO SCH (09:00)
== END 2023-03-01 14:43 | disposition home or self-care (01) ==
LOC: CATHCVL 07:36
PROVIDERS: ATTEND Internal Medicine Interventional Cardiology
DX: I25.10 Atherosclerotic heart disease of native coronary artery without angina pectoris (principal); I10 Essential (primary) hypertension; E78.5 Hyperlipidemia, unspecified; E11.9 Type 2 diabetes mellitus without complications; Z79.82 Long term (current) use of aspirin; Z79.899 Other long term (current) drug therapy; Z88.2 Allergy status to sulfonamides; Z95.5 Presence of coronary angioplasty implant and graft; Z88.8 Allergy status to other drugs, medicaments and biological substances; Z88.0 Allergy status to penicillin
CPT/HCPCS: 93459; 85025; 99152; C1769 ×2; C1894; J2250; J2001; J3010; J1644; Q9967

== ENCOUNTER → 2023-08-09 | Outpatient (CLI) | payer MEDICARE ==
--- NOTE | 2023-08-11 20:48 | MM ---
Reason for Exam: Screening (asymptomatic). Last mammogram was performed 1 year(s) and 1 month(s) ago. Patient History: Menarche at age 9. First Full-Term at age 24. Left ovary removed at age 53. Right ovary removed at age 53. Hysterectomy at age 53. Postmenopausal. Risk Values: Jovita 5 year model risk: 2.2%. NCI Lifetime model risk: 5.0%. Prior Study Comparison: 05/11/2020 Bilateral Screening Mammogram, [facility]. 06/23/2021 Bilateral Screening Mammogram, [facility]. 06/25/2022 Bilateral MG 3D screening mammo w/cad, [facility]. Tissue Density: There are scattered areas of fibroglandular density. Findings: Analyzed By CAD. There is no suspicious group of microcalcifications or new suspicious mass in either breast. Overall Assessment: Negative, BI-RAD 1 Management: Screening Mammogram of both breasts in 1 year. . Patient should continue monthly self-breast exams. A clinical breast exam by your physician is recommended on an annual basis. This exam should not preclude additional follow-up of suspicious palpable abnormalities. Note on Jovita scores and lifetime risk: 1. A Jovita score greater than 3% is considered moderate risk. If this is the case, consider specialist referral to assess eligibility for a risk reducing agent. 2. If overall lifetime risk for the development of breast cancer is 20% or higher, the patient may qualify for future screening with alternating mammogram and breast MRI. Electronically signed and approved by: Loi Miranda M.D. Radiologist
== END | disposition home or self-care (01) ==
LOC: RADMAMWWP 08:29
PROVIDERS: ATTEND Internal Medicine Geriatric Medicine
DX: Z12.31 Encounter for screening mammogram for malignant neoplasm of breast (principal); Z78.0 Asymptomatic menopausal state
CPT/HCPCS: 77063; 77067

== ENCOUNTER → 2023-10-23 | Outpatient (CLI) | payer MEDICARE ==
--- NOTE | 2023-10-23 12:55 | BD ---
EXAMINATION TYPE: Axial Bone Density DATE OF EXAM: 10/23/2023 CLINICAL HISTORY: 73 years old Female. ICD-10 CODE: M81.0 AGE-RELATED OSTEOPOROSIS W/O CURRENT PATHO LO Height: 59.5 in Weight: 154 lbs FRAX RISK QUESTIONS: History of Fracture in Adulthood: lt elbow fx age 39 EXAM MEASUREMENTS: Bone mineral densitometry was performed using the [employer] System. Bone mineral density as measured about the Lumbar spine is: ----- L1-L4(G/cm2): 1.123 T Score Values are as follows: ----- L1: -1.1 ----- L2: -1.1 ----- L3: 0.0 ----- L4: -0.2 ----- L1-L4: -0.5 Z Score Values are as follows: ----- L1: 0.5 ----- L2: 0.5 ----- L3: 1.6 ----- L4: 1.4 ----- L1-L4: 1.1 Bone mineral density has: Decreased -0.3% since study of: 06/08/2021 Bone mineral density about the R hip (g/cm2): 0.901 Bone mineral density about the L hip (g/cm2): 0.927 T Score values are as follows: -----R Neck: -1.7 -----L Neck: -1.5 -----R Total: -0.8 -----L Total: -0.6 Z Score values are as follows: -----R Neck: 0.0 -----L Neck: 0.3 -----R Total: 0.7 -----L Total: 0.9 Bone mineral density has: Decreased -5.5% since study of: 06/08/2021 FRAX%s: The graph provided illustrates a 17.5% chance for a major osteoporotic fx and a 3.5% chance f or the hips probability for fx in 10 years time. IMPRESSION: Normal (Values between +1 and -1 indicate normal bone mass). Consider repeating this study in 5 year s or sooner if there is some new clinical indication. NOTE: T-SCORE=SD OF THE YOUNG ADULT MEAN.
== END | disposition home or self-care (01) ==
LOC: RADBDWWP 08:55
PROVIDERS: ATTEND Internal Medicine Geriatric Medicine
DX: M81.0 Age-related osteoporosis without current pathological fracture (principal)
CPT/HCPCS: 77080

== ENCOUNTER → 2024-02-10 | Outpatient (CLI) | payer MEDICARE ==
[2024-02-10 15:01] LABS: Basophils # (A) 0.06 X 10*3/uL (0.00-0.10); Basophils % (A) 0.8 %; Eosinophils # (A) 0.58 X 10*3/uL (0.04-0.35); Eosinophils % (A) 7.4 %; HGB 14.2 g/dL (12.0-15.0); Lymphocytes # (A) 1.08 X 10*3/uL (0.90-5.00); Lymphocytes % (A) 13.7 %; MCH 29.3 pg (27.0-32.0); MCHC 33.8 g/dL (32.0-37.0); MCV 86.6 FL (80.0-97.0); Mean Platelet Volume 10.6 FL (9.5-12.2); Monocytes # (A) 0.41 X 10*3/uL (0.20-1.00); Monocytes % (A) 5.2 %; NRBC Per 100 WBC 0 X 10*3/uL (0.00-0.01); Neutrophils # (A) 5.74 X 10*3/uL (1.80-7.70); Neutrophils % (A) 72.8 %; Platelet Count 180 X 10*3/uL (140-440); RBC 4.85 X 10*6/uL (4.10-5.20); RDW 12.8 % (11.5-14.5); WBC 7.88 X 10*3/uL (4.50-10.00)
[2024-02-10 15:33] LABS: Chol/HDL Ratio 2.48 Ratio; LDL Cholesterol,Calculated 59.7 mg/dL (0.0-131.0); VLDL Calculation 19.72 mg/dL (5.00-40.00)
[2024-02-10 15:34] LABS: ALT 13 U/L (8-44); AST 23 U/L (13-35); Albumin 4.2 g/dL (3.8-4.9); Albumin/Globulin Ratio 1.91 Ratio (1.60-3.17); Alkaline Phosphatase 86 U/L (41-126); BUN/Creat Ratio 12.38 Ratio (12.00-20.00); Blood Urea Nitrogen 9.9 mg/dL (9.0-27.0); Calcium 9.7 mg/dL (8.7-10.3); Carbon Dioxide 24.5 mmol/L (21.6-31.8); Chloride 101 mmol/L (96-109); Globulin 2.2 g/dL (1.6-3.3); Glucose 113 mg/dL (70-110); Potassium 4.4 mmol/L (3.5-5.5); Sodium 136 mmol/L (135-145); Total Bilirubin 0.6 mg/dL (0.3-1.2); Total Protein 6.4 g/dL (6.2-8.2); Uric Acid 3.5 mg/dL (2.9-7.7)
== END | disposition home or self-care (01) ==
LOC: LABWHC1 08:33
PROVIDERS: ATTEND Internal Medicine Geriatric Medicine
DX: I12.9 Hypertensive chronic kidney disease with stage 1 through stage 4 chronic kidney disease, or unspecified chronic kidney disease (principal); E11.22 Type 2 diabetes mellitus with diabetic chronic kidney disease; N18.9 Chronic kidney disease, unspecified; I25.119 Atherosclerotic heart disease of native coronary artery with unspecified angina pectoris; E78.2 Mixed hyperlipidemia; E11.65 Type 2 diabetes mellitus with hyperglycemia
CPT/HCPCS: 36415; 80053; 80061; 83036; 84443; 84550; 85025

== ENCOUNTER 2024-03-08 14:11 | Emergency (ER) | payer MEDICARE ==
[2024-03-08 14:34] VITALS: RESP 18; TEMP 97.5
--- NOTE | 2024-03-08 14:55 | ED ---
Upper Extremity HPI - General Source: patient, RN notes reviewed Mode of arrival: ambulatory Limitations: no limitations - History of Present Illness MD Complaint: Injury to:: right, shoulder <Augusta Day - Last Filed: 03/08/24 14:54> - General Source: patient, family, RN notes reviewed Mode of arrival: ambulatory Limitations: no limitations - History of Present Illness MD Complaint: Injury to:: right, shoulder Onset/Timin -: days(s) Other Extremity Injury: Shoulder: Right Handedness: right Place: outdoors Severity scale (1-10): 10 (Pain only with movement of extremity) Improves With: immobilization, rest Worsens With: movement of extremity Context: fall <Jw Jj - Last Filed: 03/11/24 18:42> - General Chief Complaint: Extremity Injury, Upper Stated Complaint: Fall/R Arm Injury Time Seen by Provider: 03/08/24 14:45 - History of Present Illness Initial Comments: Quick Note: This is a 73-year-old female who presents to the emergency department for a fall. States that she was on a porch this morning and she got her foot caught, causing her to fall and land on her right side. Currently has pain to her right shoulder. Denies hitting her head or sustaining any other injuries. Not taking any blood thinners. (Augusta Day) This is a 73-year-old female with history of DM, CAD and vascular disease complaining of right shoulder injury earlier today. Patient states she tripped down 1 step while going down a porch, falling onto the ground onto her her right arm/shoulder. Patient denies head and neck injury/pain, loss of consciousness, other injury. Denies dizziness, headache, paresthesia, radiculopathy (Jw Jj) - Related Data Home Medications Medication Instructions Recorded Confirmed Omeprazole 20 mg PO BID 10/12/16 02/26/23 Acetaminophen Tab [Tylenol] 500 mg PO Q6HR PRN 02/26/23 03/01/23 Aspirin 81 mg PO HS 02/26/23 03/01/23 Atorvastatin [Lipitor] 40 mg PO HS 02/26/23 02/26/23 Furosemide [Lasix] 40 mg PO DAILY PRN 02/26/23 02/26/23 Losartan [Cozaar] 50 mg PO QAM 02/26/23 02/26/23 Potassium Chloride ER [K-Dur 20] 20 meq PO QAM 02/26/23 02/26/23 Previous Rx's Medication Instructions Recorded Gabapentin [Neurontin] 300 mg PO BID cap 07/10/18 Metoprolol Tartrate [Lopressor] 25 mg PO BID tab 07/10/18 Multivitamins, Thera [Multivitamin 1 each PO DAILY@1200 tab 07/10/18 (formulary)] metFORMIN HCL [Glucophage] 500 mg PO Q12H tab 07/10/18 Allergies Allergy/AdvReac Type Severity Reaction Status Date / Time ondansetron [From Zofran] Allergy Nausea & Verified 03/08/24 14:31 Vomiting Penicillins Allergy Anaphylaxis Verified 03/08/24 14:31 sulfamethoxazole Allergy Rash/Hives Verified 03/08/24 14:31 [From Bactrim] trimethoprim [From Bactrim] Allergy Rash/Hives Verified 03/08/24 14:31 Review of Systems ROS Other: All systems not noted in ROS Statement are negative. <Augusta Day - Last Filed: 03/08/24 14:54> ROS Other: All systems not noted in ROS Statement are negative. <Jw Jj - Last Filed: 03/11/24 18:42> ROS Statement: Those systems with pertinent positive or pertinent negative responses have been documented in the HPI. Past Medical History Past Medical History: Coronary Artery Disease (CAD), Chest Pain / Angina, Diabetes Mellitus, GERD/Reflux, Hyperlipidemia, Hypertension, Sleep Apnea/CPAP/BIPAP, Vascular Disorder Additional Past Medical History / Comment(s): Diabetes mellitus, PVD, obstructive sleep apnea not tolerating CPAP therapy, hiatal hernia History of Any Multi-Drug Resistant Organisms: None Reported Past Surgical History: Adenoidectomy, Appendectomy, Cholecystectomy, Coronary Bypass/CABG, Heart Catheterization, Hysterectomy, Tonsillectomy Additional Past Surgical History / Comment(s): 2019 CABG 2 vessel, COLONOSCOPY, heart catheterization in 2006 without intervention Past Anesthesia/Blood Transfusion Reactions: Previous Problems w/ Anesthesia Additional Past Anesthesia/Blood Transfusion Reaction / Comment(s): SLOW TO WAKE UP Past Psychological History: No Psychological Hx Reported Smoking Status: Never smoker - Past Family History Sister(s) Family Medical History: Cancer Father Family Medical History: Coronary Artery Disease (CAD) Additional Family Medical History / Comment(s): Father of myocardial inf arction at 54 years old Mother Family Medical History: Congestive Heart Failure (CHF), COPD Additional Family Medical History / Comment(s): Smoker <Augusta Day - Last Filed: 03/08/24 14:54> General Exam Limitations: no limitations <Augusta Day - Last Filed: 03/08/24 14:54> General appearance: alert, in no apparent distress Head exam: Present: atraumatic, normocephalic, normal inspection Eye exam: Present: normal appearance, PERRL, EOMI. Absent: scleral icterus, conjunctival injection, periorbital swelling ENT exam: Present: normal exam, mucous membranes moist Neck exam: Present: normal inspection. Absent: tenderness, meningismus, lymphadenopathy Respiratory exam: Present: normal lung sounds bilaterally. Absent: respiratory distress, wheezes, rales, rhonchi, stridor Cardiovascular Exam: Present: regular rate, normal rhythm, normal heart sounds. Absent: systolic murmur, diastolic murmur, rubs, gallop, clicks GI/Abdominal exam: Present: soft, normal bowel sounds. Absent: distended, tenderness, guarding, rebound, rigid Extremities exam: Present: tenderness (Positive right lateral shoulder exquisite tenderness specially near proximal humerus. Distal neurovascular and motor function intact radial pulse +2. Patient unable to abduct arm from body.), normal capillary refill. Absent: pedal edema, joint swelling, calf tenderness Back exam: Present: normal inspection Neurological exam: Present: alert, oriented X3, CN II-XII intact Psychiatric exam: Present: normal affect, normal mood Skin exam: Present: warm, dry, intact, normal color. Absent: rash <Jw Jj - Last Filed: 03/11/24 18:42> - General Exam Comments Initial Comments: Visual Physical Exam Vital signs reviewed General: Well-appearing, nontoxic, no acute distress. Head: Normocephalic, atraumatic Eyes: PERRLA, EOMI ENT: Airway patent Chest: Nonlabored breathing Skin: No visual rash, normal skin tone Neuro: Alert and oriented 3 Musculoskeletal: No gross abnormalities (Augusta Day) Course Vital Signs 03/08/24 03/08/24 03/08/24 14:31 16:48 17:28 Temperature 97.5 F L Pulse Rate 70 63 Respiratory 18 18 Rate Blood Pressure 200/89 195/107 166/88 O2 Sat by Pulse 100 97 Oximetry Medical Decision Making <Augusta Day - Last Filed: 03/08/24 14:54> <Jw Jj - Last Filed: 03/11/24 18:42> - Medical Decision Making I performed the QuickNote portion of this chart. Signed Augusta Day PA-C. (Augusta Day) Was pt. sent in by a medical professional or institution (SARI Harvey, PAYROLL ACCOUNTANT, urgent care, hospital, or senior living...) When possible be specific @ -No Did you speak to anyone other than the patient for history (EMS, parent, family, police, friend...)? What history was obtained from this source @ -No Did you review nursing and triage notes (agree or disagree)? Why? @ -I reviewed and agree with nursing and triage notes Were old charts reviewed (outside hosp., previous admission, EMS record, old EKG, old radiological studies, urgent care reports/EKG's, senior living records)? Report findings @ -No old charts were reviewed Differential Diagnosis (chest pain, altered mental status, abdominal pain women, abdominal pain men, vaginal bleeding, weakness, fever, dyspnea, syncope, headache, dizziness, GI bleed, back pain, seizure, CVA, palpatations, mental h ealth, musculoskeletal)? @ -Shoulder fracture, rotator cuff tear, clavicle fracture, scapular fracture, humeral head fracture, shoulder dislocation, impingement syndrome, this is not an exhaustive list EKG interpreted by me (3pts min.). @ -Not done X-rays interpreted by me (1pt min.). @ -Right shoulder x-ray shows minimally displaced fracture of the right humeral head/neck junction. CT interpreted by me (1pt min.). @ -None done U/S interpreted by me (1pt. min.). @ -None done What testing was considered but not performed or refused? (CT, X-rays, U/S, labs)? Why? @ -None What meds were considered but not given or refused? Why? @ -Patient declined medication for pain. States she is not having pain as long as arm is supported. Did you discuss the management of the patient with other professionals (professionals i.e. DrKeena, PA, PAYROLL ACCOUNTANT, lab, RT, psych nurse, pediatric social worker, real estate assistant, teacher, hospital security officer, case picker)? Give summary @ -No Was smoking cessation discussed for >3mins.? @ -No Was critical care preformed (if so, how long)? @ -No Were there social determinants of health that impacted care today? How? (Homelessness, low income, unemployed, alcoholism, drug addiction, transportation, low edu. Level, literacy, decrease access to med. care, shelter, rehab)? @ -No Was there de-escalation of care discussed even if they declined (Discuss DNR or withdrawal of care, Hospice)? DNR status @ -No What co-morbidities impacted this encounter? (DM, HTN, Smoking, COPD, CAD, Cancer, CVA, ARF, Chemo, Hep., AIDS, mental health diagnosis, sleep apnea, morbid obesity)? @ -DM, vascular disease Was patient admitted / discharged? Hospital course, mention meds given and route, prescriptions, significant lab abnormalities, going to OR and other pertinent info. @ -Right shoulder x-ray shows minimally displaced fracture of the right humeral head/neck junction. Patient provided arm sling for fracture and support of arm. Advised follow-up with PCP for ongoing care. Advised alternate Tylenol/Motrin every 4 hours for pain. Undiagnosed new problem with uncertain prognosis? @ -No Drug Therapy requiring intensive monitoring for toxicity (Heparin, Nitro, Insulin, Cardizem)? @ -No Were any procedures done? @ -No Diagnosis/symptom? @ -Humeral neck fracture Acute, or Chronic, or Acute on Chronic? @ -Acute Uncomplicated (without systemic symptoms) or Complicated (systemic symptoms)? @ -Uncomplicated Side effects of treatment? @ -No Exacerbation, Progression, or Severe Exacerbation? @ -No Poses a threat to life or bodily function? How? (Chest pain, USA, MA, pneumonia, PE, COPD, DKA, ARF, appy, cholecystitis, CVA, Diverticulitis, Homicidal, Suicidal, threat to staff... and all critical care pts) @ -No (Jw Jj) Disposition <Augusta Day - Last Filed: 03/08/24 14:54> Is patient prescribed a controlled substance at d/c from ED?: No Time of Disposition: 16:47 <Jw Jj - Last Filed: 03/11/24 18:42> Clinical Impression: Fracture of neck of humerus Disposition: HOME SELF-CARE Condition: Good Instructions (If sedation given, give patient instructions): Proximal Humerus Fracture (ED) Additional Instructions: Follow-up with orthopedics this week Referrals: Arcadio Baptiste MD [Primary Care Provider] - 1-2 days Diogo Lebron MD [STAFF PHYSICIAN] - 1-2 days Bentley Dhaliwal MD [STAFF PHYSICIAN] - 1-2 days
--- NOTE | 2024-03-08 15:21 | XR ---
EXAMINATION TYPE: XR shoulder complete RT DATE OF EXAM: 03/08/2024 3:02 PM COMPARISON: None available. CLINICAL INDICATION: Female, 73 years old with history of Fall; [facility] TECHNIQUE: XR shoulder complete RT; examined in AP, internally rotated and scapular Y projections. FINDINGS: Subtle cortical step off/minimally displaced fracture at the right lateral humeral head/neck junction . Partially visualized right lung appears clear. Moderate generalized arthritis of the acromion clavi cular and glenoid humeral joints. IMPRESSION: Minimally displaced fracture involving the right lateral humeral head/neck junction. [facility], , 03/08/2024 3:18 PM
[2024-03-08 16:51] VITALS: PULSE 63
[2024-03-08 17:28] VITALS: BP 166/88
== END 2024-03-08 17:33 | disposition home or self-care (01) ==
LOC: EC 14:11
DX: S42.211A Unspecified displaced fracture of surgical neck of right humerus, initial encounter for closed fracture (principal); E11.9 Type 2 diabetes mellitus without complications; I99.9 Unspecified disorder of circulatory system; Z88.1 Allergy status to other antibiotic agents; Z88.0 Allergy status to penicillin; Z88.2 Allergy status to sulfonamides; Z88.8 Allergy status to other drugs, medicaments and biological substances; W01.0XXA Fall on same level from slipping, tripping and stumbling without subsequent striking against object, initial encounter
CPT/HCPCS: 99283

== ENCOUNTER → 2024-09-21 | Outpatient (CLI) | payer MEDICARE ==
--- NOTE | 2024-09-21 17:06 | MM ---
Reason for Exam: Screening (asymptomatic). Last mammogram was performed 1 year(s) and 1 month(s) ago. Patient History: Menarche at age 9. First Full-Term at age 24. Left ovary removed at age 53. Right ovary removed at age 53. Hysterectomy at age 53. Postmenopausal. Risk Values: Joviat 5 year model risk: 2.2%. NCI Lifetime model risk: 4.7%. Prior Study Comparison: 06/23/2021 Bilateral Screening Mammogram, [facility]. 06/25/2022 Bilateral MG 3D screening mammo w/cad, [facility]. 08/09/2023 Bilateral MG 3D screening mammo w/cad, [facility]. Tissue Density: There are scattered areas of fibroglandular density. Findings: Analyzed By CAD. Benign punctate and round calcifications redemonstrated. There is no suspicious group of microcalcifications or new suspicious mass in either breast. Overall Assessment: Benign, BI-RAD 2 Management: Screening Mammogram of both breasts in 1 year. Patient should continue monthly self-breast exams. A clinical breast exam by your physician is recommended on an annual basis. This exam should not preclude additional follow-up of suspicious palpable abnormalities. Note on Jovita scores and lifetime risk: 1. A Jovita score greater than 3% is considered moderate risk. If this is the case, consider specialist referral to assess eligibility for a risk reducing agent. 2. If overall lifetime risk for the development of breast cancer is 20% or higher, the patient may qualify for future screening with alternating mammogram and breast MRI. [facility], , 09/21/2024 5:03 PM. Electronically signed and approved by: Loi Miranda M.D. Radiologist
== END | disposition home or self-care (01) ==
LOC: RADMAMWWP 09:52
PROVIDERS: ATTEND Internal Medicine Geriatric Medicine
DX: Z12.31 Encounter for screening mammogram for malignant neoplasm of breast (principal); R92.323 Mammographic fibroglandular density, bilateral breasts; Z78.0 Asymptomatic menopausal state
CPT/HCPCS: 77063; 77067

== ENCOUNTER → 2024-09-23 | Outpatient (CLI) | payer MEDICARE ==
[2024-09-23 15:02] LABS: Basophils # (A) 0.08 X 10*3/uL (0.00-0.10); Basophils % (A) 1.0 %; Eosinophils # (A) 0.70 X 10*3/uL (0.04-0.35); Eosinophils % (A) 8.9 %; HCT 43.3 % (37.2-46.3); HGB 15.0 g/dL (12.0-15.0); Immature Grans, Automated 0.30 %; Lymphocytes # (A) 1.46 X 10*3/uL (0.90-5.00); Lymphocytes % (A) 18.6 %; MCH 29.0 pg (27.0-32.0); MCHC 34.6 g/dL (32.0-37.0); MCV 83.8 FL (80.0-97.0); Monocytes # (A) 0.39 X 10*3/uL (0.20-1.00); Monocytes % (A) 5.0 %; NRBC Per 100 WBC 0 X 10*3/uL (0.00-0.01); Neutrophils # (A) 5.22 X 10*3/uL (1.80-7.70); Neutrophils % (A) 66.2 %; Platelet Count 215 X 10*3/uL (140-440); RBC 5.17 X 10*6/uL (4.10-5.20); RDW 12.9 % (11.5-14.5); WBC 7.87 X 10*3/uL (4.50-10.00)
[2024-09-23 15:33] LABS: ALT 17 U/L (8-44); AST 24 U/L (13-35); Albumin 4.3 g/dL (3.8-4.9); Albumin/Globulin Ratio 1.87 Ratio (1.60-3.17); Alkaline Phosphatase 86 U/L (41-126); Anion Gap 12.80 mmol/L (4.00-12.00); BUN/Creat Ratio 11.71 Ratio (12.00-20.00); Blood Urea Nitrogen 8.2 mg/dL (9.0-27.0); Calcium 9.8 mg/dL (8.7-10.3); Carbon Dioxide 22.2 mmol/L (21.6-31.8); Chloride 98 mmol/L (96-109); Cholesterol 134.00 mg/dL (0.00-200.00); Globulin 2.3 g/dL (1.6-3.3); Glucose 116 mg/dL (70-110); HDL Cholesterol 51.80 mg/dL (40.00-60.00); LDL Cholesterol,Calculated 60.2 mg/dL (0.0-131.0); Potassium 4.7 mmol/L (3.5-5.5); Sodium 133 mmol/L (135-145); Total Protein 6.6 g/dL (6.2-8.2); Triglycerides 110.00 mg/dL (0.00-149.00); VLDL Calculation 22.00 mg/dL (5.00-40.00)
== END | disposition home or self-care (01) ==
LOC: LABWHC1 08:25
PROVIDERS: ATTEND Internal Medicine Interventional Cardiology
DX: E78.2 Mixed hyperlipidemia (principal); I25.119 Atherosclerotic heart disease of native coronary artery with unspecified angina pectoris; E11.22 Type 2 diabetes mellitus with diabetic chronic kidney disease
CPT/HCPCS: 36415; 80053; 80061; 83036; 84443; 85025